=== PATIENT | male | born 1940 | race Caucasian/White ===

== ENCOUNTER 2016-10-07 11:50 | Inpatient (IN) | payer OTHER ==
[~2016-10-07] VITALS: Ht 182.9 cm; Wt 94.5 kg
[2016-10-07] VITALS (10 sets, daily range): BP systolic 104–157; BP diastolic 58–71; PULSE 17–93; RESP 14–19; TEMP 98.2–100.8; O2SAT 95–100
[~2016-10-07 11:50] MED LIST: ASPI81TA82 PO; DIOV160T60 PO; DIOV320T PO; GLUCTAB PO; METO50TA PO; ZOCO10TA PO
[2016-10-07] MEDS ORDERED: ASPI81CH CHEW (12:00)
[2016-10-07] MEDS ORDERED: METO50TA PO (12:00)
[2016-10-07] MEDS ORDERED: METF750T PO (12:00)
[2016-10-07] MEDS ORDERED: ZOCO10TA PO (12:00)
[2016-10-07 12:13] LABS: MEAN CORPUSCULAR HGB CONC 36.4 % (32.0-36.0)
[2016-10-07] MEDS ORDERED: CLINDAMYCIN INJ 600 MG in SODIUM CHLORIDE 0.9% INJ 100 ML IV ONE (12:15)
[2016-10-07 12:30] LABS: AUTOMATED NEUTROPHIL # 1.1 TH/MM3 (1.8-7.7); BASOPHIL % 0.4 % (0.0-2.0); EOSINOPHIL % 0.4 % (0.0-4.0); HEMATOCRIT 25.9 % (39.0-51.0); LYMPH % 18.1 % (9.0-44.0); LYMPHOCYTE # 0.3 TH/MM3 (1.0-4.8); MEAN CELL VOLUME 111.8 FL (80.0-100.0); MEAN CORPUSCULAR HEMOGLOBIN 40.7 PG (27.0-34.0); MONO % 4.4 % (0.0-8.0); NEUT % 76.7 % (16.0-70.0); RED BLOOD COUNT 2.32 MIL/MM3 (4.50-5.90); RED CELL DISTRIBUTION WIDTH 16.2 % (11.6-17.2); WHITE BLOOD COUNT 1.4 TH/MM3 (4.0-11.0)
[2016-10-07 12:45] LABS: HEMO FLAGS AUTO DIFF
[2016-10-07 12:49] LABS: PLATELET COUNT 18 TH/MM3 (150-450)
--- NOTE | 2016-10-07 12:51 | PD ---
HPI Chief Complaint: Skin Problem Time Seen by Provider: 12:02 Travel History International Travel<30 days: No Contact w/Intl Traveler<30days: No Traveled to known affect area: No History of Present Illness HPI This is a 75-year-old male who presents to the emergency department with the red painful area on his left leg which has been persistent and worsening the past week, constant, moderate severity with no associated fevers or chills. His family came into town 2 days ago and noticed his leg and they feel like its worsens just in the past 2 days. He is not taking anything for it. He thinks maybe he sustained an insect bite. He does have a history of diabetes. PFSH Past Medical History High Cholesterol: Yes Diabetes: Yes Patient Takes Glucophage: Yes Diminished Hearing: No Hypertension: Yes Tetanus Vaccination: Unknown Influenza Vaccination: Yes Social History Alcohol Use: Yes (7 GLASSES OF VODKA DAILY X 15 YEARS) Tobacco Use: No Substance Use: No Allergies-Medications (Allergen,Severity, Reaction): Coded Allergies: No Known Allergies (Unverified , 10/07/16) Reported Meds & Prescriptions Reported Meds & Active Scripts Active Reported Zocor (Simvastatin) 10 Mg Tab 10 Mg PO HS Metoprolol Tartrate 50 Mg Tab 50 Mg PO BID Metformin ER (Metformin HCl) 750 Mg Leonila 750 Mg PO BID With evening meal Aspirin 81 Mg Chew 81 Mg CHEW DAILY Review of Systems Except as stated in HPI: all other systems reviewed are Neg Physical Exam Narrative GENERAL:Well appearing, no acute distress SKIN: Large areas of petechiae on the left lower extremity, warm with some swelling. HEAD: Atraumatic. Normocephalic. EYES: Pupils equal and round. No injection or drainage. ENT: Moist mucous membranes NECK: Trachea midline. CARDIOVASCULAR: Regular rate and rhythm. No murmur appreciated. RESPIRATORY: Clear to auscultation. Breath sounds equal bilaterally. GASTROINTESTINAL: Abdomen soft, non-tender, nondistended. MUSCULOSKELETAL: No obvious deformities. NEUROLOGICAL: Awake and alert. No obvious cranial nerve deficits. Moving all extremities. PSYCHIATRIC: Appropriate mood and affect; insight and judgment normal. Data Data Last Documented VS Vital Signs Date Time Temp Pulse Resp B/P Pulse Ox O2 Delivery O2 Flow Rate FiO2 10/07/16 12:55 85 16 144/71 98 Room Air 10/07/16 11:52 98.2 Orders Complete Blood Count With Diff (10/07/16 12:11) Lactic Acid (10/07/16 12:11) Comprehensive Metabolic Panel (10/07/16 12:11) ^ Insert Iv (10/07/16 12:11) Clindamycin Inj (Cleocin Inj) (10/07/16 12:15) Prothrombin Time / Inr (Pt) (10/07/16 12:51) Act Partial Throm Time (Ptt) (10/07/16 12:51) Type And Screen (10/07/16 12:51) Direct Bilirubin (10/07/16 13:10) Direct David (10/07/16 13:10) Pathologist Smear Review (10/07/16 13:10) Us Abdomen Liver (10/07/16 ) Vitamin B12 (10/07/16 13:57) Folate, Serum (10/07/16 13:57) Sodium Chlor 0.9% 1000 Ml Inj (Ns 1000 M (10/07/16 14:00) Sodium Chlor 0.9% 1000 Ml Inj (Ns 1000 M (10/07/16 14:00) Admit Order (Ed Use Only) (10/07/16 14:00) D-Dimer (10/07/16 12:55) Fibrinogen (10/07/16 12:55) Ldh Serum (10/07/16 12:10) Labs Laboratory Tests Test 10/07/16 10/07/16 10/07/16 10/07/16 12:10 12:55 13:10 13:13 White Blood Count 1.4 TH/MM3 Red Blood Count 2.32 MIL/MM3 Hemoglobin 9.4 GM/DL Hematocrit 25.9 % Mean Corpuscular Volume 111.8 FL Mean Corpuscular Hemoglobin 40.7 PG Mean Corpuscular Hemoglobin 36.4 % Concent Red Cell Distribution Width 16.2 % Platelet Count 18 TH/MM3 Mean Platelet Volume 9.3 FL Neutrophils (%) (Auto) 76.7 % Lymphocytes (%) (Auto) 18.1 % Monocytes (%) (Auto) 4.4 % Eosinophils (%) (Auto) 0.4 % Basophils (%) (Auto) 0.4 % Neutrophils # (Auto) 1.1 TH/MM3 Lymphocytes # (Auto) 0.3 TH/MM3 Monocytes # (Auto) 0.1 TH/MM3 Eosinophils # (Auto) 0.0 TH/MM3 Basophils # (Auto) 0.0 TH/MM3 CBC Comment AUTO DIFF Differential Total Cells 100 Counted Neutrophils % (Manual) 36 % Band Neutrophils % 34 % Lymphocytes % 24 % Monocytes % 2 % Basophils % 1 % Neutrophils # (Manual) 1.0 TH/MM3 Metamyelocytes 3 % Differential Comment FINAL DIFF MANUAL Atypical Lymphocytes % Toxic Granulation 2+ Toxic Vacuolation PRESENT Platelet Estimate LOW Platelet Morphology Comment ENLARGED Tear Drop Cells 1+ Ovalocytes 1+ Keratocytes OCC Sodium Level 132 MEQ/L Potassium Level 3.4 MEQ/L Chloride Level 96 MEQ/L Carbon Dioxide Level 22.6 MEQ/L Anion Gap 13 MEQ/L Blood Urea Nitrogen 26 MG/DL Creatinine 1.51 MG/DL Estimat Glomerular Filtration 45 ML/MIN Rate Random Glucose 201 MG/DL Lactic Acid Level 5.1 mmol/L Calcium Level 8.1 MG/DL Total Bilirubin 3.5 MG/DL Direct Bilirubin 1.3 MG/DL Aspartate Amino Transf 30 U/L (AST/SGOT) Alanine Aminotransferase 15 U/L (ALT/SGPT) Alkaline Phosphatase 61 U/L Lactate Dehydrogenase 263 U/L Total Protein 7.3 GM/DL Albumin 2.8 GM/DL Prothrombin Time 13.5 SEC Prothromb Time International 1.2 RATIO Ratio Activated Partial 33.7 SEC Thromboplast Time Fibrinogen 445 mg/dL D-Dimer Quantitative (PE/DVT) 3.52 MG/L FEU Blood Type AB POSITIVE Antibody Screen NEGATIVE Blood Bank Comment Blood Smear Pathologist Review Direct Antiglobulin Test NEGATIVE (David) [facility] Medical Decision Making Medical Screen Exam Complete: Yes Emergency Medical Condition: Yes Interpretation(s) Afebrile, mild tachycardia, normotensive Pancytopenia with a platelet count of 18, MCV is 111 Mild hypokalemia Renal insufficiency Lactic acid is 5.1 Total bilirubin is 3.5 with a direct bilirubin of 1.3 Differential Diagnosis Cellulitis, sepsis, cirrhosis, myelodysplastic syndrome, ITP, TTP Narrative Course This is a 75-year-old male who presents to the emergency department with a rash involving his left lower extremity which is petechial in nature. He was placed on a monitor and an IV was established. He was given a dose of empiric clindamycin and IV hydration for possible cellulitis. Labs were obtained which demonstrate thrombocytopenia as well as pancytopenia and an elevated total bilirubin concerning for possible hemolysis. The patient does have a history of heavy alcohol use of this may be related to underlying cirrhosis. I spoke with Dr. Latham given concern for underlying hematologic abnormality as TTP is certainly on the differential for this patient with thrombocytopenia, renal insufficiency and reported altered mental status from his family. He said he will follow up on the peripheral smear and consult on the patient, and he requested abdominal ultrasound. Patient was admitted to the family medicine residents for further management. Physician Communication Physician Communication Discussed with Dr. Latham and Dr. reese Diagnosis Primary Impression: Thrombocytopenia Admitting Information Admitting Physician Requests: Admit Briseida Tavarez MD Oct 07, 2016 12:50
[2016-10-07 12:58] LABS: ALT (GPT) 15 U/L (12-78); ANION GAP 13 MEQ/L (5-15); AST (GOT) 30 U/L (15-37); BICARBONATE 22.6 MEQ/L (21.0-32.0); BLOOD UREA NITROGEN 26 MG/DL (7-18); CHLORIDE 96 MEQ/L (98-107); GLOMERULAR FILTRATION RATE 45 ML/MIN (>89); POTASSIUM 3.4 MEQ/L (3.5-5.1); SODIUM (NA) 132 MEQ/L (136-145)
[2016-10-07 13:00] LABS: ALKALINE PHOSPHATASE 61 U/L (45-117); TOTAL BILIRUBIN ADULT 3.5 MG/DL (0.2-1.0)
[2016-10-07 13:11] LABS: BANDS 34 % (0-6); BASOPHILS 1 % (0-2); METAMYELOCYTES 3 % (0-1); POLYS (SEG NEUTROPHILS) 36 % (16-70); WBC DIFF SAMPLE 100
[2016-10-07 13:13] LABS: TOXIC GRANULATION 2+ (NORMAL); TOXIC VACUOLATION PRESENT (NONE SEEN)
[2016-10-07 13:19] LABS: PLATELET ESTIMATE SMEAR LOW (NORMAL)
[2016-10-07 13:24] LABS: APTT (PATIENT) 33.7 SEC (24.3-30.1); INTERNATIONAL NORMALIZED RATIO 1.2 RATIO; PROTHROMBIN TIME - PATIENT 13.5 SEC (9.8-11.6)
[2016-10-07 13:37] LABS: PLATELET MORPHOLOGY ENLARGED (NORMAL)
[2016-10-07 13:43] LABS: OVALOCYTES 1+ (NORMAL)
[2016-10-07 13:45] LABS: KERATOCYTES OCC (NORMAL); SCAN/DIFF FINAL DIFF MANUAL; TEARDROP RBCS 1+ (NORMAL)
[2016-10-07] MEDS ORDERED: SODIUM CHLOR 0.9% 1000 ML INJ 1,000 ML IV SCH ×2 (14:00)
--- NOTE | 2016-10-07 14:43 | HHI.HP ---
HPI Service Family Medicine Primary Care Physician No Primary Care Physician Admission Diagnosis thrombocytopenia Diagnoses: International Travel<30 Days: No Contact w/Intl Traveler<30days: No Known Affected Area: No History of Present Illness Patient is a 75-year-old male with a past medical history of diabetes and hypertension that presents to the [facility] with a chief complaint of left leg skin infection, pain and swelling. The patient states that he started feeling fatigued 7 days ago and has not eaten anything except for 3 pieces of meat. He has been feeling very tired and has been sleeping all day and night's. He woke up on Saturday morning with pain in his left ankle that progressively got worse to the point that he was limping. The patient denies fever, chills, chest pain, shortness of breath, and headache. He also denies dysuria but has noted decreased urinary output. He lives alone and cooks for himself but he had friends come over from [place] this week who encouraged him to come into the ED today. 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 His PCP is in [place]. He had his flu shot within the last 6 months but does not remember if he had the pneumonia vaccine. (Elida Mcgee MD R1) Review of Systems Constitutional: COMPLAINS OF: Fatigue, Change in appetite, DENIES: Fever, Chills Eyes: DENIES: Blurred vision, Vision loss Ears, nose, mouth, throat: DENIES: Nasal discharge, Throat pain, Running Nose, Sinus Pain Respiratory: DENIES: Cough, Hemoptysis, Sputum production, Shortness of breath Cardiovascular: DENIES: Chest pain, Palpitations, Syncope Gastrointestinal: COMPLAINS OF: Diarrhea (little bit), DENIES: Abdominal pain , Nausea, Vomiting Genitourinary: DENIES: Dysuria Musculoskeletal: COMPLAINS OF: Joint pain (left ankle), DENIES: Back pain, Neck pain Integumentary: DENIES: Rash Neurologic: DENIES: Headache, Tremor Psychiatric: DENIES: Suicidal Ideation, Homicidal Ideation (Elida Mcgee MD R1 ) Past Family Social History Past Medical History HTN DM - on Metformin HLD Past Surgical History 2009 - Left knee surgery 2010 - knee surgery on Right Reported Medications Reported Meds & Active Scripts Active Reported Zocor (Simvastatin) 10 Mg Tab 10 Mg PO HS Metoprolol Tartrate 50 Mg Tab 50 Mg PO BID Metformin ER (Metformin HCl) 750 Mg Leonila 750 Mg PO BID With evening meal Aspirin 81 Mg Chew 81 Mg CHEW DAILY (Eko,Elida De La Cruz MD R1) Allergies: Coded Allergies: No Known Allergies (Unverified , 10/07/16) Active Ordered Medications Active Medications Acetaminophen (Tylenol) 650 mg Q4H PRN PO; Start 10/07/16 at 15:00 Clindamycin Phosphate 600 mg/ Sodium Chloride 104 ml @ 208 mls/hr ONCE ONCE IV Last administered on 10/07/16t 12:55; Admin Dose 208 MLS/HR; Start 10/07/16 at 12:15; Stop 10/07/16 at 12:44; Status DC Dextrose (D50w (Vial) Inj) 25 ml UNSCH PRN IV PUSH; Start 10/07/16 at 17:45 Flumazenil (Romazicon Inj) 0.2 mg Q1M PRN IV PUSH; Start 10/07/16 at 15:00 Folic Acid (Folate) 1 mg DAILY PO; Start 10/07/16 at 15:30; Stop 10/12/16 at 15: 29 Glucagon (Glucagon Inj) 1 mg UNSCH PRN OTHER; Start 10/07/16 at 17:45 Hydralazine HCl (Apresoline) 10 mg Q6H PRN PO; Start 10/07/16 at 15:30 Metoprolol Tartrate 50 mg 50 mg BID PO; Start 10/08/16 at 09:00 Miscellaneous Information SPECIFIC LAB TO BE DRAWN:VANCOMY... ONCE ONCE XX; Start 10/10/16 at 17:45; Stop 10/10/16 at 17:46 Morphine Sulfate (Morphine Inj) 2 mg Q3HR PRN IV PUSH; Start 10/07/16 at 15:15 Multivitamins/ Minerals Therapeutic 1 tab 1 tab DAILY PO; Start 10/07/16 at 15:30 ; Stop 10/12/16 at 15:29 Naloxone HCl (Narcan Inj) 0.4 mg UNSCH PRN IV; Start 10/07/16 at 15:00 Ondansetron HCl (Zofran Inj) 4 mg Q6H PRN IVP; Start 10/07/16 at 15:00 Oxycodone/ Acetaminophen (Percocet 5-325 Mg) 1 tab Q6H PRN PO; Start 10/07/16 at 15:15 Pharmacy Profile Note 0 ml @ 0 mls/hr UNSCH OTHER; Start 10/07/16 at 15:15 Piperacillin Sod/ Tazobactam Sod (Zosyn 3.375 Gm Premix) 50 ml @ 100 mls/hr Q6H IV; Start 10/07/16 at 21:00 Sodium Chloride 1,000 ml @ 999 mls/hr Q1H1M IV Last administered on 10/07/16 14 :25; Admin Dose 999 MLS/HR; Start 10/07/16 at 14:00; Stop 10/07/16 at 15:00; Status DC Sodium Chloride (NS 1000 ml Inj) 1,000 ml @ 150 mls/hr Q6H40M IV Last administered on 10/07/16 15:54; Admin Dose 150 MLS/HR; Start 10/07/16 at 14:57 Sodium Chloride (NS 1000 ml Inj) 1,000 ml @ 999 mls/hr Q1H1M IV Last administered on 10/07/16 14:25; Admin Dose 999 MLS/HR; Start 10/07/16 at 14:00; Stop 10/07/16 at 15:00; Status DC Thiamine HCl (Vitamin B1) 100 mg DAILY PO; Start 10/07/16 at 15:30 Vancomycin HCl/ Sodium Chloride (Vancomycin Inj/ NS 500 ml Inj) 515 ml @ 250 mls/hr Q24H IV; Start 10/07/16 at 18:00 Family History DM: None Heart disease: None Social History Alcohol - beer, vodka at night - an ounce of a half of vodka tonic Smoking - denies, quit 38 yrs ago - <1ppd x8 years Denies drug use including MJ (Eko,Elida U R1) Physical Exam Vital Signs Vital Signs Date Time Temp Pulse Resp B/P Pulse Ox O2 Delivery O2 Flow Rate FiO2 10/07/16 12:55 85 16 144/71 98 Room Air 10/07/16 12:05 16 10/07/16 12:04 87 19 157/70 98 10/07/16 11:52 98.2 93 17 139/65 97 Physical Exam GENERAL: This is a well-nourished, well-developed patient, in no apparent distress. SKIN: Large erythematous, tender area extending from left ankle to mid calf, second area of erythema with scattered non-blanching petechiae, swollen and tender LLE HEAD: Atraumatic. Normocephalic. No temporal or scalp tenderness. EYES: Pupils equal round and reactive. Extraocular motions intact. No scleral icterus. No injection or drainage. ENT: Nose without bleeding, purulent drainage or septal hematoma. Throat without erythema, tonsillar hypertrophy or exudate. Uvula midline. Airway patent. NECK: Trachea midline. No JVD or lymphadenopathy. Supple, nontender, no meningeal signs. CARDIOVASCULAR: Regular rate and rhythm without murmurs, gallops, or rubs. RESPIRATORY: Clear to auscultation. Breath sounds equal bilaterally. No wheezes , rales, or rhonchi. GASTROINTESTINAL: Abdomen soft, non-tender, nondistended. No hepato-splenomegaly , or palpable masses. No guarding. MUSCULOSKELETAL: Extremities without clubbing, cyanosis, or edema. No joint tenderness, effusion, or edema noted. NEUROLOGICAL: Awake and alert. Cranial nerves II through XII intact. Motor and sensory grossly within normal limits. Five out of 5 muscle strength in all muscle groups. Normal speech. Laboratory Laboratory Tests Test 10/07/16 10/07/16 10/07/16 10/07/16 12:10 12:55 13:10 13:13 White Blood Count 1.4 Red Blood Count 2.32 Hemoglobin 9.4 Hematocrit 25.9 Mean Corpuscular Volume 111.8 Mean Corpuscular Hemoglobin 40.7 Mean Corpuscular Hemoglobin 36.4 Concent Red Cell Distribution Width 16.2 Platelet Count 18 Mean Platelet Volume 9.3 Neutrophils (%) (Auto) 76.7 Lymphocytes (%) (Auto) 18.1 Monocytes (%) (Auto) 4.4 Eosinophils (%) (Auto) 0.4 Basophils (%) (Auto) 0.4 Neutrophils # (Auto) 1.1 Lymphocytes # (Auto) 0.3 Monocytes # (Auto) 0.1 Eosinophils # (Auto) 0.0 Basophils # (Auto) 0.0 CBC Comment AUTO DIFF Differential Total Cells 100 Counted Neutrophils % (Manual) 36 Band Neutrophils % 34 Lymphocytes % 24 Monocytes % 2 Basophils % 1 Neutrophils # (Manual) 1.0 Metamyelocytes 3 Differential Comment FINAL DIFF MANUAL Atypical Lymphocytes Toxic Granulation 2+ Toxic Vacuolation PRESENT Platelet Estimate LOW Platelet Morphology Comment ENLARGED Tear Drop Cells 1+ Ovalocytes 1+ Keratocytes OCC Sodium Level 132 Potassium Level 3.4 Chloride Level 96 Carbon Dioxide Level 22.6 Anion Gap 13 Blood Urea Nitrogen 26 Creatinine 1.51 Estimat Glomerular Filtration 45 Rate Random Glucose 201 Lactic Acid Level 5.1 Calcium Level 8.1 Total Bilirubin 3.5 Direct Bilirubin 1.3 Aspartate Amino Transf 30 (AST/SGOT) Alanine Aminotransferase 15 (ALT/SGPT) Alkaline Phosphatase 61 Lactate Dehydrogenase 263 Total Protein 7.3 Albumin 2.8 Prothrombin Time 13.5 Prothromb Time International 1.2 Ratio Activated Partial 33.7 Thromboplast Time Fibrinogen 445 D-Dimer Quantitative (PE/DVT) 3.52 Blood Type AB POSITIVE Antibody Screen NEGATIVE Blood Bank Comment Blood Smear Pathologist Review Direct Antiglobulin Test NEGATIVE (David) (Elida Mcgee MD R1) Result Diagram: 10/07/16 1210 10/07/16 1210 Course Patient received 2 NS boluses in the ED and Clindamycin 600 mg IV. CBC showed leukopenia of 1.4, platelets 18. lactate elevated at 5.1, LDH, total and direct bilirubin elevated. (Elida Mcgee MD R1) Septic Shock Reassessment Heart: Regular rate and rhythm Lungs: Clear Skin: Warm Capillary Refill: <2 seconds (Elida Mcgee MD R1) Assessment and Plan Assessment and Plan 75 y/o M with a PMH of DM and HTN admitted with severe sepsis from LLE extremity cellulitis. The patient will be admitted for treatment with empiric antibiotics and IV fluids. Code Status Full code Discussed Condition With Seen and examined with Dr. Houser. WDW Dr. Apple (Elida Mcgee MD R1) Attending Attestation The patient has been seen and examined. The chart and all resident notes have been reviewed. I agree that inpatient care is appropriate and that a two midnight stay is expected for the reasons documented in the resident history and physical. I have discussed this with the resident and certify the resident s order for inpatient admission. (Olga Apple MD) Problem List: (1) Severe sepsis Status: Acute Plan: -Patient meets severe sepsis criteria with tachycardia of 93 BPM and WBC of 1.4 with lactic acid of 5.1 -Physical exam consistent with nonpurulent cellulitis as there is no drainage or pus -WBC 1.4, neutrophil percent 76.7. Afebrile on admission, but possible that patient is not able to mount a febrile response due to low white blood cell count -BP WNL on admission -Vancomycin 1.5 g every 24 hours for gram positives and MRSA coverage. Pharmacy to assist with dosing -Zosyn 3.375 g IV every 6 hours for coverage of gram negatives and Pseudomonas -Normal saline at 150 mL/hr -Tylenol 650 mg Q6h PRN pain 1-10 of fever greater than 101F -Zofran 4mg IV Q6h PRN nausea/vomiting -Hydralazine 10mg PO QID prn SBP >= 180, DBP >= 100 -Blood cultures pending - patient already received one dose of clindamycin IV and vancomycin IV -Urinalysis and reflex culture is pending -Lactic acid protocol -Left lower extremity ultrasound within normal limits -Liver ultrasound ordered due to elevated direct and total bilirubin - shows hepatosplenomegaly with cirrhotic appearing liver and ascites, solid-appearing right renal mass with blood flow concerning for renal cell carcinoma Contact precautions Consider ID consult in the near future if pt. does not ct. to improve Elevate left lower extremity Expect cellulitis to worsen in the first 24 hrs after abx due to toxin release and bacterial lysis -Vital signs every 4 hours -OOB ad patricia -Monitor Is & Os (2) Cellulitis of leg without foot, left Status: Acute Plan: -Affected area marked with a pen -See plan above was severe sepsis (3) Pancytopenia Status: Acute Plan: -WBC 1.4, RBC 2.32, platelets 18 -Leukopenia may be due to sepsis -Hematology consulted - appreciate recommendations (4) VANESSA (acute kidney injury) Status: Resolved Plan: -Creatinine 1.51 -Baseline creatinine unknown -Suspect secondary to sepsis -Fluids as above, will monitor -Renal ultrasound ordered due to findings on liver ultrasound (5) Diabetes Status: Chronic Plan: -Holding home metformin -Will check A1c -Sliding scale insulin with Accu-Cheks (6) Hypertension Status: Acute Plan: -Continue home metoprolol 50 mg by mouth twice a day -Hold for blood pressure less than 100/60 (7) Alcohol abuse Status: Acute Plan: -Patient reports chronic history of drinking -CIWA protocol (8) FEN/DVT PPX/GI PPX Status: Acute Plan: Fluids: NS @ 150 mls/hr IV Electrolytes: Will monitor and replace as needed Nutrition: Diabetic diet DVT Prophylaxis: SCD on unaffected extremity, heparin and Lovenox contraindicated due to thrombocytopenia GI Prophylaxis: Protonix 40mg PO daily (Elida Mcgee MD R1) Physician Certification 2 Midnight Certification Type: Admission for Inpatient Services Order for Inpatient Services The services are ordered in accordance with Medicare regulations or non- Medicare payer requirements, as applicable. In the case of services not specified as inpatient-only, they are appropriately provided as inpatient services in accordance with the 2-midnight benchmark. Estimated LOS (days): 3 days is the estimated time the patient will need to remain in the hospital, assuming treatment plan goals are met and no additional complications. Post-Hospital Plan: Home (Elida Mcgee MD R1) Problem Qualifiers (1) Diabetes: Qualified Code: E11.8 - Type 2 diabetes mellitus with complication, unspecified termination clerk insulin use status Elida Mcgee MD R1 Oct 07, 2016 14:43 Olga Apple MD Oct 10, 2016 10:08
[2016-10-07] MEDS ORDERED: FLUMAZENIL 0.5 MG/5 ML VIAL IV PUSH PRN (15:00)
[2016-10-07] MEDS ORDERED: LORazepam 2 MG TAB PO PRN (15:00)
[2016-10-07] MEDS ORDERED: NALOXONE HCL 0.4 MG/ML AMP IV PRN (15:00)
[2016-10-07] MEDS ORDERED: ACETAMINOPHEN 325 MG TAB PO PRN (15:00)
[2016-10-07] MEDS ORDERED: LORazepam 1 MG TAB PO PRN (15:00)
[2016-10-07] MEDS: SODIUM CHLORIDE 0.9% FLUSH 5 ML FLUSH FLUSH SCH ×2 (15:00→20:46)
[2016-10-07] MEDS ORDERED: SODIUM CHLORIDE 0.9% FLUSH 5 ML FLUSH FLUSH PRN (15:00)
[2016-10-07] MEDS ORDERED: ONDANSETRON HCL 4 MG/2 ML VIAL IVP PRN (15:00)
[2016-10-07] MEDS ORDERED: LORazepam 2 MG/ML VIAL IV PUSH PRN ×4 (15:00)
[2016-10-07] MEDS ORDERED: MORPHINE SULFATE 4 MG/ML INJ IV PUSH PRN (15:15)
[2016-10-07] MEDS ORDERED: Vancomycin Consult Pharmacy 1 EA OTHER SCH (15:15)
[2016-10-07] MEDS ORDERED: hydrALAZINE HCL 10 MG TAB PO PRN (15:30)
[2016-10-07] MEDS: SODIUM CHLOR 0.9% 1000 ML INJ 1,000 ML IV SCH ×2 (15:54→19:22)
--- NOTE | 2016-10-07 16:06 | RADRPT ---
EXAM DATE/TIME: 10/07/2016 14:59 [facility] COMPARISON: No previous studies available for comparison. INDICATIONS : Cirrhosis. MEDICAL HISTORY : Hypercholesterolemia. Hypertension. Diabetic. SURGICAL HISTORY : None. ENCOUNTER: Initial ACUITY: 1 day PAIN SCORE: 0/10 LOCATION: Bilateral upper quadrant MEASUREMENTS: LIVER: 16.6 cm length COMMON DUCT: 7 mm RIGHT KIDNEY: 12.8 x 5.5 x 6.5 cm SPLEEN: 16.8 cm length FINDINGS: LIVER: Mildly nodular hepatic contour, course and echotexture, predominantly increased and ascites. Hepatofu gal flow in the main portal vein. COMMON DUCT: No intraluminal mass or stone visualized. GALLBLADDER: Contains no stones, demonstrates no wall thickening or pericholecystic fluid. PANCREAS: The visualized portions are within normal limits. RIGHT KIDNEY: 5.2 x 4.0 x 3.7 cm hypoechoic mass anterior right midpole kidney are suspected. There is blood flow s een on color Doppler imaging. SPLEEN: No focal lesion. CONCLUSION: 1. Hepatosplenomegaly with cirrhotic appearing liver and ascites. 2. Solid-appearing right renal mass suspected with blood flow concerning for renal cell carcinoma unt il proven otherwise. Jaylon Tracey MD on October 07, 2016 at 15:59 Board Certified Radiologist. This report was verified electronically.
--- NOTE | 2016-10-07 16:07 | RADRPT ---
EXAM DATE/TIME: 10/07/2016 14:59 [facility] COMPARISON: No previous studies available for comparison. INDICATIONS : Emboli. MEDICAL HISTORY : Hypercholesterolemia. Hypertension. Diabetic. SURGICAL HISTORY : None. ENCOUNTER: Initial ACUITY: 1 day PAIN SCORE: 0/10 LOCATION: Left leg. TECHNIQUE: Venous ultrasound of the leg was performed from the inguinal ligament to the proximal calf. Real-dilan e, color Doppler and spectral tracing, compression and augmentation techniques were used. FINDINGS: There is normal compressibility of the deep venous system from the inguinal region to the proximal ca lf. No echogenic clot is seen in the lumen of the common femoral, femoral, popliteal, and posterior tibial veins. There is a normal response of the venous system to proximal and distal augmentation an d respiration. CONCLUSION: Normal examination. Jaylon Tracey MD on October 07, 2016 at 16:06 Board Certified Radiologist. This report was verified electronically.
[2016-10-07] MEDS ORDERED: DEXTROSE 50% IN WATER 50 ML VIAL(D50) IV PUSH PRN (17:45)
[2016-10-07] MEDS ORDERED: GLUCAGON 1 MG/ML VIAL OTHER PRN (17:45)
[2016-10-07] MEDS ORDERED: VANCOMYCIN INJ 1,500 MG in SODIUM CHLORID 0.9% 500 ML INJ 500 ML IV SCH (18:00)
[2016-10-07 18:29] LABS: LACTIC ACID GHOST NOT REPORTABLE
[2016-10-07] MEDS: MULTIVITAMINS/MINERALS THERAPEUTIC TAB PO SCH (19:24)
[2016-10-07] MEDS: THIAMINE HCL 100 MG TAB PO SCH (19:24)
[2016-10-07] MEDS: FOLIC ACID 1 MG TAB PO SCH (19:24)
--- NOTE | 2016-10-07 20:00 | MB ---
cc: JOHANNA PAGAN MD DATE OF CONSULTATION: 10/07/2016. REASON FOR CONSULTATION: Pancytopenia in a patient presenting with fever and what appears to be cellulitis of the left lower extremity. REQUESTING PHYSICIAN: Consult requested by the Hospitalist Service. CHIEF COMPLAINT: A five-day history of severe pain and burning of the left ankle and left foot. The patient reports having decreased appetite over the past five days as well. He feels generally weak and fatigued. The patient was brought into the emergency department by his friends who were visiting and found him to look unwell. HISTORY OF PRESENT ILLNESS: Mr. Ortiz is a 75-year-old male. He is originally from [place], but now lives in [place]. He lives in a town called [place] in [place]. He spends his winter months in [place]. He sees a primary care physician in [place] by the name of Dr. Mac. The patient has no primary care physician here. Mr. Ortiz reports being in his usual good state of health up until about seven days ago. Following that, he began to feel weak, tired and woke up one morning with a severe pain of his left leg. He reports the area is very tender to the touch and felt "warm". He also noticed a red bruise/rash on the skin overlying his left distal leg as well as his left ankle. He had been feeling feverish. He lost his appetite and reports his urine had been dark yellow. He denies any overt bleeding; specifically, hematochezia, melena, hemoptysis, or easy bruising over other parts of his body. Earlier today he had friends visiting him, the friends noticed the patient to be in poor shape and they brought him into the emergency department. Upon presentation, the patient was noted to have a temperature of 100.8 degrees Fahrenheit. Blood work revealed pancytopenia with an absolute neutrophil count of 1000, hemoglobin 9.4 grams/dL, macrocytosis, platelet count of 18,000 as well. Laboratory findings revealed deranged metabolic profile with hyponatremia, low potassium, elevated creatinine, elevated lactic acid, elevated bilirubin but normal liver enzymes. His LDH was slightly elevated as well. PAST MEDICAL HISTORY: 1. Diabetes. 2. Hypertension. 3. Obesity. 4. He drinks about a quarter of a bottle of vodka daily. In the past, he drank more and tells me he has been drinking like this for over 45 years. PAST SURGICAL HISTORY: He reports having had partial knee replacement in both knees. He denies other surgical intervention. FAMILY HISTORY: The parents are both , the mother of complications of coronary artery disease, the father of complications of what he reports as anemia. SOCIAL HISTORY: The patient is a . He is originally from [facility]. He has lived in [place] for many years and travels down to the [facility] in the winter months. He has one natural child who lives in [place] with whom the patient has no contact. He reports formerly being a smoker and reports drinking vodka and tonic every day, more than six or seven shots a day. CURRENT INPATIENT MEDICATIONS: 1. Clindamycin 600 milligrams IV x1. 2. Zosyn 3.375 grams IV q. 6. 3. Normal saline 150 cc/hour. 4. Vancomycin 1500 milligrams q. 24. 5. Folic acid 1 milligram daily. 6. Hydralazine 10 milligrams p.o. q. 6 hours as needed for hypertension. 7. Lorazepam 1 milligram p.o. q. 4 hours. 8. Insulin sliding scale per protocol. 9. Metoprolol 50 milligrams p.o. twice a day. 10. Zofran 4 milligrams IV q. 6 hours. 11. Oxycodone 5 / 325 one tablet q. 6 hours as needed for pain. 12. Thiamine 100 milligrams p.o. daily. 13. He is also on a delirium tremens protocol. REVIEW OF SYSTEMS: A thirteen point review of systems was obtained and the following are the pertinent positives and negatives: CONSTITUTIONAL: Fatigue, weakness, decreased appetite, and feverish feeling. HEAD, EYES, EARS, NOSE, THROAT: Denies headaches, blurry vision, difficulty swallowing or soreness in the throat. RESPIRATORY: Denies difficulty breathing, cough, hemoptysis, pleuritic chest pain. CARDIOVASCULAR: Denies angina-like chest pain, paroxysmal nocturnal dyspnea, orthopnea. Reports left leg swelling. GASTROINTESTINAL: Denies abdominal bloating. Reports being jaundiced. Denies hematochezia, melena. UG: Reports his urine has been darker. Denies hematuria. CABLE INSPECTOR: Denies any focal sensory or motor deficits. SKIN: Reports itchiness and yellowness of the skin. PHYSICAL EXAMINATION: VITAL SIGNS: The vital signs reveal a temperature of 100.8 degrees Fahrenheit, heart rate 79 beats per minute, respiratory rate 18, blood pressure of 113/59, 02 saturations are 96% on room air. GENERAL PHYSICAL APPEARANCE: Mr. Ortiz is an elderly male, he is heavyset, he is sitting up in bed and appears to be in no acute distress. HEAD, EYES, EARS, NOSE, THROAT: Head is atraumatic and normocephalic. Conjunctivae are pale. The sclerae are icteric. Extraocular muscles intact. Pupils equal, round and reactive to light and accommodation. ORAL EXAM: The mucous membranes have an icteric tinge. Petechiae noted over the soft palate to the right. NECK EXAM: No palpable cervical or supraclavicular lymphadenopathy. RESPIRATORY EXAM: Good air movement bilaterally. No added breath sounds. CARDIOVASCULAR EXAM: Regular rate and rhythm. S1, S2. No obvious murmurs, rubs or gallops. ABDOMINAL EXAM: Protuberant / obese belly. Soft. Tender to palpation over the left upper quadrant. He has splenomegaly noted with the splenic tip palpable 2 cm below the left costal margin on inspiration. No inguinal lymphadenopathy. LOWER EXTREMITIES: Right lower extremity without any skin changes. Trace pretibial edema on the right side. Left lower extremity grossly abnormal. A bright red erythematic lesion involving the left distal leg circumferentially almost. The redness is exquisitely tender and warm to the touch. No skin breakdown noted. The edges of the redness have been demarcated with a marker. CABLE INSPECTOR: No focal sensory or motor deficits. SKIN: No stigmata of chronic liver failure but he does have an icteric hue. LABORATORY FINDINGS: Blood work dated 10/07/2016: Sodium 132, potassium 3.4, chloride 96, bicarbonate 22.6, BUN 26, creatinine 1.5, eGFR 45, random glucose 200, lactic acid 5.1, total bilirubin 3.5, calcium 8.1, albumin 3.8, AST 30, ALT 15, alkaline phosphatase 61, LDH 263. CBC: White blood cell count 1.4, hemoglobin 9.4 grams/dL, hematocrit 26%, MCV 112, platelet count 118,000, absolute neutrophil count 1.0, metamyelocytes are present, toxic granulation is present, toxic vacuolization is present, teardrop cells are present. Platelets are also enlarged. Coags: PT 13.5, INR 1.2, PTT 33.7. Fibrinogen 445. D dimer 3.52. IMAGING STUDIES: Ultrasound of the liver dated 10/07/2016 reveals mildly nodular hepatic contour, coarse echotexture predominantly increased and ascites noted. The spleen is enlarged at 16.8 cm. Findings consistent with hepatosplenomegaly with cirrhotic-appearing liver and ascites. Solid-appearing right renal mass suspected with blood flow concerning for renal cell carcinoma until proven otherwise. ASSESSMENT: Mr. Ortiz is a 75-year-old male who comes into the hospital with complaints of a five-day history of pain and swelling as well as redness of the left leg and ankle. Additional symptoms include a poor appetite, fatigue and weakness. He also feels febrile. Upon initial evaluation, the patient appeared to have cellulitis of the left lower extremity, this appears to be complicated by sepsis. Additional blood work and imaging studies performed in the hospital indicate: 1. Pancytopenia, imaging studies of the abdomen indicate cirrhosis with hepatosplenomegaly as well as a complicated mass involving the right kidney concerning for a renal cell carcinoma. RECOMMENDATIONS: 1. Pancytopenia: I did review this patient's peripheral smear. I do not find any suspicious findings for a high-grade malignant bone marrow disorder. I do find toxic granulation consistent with sepsis, he does have significant thrombocytopenia as well. 2. I suspect his hematologic findings at this point may be explained by baseline cytopenias due to splenomegaly superimposed with a consumptive coagulopathy with resultant platelet consumption. 3. The patient's elevated PT, PTT and INR indicate a peripheral consumption which in this case may be partially compensated. These findings are consistent with DIC. 4. The likely precipitating event of the current findings is the cellulitis of the left leg. He is appropriately covered with antibiotics. 5. I will, however, obtain a David test to rule out an autoimmune hemolysis. 6. I will also obtain imaging studies of the abdomen to further evaluate the renal mass in question. 8. Continue ongoing care. MD SHARLA Otero/STUART /7:17 PM /7:32 PM [facility]
--- NOTE | 2016-10-07 20:34 | RADRPT ---
EXAM DATE/TIME: 10/07/2016 20:03 [facility] COMPARISON: No previous studies available for comparison. INDICATIONS : Evaluate renal mass. ORAL CONTRAST: No oral contrast ingested. RADIATION DOSE: 12.09 CTDIvol (mGy) MEDICAL HISTORY : Hypertension. Diabetes. SURGICAL HISTORY : None. ENCOUNTER: Initial ACUITY: 1 day PAIN SCALE: 0/10 LOCATION: Bilateral abdomen. TECHNIQUE: Volumetric scanning of the abdomen and pelvis was performed. Using automated exposure control and ad justment of the mA and/or kV according to patient size, radiation dose was kept as low as reasonably achievable to obtain optimal diagnostic quality images. FINDINGS: On an earlier ultrasound of the abdomen-liver performed today, a hypoechoic mass was identified in the right midpole kidney. Unfortunately this examination is suboptimal for characterization of the potential renal mass as intravenous contrast was not administered. A cirrhotic appearing liver with recanalization of the umbilical vein is noted. Small varices in the gastrohepatic ligament identified , splenic varices, splenomegaly noted. The kid adrenal glands, pancreas and stomach are normal in marianne earance. There is some fullness to the right midpole kidney anterolaterally but it is very difficult to define a discrete mass given the lack of contrast. There is no hydronephrosis or nephrolithiasis. Bladder is unremarkable. Prostatic calcifications are seen. There is diverticulosis of the sigmoid an d descending colon. There is no diverticulitis. Aortic and iliac artery calcifications are seen. Dege nerative changes of the spine. Lung bases are clear. CONCLUSION: 1. Cirrhosis and portal hypertension. 2. The suspected right renal mass noted on recent ultrasound is not well evaluated on this study give n the lack of intravenous contrast. Jaylon Tracey MD on October 07, 2016 at 20:29 Board Certified Radiologist. This report was verified electronically.
[2016-10-07] MEDS: PIPERACIL-TAZO 3.375 GM PREMIX 50 ML IV SCH (20:47)
[2016-10-07] MEDS: INSULIN ASPART SUPPLEMENTAL SCALE SQ SCH (20:56)
[2016-10-07] MEDS ORDERED: VANCOMYCIN INJ 1,000 MG in SODIUM CHLOR 0.9% 250 ML INJ 250 ML IV SCH (21:00)
[2016-10-07] MEDS: oxyCODONE/ACETAMINOPHEN 5 MG/325 MG TAB PO PRN (21:49)
[2016-10-08] VITALS (13 sets, daily range): BP systolic 110–152; BP diastolic 56–80; PULSE 78–92; RESP 18–20; TEMP 96.1–99.7; O2SAT 94–97
[2016-10-08] MEDS: PIPERACIL-TAZO 3.375 GM PREMIX 50 ML IV SCH ×4 (03:12→21:20)
[2016-10-08] MEDS: SODIUM CHLOR 0.9% 1000 ML INJ 1,000 ML IV SCH ×4 (04:21→21:42)
[2016-10-08] MEDS: INSULIN ASPART SUPPLEMENTAL SCALE SQ SCH ×4 (05:59→21:40)
--- NOTE | 2016-10-08 07:32 | PD.ONC.PN ---
Subjective Subjective Remarks Patient seen and examined this morning, subjectively he reports feeling about the same as he did yesterday. He continues to have pain and swelling of the left leg. Per the nursing staff he has not urinated since 8 PM last night. Temperature maximum since admission has been 100.8F. There is no overt bleeding at this time. Labs were drawn this morning, they are pending at this time. Objective Data Date Time Temp Pulse Resp B/P Pulse Ox O2 Delivery O2 Flow Rate FiO2 10/08/16 04:00 98.8 89 18 116/60 97 10/07/16 23:50 98.8 89 18 122/58 97 10/07/16 19:07 99.6 10/07/16 16:30 100.8 79 18 113/59 96 10/07/16 16:00 99.9 80 14 104/61 98 Room Air 10/07/16 15:00 84 18 126/61 95 Room Air 10/07/16 14:00 82 16 130/61 95 Room Air 10/07/16 13:00 84 14 140/65 100 Room Air 10/07/16 12:55 85 16 144/71 98 Room Air 10/07/16 12:05 16 10/07/16 12:04 87 19 157/70 98 10/07/16 11:52 98.2 93 17 139/65 97 Result Diagram: 10/07/16 1210 10/07/16 1210 Laboratory Results Laboratory Tests Test 10/07/16 10/07/16 10/07/16 10/07/16 12:10 12:55 13:10 13:13 White Blood Count 1.4 TH/MM3 Red Blood Count 2.32 MIL/MM3 Hemoglobin 9.4 GM/DL Hematocrit 25.9 % Mean Corpuscular Volume 111.8 FL Mean Corpuscular Hemoglobin 40.7 PG Mean Corpuscular Hemoglobin 36.4 % Concent Red Cell Distribution Width 16.2 % Platelet Count 18 TH/MM3 Mean Platelet Volume 9.3 FL Neutrophils (%) (Auto) 76.7 % Lymphocytes (%) (Auto) 18.1 % Monocytes (%) (Auto) 4.4 % Eosinophils (%) (Auto) 0.4 % Basophils (%) (Auto) 0.4 % Neutrophils # (Auto) 1.1 TH/MM3 Lymphocytes # (Auto) 0.3 TH/MM3 Monocytes # (Auto) 0.1 TH/MM3 Eosinophils # (Auto) 0.0 TH/MM3 Basophils # (Auto) 0.0 TH/MM3 CBC Comment AUTO DIFF Differential Total Cells 100 Counted Neutrophils % (Manual) 36 % Band Neutrophils % 34 % Lymphocytes % 24 % Monocytes % 2 % Basophils % 1 % Neutrophils # (Manual) 1.0 TH/MM3 Metamyelocytes 3 % Differential Comment FINAL DIFF MANUAL Atypical Lymphocytes % Toxic Granulation 2+ Toxic Vacuolation PRESENT Platelet Estimate LOW Platelet Morphology Comment ENLARGED Tear Drop Cells 1+ Ovalocytes 1+ Keratocytes OCC Sodium Level 132 MEQ/L Potassium Level 3.4 MEQ/L Chloride Level 96 MEQ/L Carbon Dioxide Level 22.6 MEQ/L Anion Gap 13 MEQ/L Blood Urea Nitrogen 26 MG/DL Creatinine 1.51 MG/DL Estimat Glomerular Filtration 45 ML/MIN Rate Random Glucose 201 MG/DL Lactic Acid Level 5.1 mmol/L Calcium Level 8.1 MG/DL Total Bilirubin 3.5 MG/DL Direct Bilirubin 1.3 MG/DL Aspartate Amino Transf 30 U/L (AST/SGOT) Alanine Aminotransferase 15 U/L (ALT/SGPT) Alkaline Phosphatase 61 U/L Lactate Dehydrogenase 263 U/L Total Creatine Kinase 166 U/L Total Protein 7.3 GM/DL Albumin 2.8 GM/DL Vitamin B12 Level 259 PG/ML Folate 13.5 NG/ML Prothrombin Time 13.5 SEC Prothromb Time International 1.2 RATIO Ratio Activated Partial 33.7 SEC Thromboplast Time Fibrinogen 445 mg/dL D-Dimer Quantitative (PE/DVT) 3.52 MG/L FEU Blood Type AB POSITIVE Antibody Screen NEGATIVE Blood Bank Comment Blood Smear Pathologist Review Direct Antiglobulin Test NEGATIVE (David) Test 10/07/16 10/07/16 10/07/16 16:10 19:49 20:37 Lactic Acid Level 4.0 mmol/L 3.1 mmol/L Fibrinogen 396 mg/dL Blood Type AB POSITIVE Direct Antiglobulin Test NEGATIVE (David) Culture Results Microbiology Date/Time Procedure Status Source Growth 10/07/16 19:45 Aerobic Blood Culture Received Blood Peripheral Pending 10/07/16 19:45 Anaerobic Blood Culture Received Blood Peripheral Pending 10/07/16 19:52 Aerobic Blood Culture Received Blood Peripheral Pending 10/07/16 19:52 Anaerobic Blood Culture Received Blood Peripheral Pending Administered Medications Medications (Trade) Dose Ordered Sig/Emily Route PRN Reason Start Time Stop Time Status Last Admin Dose Admin Sodium Chloride (NS 1000 ml Inj) 1,000 ml @ 150 mls/hr Q6H40M IV 10/07/16 14:57 10/08/16 04:21 IV Flush 2 ml 2 ml BID FLUSH 10/07/16 15:00 10/07/16 20:46 Piperacillin Sod/ Tazobactam Sod (Zosyn 3.375 Gm Premix) 50 ml @ 100 mls/hr Q6H IV 10/07/16 21:00 10/08/16 03:12 Oxycodone/ Acetaminophen (Percocet 5-325 Mg) 1 tab Q6H PRN PO PAIN GREATER THAN 5 10/07/16 15:15 10/07/16 21:49 Folic Acid (Folate) 1 mg DAILY PO 10/07/16 15:30 10/12/16 15:29 10/07/16 19:24 Thiamine HCl (Vitamin B1) 100 mg DAILY PO 10/07/16 15:30 10/07/16 19:24 Multivitamins/ Minerals Therapeutic 1 tab 1 tab DAILY PO 10/07/16 15:30 10/12/16 15:29 10/07/16 19:24 Vancomycin HCl/ Sodium Chloride (Vancomycin Inj/ NS 500 ml Inj) 515 ml @ 250 mls/hr Q24H IV 10/07/16 18:00 10/07/16 19:19 Objective Remarks GENERAL PHYSICAL APPEARANCE: Mr. Ortiz is an elderly male, he is heavyset, he is sitting up in bed and appears to be in no acute distress. HEAD, EYES, EARS, NOSE, THROAT: Head is atraumatic and normocephalic. Conjunctivae are pale. The sclerae are icteric. Extraocular muscles intact. Pupils equal, round and reactive to light and accommodation. ORAL EXAM: The mucous membranes have an icteric tinge. Petechiae noted over the soft palate to the right. NECK EXAM: No palpable cervical or supraclavicular lymphadenopathy. RESPIRATORY EXAM: Good air movement bilaterally. No added breath sounds. CARDIOVASCULAR EXAM: Regular rate and rhythm. S1, S2. No obvious murmurs, rubs or gallops. ABDOMINAL EXAM: Protuberant / obese belly. Soft. Tender to palpation over the left upper quadrant. He has splenomegaly noted with the splenic tip palpable 2 cm below the left costal margin on inspiration. No inguinal lymphadenopathy. LOWER EXTREMITIES: Right lower extremity without any skin changes. Trace pretibial edema on the right side. Left lower extremity grossly abnormal. A bright red erythematic lesion involving the left distal leg circumferentially almost. The redness is exquisitely tender and warm to the touch. No skin breakdown noted. The edges of the redness have been demarcated with a marker. REMELT WORKER: No focal sensory or motor deficits. SKIN: No stigmata of chronic liver failure but he does have an icteric hue. Assessment/Plan Assessment Mr. Ortiz is a 75-year-old male who presented to the hospital with complaints of a five-day history of pain and swelling as well as redness of the left leg and ankle on 10/07/16. Additional symptoms include a poor appetite, fatigue and weakness. He also feels febrile. Upon initial evaluation, the patient appeared to have cellulitis of the left lower extremity, this appears to be complicated by sepsis. He was found to be pancytopenic, has imaging findings consistent with cirrhosis with resultant splenomegaly due to portal hypertension (personal history of heavy alcohol consumption). 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 The patient is neutropenic and thrombocytopenic. Peripheral smear indicates toxic granulation and left shift of the neutrophils, platelets are depleted. I suspect some of the cytopenias are chronic in nature due to the degree of splenomegaly he has (due to splenic sequestration of leukocytes and platelets). He has been initiated on broad-spectrum antibiotics for management of cellulitis. Plan 1. Pancytopenia: Await labs from this morning. I would anticipate some improvement in his platelet counts as the sepsis and resultant consumptive coagulopathy decreases. 2. Right renal mass: Based on ultrasound findings this is consistent with renal cell carcinoma, the lesion was incompletely evaluated on the CT scan performed on 10/07/2016 due to lack of contrast. Because this is a non-acute issue this may be addressed adequately upon his return to [facility]. 3. Cellulitis of the left leg: Continue antibiotics, on clinical exam there appears to be no significant worsening of the redness, there is also no improvement per se. It would be helpful to obtain baseline labs from his primary care physician in [place]. Nam Latham MD Oct 08, 2016 07:32
[2016-10-08 07:52] LABS: HEMATOCRIT 21.1 % (39.0-51.0); MEAN CELL VOLUME 114.5 FL (80.0-100.0); MEAN CORPUSCULAR HEMOGLOBIN 40.6 PG (27.0-34.0); MEAN CORPUSCULAR HGB CONC 35.5 % (32.0-36.0); RED BLOOD COUNT 1.84 MIL/MM3 (4.50-5.90); RED CELL DISTRIBUTION WIDTH 16.7 % (11.6-17.2); WHITE BLOOD COUNT 0.8 TH/MM3 (4.0-11.0)
[2016-10-08 07:54] LABS: HEMO FLAGS AUTO DIFF
[2016-10-08 07:56] LABS: PLATELET COUNT 7 TH/MM3 (150-450)
[2016-10-08 07:59] LABS: INTERNATIONAL NORMALIZED RATIO 1.2 RATIO; PROTHROMBIN TIME - PATIENT 13.4 SEC (9.8-11.6)
[2016-10-08] MEDS: SODIUM CHLORIDE 0.9% FLUSH 5 ML FLUSH FLUSH SCH ×2 (08:04→21:20)
[2016-10-08] MEDS: MULTIVITAMINS/MINERALS THERAPEUTIC TAB PO SCH (08:05)
[2016-10-08] MEDS: FOLIC ACID 1 MG TAB PO SCH (08:05)
[2016-10-08] MEDS: THIAMINE HCL 100 MG TAB PO SCH (08:05)
[2016-10-08] MEDS: METOPROLOL TARTRATE 50 MG TAB PO SCH ×2 (08:08→21:20)
[2016-10-08 08:19] LABS: ANION GAP 14 MEQ/L (5-15); AST (GOT) 27 U/L (15-37); BLOOD UREA NITROGEN 29 MG/DL (7-18); CHLORIDE 103 MEQ/L (98-107); LDH SERUM 230 U/L (87-241); POTASSIUM 3.1 MEQ/L (3.5-5.1); SODIUM (NA) 139 MEQ/L (136-145)
[2016-10-08 08:27] LABS: ALKALINE PHOSPHATASE 51 U/L (45-117); ALT (GPT) 14 U/L (12-78); GLOMERULAR FILTRATION RATE 61 ML/MIN (>89); HDL CHOLESTEROL 20.8 MG/DL (40.0-60.0); TOTAL BILIRUBIN ADULT 2.8 MG/DL (0.2-1.0)
[2016-10-08] MEDS ORDERED: ACETAMINOPHEN 325 MG TAB PO PRN ×3 (08:30→18:00)
[2016-10-08] MEDS ORDERED: diphenhydrAMINE HCL 25 MG CAP PO PRN ×3 (08:30→18:00)
[2016-10-08] MEDS ORDERED: SODIUM CHLOR 0.9% 250 ML INJ 250 ML IV ONE ×2 (08:30)
[2016-10-08 08:35] LABS: LDL CHOLESTEROL 15 MG/DL (0-99)
--- NOTE | 2016-10-08 08:40 | HHI.FPPN ---
Subjective Subjective Patient seen and examined. Case reviewed and discussed with the resident team. Please refer to resident H&P for further details regarding HPI, ROS, PMH, SurgHx , Fh and SocHx In summary, patient is a 75yoM who is from [place] presenting with progressive weakness and LE pain x 1 week. Initial laboratory studies found the patient to be profoundly pancytopenic with platelets at 18. Hematology was consulted and appreciate recommendations. Patient is seen in his hospital bed this morning stating he is feeling slightly improved from the time of admission. [facility] Objective Objective Laboratory Tests - Abnormals Test 10/07/16 10/07/16 10/07/16 10/07/16 12:10 12:55 16:10 19:49 White Blood Count 1.4 TH/MM3 Red Blood Count 2.32 MIL/MM3 Hemoglobin 9.4 GM/DL Hematocrit 25.9 % Mean Corpuscular Volume 111.8 FL Mean Corpuscular Hemoglobin 40.7 PG Mean Corpuscular Hemoglobin 36.4 % Concent Platelet Count 18 TH/MM3 Neutrophils (%) (Auto) 76.7 % Neutrophils # (Auto) 1.1 TH/MM3 Lymphocytes # (Auto) 0.3 TH/MM3 Band Neutrophils % 34 % Neutrophils # (Manual) 1.0 TH/MM3 Metamyelocytes 3 % Toxic Granulation 2+ Toxic Vacuolation PRESENT Platelet Estimate LOW Platelet Morphology Comment ENLARGED Tear Drop Cells 1+ Ovalocytes 1+ Sodium Level 132 MEQ/L Potassium Level 3.4 MEQ/L Chloride Level 96 MEQ/L Blood Urea Nitrogen 26 MG/DL Creatinine 1.51 MG/DL Estimat Glomerular Filtration 45 ML/MIN Rate Random Glucose 201 MG/DL Lactic Acid Level 5.1 mmol/L 4.0 mmol/L 3.1 mmol/L Calcium Level 8.1 MG/DL Total Bilirubin 3.5 MG/DL Direct Bilirubin 1.3 MG/DL Lactate Dehydrogenase 263 U/L Albumin 2.8 GM/DL Prothrombin Time 13.5 SEC Activated Partial 33.7 SEC Thromboplast Time Fibrinogen 445 mg/dL D-Dimer Quantitative (PE/DVT) 3.52 MG/L FEU Test 10/07/16 10/08/16 20:37 06:12 Fibrinogen 396 mg/dL White Blood Count 0.8 TH/MM3 Red Blood Count 1.84 MIL/MM3 Hemoglobin 7.5 GM/DL Hematocrit 21.1 % Mean Corpuscular Volume 114.5 FL Mean Corpuscular Hemoglobin 40.6 PG Platelet Count 7 TH/MM3 Erythrocyte Sedimentation Rate GREATER THAN 140 mm/hr Prothrombin Time 13.4 SEC Potassium Level 3.1 MEQ/L Blood Urea Nitrogen 29 MG/DL Estimat Glomerular Filtration 61 ML/MIN Rate Random Glucose 124 MG/DL Calcium Level 7.6 MG/DL Total Bilirubin 2.8 MG/DL Albumin 2.4 GM/DL Cholesterol Level LESS THAN 50 MG/DL HDL Cholesterol 20.8 MG/DL Vital Signs 10/07/16 10/07/16 10/07/16 10/07/16 11:52 12:04 12:05 12:55 Temp 98.2 Pulse 93 87 85 Resp 16 B/P 139/65 157/70 144/71 Pulse Ox 97 98 98 O2 Delivery Room Air 10/07/16 10/07/16 10/07/16 10/07/16 13:00 14:00 15:00 16:00 Temp 99.9 Pulse 84 82 84 80 Resp 14 B/P 140/65 130/61 126/61 104/61 Pulse Ox 100 95 95 98 O2 Delivery Room Air Room Air Room Air Room Air 10/07/16 10/07/16 10/07/16 10/08/16 16:30 19:07 23:50 04:00 Temp 100.8 99.6 98.8 98.8 Pulse 79 89 89 Resp 18 B/P 113/59 122/58 116/60 Pulse Ox 96 97 97 INTAKE & OUTPUT 10/08/16 07:00 Intake Total 2305 ml Balance 2305 ml Physical exam GENERAL: Well-developed well-nourished male resting in bed comfortably SKIN: Warm and dry. Lower extremity with erythema and petechiae circumferentially near the ankle proximally to the mid calf. HEAD: Normocephalic. Atraumatic EYES: No scleral icterus. No injection or drainage. ENT: OP clear. NECK: Supple, trachea midline. No JVD or lymphadenopathy. CARDIOVASCULAR: Regular rate and rhythm without audible murmurs, gallops, or rubs. RESPIRATORY: Breath sounds diminished at bilateral bases. No accessory muscle use. GASTROINTESTINAL: Abdomen soft, protuberant. Hepatic and splenic edges are palpable below the costal margin 1-2 cm. There is no rebound. No tenderness MUSCULOSKELETAL: No cyanosis there is 1+ edema of the left foot distal to the area of erythema described above BACK: Nontender without obvious deformity. No CVA tenderness. Neuro: Awake and alert. Normal speech. Cranial nerves grossly intact. Assessment Assessment 75-year-old male admitted with: Pancytopenia Severe Sepsis related to cellulitis Lactic acidosis Diabetes Hypertension Hyperlipidemia Renal mass PLAN PLAN Empiric antibiotic therapy Hematology consultation Infectious disease consultation Blood cultures Urine with culture if indicated Monitor CBC Neutropenic and bleeding precautions Resume home meds as appropriate Counseled regarding alcohol cessation CT abdomen/pelvis/chest to further evaluate renal mass Patient seen and examined. Case reviewed and discussed Agree with plan of care as discussed with me and documented in the resident note. Olga Apple MD Oct 08, 2016 08:40
[2016-10-08 08:49] LABS: BANDS 20 % (0-6); NEUTROPHIL # MANUAL DIFF 0.6 TH/MM3 (1.8-7.7); PLATELET ESTIMATE SMEAR RARE (NORMAL); PLATELET MORPHOLOGY NORMAL (NORMAL); POLYS (SEG NEUTROPHILS) 54 % (16-70); SCAN/DIFF FINAL DIFF MANUAL; WBC DIFF SAMPLE 50
[2016-10-08 08:50] LABS: OVALOCYTES 1+ (NORMAL); TEARDROP RBCS 1+ (NORMAL); TOXIC GRANULATION 1+ (NORMAL); TOXIC VACUOLATION PRESENT (NONE SEEN)
[2016-10-08 08:51] LABS: KERATOCYTES OCC (NORMAL)
[2016-10-08 09:06] LABS: HEMOGLOBIN A1a 1.8 %; HEMOGLOBIN A1b 0.7 %; HEMOGLOBIN Ao 82.8 %; HEMOGLOBIN F 2.9 %; HEMOGLOBIN LA1C 1.9 %; HEMOGLOBIN P3 3.5 %
--- NOTE | 2016-10-08 09:55 | RADRPT ---
EXAM DATE/TIME: 10/08/2016 09:02 [facility] COMPARISON: CT ABDOMEN & PELVIS W/O CONTRAST, October 07, 2016, 20:03. INDICATIONS : Short of breath. MEDICAL HISTORY : Hypertension. Diabetes mellitus type II. Cirrhosis SURGICAL HISTORY : None. ENCOUNTER: Initial ACUITY: 1 day PAIN SCORE: 0/10 LOCATION: Bilateral chest FINDINGS: Portable AP view of the chest demonstrates a normal-sized cardiac silhouette with calcification of th e aorta. No effusion, consolidation, or pneumothorax is visualized. Bones and soft tissues demonstrat e no acute finding. CONCLUSION: No acute cardiopulmonary abnormality is identified. Alhaji Shelton MD on October 08, 2016 at 9:51 Board Certified Radiologist. This report was verified electronically.
[2016-10-08] MEDS: predniSONE 20 MG TAB PO SCH (10:17)
[2016-10-08] MEDS: VANCOMYCIN INJ 1,500 MG in SODIUM CHLORID 0.9% 500 ML INJ 500 ML IV SCH (13:29)
[2016-10-08 15:09] LABS: MAGNESIUM 1.8 MG/DL (1.5-2.5)
--- NOTE | 2016-10-08 15:37 | MB ---
cc: ESTRELLA CHILD MD, JENNIFER R. MD DATE OF CONSULTATION: 10/08/[address] Desir REASON FOR CONSULTATION Sepsis in the setting of leukopenia and thrombocytopenia. HISTORY OF PRESENT ILLNESS This is a 73-year-old white male who is visiting the [place] from [place]. The patient developed swelling and pain and redness of his left leg which continued for about a week and he was brought into the hospital for evaluation. Upon evaluation the patient was found to have normal vital signs, however, his white blood cell count was 1.4 and the platelet count was 18. He also was noted to have a very high lactic acid level of 5.1. He was admitted to the hospital and started on IV antibiotics. He continues to have pronounced area of redness on the left tibia and continues to be thrombocytopenic and the white blood cell count is extremely low. Studies were performed including ultrasound of the liver which showed hepatosplenomegaly with cirrhotic-appearing liver and ascites. There was also a solid-appearing right renal mass. The patient denies chills or nausea or vomiting. He states that his appetite was very poor but it is improving. He had a maximum temperature of 100.8 degrees on 10/07/2016. His temperature is now normal. His white count today is 0.8 and the platelet count is 7,000. PAST MEDICAL HISTORY 1. Diabetes mellitus. 2. Hypertension. 3. Hyperlipidemia. 4. Left knee surgery in 2008. 5. Right knee surgery in 2009. ALLERGIES No known drug allergies. MEDICATIONS 1. Vancomycin. 2. Piperacillin/tazobactam. 3. Lopressor. 4. Prednisone. 5. Folic acid. 6. Thiamine. 7. Multiple vitamin. 8. Percocet 5, p.r.n. SOCIAL HISTORY The patient drinks vodka every day. No tobacco use. No illicit drugs. REVIEW OF SYSTEMS CONSTITUTIONAL: Significant for fatigue. HEAD, EYES, EARS, NOSE, AND THROAT: No visual blurring or diplopia. No difficulty swallowing or soreness of the throat. No nose bleeding or nasal discharge. No swelling of the face. RESPIRATORY: No cough or shortness of breath. CARDIOVASCULAR: No palpitations or chest pain. GASTROINTESTINAL: No nausea, vomiting, abdominal pain or diarrhea. GENITOURINARY: No urgency, frequency or dysuria. INTEGUMENTARY: No skin rash or itching. Pain in the left lower extremity. ENDOCRINE: No polyuria or polydipsia. HEMATOPOIETIC: No easy bruising or bleeding. MUSCULOSKELETAL: Pain in the ankles. No back pain. NEUROLOGIC: No difficulty with coordination. PSYCHIATRIC: No problems with abnormal affect. PHYSICAL EXAMINATION GENERAL: This is a well-developed male who is in no acute distress. He is awake and alert and oriented. VITAL SIGNS: Temperature 98.9, BP 124/58, respirations 18, heart rate 80. HEENT: The head is atraumatic. The patient has alopecia and the skin on the vertex of the head has a variegated discoloration. Extraocular movements grossly intact. Pupils reactive to light. No icterus. Oropharynx moist mucosa without thrush. No lesions. NECK: Supple without adenopathy or swelling. HEART: Regular rate and rhythm without murmurs, rubs or gallops. ABDOMEN: Bowel sounds present. Obese, soft, no significant tenderness. Hepatomegaly. RECTAL: Not performed. EXTREMITIES: The right leg has no clubbing, cyanosis or edema. The left leg has a confined area of erythema at the distal tibia, particularly on the posterior aspect with a bright purplish skin discoloration and increased warmth. There is an area where there is normal colored skin tissue and above that there is another patch of erythema below the knee which is outlined by a marker. The area of the erythema is extremely tender on palpation. There are no breaks in the skin. There are also a few tiny circular areas with erythema and also scattered purplish discolored lesions at the left tibia. The left leg has approximately 1-2+ edema. NEUROLOGIC: Nonfocal. SKIN: No diffuse rash. LABORATORY DATA WBC 0.8, platelet count 7000, hemoglobin 7.5, 50% neutrophils, 20% bands, 24% monocytes. Creatinine 1.17, BUN 29, sodium 139, AST 27, ALT 14, alk phos 51. IMPRESSION 1. Cellulitis of the left leg. 2. Pancytopenia, which may be related to sepsis. 3. Cirrhosis of the liver. RECOMMENDATIONS 1. Continue vancomycin 2. Continue piperacillin/tazobactam. 3. Elevate the left leg. 4. Monitor the results of the repeat CT scan which has been ordered. 5. Monitor blood cultures. 6. Monitor clinical response to antibiotic treatment. 7. Further investigation of the pancytopenia is in progress. It is possible also that the left leg skin lesion changes could be related to overall illness of which the pancytopenia may be a component. Thank you for this consultation. The patient's progress will be monitored and further recommendations will be given on follow-up if indicated. Estrella Child MD FD/DEMAR /2:32 PM /3:19 PM [email or web address]
[2016-10-08] MEDS ORDERED: IODIXANOL 320 MG/ML 10 ML VIAL (for Rad CT) IV ONE (16:31)
--- NOTE | 2016-10-08 17:03 | RADRPT ---
EXAM DATE/TIME: 10/08/2016 16:22 [facility] COMPARISON: No previous studies available for comparison. INDICATIONS : Persistent abdominal pain. Evaluate for metastatic disease. IV CONTRAST: 100 cc Visipaque (iodixanol) IV ORAL CONTRAST: No oral contrast ingested. RADIATION DOSE: 18.69 CTDIvol (mGy) ; Combined studies - Thorax/Abdomen/Pelvis MEDICAL HISTORY : Hypertension. Diabetes mellitus type 1. SURGICAL HISTORY : Cholecystectomy. ENCOUNTER: Subsequent ACUITY: 2 days PAIN SCALE: 5/10 LOCATION: Bilateral lower quadrant TECHNIQUE: Volumetric scanning of the abdomen and pelvis was performed. Using automated exposure control and ad justment of the mA and/or kV according to patient size, radiation dose was kept as low as reasonably achievable to obtain optimal diagnostic quality images. FINDINGS: LOWER LUNGS: Please refer to chest CT report for description of the supradiaphragmatic findings. LIVER: The liver demonstrates an abnormal nodular contour diagnostic of cirrhosis. No focal liver lesion is identified. Portal vein demonstrates no abnormality. There is a recannulized paraumbilical vein. Gall bladder is decompressed with likely wall edema. No calcified stones are visualized. SPLEEN: Enlarged measuring 18.3 cm in length. No focal lesion. PANCREAS: Within normal limits. KIDNEYS: Normal in size and shape. There is no mass, stone or hydronephrosis. ADRENAL GLANDS: Within normal limits. VASCULAR: There is no aortic aneurysm. There is severe atherosclerotic disease. Small paraesophageal varices ar e visualized and there is a large splenorenal shunt. BOWEL/MESENTERY: The stomach, small bowel, and colon demonstrate no acute abnormality. There is no free intraperitone al air. There is a small volume of perihepatic free fluid. Sigmoid diverticulosis is present. ABDOMINAL WALL: Within normal limits. RETROPERITONEUM: There is no lymphadenopathy. There is mild presacral edema likely related to portal hypertension. BLADDER: There is a lobulated soft tissue density mass along the right posterior lateral bladder wall near the ureterovesical junction. It measures approximately 1.8 x 0.9 cm. REPRODUCTIVE: Within normal limits. INGUINAL: There is no lymphadenopathy or hernia. MUSCULOSKELETAL: There are degenerative changes of the lumbar spine with partial fusion of the sacroiliac joints. No l ytic or blastic lesion is seen. CONCLUSION: 1. There are no findings to indicate metastatic disease, as questioned. 2. The liver demonstrates features diagnostic of cirrhosis. No focal liver lesion is identified. Ther e are findings indicative of portal hypertension including a small volume of ascites, splenomegaly, a nd collateral vessels. 3. Possible bladder mass along the right posterior lateral bladder wall measuring 18 x 9 mm. It is ne ar the ureterovesical junction but is not obstructing the right ureter. This could represent transiti onal cell carcinoma. 4. Non acute findings include severe atherosclerotic disease and sigmoid diverticulosis. Alhaji Shelton MD on October 08, 2016 at 16:55 Board Certified Radiologist. This report was verified electronically.
--- NOTE | 2016-10-08 17:07 | RADRPT ---
EXAM DATE/TIME: 10/08/2016 16:22 [facility] COMPARISON: CT ABDOMEN & PELVIS W CONTRAST, October 08, 2016, 16:22. INDICATIONS : Eval for mass/metastatic disease. IV CONTRAST: 100 cc Visipaque (iodixanol) IV RADIATION DOSE: 18.69 CTDIvol (mGy) ; Combined studies - Thorax/Abdomen/Pelvis MEDICAL HISTORY : Hypertension. Diabetes mellitus type 2. SURGICAL HISTORY : Cholecystectomy. ENCOUNTER: Subsequent ACUITY: 2 days PAIN SCALE: 5/10 LOCATION: Bilateral lower quadrant TECHNIQUE: Volumetric scanning of the chest was performed. Using automated exposure control and adjustment of t he mA and/or kV according to patient size, radiation dose was kept as low as reasonably achievable to obtain optimal diagnostic quality images. FINDINGS: LUNGS: There is no consolidation or pneumothorax. In the right lower lobe there is a 5 mm noncalcified pulmo nary nodule. PLEURA: No pleural effusion is present. There are small calcified pleural plaques identified bilaterally. MEDIASTINUM: The heart and great vessels demonstrate no acute abnormality. There is severe coronary artery calcif ication and atherosclerotic disease of the aorta There is no mediastinal or hilar lymphadenopathy. AXILLAE: Within normal limits. No lymphadenopathy. SKELETAL: There are degenerative changes throughout the thoracic spine. MISCELLANEOUS: Please refer to abdomen and pelvis CT report for description of the subdiaphragmatic findings. CONCLUSION: 1. No acute finding is identified within the chest. 2. There is a 5 mm noncalcified pulmonary nodule in the right lower lobe. This should be correlated w ith any prior imaging studies. If none are available suggest six-month followup noncontrast chest CT to confirm stability. 3. There are bilateral calcified pleural plaques suggestive of prior asbestos exposure. 4. Severe coronary artery calcification and atherosclerotic disease. Alhaji Shelton MD on October 08, 2016 at 17:02 Board Certified Radiologist. This report was verified electronically.
[2016-10-08] MEDS ORDERED: POTASSIUM CHLORIDE 10 MEQ CONTROLLED RELEASE TAB PO ONE (17:15)
[2016-10-08] MEDS ORDERED: FUROSEMIDE 20 MG/2 ML VIAL IV PUSH ONE (19:15)
[2016-10-08 21:03] LABS: MEAN CORPUSCULAR HGB CONC 36.5 % (32.0-36.0)
[2016-10-09] MEDS ORDERED: ZOLPIDEM TARTRATE 5 MG TAB PO ONE ×3 (00:15→01:10)
[2016-10-09 02:42] LABS: BASOPHIL % 0.5 % (0.0-2.0); EOSINOPHIL % 0.2 % (0.0-4.0); HEMATOCRIT 23.9 % (39.0-51.0); LYMPH % 26.2 % (9.0-44.0); LYMPHOCYTE # 0.2 TH/MM3 (1.0-4.8); MEAN CELL VOLUME 109.1 FL (80.0-100.0); MEAN CORPUSCULAR HEMOGLOBIN 39.8 PG (27.0-34.0); MONO % 4.5 % (0.0-8.0); NEUT % 68.6 % (16.0-70.0); PLATELET COUNT 24 TH/MM3 (150-450); RED BLOOD COUNT 2.19 MIL/MM3 (4.50-5.90); RED CELL DISTRIBUTION WIDTH 17.8 % (11.6-17.2); WHITE BLOOD COUNT 0.7 TH/MM3 (4.0-11.0)
[2016-10-09 02:54] LABS: HEMO FLAGS AUTO DIFF
[2016-10-09 03:00] LABS: AUTOMATED NEUTROPHIL # 0.4 TH/MM3 (1.8-7.7)
[2016-10-09 03:06] LABS: ALT (GPT) 18 U/L (12-78); ANION GAP 10 MEQ/L (5-15); AST (GOT) 39 U/L (15-37); BICARBONATE 23.4 MEQ/L (21.0-32.0); BLOOD UREA NITROGEN 25 MG/DL (7-18); CHLORIDE 107 MEQ/L (98-107); GLOMERULAR FILTRATION RATE 62 ML/MIN (>89); POTASSIUM 3.6 MEQ/L (3.5-5.1); SODIUM (NA) 140 MEQ/L (136-145)
[2016-10-09 03:11] LABS: ALKALINE PHOSPHATASE 60 U/L (45-117); TOTAL BILIRUBIN ADULT 5.3 MG/DL (0.2-1.0)
[2016-10-09] MEDS: PIPERACIL-TAZO 3.375 GM PREMIX 50 ML IV SCH ×2 (03:47→08:53)
[2016-10-09 03:54] LABS: BANDS 13 % (0-6); MYELOCYTES 1 % (0-0); NEUTROPHIL # MANUAL DIFF 0.5 TH/MM3 (1.8-7.7); POLYS (SEG NEUTROPHILS) 59 % (16-70); WBC DIFF SAMPLE 100
[2016-10-09 03:58] LABS: KERATOCYTES 1+ (NORMAL); OVALOCYTES 1+ (NORMAL)
[2016-10-09 03:59] LABS: PLATELET ESTIMATE SMEAR LOW (NORMAL); TOXIC GRANULATION 2+ (NORMAL)
[2016-10-09 04:00] VITALS: BP 142/71; PULSE 78; RESP 17; TEMP 97; O2SAT 94
[2016-10-09 04:00] LABS: PLATELET MORPHOLOGY NORMAL (NORMAL)
[2016-10-09 04:01] LABS: SCAN/DIFF FINAL DIFF MANUAL
[2016-10-09 04:31] LABS: WESTERGREN SEDIMENTATION RATE GREATER THAN 140 mm/hr (0-20)
[2016-10-09] MEDS: VANCOMYCIN INJ 1,500 MG in SODIUM CHLORID 0.9% 500 ML INJ 500 ML IV SCH (05:55)
[2016-10-09] MEDS: INSULIN ASPART SUPPLEMENTAL SCALE SQ SCH ×4 (06:03→22:57)
[2016-10-09] MEDS: SODIUM CHLOR 0.9% 1000 ML INJ 1,000 ML IV SCH ×3 (06:05→23:00)
[2016-10-09 08:00] VITALS: BP 142/81; PULSE 76; RESP 20; TEMP 96.6; O2SAT 98
--- NOTE | 2016-10-09 08:11 | PD.ONC.PN ---
Subjective Subjective Remarks Chief complaint: "I feel confused, where am I?" Patient denies acute complaints when asked, he reports his left leg hurts. But on that he is without acute complaints. Over the course of the past 24 hours we were able to obtain previous medical records and previous lab work from his primary care physician's office in [facility]. Copies of the blood work have been placed in the patient's chart. It appears based on blood work dated June 20, 2016, at the patient's cytopenias have been chronic. On that day the patient's absolute neutrophil counts were 0.3, platelet counts are 26,000 and hemoglobin and hematocrit were also low with a hemoglobin of 10 g/dL. Objective Data Date Time Temp Pulse Resp B/P Pulse Ox O2 Delivery O2 Flow Rate FiO2 10/09/16 04:00 97.0 78 17 142/71 94 10/08/16 23:00 96.7 78 20 152/80 97 10/08/16 20:00 96.1 91 18 129/60 97 10/08/16 19:12 96.8 91 18 139/67 95 10/08/16 18:56 96.4 83 18 138/65 97 10/08/16 18:33 96.4 81 18 147/68 96 10/08/16 18:24 96.3 79 18 147/71 95 10/08/16 15:30 97.1 80 20 128/65 96 10/08/16 12:15 98.9 10/08/16 11:50 98.9 80 20 124/58 96 10/08/16 11:21 98.8 79 18 110/56 95 10/08/16 11:03 99.7 79 18 112/56 95 Result Diagram: 10/09/1622010/09/16220 Laboratory Results Laboratory Tests Test 10/08/16 10/09/16 08:34 02:21 Blood Type AB POSITIVE Crossmatch Leukocyte-Reduced Red Blood Cells Blood Bank Comment White Blood Count 0.7 TH/MM3 Red Blood Count 2.19 MIL/MM3 Hemoglobin 8.7 GM/DL Hematocrit 23.9 % Mean Corpuscular Volume 109.1 FL Mean Corpuscular Hemoglobin 39.8 PG Mean Corpuscular Hemoglobin 36.5 % Concent Red Cell Distribution Width 17.8 % Platelet Count 24 TH/MM3 Mean Platelet Volume 9.7 FL Neutrophils (%) (Auto) 68.6 % Lymphocytes (%) (Auto) 26.2 % Monocytes (%) (Auto) 4.5 % Eosinophils (%) (Auto) 0.2 % Basophils (%) (Auto) 0.5 % Neutrophils # (Auto) 0.4 TH/MM3 Lymphocytes # (Auto) 0.2 TH/MM3 Monocytes # (Auto) 0.0 TH/MM3 Eosinophils # (Auto) 0.0 TH/MM3 Basophils # (Auto) 0.0 TH/MM3 CBC Comment AUTO DIFF Differential Total Cells 100 Counted Neutrophils % (Manual) 59 % Band Neutrophils % 13 % Lymphocytes % 22 % Monocytes % 5 % Neutrophils # (Manual) 0.5 TH/MM3 Myelocytes 1 % Differential Comment FINAL DIFF MANUAL Toxic Granulation 2+ Platelet Estimate LOW Platelet Morphology Comment NORMAL Ovalocytes 1+ Keratocytes 1+ Erythrocyte Sedimentation Rate GREATER THAN 140 mm/hr Sodium Level 140 MEQ/L Potassium Level 3.6 MEQ/L Chloride Level 107 MEQ/L Carbon Dioxide Level 23.4 MEQ/L Anion Gap 10 MEQ/L Blood Urea Nitrogen 25 MG/DL Creatinine 1.15 MG/DL Estimat Glomerular Filtration 62 ML/MIN Rate Random Glucose 223 MG/DL Calcium Level 7.8 MG/DL Total Bilirubin 5.3 MG/DL Aspartate Amino Transf 39 U/L (AST/SGOT) Alanine Aminotransferase 18 U/L (ALT/SGPT) Alkaline Phosphatase 60 U/L Total Protein 6.5 GM/DL Albumin 2.3 GM/DL Culture Results Microbiology Date/Time Procedure Status Source Growth 10/07/16 19:45 Aerobic Blood Culture - Preliminary Resulted Blood Peripheral NO GROWTH IN 1 DAY 10/07/16 19:45 Anaerobic Blood Culture - Preliminary Resulted Blood Peripheral NO GROWTH IN 1 DAY 10/07/16 19:52 Aerobic Blood Culture - Preliminary Resulted Blood Peripheral NO GROWTH IN 1 DAY 10/07/16 19:52 Anaerobic Blood Culture - Preliminary Resulted Blood Peripheral NO GROWTH IN 1 DAY Administered Medications Medications (Trade) Dose Ordered Sig/Emily Route PRN Reason Start Time Stop Time Status Last Admin Dose Admin Metoprolol Tartrate 50 mg 50 mg BID PO 10/08/16 09:00 10/08/16 21:20 Sodium Chloride (NS 1000 ml Inj) 1,000 ml @ 150 mls/hr Q6H40M IV 10/07/16 14:57 10/09/16 06:05 IV Flush 2 ml 2 ml BID FLUSH 10/07/16 15:00 10/08/16 21:20 Piperacillin Sod/ Tazobactam Sod (Zosyn 3.375 Gm Premix) 50 ml @ 100 mls/hr Q6H IV 10/07/16 21:00 10/09/16 03:47 Oxycodone/ Acetaminophen (Percocet 5-325 Mg) 1 tab Q6H PRN PO PAIN GREATER THAN 5 10/07/16 15:15 10/07/16 21:49 Folic Acid (Folate) 1 mg DAILY PO 10/07/16 15:30 10/12/16 15:29 10/08/16 08:05 Thiamine HCl (Vitamin B1) 100 mg DAILY PO 10/07/16 15:30 10/08/16 08:05 Multivitamins/ Minerals Therapeutic (Theragran M Tab) 1 tab DAILY PO 10/07/16 15:30 10/12/16 15:29 10/08/16 08:05 Prednisone 80 mg 80 mg DAILY PO 10/08/16 09:00 10/08/16 10:17 Vancomycin HCl/ Sodium Chloride (Vancomycin Inj/ NS 500 ml Inj) 515 ml @ 250 mls/hr Q18H IV 10/08/16 12:00 10/09/16 05:55 Objective Remarks GENERAL PHYSICAL APPEARANCE: Mr. Ortiz is an elderly male, he is heavyset, he is sitting up in bed and appears to be in no acute distress. HEAD, EYES, EARS, NOSE, THROAT: Head is atraumatic and normocephalic. Conjunctivae are pale. The sclerae are icteric. Extraocular muscles intact. Pupils equal, round and reactive to light and accommodation. ORAL EXAM: The mucous membranes have an icteric tinge. Petechiae noted over the soft palate to the right. NECK EXAM: No palpable cervical or supraclavicular lymphadenopathy. RESPIRATORY EXAM: Good air movement bilaterally. No added breath sounds. CARDIOVASCULAR EXAM: Regular rate and rhythm. S1, S2. No obvious murmurs, rubs or gallops. ABDOMINAL EXAM: Protuberant / obese belly. Soft. Tender to palpation over the left upper quadrant. He has splenomegaly noted with the splenic tip palpable 2 cm below the left costal margin on inspiration. No inguinal lymphadenopathy. LOWER EXTREMITIES: Left leg, erythematous decreased, less warmth to the touch. Less tenderness. [employer]: No focal sensory or motor deficits. SKIN: No stigmata of chronic liver failure but he does have an icteric hue. Psychiatric: Appears to be confused, he was easily reoriented however. Assessment/Plan Assessment Mr. Ortiz is a 75-year-old male who presented to the hospital with complaints of a five-day history of pain and swelling as well as redness of the left leg and ankle on 10/07/16. Additional symptoms include a poor appetite, fatigue and weakness. He also feels febrile. Upon initial evaluation, the patient appeared to have cellulitis of the left lower extremity, this appears to be complicated by sepsis. He was found to be pancytopenic, has imaging findings consistent with cirrhosis with resultant splenomegaly due to portal hypertension (personal history of heavy alcohol consumption). 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 The patient is neutropenic and thrombocytopenic. Peripheral smear indicates toxic granulation and left shift of the neutrophils, platelets are depleted. I suspect some of the cytopenias are chronic in nature due to the degree of splenomegaly he has (due to splenic sequestration of leukocytes and platelets). He has been initiated on broad-spectrum antibiotics for management of cellulitis. Plan 1. Pancytopenia: His cytopenias are chronic as evidenced by the blood work forwarded to us from his PCPs office in [place]. I suspect the likely cause of his pancytopenia is myelosuppression secondary to alcoholism as well as splenomegaly with resultant splenic sequestration. Acutely his sepsis has worsened the cytopenias beyond baseline. I do not think it is necessary to embark on a workup for primary bone marrow disorder with a bone marrow biopsy at at this point. I will however convey the need for the patient to be evaluated more thoroughly when he returns to [place] through the healthcare system in [place]. 2. Right renal mass: CT abdomen and pelvis was repeated with IV contrast. No renal mass was identified but this time there reporting possible filling defect in the bladder. At this point I would not add to this patient's workup by having this evaluated worked up. He is a visitor will be care for only a few months and will then return to [place]. This can be worked up electively in the outpatient setting and preferably when he returns home. 3. Cellulitis of the left leg: This is the acute issue which has provoked the hospitalization, this is being appropriately managed. Clinically there appears to be some improvement with the current antibiotics. 4. Thrombocytopenia: Platelet counts improved this morning, repeat CBC in the morning of 10/22/16. No need for platelet transfusions today, continue prednisone. Nam Latham MD Oct 09, 2016 08:10
[2016-10-09] MEDS: METOPROLOL TARTRATE 50 MG TAB PO SCH ×2 (08:53→22:45)
[2016-10-09] MEDS: predniSONE 20 MG TAB PO SCH (08:53)
[2016-10-09] MEDS: SODIUM CHLORIDE 0.9% FLUSH 5 ML FLUSH FLUSH SCH ×2 (08:53→22:59)
[2016-10-09] MEDS: FOLIC ACID 1 MG TAB PO SCH (08:53)
[2016-10-09] MEDS: MULTIVITAMINS/MINERALS THERAPEUTIC TAB PO SCH (08:53)
[2016-10-09] MEDS: THIAMINE HCL 100 MG TAB PO SCH (08:53)
[2016-10-09 12:00] VITALS: BP 149/83; PULSE 88; RESP 20; TEMP 96.8; O2SAT 97
--- NOTE | 2016-10-09 12:39 | HHI.FPPN ---
Subjective Remarks Nursing reports some confusion which occurred after patient was given a sleeping pill, zolpidem last night. At the time of evaluation at 11 AM, he is awake alert and oriented 3. He continues to have leg pain 7 out of 10. He is able to bear some weight on it with help. However, walking is very difficult. He had a bowel movement this morning. No bloody or black stools. No vomiting. No abdominal pain. No trouble urinating. No hematuria. No chest pain, shortness of breath. (Misha Houser MD R2) Objective Vitals Vital Signs Date Time Temp Pulse Resp B/P Pulse Ox O2 Delivery O2 Flow Rate FiO2 10/09/16 08:00 96.6 76 20 142/81 98 10/09/16 04:00 97.0 78 17 142/71 94 10/08/16 23:00 96.7 78 20 152/80 97 10/08/16 20:00 96.1 91 18 129/60 97 10/08/16 19:12 96.8 91 18 139/67 95 10/08/16 18:56 96.4 83 18 138/65 97 10/08/16 18:33 96.4 81 18 147/68 96 10/08/16 18:24 96.3 79 18 147/71 95 10/08/16 15:30 97.1 80 20 128/65 96 10/08/16 12:15 98.9 I/O 10/08/16 10/08/16 10/08/16 10/09/16 10/09/16 10/09/16 07:00 15:00 23:00 07:00 15:00 23:00 Intake Total 1705 ml 433 ml 2540 ml 700 ml 300 ml Output Total 450 ml 1650 ml Balance 1705 ml -17 ml 890 ml 700 ml 300 ml Intake Oral 60 ml 120 ml 300 ml IV Total 1645 ml 2100 ml 700 ml Packed Cells 250 ml Platelets 313 ml 190 ml Output Urine Total 450 ml 1650 ml # Voids 0 0 2 2 2 # Bowel Movements 0 1 (Misha Houser MD R2) Result Diagram: 10/09/1622010/09/16 022 Imaging Last Impressions Chest X-Ray 10/08/16 0000 Signed Impressions: Service Date/Time: Saturday, October 08, 2016 09:02 - CONCLUSION: No acute cardiopulmonary abnormality is identified. Alhaji Shelton MD Chest CT 10/08/16 0000 Signed Impressions: Service Date/Time: Saturday, October 08, 2016 16:22 - CONCLUSION: 1. No acute finding is identified within the chest. 2. There is a 5 mm noncalcified pulmonary nodule in the right lower lobe. This should be correlated with any prior imaging studies. If none are available suggest six-month followup noncontrast chest CT to confirm stability. 3. There are bilateral calcified pleural plaques suggestive of prior asbestos exposure. 4. Severe coronary artery calcification and atherosclerotic disease. Alhaji Shelton MD Abdomen/Pelvis CT 10/08/16 0000 Signed Impressions: Service Date/Time: Saturday, October 08, 2016 16:22 - CONCLUSION: 1. There are no findings to indicate metastatic disease, as questioned. 2. The liver demonstrates features diagnostic of cirrhosis. No focal liver lesion is identified. There are findings indicative of portal hypertension including a small volume of ascites, splenomegaly, and collateral vessels. 3. Possible bladder mass along the right posterior lateral bladder wall measuring 18 x 9 mm. It is near the ureterovesical junction but is not obstructing the right ureter. This could represent transitional cell carcinoma. 4. Non acute findings include severe atherosclerotic disease and sigmoid diverticulosis. Alhaji Shelton MD Lower Extremity Ultrasound 10/07/16 0000 Signed Impressions: Service Date/Time: Friday, October 07, 2016 14:59 - CONCLUSION: Normal examination. Jaylon Tracey MD Liver Ultrasound 10/07/16 0000 Signed Impressions: Service Date/Time: Friday, October 07, 2016 14:59 - CONCLUSION: 1. Hepatosplenomegaly with cirrhotic appearing liver and ascites. 2. Solid-appearing right renal mass suspected with blood flow concerning for renal cell carcinoma until proven otherwise. Jaylon Tracey MD Objective Remarks GENERAL: Well-developed well-nourished male resting in bed comfortably SKIN: Warm and dry. Lower extremity with erythema and petechiae circumferentially near the ankle proximally to the mid calf. HEAD: Normocephalic. Atraumatic EYES: No scleral icterus. No injection or drainage. ENT: OP clear. NECK: Supple, trachea midline. No JVD or lymphadenopathy. CARDIOVASCULAR: Regular rate and rhythm without audible murmurs, gallops, or rubs. RESPIRATORY: Breath sounds diminished at bilateral bases. No accessory muscle use. GASTROINTESTINAL: Abdomen soft, protuberant. Hepatic and splenic edges are palpable below the costal margin 1-2 cm. There is no rebound. No tenderness MUSCULOSKELETAL: No cyanosis there is 1+ edema of the left foot distal to the area of erythema described above. Left lower leg tender to palpation BACK: Nontender without obvious deformity. No CVA tenderness. Neuro: Awake and alert. Normal speech. Cranial nerves grossly intact. (Misha Houser MD R2) A/P Assessment and Plan 75 y/o M with a PMH of DM and HTN admitted with severe sepsis from LLE extremity cellulitis. He was found to have a renal mass and he is pancytopenic. Hematology has been consulted. Discharge Planning Pending clinical improvement. CT chest shows a 5 mm lung nodule which should be followed up in [address] scan if there are no prior images to suggest stable lesion. Patient was made aware of all imaging findings discussed below. He is aware he needs to follow-up closely with his physicians in [place] as that is where he is going back to later this month. (Misha Houser MD R2) Attending Attestation Patient seen and examined. Case reviewed and discussed Agree with plan of care as discussed with me and documented in the resident note. (Olga Apple MD) Problem List: (1) Severe sepsis Status: Acute Plan: Currently his vitals are stable. Infectious disease consult at Patient's source is cellulitis Continue empiric antibiotics vancomycin and Zosyn (started 3/) Blood cultures: No growth 2 days Normal saline 150 ML's per hour Continue to trend CBC (2) Cellulitis of leg without foot, left Status: Acute Plan: -Affected area marked with a pen -Slightly improved -Percocet when necessary pain greater than 5 -See plan severe sepsis (3) Pancytopenia Status: Acute Plan: -Hematology consulted - appreciate recommendations Previous records from his primary care physician's office in [place] are in the patient's chart. Blood work dated June 20, 2016, show the patient's cytopenias have been chronic. On that day the patient's absolute neutrophil counts were 0.3, platelet counts are 26,000 and hemoglobin and hematocrit were also low with a hemoglobin of 10 g/dL. Patient's pancytopenia is likely myelosuppression secondary to alcoholism as well as splenomegaly with resultant splenic sequestration. The sepsis has worsened cytopenias beyond baseline. Hematology does not think it is necessary to do a workup for primary bone marrow disorder or biopsy. It was recommended that the patient be evaluated more thoroughly when he returns to [place]. Continue prednisone (4) VANESSA (acute kidney injury) Status: Resolved Plan: Resolved (5) Diabetes Status: Chronic Plan: -Holding home metformin -Sliding scale insulin with Accu-Cheks (6) Bladder mass Status: Acute Plan: CT abdomen shows no findings to indicate metastatic disease. Possible bladder mass along the right posterior lateral bladder wall measuring 189 mm; it is near the ureterovesicular junction but it is not obstructing the right ureter. This could represent transitional cell carcinoma. Hematology/oncology consulted. Recommended against having this evaluated as the patient is only here for a few months and will return to [place]. This can be electively worked up as an outpatient when he returns home. Patient was made aware of this finding. He understands he needs to follow-up with his primary care physicians in [place] as he is going back to [place] later this month. (7) Cirrhosis Status: Chronic Plan: Patient likely has chronic cirrhosis from continued alcohol Patient already has a wood barker who follows him for this issue. Counseled alcohol cessation (8) Hypertension Status: Acute Plan: -Continue home metoprolol 50 mg by mouth twice a day -Hold for blood pressure less than 100/60 (9) Alcohol abuse Status: Acute Plan: -Patient reports chronic history of drinking -CIWA protocol (10) Lung nodule Status: Acute Plan: CT chest shows a 5 mm pulmonary nodule in the right lower lobe. Attempting to get records from primary care physician. If there are no available records, suggest six-month follow-up noncontrast chest CT to confirm stability Patient was made aware of this finding. He understands he needs a repeat CT scan of his chest to assess for stability of this nodule. (11) FEN/DVT PPX/GI PPX Status: Acute Plan: Fluids: NS @ 150 mls/hr IV Electrolytes: Will monitor and replace as needed Nutrition: Diabetic diet DVT Prophylaxis: SCD on unaffected extremity, heparin and Lovenox contraindicated due to thrombocytopenia GI Prophylaxis: Protonix 40mg PO daily (Misha Houser MD R2) Problem Qualifiers (1) Diabetes: Qualified Code: E11.8 - Type 2 diabetes mellitus with complication, unspecified terminal operator insulin use status Misha Houser MD R2 Oct 09, 2016 12:39 Olga Apple MD Oct 10, 2016 10:08
--- NOTE | 2016-10-09 12:54 | RADRPT ---
EXAM DATE/TIME: 10/09/2016 12:23 [facility] COMPARISON: No previous studies available for comparison. INDICATIONS : Left lower leg pain. MEDICAL HISTORY : Hypercholesterolemia. Hypertension. Diabetic. SURGICAL HISTORY : None. ENCOUNTER: Subsequent ACUITY: 3 days PAIN SCORE: 4/10 LOCATION: Left Tib fib. FINDINGS: Two view examination of the left tibia demonstrates no evidence of fracture or dislocation. Medial co mpartment knee replacement. Soft tissue swelling. CONCLUSION: 1. Soft tissue swelling without fracture. Fantasma Albarran MD on October 09, 2016 at 12:51 Board Certified Radiologist. This report was verified electronically.
--- NOTE | 2016-10-09 13:07 | HHI.IDPN ---
Note Infectious Disease Note Patient notes pain in the left foot. No chills. No fever. Reports hallucination last night. Thinks it was due to sleeping pill. Ct of abdomen report noted. PAST MEDICAL HISTORY 1. Diabetes mellitus. 2. Hypertension. 3. Hyperlipidemia. 4. Left knee surgery in 2008. 5. Right knee surgery in 2009. ALLERGIES No known drug allergies. ANTIBIOTICS: 1. Vancomycin. 2. Piperacillin/tazobactam. SOCIAL HISTORY The patient drinks vodka every day. No tobacco use. No illicit drugs. OBJECTIVE: Vital Signs Date Time Temp Pulse Resp B/P Pulse Ox O2 Delivery O2 Flow Rate FiO2 10/09/16 12:00 96.8 88 20 149/83 97 10/09/16 08:00 96.6 76 20 142/81 98 10/09/16 04:00 97.0 78 17 142/71 94 10/08/16 23:00 96.7 78 20 152/80 97 10/08/16 20:00 96.1 91 18 129/60 97 10/08/16 19:12 96.8 91 18 139/67 95 10/08/16 18:56 96.4 83 18 138/65 97 10/08/16 18:33 96.4 81 18 147/68 96 10/08/16 18:24 96.3 79 18 147/71 95 10/08/16 15:30 97.1 80 20 128/65 96 Laboratory Tests Test 10/07/16 10/08/16 10/09/16 13:10 06:12 02:21 Blood Smear Pathologist Review White Blood Count 0.8 TH/MM3 0.7 TH/MM3 Red Blood Count 1.84 MIL/MM3 2.19 MIL/MM3 Hemoglobin 7.5 GM/DL 8.7 GM/DL Hematocrit 21.1 % 23.9 % Mean Corpuscular Volume 114.5 FL 109.1 FL Mean Corpuscular Hemoglobin 40.6 PG 39.8 PG Mean Corpuscular Hemoglobin 35.5 % 36.5 % Concent Red Cell Distribution Width 16.7 % 17.8 % Platelet Count 7 TH/MM3 24 TH/MM3 Mean Platelet Volume 9.5 FL 9.7 FL Neutrophils (%) (Auto) % 68.6 % Lymphocytes (%) (Auto) % 26.2 % Monocytes (%) (Auto) % 4.5 % Eosinophils (%) (Auto) % 0.2 % Basophils (%) (Auto) % 0.5 % Neutrophils # (Auto) TH/MM3 0.4 TH/MM3 Lymphocytes # (Auto) TH/MM3 0.2 TH/MM3 Monocytes # (Auto) TH/MM3 0.0 TH/MM3 Eosinophils # (Auto) TH/MM3 0.0 TH/MM3 Basophils # (Auto) TH/MM3 0.0 TH/MM3 CBC Comment AUTO DIFF AUTO DIFF Differential Total Cells 50 100 Counted Neutrophils % (Manual) 54 % 59 % Band Neutrophils % 20 % 13 % Lymphocytes % 24 % 22 % Monocytes % 2 % 5 % Neutrophils # (Manual) 0.6 TH/MM3 0.5 TH/MM3 Differential Comment FINAL DIFF FINAL DIFF MANUAL MANUAL Toxic Granulation 1+ 2+ Toxic Vacuolation PRESENT Platelet Estimate RARE LOW Platelet Morphology Comment NORMAL NORMAL Tear Drop Cells 1+ Ovalocytes 1+ 1+ Keratocytes OCC 1+ Erythrocyte Sedimentation Rate GREATER THAN GREATER THAN 140 mm/hr 140 mm/hr Myelocytes 1 % Laboratory Tests Test 10/07/16 10/07/16 10/08/16 10/09/16 16:10 19:49 06:12 02:21 Lactic Acid Level 4.0 mmol/L 3.1 mmol/L Sodium Level 139 MEQ/L 140 MEQ/L Potassium Level 3.1 MEQ/L 3.6 MEQ/L Chloride Level 103 MEQ/L 107 MEQ/L Carbon Dioxide Level 22.0 MEQ/L 23.4 MEQ/L Anion Gap 14 MEQ/L 10 MEQ/L Blood Urea Nitrogen 29 MG/DL 25 MG/DL Creatinine 1.17 MG/DL 1.15 MG/DL Estimat Glomerular Filtration 61 ML/MIN 62 ML/MIN Rate Random Glucose 124 MG/DL 223 MG/DL Calcium Level 7.6 MG/DL 7.8 MG/DL Phosphorus Level 2.9 MG/DL Magnesium Level 1.8 MG/DL Total Bilirubin 2.8 MG/DL 5.3 MG/DL Aspartate Amino Transf 27 U/L 39 U/L (AST/SGOT) Alanine Aminotransferase 14 U/L 18 U/L (ALT/SGPT) Alkaline Phosphatase 51 U/L 60 U/L Lactate Dehydrogenase 230 U/L Total Protein 6.6 GM/DL 6.5 GM/DL Albumin 2.4 GM/DL 2.3 GM/DL Triglycerides Level 70 MG/DL Cholesterol Level LESS THAN 50 MG/DL LDL Cholesterol 15 MG/DL HDL Cholesterol 20.8 MG/DL Cholesterol/HDL Ratio 2.40 RATIO Microbiology Date/Time Procedure Status Source Growth 10/07/16 19:45 Aerobic Blood Culture - Preliminary Resulted Blood Peripheral NO GROWTH IN 2 DAYS 10/07/16 19:45 Anaerobic Blood Culture - Preliminary Resulted Blood Peripheral NO GROWTH IN 2 DAYS 10/07/16 19:52 Aerobic Blood Culture - Preliminary Resulted Blood Peripheral NO GROWTH IN 2 DAYS 10/07/16 19:52 Anaerobic Blood Culture - Preliminary Resulted Blood Peripheral NO GROWTH IN 2 DAYS IMAGING: Chest X-Ray 10/08/16 0000 Signed Impressions: Service Date/Time: Saturday, October 08, 2016 09:02 - CONCLUSION: No acute cardiopulmonary abnormality is identified. Alhaji Shelton MD Chest CT 10/08/16 0000 Signed Impressions: Service Date/Time: Saturday, October 08, 2016 16:22 - CONCLUSION: 1. No acute finding is identified within the chest. 2. There is a 5 mm noncalcified pulmonary nodule in the right lower lobe. This should be correlated with any prior imaging studies. If none are available suggest six-month followup noncontrast chest CT to confirm stability. 3. There are bilateral calcified pleural plaques suggestive of prior asbestos exposure. 4. Severe coronary artery calcification and atherosclerotic disease. Alhaji Shelton MD Abdomen/Pelvis CT 10/08/16 Signed Impressions: Service Date/Time: Saturday, October 08, 2016 16:22 - CONCLUSION: 1. There are no findings to indicate metastatic disease, as questioned. 2. The liver demonstrates features diagnostic of cirrhosis. No focal liver lesion is identified. There are findings indicative of portal hypertension including a small volume of ascites, splenomegaly, and collateral vessels. 3. Possible bladder mass along the right posterior lateral bladder wall measuring 18 x 9 mm. It is near the ureterovesical junction but is not obstructing the right ureter. This could represent transitional cell carcinoma. 4. Non acute findings include severe atherosclerotic disease and sigmoid diverticulosis. Alhaji Shelton MD Lower Extremity Ultrasound 10/07/16 0000 Signed Impressions: Service Date/Time: Friday, October 07, 2016 14:59 - CONCLUSION: Normal examination. Jaylon Tracey MD Liver Ultrasound 10/07/16 0000 Signed Impressions: Service Date/Time: Friday, October 07, 2016 14:59 - CONCLUSION: 1. Hepatosplenomegaly with cirrhotic appearing liver and ascites. 2. Solid-appearing right renal mass suspected with blood flow concerning for renal cell carcinoma until proven otherwise. Jaylon Tracey MD PHYSICAL EXAMINATION GENERAL: No acute distress. He is awake and alert and oriented. HEENT: Extraocular movements grossly intact. No icterus. Oropharynx moist mucosa. no thrush. No lesions. NECK: Supple without adenopathy or swelling. HEART: Regular rate and rhythm. ABDOMEN: Bowel sounds present. Soft. Hepatomegaly. EXTREMITIES: The left leg has a confined area of erythema at the distal tibia, particularly on the posterior aspect with a bright purplish skin discoloration and increased warmth. There is an area where there is normal colored skin tissue and above that there is another patch of erythema below the knee which is outlined by a marker. There is severe tenderness on palpation. There are no breaks in the skin. There are also a few tiny circular areas with erythema and also scattered purplish discolored lesions at the left tibia. 2+ edema at the ankle. 1+ edema at the left knee. NEUROLOGIC: Nonfocal. SKIN: No diffuse rash. IMPRESSION 1. Cellulitis of the left leg - severe. 2. Pancytopenia, chronic and worsened by sepsis. 3. Cirrhosis of the liver. RECOMMENDATIONS 1. Stop vancomycin 2. Stop piperacillin/tazobactam. 3. Begin Ancef IV 4. Elevate the left leg. 5. Monitor clinical response to antibiotic treatment. Jb Brunner MD Oct 09, 2016 13:07
[2016-10-09 16:00] VITALS: BP 155/82; PULSE 72; RESP 16; TEMP 96.2; O2SAT 98
[2016-10-09 20:00] VITALS: BP 140/61; PULSE 79; RESP 18; TEMP 96.4; O2SAT 97
[2016-10-10] VITALS (8 sets, daily range): BP systolic 102–156; BP diastolic 63–77; PULSE 69–98; RESP 16–18; TEMP 96.8–97.9; O2SAT 95–97
[2016-10-10] MEDS: SODIUM CHLOR 0.9% 1000 ML INJ 1,000 ML IV SCH ×2 (06:04→09:11)
[2016-10-10] MEDS: INSULIN ASPART SUPPLEMENTAL SCALE SQ SCH ×4 (06:09→21:00)
[2016-10-10 07:14] LABS: AUTOMATED NEUTROPHIL # 0.3 TH/MM3 (1.8-7.7); BASOPHIL % 1.3 % (0.0-2.0); EOSINOPHIL % 0.6 % (0.0-4.0); HEMATOCRIT 23.2 % (39.0-51.0); LYMPH % 47.4 % (9.0-44.0); LYMPHOCYTE # 0.3 TH/MM3 (1.0-4.8); MEAN CORPUSCULAR HEMOGLOBIN 39.3 PG (27.0-34.0); MEAN CORPUSCULAR HGB CONC 35.4 % (32.0-36.0); MONO % 6.1 % (0.0-8.0); NEUT % 44.6 % (16.0-70.0); PLATELET COUNT 29 TH/MM3 (150-450); RED BLOOD COUNT 2.09 MIL/MM3 (4.50-5.90); WHITE BLOOD COUNT 0.7 TH/MM3 (4.0-11.0)
[2016-10-10 07:30] LABS: HEMO FLAGS AUTO DIFF
--- NOTE | 2016-10-10 07:35 | PD.ONC.PN ---
Subjective Subjective Remarks Patient denies acute complaints, he tells me he had difficulty sleeping last night. Overall he feels his left leg is less sore and less swollen. He was able to ambulate short distances with less pain. He remains afebrile. No evidence of overt bleeding. Patient plans to travel back to [place] at the end of October. Objective Data Date Time Temp Pulse Resp B/P Pulse Ox O2 Delivery O2 Flow Rate FiO2 10/10/16 04:00 96.8 72 18 156/74 97 10/10/16 00:00 97.1 71 18 148/75 97 10/09/16 20:00 96.4 79 18 140/61 97 10/09/16 16:00 96.2 72 16 155/82 98 10/09/16 12:00 96.8 88 20 149/83 97 10/09/16 08:00 96.6 76 20 142/81 98 Result Diagram: 10/09/1622010/09/16220 Laboratory Results Laboratory Tests Test 10/09/16 11:40 HIV (1&2) Antibody NEGATIVE Culture Results Microbiology Date/Time Procedure Status Source Growth 10/07/16 19:45 Aerobic Blood Culture - Preliminary Resulted Blood Peripheral NO GROWTH IN 2 DAYS 10/07/16 19:45 Anaerobic Blood Culture - Preliminary Resulted Blood Peripheral NO GROWTH IN 2 DAYS 10/07/16 19:52 Aerobic Blood Culture - Preliminary Resulted Blood Peripheral NO GROWTH IN 2 DAYS 10/07/16 19:52 Anaerobic Blood Culture - Preliminary Resulted Blood Peripheral NO GROWTH IN 2 DAYS Imaging Studies Last 24 hours Impressions Tibia/Fibula X-Ray 10/09/16 1135 Signed Impressions: Service Date/Time: Sunday, October 09, 2016 12:23 - CONCLUSION: 1. Soft tissue swelling without fracture. Fantasma Albarran MD Administered Medications Medications (Trade) Dose Ordered Sig/Emily Route PRN Reason Start Time Stop Time Status Last Admin Dose Admin Metoprolol Tartrate 50 mg 50 mg BID PO 10/08/16 09:00 10/09/16 22:45 Sodium Chloride (NS 1000 ml Inj) 1,000 ml @ 150 mls/hr Q6H40M IV 10/07/16 14:57 10/10/16 06:04 IV Flush (NS Flush) 2 ml BID FLUSH 10/07/16 15:00 10/09/16 08:53 Oxycodone/ Acetaminophen (Percocet 5-325 Mg) 1 tab Q6H PRN PO PAIN GREATER THAN 5 10/07/16 15:15 10/07/16 21:49 Folic Acid (Folate) 1 mg DAILY PO 10/07/16 15:30 10/12/16 15:29 10/09/16 08:53 Thiamine HCl (Vitamin B1) 100 mg DAILY PO 10/07/16 15:30 10/09/16 08:53 Multivitamins/ Minerals Therapeutic (Theragran M Tab) 1 tab DAILY PO 10/07/16 15:30 10/12/16 15:29 10/09/16 08:53 Prednisone 80 mg 80 mg DAILY PO 10/08/16 09:00 10/09/16 08:53 Cefazolin Sodium/ Sodium Chloride (Ancef Inj/NS Inj) 100 ml @ 200 mls/hr Q8HR IV 10/09/16 14:00 10/10/16 06:02 Objective Remarks GENERAL PHYSICAL APPEARANCE: Mr. Ortiz is an elderly male, he is heavyset, he is sitting up in bed and appears to be in no acute distress. Alert and oriented 3 this morning. HEAD, EYES, EARS, NOSE, THROAT: Head is atraumatic and normocephalic. Conjunctivae are pale. The sclerae are icteric. Extraocular muscles intact. Pupils equal, round and reactive to light and accommodation. ORAL EXAM: The mucous membranes have an icteric tinge. Petechiae noted over the soft palate to the right. NECK EXAM: No palpable cervical or supraclavicular lymphadenopathy. RESPIRATORY EXAM: Good air movement bilaterally. No added breath sounds. CARDIOVASCULAR EXAM: Regular rate and rhythm. S1, S2. No obvious murmurs, rubs or gallops. ABDOMINAL EXAM: Protuberant / obese belly. Soft. Tender to palpation over the left upper quadrant. He has splenomegaly noted with the splenic tip palpable 2 cm below the left costal margin on inspiration. No inguinal lymphadenopathy. LOWER EXTREMITIES: Left leg, erythema decreased, less warmth to the touch. Less tenderness. PHARMACY LABORATORY TECHNICIAN: No focal sensory or motor deficits. SKIN: No stigmata of chronic liver failure but he does have an icteric hue. Psychiatric: Appears to be confused, he was easily reoriented however. Assessment/Plan Assessment Mr. Ortiz is a 75-year-old male who presented to the hospital with complaints of a five-day history of pain and swelling as well as redness of the left leg and ankle on 10/07/16. Additional symptoms include a poor appetite, fatigue and weakness. He also feels febrile. Upon initial evaluation, the patient appeared to have cellulitis of the left lower extremity, this appears to be complicated by sepsis. He was found to be pancytopenic, has imaging findings consistent with cirrhosis with resultant splenomegaly due to portal hypertension (personal history of heavy alcohol consumption). 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 The patient is neutropenic and thrombocytopenic. Peripheral smear indicates toxic granulation and left shift of the neutrophils, platelets are depleted. I suspect some of the cytopenias are chronic in nature due to the degree of splenomegaly he has (due to splenic sequestration of leukocytes and platelets). He has been initiated on broad-spectrum antibiotics for management of cellulitis. Plan 1. Pancytopenia: His cytopenias are chronic as evidenced by the blood work forwarded to us from his PCP's office in [place]. I suspect the likely cause of his pancytopenia is myelosuppression secondary to alcoholism as well as splenomegaly with resultant splenic sequestration. Acutely, his sepsis has worsened the cytopenias beyond baseline. I do not think it is necessary to embark on a workup for primary bone marrow disorder with a bone marrow biopsy at this point. I will however convey the need for the patient to be evaluated more thoroughly when he returns to [place]. 2. Right renal mass: CT abdomen and pelvis was repeated with IV contrast. No renal mass was identified but this time there reporting possible filling defect in the bladder. At this point I would not add to this patient's workup by having this evaluated worked up. He is a visitor will be care for only a few months and will then return to [place]. This can be worked up electively in the outpatient setting and preferably when he returns home. 3. Cellulitis of the left leg: This is the acute issue which has provoked the hospitalization, this is being appropriately managed. Clinically there appears to be some improvement with the current antibiotics. 4. Thrombocytopenia: Platelet counts remain stable, he was started on prednisone earlier this week. I'm tapering the prednisone dose and have decreased the dose from 80 to 40 mg today. I would suggest decreasing him by 10 mg every other day and completely tapering him off within the next 1 week. He no longer requires prednisone as the thrombocytopenia is very unlikely to be immune mediated. Disposition: He may be discharged when his cellulitis has resolved. I have emphasized the importance of him following up closely with his medical providers in [place] upon his return. I have emphasized the importance of him completely abstaining from alcohol consumption. Continue folic acid and thiamine at discharge. As far as the bladder mass is concerned, defer management to his primary providers in [place]. Nam Latham MD Oct 10, 2016 07:35
[2016-10-10 07:46] LABS: ALT (GPT) 21 U/L (12-78); ANION GAP 10 MEQ/L (5-15); AST (GOT) 35 U/L (15-37); BICARBONATE 25.1 MEQ/L (21.0-32.0); BLOOD UREA NITROGEN 20 MG/DL (7-18); CHLORIDE 108 MEQ/L (98-107); GLOMERULAR FILTRATION RATE 77 ML/MIN (>89); POTASSIUM 3.5 MEQ/L (3.5-5.1); SODIUM (NA) 143 MEQ/L (136-145)
[2016-10-10 07:48] LABS: ALKALINE PHOSPHATASE 61 U/L (45-117); TOTAL BILIRUBIN ADULT 1.8 MG/DL (0.2-1.0)
[2016-10-10 08:27] LABS: BANDS 6 % (0-6); NEUTROPHIL # MANUAL DIFF 0.3 TH/MM3 (1.8-7.7); POLYS (SEG NEUTROPHILS) 42 % (16-70); TOXIC GRANULATION 1+ (NORMAL); WBC DIFF SAMPLE 50
[2016-10-10 08:28] LABS: OVALOCYTES 1+ (NORMAL); PLATELET ESTIMATE SMEAR LOW (NORMAL); PLATELET MORPHOLOGY ENLARGED (NORMAL); SCAN/DIFF FINAL DIFF MANUAL
[2016-10-10] MEDS ORDERED: predniSONE 20 MG TAB PO SCH (09:00)
[2016-10-10] MEDS: THIAMINE HCL 100 MG TAB PO SCH (09:09)
[2016-10-10] MEDS: METOPROLOL TARTRATE 50 MG TAB PO SCH ×2 (09:09→17:47)
[2016-10-10] MEDS: FOLIC ACID 1 MG TAB PO SCH (09:09)
[2016-10-10] MEDS: MULTIVITAMINS/MINERALS THERAPEUTIC TAB PO SCH (09:09)
[2016-10-10] MEDS: SODIUM CHLORIDE 0.9% FLUSH 5 ML FLUSH FLUSH SCH ×2 (09:10→21:23)
--- NOTE | 2016-10-10 09:39 | HHI.FPPN ---
Subjective Remarks Mr. Ortiz is doing well this morning. He has no complaints and denies pain in his left leg, which he says has improved a lot. He had a bowel movement and denies abdominal pain. He is well aware of the need to quit drinking. (Elida Mcgee MD R1) Objective Vitals Vital Signs Date Time Temp Pulse Resp B/P Pulse Ox O2 Delivery O2 Flow Rate FiO2 10/10/16 08:00 97.9 72 16 142/70 96 10/10/16 04:00 96.8 72 18 156/74 97 10/10/16 00:00 97.1 71 18 148/75 97 10/09/16 20:00 96.4 79 18 140/61 97 10/09/16 16:00 96.2 72 16 155/82 98 10/09/16 12:00 96.8 88 20 149/83 97 I/O 10/09/16 10/09/16 10/09/16 10/10/16 10/10/16 10/10/16 07:00 15:00 23:00 07:00 15:00 23:00 Intake Total 700 ml 300 ml 480 ml 630 ml Output Total 300 ml Balance 700 ml 300 ml 480 ml 630 ml -300 ml Intake Oral 300 ml 480 ml 480 ml IV Total 700 ml 150 ml Output Urine Total 300 ml # Voids 2 3 1 1 # Bowel Movements 2 (Elida Mcgee MD R1) Result Diagram: 10/10/16 0656 10/10/16 0656 Objective Remarks GENERAL: Well-developed well-nourished male resting in bed comfortably SKIN: Warm and dry. Lower extremity with erythema and petechiae circumferentially near the ankle proximally to the mid calf HEAD: Normocephalic. Atraumatic EYES: No scleral icterus. No injection or drainage. ENT: OP clear. NECK: Supple, trachea midline. No JVD or lymphadenopathy. CARDIOVASCULAR: Regular rate and rhythm without audible murmurs, gallops, or rubs. RESPIRATORY: Breath sounds diminished at bilateral bases, otherwise CTAB. No accessory muscle use. GASTROINTESTINAL: Abdomen soft, protuberant. Hepatic and splenic edges are palpable below the costal margin 1-2 cm. There is no rebound. No tenderness MUSCULOSKELETAL: No cyanosis of LLE. 1+ edema of the left foot distal to the area of erythema described above. Left lower leg tender to palpation BACK: Nontender without obvious deformity. No CVA tenderness. Neuro: Awake and alert. Normal speech. Cranial nerves grossly intact. (Elida Mcgee MD R1) A/P Assessment and Plan 75 y/o M with a PMH of DM and HTN admitted with severe sepsis from LLE extremity cellulitis. He was found to have a renal mass and he is pancytopenic. Hematology has been consulted. Infectious disease on board. Discharge Planning Pending clinical improvement. CT chest shows a 5 mm lung nodule which should be followed up in [address] scan if there are no prior images to suggest stable lesion. Patient was made aware of all imaging findings discussed below. He is aware he needs to follow-up closely with his physicians in [place] as that is where he is going back to later this month. (Elida Mcgee MD R1) Attending Attestation Patient seen and examined. Case reviewed and discussed Agree with plan of care as discussed with me and documented in the resident note. (Olga Apple MD) Problem List: (1) Severe sepsis Status: Acute Plan: Patient's source is cellulitis Currently his vitals are stable Infectious disease consulted Stop empiric antibiotics vancomycin and Zosyn (started 10/07) Start Ancef 1 g every 8 hours IV Blood cultures: No growth 2 days Normal saline 150 ML's per hour Continue to trend CBC (2) Cellulitis of leg without foot, left Status: Acute Plan: -Affected area marked with a pen -Good improvement compared to admission -Percocet when necessary pain greater than 5 -See plan severe sepsis (3) Pancytopenia Status: Acute Plan: -Hematology consulted - appreciate recommendations Previous records from his primary care physician's office in [place] are in the patient's chart. Blood work dated June 20, 2016, show the patient's cytopenias have been chronic. On that day the patient's absolute neutrophil counts were 0.3, platelet counts are 26,000 and hemoglobin and hematocrit were also low with a hemoglobin of 10 g/dL. Patient's pancytopenia is likely myelosuppression secondary to alcoholism as well as splenomegaly with resultant splenic sequestration. The sepsis has worsened cytopenias beyond baseline. Hematology does not think it is necessary to do a workup for primary bone marrow disorder or biopsy. It was recommended that the patient be evaluated more thoroughly when he returns to [place]. Continue prednisone (4) VANESSA (acute kidney injury) Status: Resolved Plan: Resolved (5) Diabetes Status: Chronic Plan: -Holding home metformin -Sliding scale insulin with Accu-Cheks (6) Bladder mass Status: Acute Plan: CT abdomen shows no findings to indicate metastatic disease. Possible bladder mass along the right posterior lateral bladder wall measuring 189 mm; it is near the ureterovesicular junction but it is not obstructing the right ureter. This could represent transitional cell carcinoma. Hematology/oncology consulted. Recommended against having this evaluated as the patient is only here for a few months and will return to [place]. This can be electively worked up as an outpatient when he returns home. Patient was made aware of this finding. He understands he needs to follow-up with his primary care physicians in [place] as he is going back to [place] later this month. 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 Counseled alcohol cessation (8) Hypertension Status: Acute Plan: -Continue home metoprolol 50 mg by mouth twice a day -Hold for blood pressure less than 100/60 (9) Alcohol abuse Status: Acute Plan: -Patient reports chronic history of drinking -Consult on need to stop drinking alcohol -CIWA protocol (10) Lung nodule Status: Acute Plan: CT chest shows a 5 mm pulmonary nodule in the right lower lobe. Attempting to get records from primary care physician. If there are no available records, suggest six-month follow-up noncontrast chest CT to confirm stability Patient was made aware of this finding. He understands he needs a repeat CT scan of his chest to assess for stability of this nodule. (11) FEN/DVT PPX/GI PPX Status: Acute Plan: Fluids: NS @ 150 mls/hr IV Electrolytes: Will monitor and replace as needed Nutrition: Diabetic diet DVT Prophylaxis: SCD on unaffected extremity, heparin and Lovenox contraindicated due to thrombocytopenia GI Prophylaxis: Protonix 40mg PO daily (Elida Mcgee MD R1) Problem Qualifiers (1) Diabetes: Qualified Code: E11.8 - Type 2 diabetes mellitus with complication, unspecified longterm insulin use status Elida Mcgee MD R1 Oct 10, 2016 09:39 Olga Apple MD Oct 10, 2016 16:32
--- NOTE | 2016-10-10 11:39 | HHI.IDPN ---
Note Infectious Disease Note Patient notes pain in the left foot is better.. No chills. Afebrile. PAST MEDICAL HISTORY 1. Diabetes mellitus. 2. Hypertension. 3. Hyperlipidemia. 4. Left knee surgery in 2008. 5. Right knee surgery in 2009. ALLERGIES No known drug allergies. ANTIBIOTICS: Ancef. SOCIAL HISTORY The patient drinks vodka every day. No tobacco use. No illicit drugs. OBJECTIVE: Vital Signs Date Time Temp Pulse Resp B/P Pulse Ox O2 Delivery O2 Flow Rate FiO2 10/10/16 08:00 97.9 72 16 142/70 96 10/10/16 04:00 96.8 72 18 156/74 97 10/10/16 00:00 97.1 71 18 148/75 97 10/09/16 20:00 96.4 79 18 140/61 97 10/09/16 16:00 96.2 72 16 155/82 98 10/09/16 12:00 96.8 88 20 149/83 97 10/09/16 10/09/16 10/10/16 14:59 22:59 06:59 Intake Total 300 ml 480 ml 630 ml Balance 300 ml 480 ml 630 ml Intake Oral 300 ml 480 ml 480 ml IV Total 150 ml # Voids 3 1 1 # Bowel Movements 2 Laboratory Tests Test 10/09/16 10/10/16 02:21 06:56 White Blood Count 0.7 TH/MM3 0.7 TH/MM3 Red Blood Count 2.19 MIL/MM3 2.09 MIL/MM3 Hemoglobin 8.7 GM/DL 8.2 GM/DL Hematocrit 23.9 % 23.2 % Mean Corpuscular Volume 109.1 FL 111.0 FL Mean Corpuscular Hemoglobin 39.8 PG 39.3 PG Mean Corpuscular Hemoglobin 36.5 % 35.4 % Concent Red Cell Distribution Width 17.8 % 18.0 % Platelet Count 24 TH/MM3 29 TH/MM3 Mean Platelet Volume 9.7 FL 10.7 FL Neutrophils (%) (Auto) 68.6 % 44.6 % Lymphocytes (%) (Auto) 26.2 % 47.4 % Monocytes (%) (Auto) 4.5 % 6.1 % Eosinophils (%) (Auto) 0.2 % 0.6 % Basophils (%) (Auto) 0.5 % 1.3 % Neutrophils # (Auto) 0.4 TH/MM3 0.3 TH/MM3 Lymphocytes # (Auto) 0.2 TH/MM3 0.3 TH/MM3 Monocytes # (Auto) 0.0 TH/MM3 0.0 TH/MM3 Eosinophils # (Auto) 0.0 TH/MM3 0.0 TH/MM3 Basophils # (Auto) 0.0 TH/MM3 0.0 TH/MM3 CBC Comment AUTO DIFF AUTO DIFF Differential Total Cells 100 50 Counted Neutrophils % (Manual) 59 % 42 % Band Neutrophils % 13 % 6 % Lymphocytes % 22 % 46 % Monocytes % 5 % 6 % Neutrophils # (Manual) 0.5 TH/MM3 0.3 TH/MM3 Myelocytes 1 % Differential Comment FINAL DIFF FINAL DIFF MANUAL MANUAL Toxic Granulation 2+ 1+ Platelet Estimate LOW LOW Platelet Morphology Comment NORMAL ENLARGED Ovalocytes 1+ 1+ Keratocytes 1+ Erythrocyte Sedimentation Rate GREATER THAN 140 mm/hr Laboratory Tests Test 10/09/16 10/10/16 02:21 06:56 Sodium Level 140 MEQ/L 143 MEQ/L Potassium Level 3.6 MEQ/L 3.5 MEQ/L Chloride Level 107 MEQ/L 108 MEQ/L Carbon Dioxide Level 23.4 MEQ/L 25.1 MEQ/L Anion Gap 10 MEQ/L 10 MEQ/L Blood Urea Nitrogen 25 MG/DL 20 MG/DL Creatinine 1.15 MG/DL 0.96 MG/DL Estimat Glomerular Filtration 62 ML/MIN 77 ML/MIN Rate Random Glucose 223 MG/DL 176 MG/DL Calcium Level 7.8 MG/DL 8.2 MG/DL Total Bilirubin 5.3 MG/DL 1.8 MG/DL Aspartate Amino Transf 39 U/L 35 U/L (AST/SGOT) Alanine Aminotransferase 18 U/L 21 U/L (ALT/SGPT) Alkaline Phosphatase 60 U/L 61 U/L Total Protein 6.5 GM/DL 6.5 GM/DL Albumin 2.3 GM/DL 2.1 GM/DL IMAGING: Tibia/Fibula X-Ray 10/09/16 1135 Signed Impressions: Service Date/Time: Sunday, October 09, 2016 12:23 - CONCLUSION: 1. Soft tissue swelling without fracture. Fantasma Albarran MD Chest X-Ray 10/08/16 0000 Signed Impressions: Service Date/Time: Saturday, October 08, 2016 09:02 - CONCLUSION: No acute cardiopulmonary abnormality is identified. Alhaji Shelton MD Chest CT 3/6/17 0000 Signed Impressions: Service Date/Time: Saturday, October 08, 2016 16:22 - CONCLUSION: 1. No acute finding is identified within the chest. 2. There is a 5 mm noncalcified pulmonary nodule in the right lower lobe. This should be correlated with any prior imaging studies. If none are available suggest six-month followup noncontrast chest CT to confirm stability. 3. There are bilateral calcified pleural plaques suggestive of prior asbestos exposure. 4. Severe coronary artery calcification and atherosclerotic disease. Alhaji Shelton MD Abdomen/Pelvis CT 10/08/16 0000 Signed Impressions: Service Date/Time: Saturday, October 08, 2016 16:22 - CONCLUSION: 1. There are no findings to indicate metastatic disease, as questioned. 2. The liver demonstrates features diagnostic of cirrhosis. No focal liver lesion is identified. There are findings indicative of portal hypertension including a small volume of ascites, splenomegaly, and collateral vessels. 3. Possible bladder mass along the right posterior lateral bladder wall measuring 18 x 9 mm. It is near the ureterovesical junction but is not obstructing the right ureter. This could represent transitional cell carcinoma. 4. Non acute findings include severe atherosclerotic disease and sigmoid diverticulosis. Alhaji Shelton MD Chest X-Ray 10/08/16 0000 Signed Impressions: Service Date/Time: Saturday, October 08, 2016 09:02 - CONCLUSION: No acute cardiopulmonary abnormality is identified. Alhaji Shelton MD Chest CT 10/08/16 0000 Signed Impressions: Service Date/Time: Saturday, October 08, 2016 16:22 - CONCLUSION: 1. No acute finding is identified within the chest. 2. There is a 5 mm noncalcified pulmonary nodule in the right lower lobe. This should be correlated with any prior imaging studies. If none are available suggest six-month followup noncontrast chest CT to confirm stability. 3. There are bilateral calcified pleural plaques suggestive of prior asbestos exposure. 4. Severe coronary artery calcification and atherosclerotic disease. Alhaji Shelton MD Abdomen/Pelvis CT 10/08/16 0000 Signed Impressions: Service Date/Time: Saturday, October 08, 2016 16:22 - CONCLUSION: 1. There are no findings to indicate metastatic disease, as questioned. 2. The liver demonstrates features diagnostic of cirrhosis. No focal liver lesion is identified. There are findings indicative of portal hypertension including a small volume of ascites, splenomegaly, and collateral vessels. 3. Possible bladder mass along the right posterior lateral bladder wall measuring 18 x 9 mm. It is near the ureterovesical junction but is not obstructing the right ureter. This could represent transitional cell carcinoma. 4. Non acute findings include severe atherosclerotic disease and sigmoid diverticulosis. Alhaji Shelton MD Lower Extremity Ultrasound 10/07/16 0000 Signed Impressions: Service Date/Time: Friday, October 07, 2016 14:59 - CONCLUSION: Normal examination. Jaylon Tracey MD Liver Ultrasound 10/07/16 0000 Signed Impressions: Service Date/Time: Friday, October 07, 2016 14:59 - CONCLUSION: 1. Hepatosplenomegaly with cirrhotic appearing liver and ascites. 2. Solid-appearing right renal mass suspected with blood flow concerning for renal cell carcinoma until proven otherwise. Jaylon Tracey MD PHYSICAL EXAMINATION GENERAL: No acute distress. He is awake and alert and oriented. HEENT: No icterus. Oropharynx moist mucosa. no thrush. No lesions. NECK: Supple without adenopathy or swelling. HEART: Regular rate and rhythm. ABDOMEN: Bowel sounds present. Soft. Hepatomegaly. EXTREMITIES: The left leg has a confined area of erythema at the distal tibia, Still has marked erythema purplish discoloration at the particularly on the posterior aspect. Less severe tenderness on palpation. There are no breaks in the skin. There are also a few tiny circular areas with erythema and also scattered purplish discolored lesions at the left tibia which is the same. 2+ edema at the left ankle. 1+ edema at the left tibia. NEUROLOGIC: Nonfocal. SKIN: No diffuse rash. IMPRESSION 1. Cellulitis of the left leg - severe. slowly improving. 2. Pancytopenia, chronic and worsened by sepsis. 3. Cirrhosis of the liver. RECOMMENDATIONS Stop Ancef. Start Daptomycin and arrange for PIC line and outpatient IV Daptomycin x 8 more days. Continue to Elevate the left leg. Case management made aware of plan for outpatient IV antibiotic. Antibiotic infusion orders filled out. Follow up with ID outpatient in 1 week. Jb Brunner MD Oct 10, 2016 11:38
--- NOTE | 2016-10-10 11:44 | HHI.FF ---
Infusion Therapy Location of Infusion Therapy: Home [facility] IV Infusion Order Patient Information Patient Weight 96.1 kg Diagnosis: Coded Allergies: No Known Allergies (Unverified , 10/07/16) Administer Medication Daptomycin 600 mg IV q 24 hours Stop Treatment: Oct 18, 2016 Additional Information Venous access: PICC Line Additional Instructions [x] Peripheral flush and dressing changes per protocol [x] Implanted port and central waistline joiner lockstitch: * Implanted port: 10 ml Normal Saline followed by 5 ml Heparin 100 units/ml Heparin flush after each use and monthly to maintain. [] May leave port accessed during therapy. [] May leave peripheral site accessed for duration of therapy. [x] If patient has SOB or respiratory distress, check oxygen saturation. If less than 90% or clinical signs of respiratory distress, administer oxygen at 2 L/min. via nasal cannula and notify physician. [x] Anaphylaxis/Reaction orders: * Stop infusion. * Keep IV line open with saline flush. * Notify physician. * Monitor vital signs every 15 minutes until symptoms resolve. * Check Oxygen saturation; Oxygen at 2 L/min. via nasal cannula if less than 90% or clinical signs of respiratory distress. * Administer diphenhydramine (Benadryl) 25 mg IV STAT, (unless patient has received as pre-med). May repeat once, if necessary. * Solu-Cortef 250 mg IVP over 30-60 seconds, use 100 mg vials for each dissolution. * Epinephrine (1mg/1 ml) 0.3 mg subcutaneously or IVP now with any signs of respiratory distress. * Check with physician for new additional pre-med orders if patient is re- challenged or re-treated. [x] May remove PICC line when treatment complete, after confirming with Physician. [x] If the patient is admitted to the hospital, the ED, or transferred via [facility] , complete transfer form including medication reconciliation order sheet. Laboratory Tests Weekly Labs: BMP, CBC w/diff, Serum CK Levels Additional Information Follow up with Infectious Disease physician in 1 week. Jb Brunner MD Oct 10, 2016 11:44
[2016-10-10] MEDS: DAPTOmycin INJ 600 MG in SODIUM CHLORIDE 0.9% INJ 100 ML IV SCH (13:35)
[2016-10-10] MEDS ORDERED: diphenhydrAMINE HCL 25 MG CAP PO SCH (13:45)
[2016-10-10] MEDS ORDERED: ACETAMINOPHEN 325 MG TAB PO SCH (13:45)
[2016-10-10] MEDS ORDERED: PHARMACY ORDERED LAB XX ONE (17:45)
--- NOTE | 2016-10-10 20:13 | RADRPT ---
EXAM DATE/TIME: 10/10/2016 20:02 [facility] COMPARISON: CHEST SINGLE AP, October 08, 2016, 9:02. INDICATIONS : Evaluate for right sided picc line placement. MEDICAL HISTORY : None. SURGICAL HISTORY : None. ENCOUNTER: Initial ACUITY: 1 day PAIN SCORE: 0/10 LOCATION: chest FINDINGS: A single view of the chest demonstrates the lungs to be symmetrically aerated without evidence of mas s, infiltrate or effusion. The cardiomediastinal contours are unremarkable. Osseous structures are intact. CONCLUSION: No acute disease. Right-sided PICC line with tip in the SVC. Fantasma Albarran MD on October 10, 2016 at 20:11 Board Certified Radiologist. This report was verified electronically.
[2016-10-11] VITALS: BP 153/68; PULSE 78; RESP 17; TEMP 97.7; O2SAT 96
[2016-10-11 05:56] LABS: AUTOMATED NEUTROPHIL # 0.4 TH/MM3 (1.8-7.7); EOSINOPHIL % 1.3 % (0.0-4.0); HEMATOCRIT 23.4 % (39.0-51.0); LYMPH % 54.3 % (9.0-44.0); LYMPHOCYTE # 0.5 TH/MM3 (1.0-4.8); MEAN CELL VOLUME 110.9 FL (80.0-100.0); MEAN CORPUSCULAR HEMOGLOBIN 39.7 PG (27.0-34.0); MEAN CORPUSCULAR HGB CONC 35.8 % (32.0-36.0); MONO % 4.1 % (0.0-8.0); NEUT % 40.3 % (16.0-70.0); PLATELET COUNT 35 TH/MM3 (150-450); RED BLOOD COUNT 2.11 MIL/MM3 (4.50-5.90); RED CELL DISTRIBUTION WIDTH 17.4 % (11.6-17.2); WHITE BLOOD COUNT 0.9 TH/MM3 (4.0-11.0)
[2016-10-11 05:58] LABS: HEMO FLAGS AUTO DIFF
[2016-10-11 06:15] LABS: ANION GAP 10 MEQ/L (5-15); AST (GOT) 69 U/L (15-37); BICARBONATE 26.1 MEQ/L (21.0-32.0); BLOOD UREA NITROGEN 20 MG/DL (7-18); CHLORIDE 106 MEQ/L (98-107); GLOMERULAR FILTRATION RATE 81 ML/MIN (>89); POTASSIUM 3.5 MEQ/L (3.5-5.1); SODIUM (NA) 142 MEQ/L (136-145)
[2016-10-11 06:22] LABS: ALKALINE PHOSPHATASE 79 U/L (45-117); ALT (GPT) 41 U/L (12-78); TOTAL BILIRUBIN ADULT 1.5 MG/DL (0.2-1.0)
[2016-10-11] MEDS ORDERED: WHEEMIS3 (06:55)
[2016-10-11] MEDS ORDERED: WALKER WHEELS/F1 MIS (06:55)
[2016-10-11] MEDS: INSULIN ASPART SUPPLEMENTAL SCALE SQ SCH ×4 (07:00→22:10)
[2016-10-11 07:33] LABS: BANDS 8 % (0-6); EOSINOPHILS 2 % (0-4); NEUTROPHIL # MANUAL DIFF 0.4 TH/MM3 (1.8-7.7); POLYS (SEG NEUTROPHILS) 34 % (16-70); WBC DIFF SAMPLE 50
[2016-10-11 07:34] LABS: TOXIC GRANULATION 2+ (NORMAL)
[2016-10-11 07:35] LABS: OVALOCYTES 1+ (NORMAL); PLATELET ESTIMATE SMEAR LOW (NORMAL); PLATELET MORPHOLOGY ENLARGED (NORMAL)
[2016-10-11 07:37] LABS: SCAN/DIFF FINAL DIFF MANUAL
[2016-10-11 08:00] VITALS: BP 142/71; PULSE 72; RESP 18; TEMP 97.8; O2SAT 97
--- NOTE | 2016-10-11 08:37 | HHI.FPPN ---
Subjective Remarks Patient states he is doing well today. He would like to go home today. He is ambulating better. He continues to have left leg pain but it is improving. He has had normal bowel movements and denies abdominal pain. No fever, chills, shortness of breath. (Misha Houser MD R2) Objective Vitals Vital Signs Date Time Temp Pulse Resp B/P Pulse Ox O2 Delivery O2 Flow Rate FiO2 10/11/16 00:00 97.7 78 17 153/68 96 10/10/16 20:00 97.0 98 18 152/77 95 10/10/16 15:44 97.2 69 16 142/73 97 10/10/16 15:41 97.2 77 16 130/63 97 10/10/16 15:19 97.2 77 16 130/63 97 10/10/16 11:50 97.2 75 16 135/72 97 I/O 10/10/16 10/10/16 10/10/16 10/11/16 10/11/16 10/11/16 07:00 15:00 23:00 07:00 15:00 23:00 Intake Total 630 ml 240 ml 480 ml Output Total 300 ml Balance 630 ml -60 ml 480 ml Intake Oral 480 ml 240 ml 480 ml IV Total 150 ml Output Urine Total 300 ml # Voids 1 2 2 # Bowel Movements 1 (Misha Houser MD R2) Result Diagram: 10/11/16 0440 10/11/16 0440 Imaging Last Impressions Chest X-Ray 10/10/16 0000 Signed Impressions: Service Date/Time: Monday, October 10, 2016 20:02 - CONCLUSION: No acute disease. Right-sided PICC line with tip in the SVC. Fantasma Albarran MD Tibia/Fibula X-Ray 10/09/16 1135 Signed Impressions: Service Date/Time: Sunday, October 09, 2016 12:23 - CONCLUSION: 1. Soft tissue swelling without fracture. Fantasma Albarran MD Chest CT 10/08/16 0000 Signed Impressions: Service Date/Time: Saturday, October 08, 2016 16:22 - CONCLUSION: 1. No acute finding is identified within the chest. 2. There is a 5 mm noncalcified pulmonary nodule in the right lower lobe. This should be correlated with any prior imaging studies. If none are available suggest six-month followup noncontrast chest CT to confirm stability. 3. There are bilateral calcified pleural plaques suggestive of prior asbestos exposure. 4. Severe coronary artery calcification and atherosclerotic disease. Alhaji Shelton MD Abdomen/Pelvis CT 10/08/16 0000 Signed Impressions: Service Date/Time: Saturday, October 08, 2016 16:22 - CONCLUSION: 1. There are no findings to indicate metastatic disease, as questioned. 2. The liver demonstrates features diagnostic of cirrhosis. No focal liver lesion is identified. There are findings indicative of portal hypertension including a small volume of ascites, splenomegaly, and collateral vessels. 3. Possible bladder mass along the right posterior lateral bladder wall measuring 18 x 9 mm. It is near the ureterovesical junction but is not obstructing the right ureter. This could represent transitional cell carcinoma. 4. Non acute findings include severe atherosclerotic disease and sigmoid diverticulosis. Alhaji Shelton MD Lower Extremity Ultrasound 10/07/16 0000 Signed Impressions: Service Date/Time: Friday, October 07, 2016 14:59 - CONCLUSION: Normal examination. Jaylon Tracey MD Liver Ultrasound 10/07/16 0000 Signed Impressions: Service Date/Time: Friday, October 07, 2016 14:59 - CONCLUSION: 1. Hepatosplenomegaly with cirrhotic appearing liver and ascites. 2. Solid-appearing right renal mass suspected with blood flow concerning for renal cell carcinoma until proven otherwise. Jaylon Tracey MD Objective Remarks GENERAL: Well-developed well-nourished male resting in bed comfortably SKIN: Warm and dry. Slightly improved Lower extremity with erythema and petechiae circumferentially near the ankle proximally to the mid calf. Right- sided PICC line without surrounding erythema. HEAD: Normocephalic. Atraumatic EYES: No scleral icterus. No injection or drainage. ENT: OP clear. NECK: Supple, trachea midline. No JVD or lymphadenopathy. CARDIOVASCULAR: Regular rate and rhythm without audible murmurs, gallops, or rubs. RESPIRATORY: Breath sounds diminished at bilateral bases, otherwise CTAB. No accessory muscle use. GASTROINTESTINAL: Abdomen soft, protuberant. Hepatic and splenic edges are palpable below the costal margin 1-2 cm. There is no rebound. No tenderness MUSCULOSKELETAL: No cyanosis of LLE. 1+ edema of the left foot distal to the area of erythema described above. Left lower leg tender to palpation BACK: Nontender without obvious deformity. No CVA tenderness. Neuro: Awake and alert. Normal speech. Cranial nerves grossly intact. (Misha Houser MD R2) A/P Assessment and Plan 75 y/o M with a PMH of DM and HTN admitted with severe sepsis from LLE extremity cellulitis. He was found to have a renal mass and he is pancytopenic. Hematology has been consulted. Infectious disease on board. Discharge Planning Pending clinical improvement. CT chest shows a 5 mm lung nodule which should be followed up in [address] scan if there are no prior images to suggest stable lesion. Patient was made aware of all imaging findings discussed below. He is aware he needs to follow-up closely with his physicians in [place] as that is where he is going back to later this month. PT recommends home health PT; patient requires wheeled walker and wheelchair. ( Misha Houser MD R2) Attending Attestation Patient seen and examined Case reviewed and discussed Agree with plan of care as discussed with me and documented in the resident note. (Olga Apple MD) Problem List: (1) Cellulitis of leg without foot, left Status: Acute Plan: Patient presented septic. Currently vitals are stable. He is chronically pancytopenic. Infectious disease consulted PICC line in place. Daptomycin 600 mg every 24 hours IV. Case management consulted for Outpatient IV Daptomycin x 8 more days Blood cultures: No growth to date Continue to trend CBC while inpatient -Percocet when necessary pain greater than 5 Antibiotic history: Stop empiric antibiotics vancomycin and Zosyn (started 10/07) Ancef 1 g every 8 hours IV (2) Pancytopenia Status: Acute Plan: -Hematology consulted - appreciate recommendations Previous records from his primary care physician's office in [place] are in the patient's chart. Blood work dated June 20, 2016, show the patient's cytopenias have been chronic. On that day the patient's absolute neutrophil counts were 0.3, platelet counts are 26,000 and hemoglobin and hematocrit were also low with a hemoglobin of 10 g/dL. Patient's pancytopenia is likely myelosuppression secondary to alcoholism as well as splenomegaly with resultant splenic sequestration. The sepsis has worsened cytopenias beyond baseline. Hematology does not think it is necessary to do a workup for primary bone marrow disorder or biopsy. It was recommended that the patient be evaluated more thoroughly when he returns to [place]. Continue prednisone (3) VANESSA (acute kidney injury) Status: Resolved Plan: Resolved (4) Diabetes Status: Chronic Plan: -Holding home metformin -Sliding scale insulin with Accu-Cheks (5) Bladder mass Status: Acute Plan: CT abdomen shows no findings to indicate metastatic disease. Possible bladder mass along the right posterior lateral bladder wall measuring 189 mm; it is near the ureterovesicular junction but it is not obstructing the right ureter. This could represent transitional cell carcinoma. Hematology/oncology consulted. Recommended against having this evaluated as the patient is only here for a few months and will return to [place]. This can be electively worked up as an outpatient when he returns home. Patient was made aware of this finding. He understands he needs to follow-up with his primary care physicians in [place] as he is going back to [place] later this month. 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 Counseled alcohol cessation (7) Hypertension Status: Acute Plan: -Continue home metoprolol 50 mg by mouth twice a day -Hold for blood pressure less than 100/60 (8) Alcohol abuse Status: Acute Plan: -Patient reports chronic history of drinking -Consult on need to stop drinking alcohol -CIWA protocol (9) Lung nodule Status: Acute Plan: CT chest shows a 5 mm pulmonary nodule in the right lower lobe. Attempting to get records from primary care physician. If there are no available records, suggest six-month follow-up noncontrast chest CT to confirm stability Patient was made aware of this finding. He understands he needs a repeat CT scan of his chest to assess for stability of this nodule. (10) Thrombocytopenia Status: Acute Plan: Chronic in nature. Hematology consult Currently given 40 mg prednisone on 10/10 Per hematology, taper prednisone by 10 mg every other day; to complete prednisone within 1 week. (11) FEN/DVT PPX/GI PPX Status: Acute Plan: Fluids: Tolerating by mouth Electrolytes: Will monitor and replace as needed Nutrition: Diabetic diet DVT Prophylaxis: SCD on unaffected extremity, heparin and Lovenox contraindicated due to thrombocytopenia GI Prophylaxis: Protonix 40mg PO daily (12) Severe sepsis Status: Resolved Plan: Resolved (Misha Houser MD R2) Problem Qualifiers (1) Diabetes: Qualified Code: E11.8 - Type 2 diabetes mellitus with complication, unspecified fdc insulin use status Misha Houser MD R2 Oct 11, 2016 08:37 Olga Apple MD Oct 12, 2016 13:44
--- NOTE | 2016-10-11 08:39 | HHI.FF ---
Face to Face Verification Diagnosis: (1) Cellulitis of leg, left (2) Pancytopenia (3) Bladder mass (4) Cirrhosis (5) Alcohol abuse Physical Therapy Order: Evaluate and Treat, Improve ambulation, Strength and gait training Home Health Nursing Order: Medical education Signs/symptoms of disease process Medication education-adverse effect Wound care and dressing changes Nursing assessment with vital signs I have seen patient Dylan Ortiz on 10/11/16. My clinical findings support the need for the requested home health care services because: Ltd mobility - disease progression Deconditioned w/ increased weakness Med compliance is questionable Limited ability to care for self High risk of falls I certify that my clinical findings support that this patient is homebound because: Unsteady gait/balance Unsafe to leave home unassisted [id number] bed/chair (poor ambulation) Misha Houser MD R2 Oct 11, 2016 08:39
[2016-10-11] MEDS: FOLIC ACID 1 MG TAB PO SCH (10:44)
[2016-10-11] MEDS: THIAMINE HCL 100 MG TAB PO SCH (10:44)
[2016-10-11] MEDS: SODIUM CHLORIDE 0.9% FLUSH 5 ML FLUSH FLUSH SCH ×2 (10:45→22:05)
[2016-10-11] MEDS: METOPROLOL TARTRATE 50 MG TAB PO SCH ×3 (10:45→17:45)
[2016-10-11] MEDS: MULTIVITAMINS/MINERALS THERAPEUTIC TAB PO SCH (10:45)
[2016-10-11] MEDS: oxyCODONE/ACETAMINOPHEN 5 MG/325 MG TAB PO PRN (10:53)
[2016-10-11 12:00] VITALS: BP 135/76; PULSE 68; RESP 20; TEMP 97.9; O2SAT 99
[2016-10-11] MEDS: DAPTOmycin INJ 600 MG in SODIUM CHLORIDE 0.9% INJ 100 ML IV SCH (13:36)
[2016-10-11 16:00] VITALS: BP 147/79; PULSE 70; RESP 20; TEMP 97; O2SAT 95
[2016-10-11 20:00] VITALS: BP 120/68; PULSE 64; RESP 15; TEMP 95.9; O2SAT 99
[2016-10-12] VITALS: BP 138/73; PULSE 70; RESP 16; TEMP 96.2; O2SAT 96
[2016-10-12 03:20] VITALS: BP 136/70; PULSE 72; RESP 17; TEMP 96.6; O2SAT 97
[2016-10-12] MEDS: INSULIN ASPART SUPPLEMENTAL SCALE SQ SCH ×4 (05:25→20:09)
[2016-10-12 05:45] LABS: AUTOMATED NEUTROPHIL # 0.7 TH/MM3 (1.8-7.7); BASOPHIL % 0.3 % (0.0-2.0); EOSINOPHIL % 2.7 % (0.0-4.0); HEMATOCRIT 23.9 % (39.0-51.0); LYMPH % 39.8 % (9.0-44.0); LYMPHOCYTE # 0.5 TH/MM3 (1.0-4.8); MEAN CELL VOLUME 111.4 FL (80.0-100.0); MEAN CORPUSCULAR HEMOGLOBIN 39.7 PG (27.0-34.0); MEAN CORPUSCULAR HGB CONC 35.6 % (32.0-36.0); MONO % 3.2 % (0.0-8.0); PLATELET COUNT 36 TH/MM3 (150-450); RED BLOOD COUNT 2.15 MIL/MM3 (4.50-5.90); RED CELL DISTRIBUTION WIDTH 17.5 % (11.6-17.2); WHITE BLOOD COUNT 1.2 TH/MM3 (4.0-11.0)
[2016-10-12 05:56] LABS: HEMO FLAGS AUTO DIFF
[2016-10-12 06:07] LABS: ALT (GPT) 50 U/L (12-78); ANION GAP 9 MEQ/L (5-15); AST (GOT) 71 U/L (15-37); BICARBONATE 27.5 MEQ/L (21.0-32.0); BLOOD UREA NITROGEN 14 MG/DL (7-18); CHLORIDE 105 MEQ/L (98-107); GLOMERULAR FILTRATION RATE 93 ML/MIN (>89); POTASSIUM 3.6 MEQ/L (3.5-5.1); SODIUM (NA) 141 MEQ/L (136-145)
[2016-10-12 06:09] LABS: ALKALINE PHOSPHATASE 64 U/L (45-117); TOTAL BILIRUBIN ADULT 1.6 MG/DL (0.2-1.0)
[2016-10-12 06:53] LABS: BANDS 8 % (0-6); EOSINOPHILS 3 % (0-4); NEUTROPHIL # MANUAL DIFF 0.7 TH/MM3 (1.8-7.7); POLYS (SEG NEUTROPHILS) 49 % (16-70); WBC DIFF SAMPLE 100
[2016-10-12 06:54] LABS: PLATELET ESTIMATE SMEAR LOW (NORMAL); PLATELET MORPHOLOGY ENLARGED (NORMAL); TOXIC GRANULATION 2+ (NORMAL)
[2016-10-12 06:55] LABS: OVALOCYTES 1+ (NORMAL); SCAN/DIFF FINAL DIFF MANUAL; TEARDROP RBCS 1+ (NORMAL)
[2016-10-12 08:00] VITALS: BP 146/78; PULSE 70; RESP 18; TEMP 98.7; O2SAT 94
[2016-10-12] MEDS: SODIUM CHLORIDE 0.9% FLUSH 5 ML FLUSH FLUSH SCH ×2 (09:00→20:31)
[2016-10-12] MEDS: predniSONE 10 MG TAB PO SCH (09:00)
[2016-10-12] MEDS: METOPROLOL TARTRATE 50 MG TAB PO SCH ×3 (09:00→18:21)
[2016-10-12] MEDS: FOLIC ACID 1 MG TAB PO SCH (09:00)
[2016-10-12] MEDS: THIAMINE HCL 100 MG TAB PO SCH (09:00)
[2016-10-12] MEDS: MULTIVITAMINS/MINERALS THERAPEUTIC TAB PO SCH (10:51)
[2016-10-12] MEDS: oxyCODONE/ACETAMINOPHEN 5 MG/325 MG TAB PO PRN (10:54)
[2016-10-12] MEDS ORDERED: FUROSEMIDE 40 MG TAB PO ONE (11:00)
[2016-10-12 12:00] VITALS: BP 128/63; PULSE 68; RESP 18; TEMP 97.6; O2SAT 97
--- NOTE | 2016-10-12 12:34 | HHI.FPPN ---
Subjective Remarks No acute events overnight. Afebrile, vital signs stable. Patient states that his left ankle continues to hurt however it is relieved with pain medication. He is able to stand and ambulate on his left leg. He has no other complaints at this time. (Peyton Desir MD R3) Objective Vitals Vital Signs Date Time Temp Pulse Resp B/P Pulse Ox O2 Delivery O2 Flow Rate FiO2 10/12/16 08:00 98.7 70 18 146/78 94 10/12/16 03:20 96.6 72 17 136/70 97 10/12/16 00:00 96.2 70 16 138/73 96 10/11/16 20:00 95.9 64 15 120/68 99 10/11/16 16:00 97.0 70 20 147/79 95 I/O 10/11/16 10/11/16 10/11/16 10/12/16 10/12/16 10/12/16 07:00 15:00 23:00 07:00 15:00 23:00 Intake Total 965 ml 360 ml 960 ml Output Total 300 ml Balance 665 ml 360 ml 960 ml Intake Oral 840 ml 360 ml 960 ml IV Total 125 ml Output Urine Total 300 ml # Voids 2 2 1 (Peyton Desir MD R3) Result Diagram: 10/12/1651410/12/16514 Objective Remarks GENERAL: Well-developed well-nourished male resting in bed comfortably SKIN: Warm and dry. Slightly improved Lower extremity with erythema and petechiae circumferentially near the ankle proximally to the mid calf. Right- sided PICC line without surrounding erythema. HEAD: Normocephalic. Atraumatic EYES: No scleral icterus. No injection or drainage. ENT: OP clear. NECK: Supple, trachea midline. No JVD or lymphadenopathy. CARDIOVASCULAR: Regular rate and rhythm without audible murmurs, gallops, or rubs. RESPIRATORY: Breath sounds diminished at bilateral bases, otherwise CTAB. No accessory muscle use. GASTROINTESTINAL: Abdomen soft, protuberant. Hepatic and splenic edges are palpable below the costal margin 1-2 cm. There is no rebound. No tenderness MUSCULOSKELETAL: No cyanosis of LLE. 1+ edema of the left foot distal to the area of erythema described above. Left lower leg tender to palpation BACK: Nontender without obvious deformity. No CVA tenderness. Neuro: Awake and alert. Normal speech. Cranial nerves grossly intact. (Peyton Desir MD R3) A/P Assessment and Plan 75 y/o M with a PMH of DM and HTN admitted with severe sepsis from LLE extremity cellulitis. He was found to have a renal mass and he is pancytopenic. Hematology has been consulted. Infectious disease consulted. Discharge Planning Patient will need to return to [place] to complete his course of IV antibiotics. Discharge pending arrangement. (Peyton Desir MD R3) Attending Attestation Patient seen and examined with the resident team. Case reviewed and discussed Agree with plan of care as discussed with me and documented in the resident note. (Olga Apple MD) Problem List: (1) Cellulitis of leg without foot, left Status: Acute Plan: Patient presented septic. Currently vitals are stable. He is chronically pancytopenic. Infectious disease consulted PICC line in place. Daptomycin 600 mg every 24 hours IV. Case management consulted for Outpatient IV Daptomycin x 7 more days Blood cultures: No growth to date Continue to trend CBC while inpatient -Percocet when necessary pain greater than 5 Antibiotic history: Stop empiric antibiotics vancomycin and Zosyn (started 10/07) Ancef 1 g every 8 hours IV (2) Pancytopenia Status: Acute Plan: -Hematology consulted - appreciate recommendations Previous records from his primary care physician's office in [place] are in the patient's chart. Blood work dated June 20, 2016, show the patient's cytopenias have been chronic. On that day the patient's absolute neutrophil counts were 0.3, platelet counts are 26,000 and hemoglobin and hematocrit were also low with a hemoglobin of 10 g/dL. Patient's pancytopenia is likely myelosuppression secondary to alcoholism as well as splenomegaly with resultant splenic sequestration. The sepsis has worsened cytopenias beyond baseline. Hematology does not think it is necessary to do a workup for primary bone marrow disorder or biopsy. It was recommended that the patient be evaluated more thoroughly when he returns to [place]. Continue prednisone (3) VANESSA (acute kidney injury) Status: Resolved Plan: Resolved (4) Diabetes Status: Chronic Plan: -Holding home metformin -Sliding scale insulin with Accu-Cheks (5) Bladder mass Status: Acute Plan: CT abdomen shows no findings to indicate metastatic disease. Possible bladder mass along the right posterior lateral bladder wall measuring 189 mm; it is near the ureterovesicular junction but it is not obstructing the right ureter. This could represent transitional cell carcinoma. Hematology/oncology consulted. Recommended against having this evaluated as the patient is only here for a few months and will return to [place]. This can be electively worked up as an outpatient when he returns home. Patient was made aware of this finding. He understands he needs to follow-up with his primary care physicians in [place]. 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 Counseled alcohol cessation (7) Hypertension Status: Acute Plan: -Continue home metoprolol 50 mg by mouth twice a day -Hold for blood pressure less than 100/60 (8) Alcohol abuse Status: Acute Plan: -Patient reports chronic history of drinking -Consult on need to stop drinking alcohol -WA protocol (9) Lung nodule Status: Acute Plan: CT chest shows a 5 mm pulmonary nodule in the right lower lobe. Suggest six-month follow-up noncontrast chest CT to confirm stability Patient was made aware of this finding. He understands he needs a repeat CT scan of his chest to assess for stability of this nodule. (10) Thrombocytopenia Status: Acute Plan: Chronic in nature. Hematology consult Currently given 30 mg prednisone on 10/12 Per hematology, taper prednisone by 10 mg every other day; to complete prednisone within 1 week. (11) FEN/DVT PPX/GI PPX Status: Acute Plan: Fluids: Tolerating by mouth Electrolytes: Will monitor and replace as needed Nutrition: Diabetic diet DVT Prophylaxis: SCD on unaffected extremity, heparin and Lovenox contraindicated due to thrombocytopenia GI Prophylaxis: Protonix 40mg PO daily (12) Severe sepsis Status: Resolved Plan: Resolved (Peyton Desir MD R3) Problem Qualifiers (1) Diabetes: Qualified Code: E11.8 - Type 2 diabetes mellitus with complication, unspecified snf insulin use status Peyton Desir MD R3 Oct 12, 2016 12:34 Olga Apple MD Oct 12, 2016 13:27
[2016-10-12] MEDS: DAPTOmycin INJ 600 MG in SODIUM CHLORIDE 0.9% INJ 100 ML IV SCH (14:03)
[2016-10-12 16:00] VITALS: BP 124/69; PULSE 58; RESP 20; TEMP 97.7; O2SAT 97
[2016-10-12 20:00] VITALS: BP 155/73; PULSE 61; RESP 18; TEMP 97.9; O2SAT 98
[2016-10-13] VITALS: BP 150/70; PULSE 70; RESP 19; TEMP 96.9; O2SAT 99
[2016-10-13 04:00] VITALS: BP 174/83; PULSE 71; RESP 19; TEMP 97.1; O2SAT 99
[2016-10-13] MEDS: INSULIN ASPART SUPPLEMENTAL SCALE SQ SCH ×4 (05:02→21:59)
[2016-10-13 06:07] LABS: AUTOMATED NEUTROPHIL # 0.9 TH/MM3 (1.8-7.7); BASOPHIL % 0.1 % (0.0-2.0); EOSINOPHIL % 1.6 % (0.0-4.0); HEMATOCRIT 24.9 % (39.0-51.0); LYMPH % 36.8 % (9.0-44.0); LYMPHOCYTE # 0.6 TH/MM3 (1.0-4.8); MEAN CELL VOLUME 110.1 FL (80.0-100.0); MEAN CORPUSCULAR HEMOGLOBIN 39.6 PG (27.0-34.0); MONO % 3.6 % (0.0-8.0); NEUT % 57.9 % (16.0-70.0); PLATELET COUNT 41 TH/MM3 (150-450); RED BLOOD COUNT 2.26 MIL/MM3 (4.50-5.90); RED CELL DISTRIBUTION WIDTH 17.1 % (11.6-17.2); WHITE BLOOD COUNT 1.5 TH/MM3 (4.0-11.0)
[2016-10-13 06:10] LABS: HEMO FLAGS AUTO DIFF
[2016-10-13 06:31] LABS: ALT (GPT) 42 U/L (12-78); ANION GAP 9 MEQ/L (5-15); AST (GOT) 40 U/L (15-37); BLOOD UREA NITROGEN 14 MG/DL (7-18); CHLORIDE 103 MEQ/L (98-107); GLOMERULAR FILTRATION RATE 105 ML/MIN (>89); POTASSIUM 3.4 MEQ/L (3.5-5.1); SODIUM (NA) 139 MEQ/L (136-145)
[2016-10-13 06:34] LABS: ALKALINE PHOSPHATASE 69 U/L (45-117); TOTAL BILIRUBIN ADULT 1.9 MG/DL (0.2-1.0)
[2016-10-13 07:50] VITALS: BP 162/81; PULSE 63; RESP 20; TEMP 96.2; O2SAT 98
[2016-10-13 07:50] LABS: BANDS 6 % (0-6); EOSINOPHILS 4 % (0-4); POLYS (SEG NEUTROPHILS) 60 % (16-70); TOXIC GRANULATION 1+ (NORMAL); WBC DIFF SAMPLE 100
[2016-10-13 07:51] LABS: KERATOCYTES OCC (NORMAL); OVALOCYTES 1+ (NORMAL); PLATELET ESTIMATE SMEAR LOW (NORMAL); PLATELET MORPHOLOGY NORMAL (NORMAL); SCAN/DIFF FINAL DIFF MANUAL
[2016-10-13] MEDS ORDERED: POTASSIUM CHLORIDE 25 MEQ EFFERVESCENT TAB PO ONE (08:00)
--- NOTE | 2016-10-13 08:34 | HHI.FPPN ---
Subjective Remarks Mr. Ortiz is doing well this morning. He has no complaints. His leg is doing much better and is able to ambulate without a walker. He would like to take a shower and shave today. (Elida Mcgee MD R1) Objective Vitals Vital Signs Date Time Temp Pulse Resp B/P Pulse Ox O2 Delivery O2 Flow Rate FiO2 10/13/16 04:00 97.1 71 19 174/83 99 10/13/16 00:00 96.9 70 19 150/70 99 10/12/16 20:00 97.9 61 18 155/73 98 10/12/16 16:00 97.7 58 20 124/69 97 10/12/16 12:00 97.6 68 18 128/63 97 I/O 10/12/16 10/12/16 10/12/16 10/13/16 10/13/16 10/13/16 07:00 15:00 23:00 07:00 15:00 23:00 Intake Total 1800 ml 480 ml 240 ml Balance 1800 ml 480 ml 240 ml Intake Oral 1800 ml 480 ml 240 ml # Voids 2 3 2 # Bowel Movements 1 (Elida Mcgee MD R1) Result Diagram: 10/13/16 0501 10/13/16 0501 Imaging Last Impressions Chest X-Ray 10/10/16 0000 Signed Impressions: Service Date/Time: Monday, October 10, 2016 20:02 - CONCLUSION: No acute disease. Right-sided PICC line with tip in the SVC. Fantasma Albarran MD Tibia/Fibula X-Ray 10/09/16 1135 Signed Impressions: Service Date/Time: Sunday, October 09, 2016 12:23 - CONCLUSION: 1. Soft tissue swelling without fracture. Fantasma Albarran MD Chest CT 10/08/16 0000 Signed Impressions: Service Date/Time: Saturday, October 08, 2016 16:22 - CONCLUSION: 1. No acute finding is identified within the chest. 2. There is a 5 mm noncalcified pulmonary nodule in the right lower lobe. This should be correlated with any prior imaging studies. If none are available suggest six-month followup noncontrast chest CT to confirm stability. 3. There are bilateral calcified pleural plaques suggestive of prior asbestos exposure. 4. Severe coronary artery calcification and atherosclerotic disease. Alhaji Shelton MD Abdomen/Pelvis CT 10/08/16 0000 Signed Impressions: Service Date/Time: Saturday, October 08, 2016 16:22 - CONCLUSION: 1. There are no findings to indicate metastatic disease, as questioned. 2. The liver demonstrates features diagnostic of cirrhosis. No focal liver lesion is identified. There are findings indicative of portal hypertension including a small volume of ascites, splenomegaly, and collateral vessels. 3. Possible bladder mass along the right posterior lateral bladder wall measuring 18 x 9 mm. It is near the ureterovesical junction but is not obstructing the right ureter. This could represent transitional cell carcinoma. 4. Non acute findings include severe atherosclerotic disease and sigmoid diverticulosis. Alhaji Shelton MD Lower Extremity Ultrasound 10/07/16 0000 Signed Impressions: Service Date/Time: Friday, October 07, 2016 14:59 - CONCLUSION: Normal examination. Jaylon Tracey MD Liver Ultrasound 10/07/16 0000 Signed Impressions: Service Date/Time: Friday, October 07, 2016 14:59 - CONCLUSION: 1. Hepatosplenomegaly with cirrhotic appearing liver and ascites. 2. Solid-appearing right renal mass suspected with blood flow concerning for renal cell carcinoma until proven otherwise. Jaylon Tracey MD Objective Remarks GENERAL: Well-developed well-nourished male resting in bed comfortably SKIN: Warm and dry. Improved lower extremity with erythema and petechiae circumferentially near the ankle proximally to the mid calf. Right-sided PICC line without surrounding erythema. HEAD: Normocephalic. Atraumatic EYES: No scleral icterus. No injection or drainage. ENT: OP clear. NECK: Supple, trachea midline. No JVD or lymphadenopathy. CARDIOVASCULAR: Regular rate and rhythm without audible murmurs, gallops, or rubs. RESPIRATORY: Breath sounds diminished at bilateral bases, otherwise CTAB. No accessory muscle use. GASTROINTESTINAL: Abdomen soft, protuberant. No tenderness MUSCULOSKELETAL: No cyanosis of LLE. 1+ edema of the left foot distal to the area of erythema described above. Left lower leg tender to palpation BACK: Nontender without obvious deformity. No CVA tenderness. Neuro: Awake and alert. Normal speech. Cranial nerves grossly intact. (Eko, Elida De La Cruz MD R1) A/P Assessment and Plan 75 y/o M with a PMH of DM and HTN admitted with severe sepsis from LLE extremity cellulitis. He was found to have a renal mass and he is pancytopenic. Hematology consulted. Infectious disease on board. Discharge Planning Patient will need to return to [place] to complete his course of IV antibiotics. Discharge pending arrangement. (Elida Mcgee MD R1) Attending Attestation Patient seen and examined. Case reviewed and discussed. Agree with plan of care as discussed with me and documented in the resident note. (Olga Apple MD) Problem List: (1) Cellulitis of leg without foot, left Status: Acute Plan: Patient presented septic. Currently vitals are stable. He is chronically pancytopenic. Infectious disease consulted PICC line in place. Daptomycin 600 mg every 24 hours IV Arrangements have been made for outpatient IV Daptomycin x 7 more days, however planning is in process to transfer patient to [place] for further management per request from his [employer] insurance company Blood cultures: No growth to date Continue to trend CBC while inpatient -Percocet when necessary pain greater than 5 Antibiotic history: Stop empiric antibiotics vancomycin and Zosyn (started 10/07) Ancef 1 g every 8 hours IV (2) Pancytopenia Status: Chronic Plan: -Hematology consulted - appreciate recommendations Previous records from his primary care physician's office in [place] are in the patient's chart. Blood work dated June 20, 2016, show the patient's cytopenias have been chronic. On that day the patient's absolute neutrophil counts were 0.3, platelet counts are 26,000 and hemoglobin and hematocrit were also low with a hemoglobin of 10 g/dL. Patient's pancytopenia is likely myelosuppression secondary to alcoholism as well as splenomegaly with resultant splenic sequestration. The sepsis has worsened cytopenias beyond baseline. Hematology does not think it is necessary to do a workup for primary bone marrow disorder or biopsy. It was recommended that the patient be evaluated more thoroughly when he returns to [place]. Continue prednisone (3) VANESSA (acute kidney injury) Status: Resolved Plan: Resolved (4) Diabetes Status: Chronic Plan: -Holding home metformin -Sliding scale insulin with Accu-Cheks -He required 19 units SSI in the last 24 hours (5) Bladder mass Status: Acute Plan: CT abdomen shows no findings to indicate metastatic disease. Possible bladder mass along the right posterior lateral bladder wall measuring 189 mm; it is near the ureterovesicular junction but it is not obstructing the right ureter. This could represent transitional cell carcinoma. Hematology/oncology consulted. Recommended against having this evaluated as the patient is only here for a few months and will return to [place]. This can be electively worked up as an outpatient when he returns home. Patient was made aware of this finding. He understands he needs to follow-up with his primary care physicians in [place]. 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 Counseled alcohol cessation (7) Hypertension Status: Acute Plan: -Continue home metoprolol 50 mg by mouth twice a day -Hold for blood pressure less than 100/60 (8) Alcohol abuse Status: Acute Plan: -Patient reports chronic history of drinking -Consult on need to stop drinking alcohol -Discontinued [facility] protocol (9) Lung nodule Status: Acute Plan: CT chest shows a 5 mm pulmonary nodule in the right lower lobe. Suggest six-month follow-up noncontrast chest CT to confirm stability Patient was made aware of this finding. He understands he needs a repeat CT scan of his chest to assess for stability of this nodule. (10) Thrombocytopenia Status: Acute Plan: Chronic in nature. Hematology consult Currently given 30 mg prednisone on 10/12 Per hematology, taper prednisone by 10 mg every other day; to complete prednisone within 1 week. (11) FEN/DVT PPX/GI PPX Status: Acute Plan: Fluids: Tolerating by mouth Electrolytes: Will monitor and replace as needed Nutrition: Diabetic diet DVT Prophylaxis: SCD on unaffected extremity, heparin and Lovenox contraindicated due to thrombocytopenia GI Prophylaxis: Protonix 40mg PO daily (12) Severe sepsis Status: Resolved Plan: Resolved (Elida Mcgee MD R1) Problem Qualifiers (1) Diabetes: Qualified Code: E11.8 - Type 2 diabetes mellitus with complication, unspecified halfway insulin use status Elida Mcgee MD R1 Oct 13, 2016 08:34 Olga Apple MD Oct 18, 2016 17:31
[2016-10-13] MEDS: METOPROLOL TARTRATE 50 MG TAB PO SCH ×3 (09:20→21:58)
[2016-10-13] MEDS: predniSONE 10 MG TAB PO SCH (09:20)
[2016-10-13] MEDS: oxyCODONE/ACETAMINOPHEN 5 MG/325 MG TAB PO PRN (09:20)
[2016-10-13] MEDS: THIAMINE HCL 100 MG TAB PO SCH (09:20)
[2016-10-13] MEDS: SODIUM CHLORIDE 0.9% FLUSH 5 ML FLUSH FLUSH SCH ×2 (09:21→21:58)
--- NOTE | 2016-10-13 09:33 | PD.ONC.PN ---
Subjective Subjective Remarks Afebrile overnight. Patient states he is having some pain in his left leg, because he did not yet get his pain medication this AM. No other complaints. Objective Data Date Time Temp Pulse Resp B/P Pulse Ox O2 Delivery O2 Flow Rate FiO2 10/13/16 04:00 97.1 71 19 174/83 99 10/13/16 00:00 96.9 70 19 150/70 99 10/12/16 20:00 97.9 61 18 155/73 98 10/12/16 16:00 97.7 58 20 124/69 97 10/12/16 12:00 97.6 68 18 128/63 97 Result Diagram: 10/13/16 0501 10/13/16 0501 Laboratory Results Laboratory Tests Test 10/13/16 05:01 White Blood Count 1.5 TH/MM3 Red Blood Count 2.26 MIL/MM3 Hemoglobin 9.0 GM/DL Hematocrit 24.9 % Mean Corpuscular Volume 110.1 FL Mean Corpuscular Hemoglobin 39.6 PG Mean Corpuscular Hemoglobin 36.0 % Concent Red Cell Distribution Width 17.1 % Platelet Count 41 TH/MM3 Mean Platelet Volume 10.3 FL Neutrophils (%) (Auto) 57.9 % Lymphocytes (%) (Auto) 36.8 % Monocytes (%) (Auto) 3.6 % Eosinophils (%) (Auto) 1.6 % Basophils (%) (Auto) 0.1 % Neutrophils # (Auto) 0.9 TH/MM3 Lymphocytes # (Auto) 0.6 TH/MM3 Monocytes # (Auto) 0.1 TH/MM3 Eosinophils # (Auto) 0.0 TH/MM3 Basophils # (Auto) 0.0 TH/MM3 CBC Comment AUTO DIFF Differential Total Cells 100 Counted Neutrophils % (Manual) 60 % Band Neutrophils % 6 % Lymphocytes % 27 % Monocytes % 3 % Eosinophils % 4 % Neutrophils # (Manual) 1.0 TH/MM3 Differential Comment FINAL DIFF MANUAL Toxic Granulation 1+ Platelet Estimate LOW Platelet Morphology Comment NORMAL Ovalocytes 1+ Keratocytes OCC Sodium Level 139 MEQ/L Potassium Level 3.4 MEQ/L Chloride Level 103 MEQ/L Carbon Dioxide Level 27.0 MEQ/L Anion Gap 9 MEQ/L Blood Urea Nitrogen 14 MG/DL Creatinine 0.73 MG/DL Estimat Glomerular Filtration 105 ML/MIN Rate Random Glucose 156 MG/DL Calcium Level 8.6 MG/DL Total Bilirubin 1.9 MG/DL Aspartate Amino Transf 40 U/L (AST/SGOT) Alanine Aminotransferase 42 U/L (ALT/SGPT) Alkaline Phosphatase 69 U/L Total Protein 6.6 GM/DL Albumin 2.4 GM/DL Administered Medications Medications (Trade) Dose Ordered Sig/Emily Route PRN Reason Start Time Stop Time Status Last Admin Dose Admin IV Flush (NS Flush) 2 ml BID FLUSH 10/07/16 15:00 10/12/16 20:31 Oxycodone/ Acetaminophen (Percocet 5-325 Mg) 1 tab Q6H PRN PO PAIN GREATER THAN 5 10/07/16 15:15 10/12/16 10:54 Thiamine HCl 100 mg 100 mg DAILY PO 10/07/16 15:30 10/12/16 09:00 Daptomycin/Sodium Chloride (Cubicin Inj/NS Inj) 100 ml @ 200 mls/hr Q24H IV 10/10/16 13:00 10/12/16 14:03 Metoprolol Tartrate (Lopressor) 50 mg TID PO 10/10/16 18:00 10/12/16 18:21 IV Flush (NS Flush) See Protocol DAILY IVF 10/11/16 09:00 10/12/16 09:00 Heparin Sodium (Porcine) (Heparin Central Flush) See Protocol DAILY IVF 10/11/16 09:00 10/12/16 10:51 Prednisone (Deltasone) 30 mg DAILY PO 10/12/16 09:00 10/12/16 09:00 Objective Remarks GENERAL: Elderly male, sitting up in chair next to bed, eating breakfast. SKIN: Warm and dry. fading erythema on left leg, inside of multiple pen markings. HEAD: Normocephalic. EYES: No injection or drainage. NECK: Supple, trachea midline. CARDIOVASCULAR: +S1/S2 RESPIRATORY: Breath sounds equal bilaterally. No accessory muscle use. GASTROINTESTINAL: Abdomen soft, non-tender, nondistended. EXTREMITIES: No cyanosis NEUROLOGICAL: No obvious focal deficit. Awake, alert, and oriented x3. Assessment/Plan Assessment 75y/o male admitted with cellulitis to [facility]. Hematology consulted for pancytopenia. h/o cirrhosis + splenomegaly + portal hypertension Plan 1. Pancytopenia: counts improved today, overall stable. --myelosuppression secondary to alcoholism + splenomegaly + sepsis --plan is for follow up with his doctors upon return to [place]. 2. right renal mass: plan for workup upon return to [place] 3. cellulitis: abx per primary team Attending Statement The exam, history, and the medical decision-making described in the above note were completed with the assistance of the mid-level provider. I reviewed and agree with the findings presented. I attest that I had a [id number] encounter with the patient on the same day, and personally performed and documented my assessment and findings in the medical record. Yumiko Bellamy Oct 13, 2016 09:33 Gabriel Darden MD Oct 13, 2016 13:10
[2016-10-13 11:50] VITALS: BP 160/84; PULSE 66; RESP 20; TEMP 96.7; O2SAT 96
[2016-10-13] MEDS: DAPTOmycin INJ 600 MG in SODIUM CHLORIDE 0.9% INJ 100 ML IV SCH (13:38)
--- NOTE | 2016-10-13 15:04 | HHI.FPPN ---
Addendum to progress note ADDENDUM Reason for addendum: Additonal documentation Additional information OFF SERVICE NOTE History of Present Illness "Patient is a 75-year-old male with a past medical history of diabetes and hypertension that presents to the [place] ED with a chief complaint of left leg skin infection, pain and swelling. The patient states that he started feeling fatigued 7 days ago and has not eaten anything except for 3 pieces of meat. He has been feeling very tired and has been sleeping all day and night's. He woke up on Saturday morning with pain in his left ankle that progressively got worse to the point that he was limping. The patient denies fever, chills, chest pain, shortness of breath, and headache. He also denies dysuria but has noted decreased urinary output. He lives alone and cooks for himself but he had friends come over from [place] this week who encouraged him to come into the ED today. 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 His PCP is in [place]. He had his flu shot within the last 6 months but does not remember if he had the pneumonia vaccine." Hospital Course Mr. Ortiz was admitted with a diagnosis of severe sepsis from LLE extremity cellulitis for treatment with fluids and IV vancomycin and Zosyn, which was later changed to Unasyn and then to daptomycin IV by infectious disease. Arrangements were made for him to continue daptomycin infusions as an outpatient and a PICC line was placed. However, planning is now in process to fly him to [place] for further management per request from his [employer] insurance company. He was found to be severely pancytopenic, which we learned is a chronic problem most likely due to his alcohol abuse. Hematology was consulted for the pancytopenia and they started him on a prednisone taper. Presently the patient is doing well and slowly recovering, as he waits to be transferred to [place]. (Elida Mcgee MD R1) Elida Mcgee MD R1 Oct 13, 2016 15:04 Olga Apple MD Oct 18, 2016 17:31
[2016-10-13 15:50] VITALS: BP 157/81; PULSE 60; RESP 20; TEMP 96.9; O2SAT 97
[2016-10-13 20:00] VITALS: BP 161/83; PULSE 69; RESP 21; TEMP 97.4; O2SAT 98
[2016-10-13] MEDS: INSULIN DETEMIR 100 UNITS/ML VIAL SQ SCH (21:58)
[2016-10-14] VITALS: BP 158/77; PULSE 63; RESP 20; TEMP 97; O2SAT 97
[2016-10-14 04:00] VITALS: BP 163/80; PULSE 67; RESP 21; TEMP 98; O2SAT 97
[2016-10-14 06:22] LABS: BASOPHIL % 0.3 % (0.0-2.0); EOSINOPHIL % 1.2 % (0.0-4.0); HEMATOCRIT 24.8 % (39.0-51.0); LYMPH % 40.1 % (9.0-44.0); LYMPHOCYTE # 0.7 TH/MM3 (1.0-4.8); MEAN CORPUSCULAR HEMOGLOBIN 39.2 PG (27.0-34.0); MONO % 3.6 % (0.0-8.0); NEUT % 54.8 % (16.0-70.0); PLATELET COUNT 40 TH/MM3 (150-450); RED BLOOD COUNT 2.21 MIL/MM3 (4.50-5.90); RED CELL DISTRIBUTION WIDTH 17.6 % (11.6-17.2); WHITE BLOOD COUNT 1.9 TH/MM3 (4.0-11.0)
[2016-10-14 06:27] LABS: HEMO FLAGS AUTO DIFF
[2016-10-14] MEDS: METOPROLOL TARTRATE 50 MG TAB PO SCH ×3 (06:36→21:28)
[2016-10-14] MEDS: INSULIN ASPART SUPPLEMENTAL SCALE SQ SCH ×4 (06:38→21:28)
[2016-10-14 06:47] LABS: ALKALINE PHOSPHATASE 73 U/L (45-117); ALT (GPT) 41 U/L (12-78); ANION GAP 9 MEQ/L (5-15); AST (GOT) 40 U/L (15-37); BICARBONATE 29.6 MEQ/L (21.0-32.0); BLOOD UREA NITROGEN 15 MG/DL (7-18); CHLORIDE 102 MEQ/L (98-107); GLOMERULAR FILTRATION RATE 100 ML/MIN (>89); POTASSIUM 3.3 MEQ/L (3.5-5.1); SODIUM (NA) 141 MEQ/L (136-145); TOTAL BILIRUBIN ADULT 1.8 MG/DL (0.2-1.0)
[2016-10-14] MEDS: THIAMINE HCL 100 MG TAB PO SCH (07:48)
[2016-10-14] MEDS: predniSONE 10 MG TAB PO SCH (07:49)
[2016-10-14 07:50] VITALS: BP 165/81; PULSE 58; RESP 20; TEMP 97.3; O2SAT 95
[2016-10-14] MEDS: oxyCODONE/ACETAMINOPHEN 5 MG/325 MG TAB PO PRN (07:50)
[2016-10-14] MEDS: INSULIN DETEMIR 100 UNITS/ML VIAL SQ SCH ×2 (07:56→21:28)
[2016-10-14] MEDS ORDERED: POTASSIUM CHLORIDE 25 MEQ EFFERVESCENT TAB PO ONE (08:00)
[2016-10-14] MEDS: SODIUM CHLORIDE 0.9% FLUSH 5 ML FLUSH FLUSH SCH ×2 (09:00→21:29)
[2016-10-14 09:43] LABS: BANDS 5 % (0-6); EOSINOPHILS 1 % (0-4); NEUTROPHIL # MANUAL DIFF 1.3 TH/MM3 (1.8-7.7); POLYS (SEG NEUTROPHILS) 64 % (16-70); WBC DIFF SAMPLE 100
[2016-10-14 09:44] LABS: OVALOCYTES 1+ (NORMAL); PLATELET ESTIMATE SMEAR LOW (NORMAL); PLATELET MORPHOLOGY NORMAL (NORMAL); SCAN/DIFF FINAL DIFF MANUAL
--- NOTE | 2016-10-14 10:48 | HHI.FPPN ---
Subjective Remarks Patient is doing well this morning. No fever, chills, chest pain, shortness of breath. He is walking greater distances with physical therapy. His appetite is good. Normal bowel movements. (Misha Houser MD R2) Objective Vitals Vital Signs Date Time Temp Pulse Resp B/P Pulse Ox O2 Delivery O2 Flow Rate FiO2 10/14/16 07:50 97.3 58 20 165/81 95 10/14/16 04:00 98.0 67 21 163/80 97 10/14/16 00:00 97.0 63 20 158/77 97 10/13/16 20:00 97.4 69 21 161/83 98 10/13/16 15:50 96.9 60 20 157/81 97 10/13/16 11:50 96.7 66 20 160/84 96 I/O 10/13/16 10/13/16 10/13/16 10/14/16 10/14/16 10/14/16 07:00 15:00 23:00 07:00 15:00 23:00 Intake Total 240 ml 440 ml 970 ml 240 ml Output Total 300 ml Balance 240 ml 140 ml 970 ml 240 ml Intake Oral 240 ml 440 ml 720 ml 240 ml IV Total 250 ml Output Urine Total 300 ml # Voids 2 2 5 3 # Bowel Movements 1 2 (Misha Houser MD R2) Result Diagram: 10/14/1641910/14/16419 Objective Remarks GENERAL: Well-developed well-nourished male resting in bed comfortably SKIN: Warm and dry. Improved lower extremity with erythema and petechiae circumferentially near the ankle proximally to the mid calf. Right-sided PICC line without surrounding erythema. HEAD: Normocephalic. Atraumatic EYES: No scleral icterus. No injection or drainage. ENT: OP clear. NECK: Supple, trachea midline. No JVD or lymphadenopathy. CARDIOVASCULAR: Regular rate and rhythm without audible murmurs, gallops, or rubs. RESPIRATORY: Breath sounds diminished at bilateral bases, otherwise CTAB. No accessory muscle use. GASTROINTESTINAL: Abdomen soft, protuberant. No tenderness MUSCULOSKELETAL: No cyanosis of LLE. 1+ edema of the left foot distal to the area of erythema described above. Left lower leg tender to palpation BACK: Nontender without obvious deformity. No CVA tenderness. Neuro: Awake and alert. Normal speech. Cranial nerves grossly intact. (Misha Houser MD R2) A/P Assessment and Plan 75 y/o M with a PMH of DM and HTN admitted with severe sepsis from LLE extremity cellulitis. He was found to have a renal mass and he is pancytopenic. Hematology consulted. Infectious disease on board. Discharge Planning Patient will need to return to [place] to complete his course of IV antibiotics. Discharge pending arrangement. (Misha Houser MD R2) Attending Attestation Patient seen and examined. Case reviewed and discussed. Agree with plan of care as discussed with me and documented in the resident note. (Olga Apple MD) Problem List: (1) Cellulitis of leg without foot, left Status: Acute Plan: Patient presented septic. Currently vitals are stable. He is chronically pancytopenic. Infectious disease consulted PICC line in place. Daptomycin 600 mg every 24 hours IV (started 10/10); he needs 4 more days of daptomycin. Arrangements have been made for outpatient IV Daptomycin, however planning is in process to transfer patient to [place] for further management per request from his [employer] insurance company Blood cultures: No growth to date Continue to trend CBC while inpatient -Percocet when necessary pain greater than 5 Antibiotic history: Stop empiric antibiotics vancomycin and Zosyn (started 10/07) Ancef 1 g every 8 hours IV (2) Pancytopenia Status: Chronic Plan: -Hematology consulted - appreciate recommendations Previous records from his primary care physician's office in [place] are in the patient's chart. Blood work dated June 20, 2016, show the patient's cytopenias have been chronic. On that day the patient's absolute neutrophil counts were 0.3, platelet counts are 26,000 and hemoglobin and hematocrit were also low with a hemoglobin of 10 g/dL. Patient's pancytopenia is likely myelosuppression secondary to alcoholism as well as splenomegaly with resultant splenic sequestration. The sepsis has worsened cytopenias beyond baseline. Hematology does not think it is necessary to do a workup for primary bone marrow disorder or biopsy. It was recommended that the patient be evaluated more thoroughly when he returns to [place]. Continue prednisone (3) VANESSA (acute kidney injury) Status: Resolved Plan: Resolved (4) Diabetes Status: Chronic Plan: -Holding home metformin -Sliding scale insulin with Accu-Cheks -He required 19 units SSI in the last 24 hours (5) Bladder mass Status: Acute Plan: CT abdomen shows no findings to indicate metastatic disease. Possible bladder mass along the right posterior lateral bladder wall measuring 189 mm; it is near the ureterovesicular junction but it is not obstructing the right ureter. This could represent transitional cell carcinoma. Hematology/oncology consulted. Recommended against having this evaluated as the patient is only here for a few months and will return to [place]. This can be electively worked up as an outpatient when he returns home. Patient was made aware of this finding. He understands he needs to follow-up with his primary care physicians in [place]. 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 Counseled alcohol cessation (7) Hypertension Status: Acute Plan: -Continue home metoprolol 50 mg by mouth twice a day -Hold for blood pressure less than 100/60 (8) Alcohol abuse Status: Acute Plan: -Patient reports chronic history of drinking -Consult on need to stop drinking alcohol -Discontinued [facility] protocol (9) Lung nodule Status: Acute Plan: CT chest shows a 5 mm pulmonary nodule in the right lower lobe. Suggest six-month follow-up noncontrast chest CT to confirm stability Patient was made aware of this finding. He understands he needs a repeat CT scan of his chest to assess for stability of this nodule. (10) Thrombocytopenia Status: Acute Plan: Chronic in nature. Hematology consult Currently given 30 mg prednisone on 10/12 Per hematology, taper prednisone by 10 mg every other day; to complete prednisone within 1 week. (11) FEN/DVT PPX/GI PPX Status: Acute Plan: Fluids: Tolerating by mouth Electrolytes: Will monitor and replace as needed Nutrition: Diabetic diet DVT Prophylaxis: SCD on unaffected extremity, heparin and Lovenox contraindicated due to thrombocytopenia GI Prophylaxis: Protonix 40mg PO daily (12) Severe sepsis Status: Resolved Plan: Resolved (Misha Houser MD R2) Problem Qualifiers (1) Diabetes: Qualified Code: E11.8 - Type 2 diabetes mellitus with complication, unspecified alf insulin use status Misha Houser MD R2 Oct 14, 2016 10:48 Olga Apple MD Oct 18, 2016 17:31
[2016-10-14 11:30] VITALS: BP 158/83; PULSE 61; RESP 20; TEMP 96.8; O2SAT 97
[2016-10-14] MEDS: DAPTOmycin INJ 600 MG in SODIUM CHLORIDE 0.9% INJ 100 ML IV SCH (13:03)
[2016-10-14 15:50] VITALS: BP 152/77; PULSE 65; RESP 20; TEMP 99.1; O2SAT 98
[2016-10-14 20:00] VITALS: BP 166/77; PULSE 65; RESP 18; TEMP 97.7; O2SAT 98
[2016-10-15] VITALS: BP 165/77; PULSE 63; RESP 19; TEMP 96.2; O2SAT 98
[2016-10-15 04:00] VITALS: BP 171/82; PULSE 60; RESP 18; TEMP 96.4; O2SAT 97
[2016-10-15] MEDS: METOPROLOL TARTRATE 50 MG TAB PO SCH ×3 (05:24→21:13)
[2016-10-15] MEDS: INSULIN ASPART SUPPLEMENTAL SCALE SQ SCH ×4 (05:25→20:13)
[2016-10-15 06:03] LABS: AUTOMATED NEUTROPHIL # 1.1 TH/MM3 (1.8-7.7); BASOPHIL % 0.4 % (0.0-2.0); EOSINOPHIL % 1.3 % (0.0-4.0); HEMATOCRIT 25.5 % (39.0-51.0); LYMPH % 42.4 % (9.0-44.0); LYMPHOCYTE # 0.9 TH/MM3 (1.0-4.8); MEAN CELL VOLUME 111.6 FL (80.0-100.0); MEAN CORPUSCULAR HEMOGLOBIN 39.1 PG (27.0-34.0); MONO % 4.2 % (0.0-8.0); NEUT % 51.7 % (16.0-70.0); PLATELET COUNT 39 TH/MM3 (150-450); RED BLOOD COUNT 2.28 MIL/MM3 (4.50-5.90); RED CELL DISTRIBUTION WIDTH 17.9 % (11.6-17.2); WHITE BLOOD COUNT 2.2 TH/MM3 (4.0-11.0)
[2016-10-15 06:11] LABS: HEMO FLAGS AUTO DIFF
[2016-10-15 06:20] LABS: ALT (GPT) 37 U/L (12-78); ANION GAP 9 MEQ/L (5-15); AST (GOT) 36 U/L (15-37); BICARBONATE 29.2 MEQ/L (21.0-32.0); BLOOD UREA NITROGEN 14 MG/DL (7-18); CHLORIDE 103 MEQ/L (98-107); GLOMERULAR FILTRATION RATE 94 ML/MIN (>89); POTASSIUM 3.5 MEQ/L (3.5-5.1); SODIUM (NA) 141 MEQ/L (136-145)
[2016-10-15 06:22] LABS: ALKALINE PHOSPHATASE 72 U/L (45-117); TOTAL BILIRUBIN ADULT 1.6 MG/DL (0.2-1.0)
[2016-10-15 06:59] LABS: SCAN/DIFF AUTO DIFF CONFIRMED
[2016-10-15 07:00] LABS: OVALOCYTES 1+ (NORMAL)
[2016-10-15] MEDS ORDERED: hydrALAZINE HCL 10 MG TAB PO PRN (07:15)
[2016-10-15 08:00] VITALS: BP 158/69; PULSE 56; RESP 20; TEMP 96.2; O2SAT 96
--- NOTE | 2016-10-15 09:59 | HHI.FPPN ---
Subjective Remarks Patient has no complaints today. He states his left leg feels much better and that he is able to walk around with limited pain. No problems with bowel or bladder. He denies chest pain, shortness of breath, nausea, vomiting, fevers, chills. Eating well. (Love Gomez MD R1) Objective Vitals Vital Signs Date Time Temp Pulse Resp B/P Pulse Ox O2 Delivery O2 Flow Rate FiO2 10/15/16 08:00 96.2 56 20 158/69 96 10/15/16 04:00 96.4 60 18 171/82 97 10/15/16 00:00 96.2 63 19 165/77 98 10/14/16 20:00 97.7 65 18 166/77 98 10/14/16 15:50 99.1 65 20 152/77 98 10/14/16 11:30 96.8 61 20 158/83 97 I/O 10/14/16 10/14/16 10/14/16 10/15/16 10/15/16 10/15/16 07:00 15:00 23:00 07:00 15:00 23:00 Intake Total 240 ml 665 ml 580 ml 240 ml Balance 240 ml 665 ml 580 ml 240 ml Intake Oral 240 ml 665 ml 480 ml 240 ml IV Total 100 ml # Voids 3 3 6 4 # Bowel Movements 1 2 (Love Gomez MD R1) Result Diagram: 10/15/16 0415 10/15/16 0415 Imaging Last Impressions Chest X-Ray 10/10/16 0000 Signed Impressions: Service Date/Time: Monday, October 10, 2016 20:02 - CONCLUSION: No acute disease. Right-sided PICC line with tip in the SVC. Fantasma Albarran MD Tibia/Fibula X-Ray 10/09/16 1135 Signed Impressions: Service Date/Time: Sunday, October 09, 2016 12:23 - CONCLUSION: 1. Soft tissue swelling without fracture. Fantasma Albarran MD Chest CT 10/08/16 0000 Signed Impressions: Service Date/Time: Saturday, October 08, 2016 16:22 - CONCLUSION: 1. No acute finding is identified within the chest. 2. There is a 5 mm noncalcified pulmonary nodule in the right lower lobe. This should be correlated with any prior imaging studies. If none are available suggest six-month followup noncontrast chest CT to confirm stability. 3. There are bilateral calcified pleural plaques suggestive of prior asbestos exposure. 4. Severe coronary artery calcification and atherosclerotic disease. Alhaji Shelton MD Abdomen/Pelvis CT 10/08/16 0000 Signed Impressions: Service Date/Time: Saturday, October 08, 2016 16:22 - CONCLUSION: 1. There are no findings to indicate metastatic disease, as questioned. 2. The liver demonstrates features diagnostic of cirrhosis. No focal liver lesion is identified. There are findings indicative of portal hypertension including a small volume of ascites, splenomegaly, and collateral vessels. 3. Possible bladder mass along the right posterior lateral bladder wall measuring 18 x 9 mm. It is near the ureterovesical junction but is not obstructing the right ureter. This could represent transitional cell carcinoma. 4. Non acute findings include severe atherosclerotic disease and sigmoid diverticulosis. Alhaji Shelton MD Lower Extremity Ultrasound 10/07/16 0000 Signed Impressions: Service Date/Time: Friday, October 07, 2016 14:59 - CONCLUSION: Normal examination. Jaylon Tracey MD Liver Ultrasound 10/07/16 0000 Signed Impressions: Service Date/Time: Friday, October 07, 2016 14:59 - CONCLUSION: 1. Hepatosplenomegaly with cirrhotic appearing liver and ascites. 2. Solid-appearing right renal mass suspected with blood flow concerning for renal cell carcinoma until proven otherwise. Jaylon Tracey MD Objective Remarks GENERAL: Well-appearing male resting in bed comfortably SKIN: Warm and dry. Improved lower extremity with erythema and petechiae circumferentially near the ankle proximally to the mid calf. No evidence of fluctuance. The skin is hardened and hyperpigmented in some areas. Scattered healing papules proximal to area of cellulitis. Right-sided PICC line without surrounding erythema. HEAD: Normocephalic. Atraumatic EYES: No scleral icterus. No injection or drainage. ENT: OP clear. Uvula midline. NECK: Supple, trachea midline. No JVD or lymphadenopathy. CARDIOVASCULAR: Regular rate and rhythm without audible murmurs, gallops, or rubs. RESPIRATORY: Breath sounds diminished at bilateral bases, otherwise CTAB. No accessory muscle use. GASTROINTESTINAL: Abdomen soft, normal bowel sounds. No tenderness. Hepatic and splenic margins not palpable. MUSCULOSKELETAL: No cyanosis of LLE. 1+ edema of the left foot distal to the area of erythema described above. Left lower leg not significantly tender to palpation BACK: Nontender without obvious deformity. No CVA tenderness. Neuro: Awake and alert. Normal speech. Cranial nerves grossly intact. Medications and IVs Inpatient Medications Acetaminophen (Tylenol) 650 mg UNSCH X1 PO Last administered on 10/10/16 14:38 ; Start 10/10/16 at 13:45; Stop 10/10/16 at 23:00; Status DC Cefazolin Sodium/ Sodium Chloride (Ancef Inj/NS Inj) 100 ml @ 200 mls/hr Q8HR IV Last administered on 10/11/16 07:38; Start 10/09/16 at 14:00; Stop 10/11/16 at 08:35; Status DC Clindamycin Phosphate/Sodium Chloride (Cleocin Inj/NS Inj) 104 ml @ 208 mls/hr ONCE ONCE IV Last administered on 10/07/16 12:55; Start 10/07/16 at 12:15; Stop 10/07/16 at 12:44; Status DC Daptomycin/Sodium Chloride (Cubicin Inj/NS Inj) 100 ml @ 200 mls/hr Q24H IV Last administered on 10/14/16 13:03; Start 10/10/16 at 13:00 Dextrose (D50w (Vial) Inj) 25 ml UNSCH PRN IV PUSH HYPOGLYCEMIA-SEE COMMENTS; Start 10/07/16 at 17:45 Diphenhydramine HCl (Benadryl) 25 mg UNSCH X1 PO Last administered on 14:38; Start 10/10/16 at 13:45; Stop 10/10/16 at 23:00; Status DC Flumazenil (Romazicon Inj) 0.2 mg Q1M PRN IV PUSH SEE LABEL COMMENTS; Start 10/07/16 at 15:00; Stop 10/13/16 at 10:34; Status DC Folic Acid (Folate) 1 mg DAILY PO Last administered on 10/12/16 09:00; Start 10/07/16 at 15:30; Stop 10/12/16 at 15:29; Status DC Furosemide (Lasix Inj) 20 mg ONCE ONCE IV PUSH Last administered on 10/08/16 21:19; Start 10/08/16 at 19:15; Stop 10/08/16 at 19:16; Status DC Glucagon (Glucagon Inj) 1 mg UNSCH PRN OTHER HYPOGLYCEMIA-SEE COMMENTS; Start 10/07/16 at 17:45 Heparin Sodium (Porcine) (Heparin Central Flush) See Protocol UNSCH PRN IVF SEE PROTOCOL TABLE; Start 10/10/16 at 19:15 Hydralazine HCl (Apresoline) 10 mg Q4HR PRN PO SBP>160, DBP>90; Start 10/15/16 at 07:15 Insulin Aspart 1 1 ACHS SLIDING SCALE SQ Last administered on 10/14/16 21:28 ; Start 10/07/16 at 21:00 Insulin Detemir (Levemir Inj) 5 units Q12HR SQ Last administered on 10/14/16 21:28; Start 10/13/16 at 21:00 IV Flush (NS Flush) See Protocol UNSCH PRN IVF SEE PROTOCOL TABLE; Start at 19:15 Lorazepam (Ativan Inj) 2 mg Q1H PRN IV PUSH CIWA 15-20; Start 10/07/16 at 15:00 ; Stop 10/13/16 at 10:34; Status DC Lorazepam (Ativan) 2 mg Q2H PRN PO CIWA 11-14; Start 10/07/16 at 15:00; Stop 06/21 at 10:34; Status DC Lorazepam 2 mg 2 mg Q15M PRN IV PUSH CIWA > 20; Start 10/07/16 at 15:00; Stop at 10:34; Status DC Metoprolol Tartrate (Lopressor) 50 mg Q8HR PO Last administered on 10/15/16 05 :24; Start 10/13/16 at 14:00 Metoprolol Tartrate 50 mg 50 mg BID PO Last administered on 10/10/16 09:09; Start 10/08/16 at 09:00; Stop 10/10/16 at 14:28; Status DC Morphine Sulfate (Morphine Inj) 2 mg Q3HR PRN IV PUSH PAIN SCALE 5 TO 10; Start 10/07/16 at 15:15; Stop 10/10/16 at 14:28; Status DC Multivitamins/ Minerals Therapeutic (Theragran M Tab) 1 tab DAILY PO Last administered on 10/12/16 10:51; Start 10/07/16 at 15:30; Stop 10/12/16 at 15:29 ; Status DC Naloxone HCl (Narcan Inj) 0.4 mg UNSCH PRN IV SEE LABEL COMMENTS; Start at 15:00 Ondansetron HCl (Zofran Inj) 4 mg Q6H PRN IVP NAUSEA OR VOMITING; Start at 15:00 Oxycodone/ Acetaminophen (Percocet 5-325 Mg) 1 tab Q6H PRN PO PAIN GREATER THAN 5 Last administered on 10/14/16 07:50; Start 10/07/16 at 15:15 Pharmacy Profile Note 0 ml @ 0 mls/hr UNSCH OTHER ; Start 10/07/16 at 15:15; Stop 10/09/16 at 12:57; Status DC Piperacillin Sod/ Tazobactam Sod (Zosyn 3.375 Gm Premix) 50 ml @ 100 mls/hr Q6H IV Last administered on 10/09/16 08:53; Start 10/07/16 at 21:00; Stop at 12:57; Status DC Potassium Bicarb/ Potassium Chloride (K-Lyte Cl Eff) 50 meq ONCE ONCE PO Last administered on 10/14/16 07:48; Start 10/14/16 at 08:00; Stop 10/14/16 at 08:01; Status DC Potassium Chloride (KCl) 40 meq ONCE ONCE PO Last administered on 10/08/16 17: 26; Start 10/08/16 at 17:15; Stop 10/08/16 at 17:16; Status DC Prednisone (Deltasone) 20 mg DAILY PO ; Start 10/15/16 at 09:00 Prednisone 40 mg 40 mg DAILY PO Last administered on 10/10/16 09:09; Start 10/10 at 09:00; Stop 10/11/16 at 08:43; Status DC Prednisone 80 mg 80 mg DAILY PO Last administered on 10/09/16 08:53; Start 10/08 at 09:00; Stop 10/10/16 at 07:33; Status DC Sodium Chloride (NS 1000 ml Inj) 1,000 ml @ 150 mls/hr Q6H40M IV Last administered on 10/10/16 09:11; Start 10/07/16 at 14:57; Stop 10/10/16 at 14:28; Status DC Sodium Chloride (NS 250 ml Inj) 250 ml @ 15 mls/hr ONCE ONCE IV Last administered on 10/08/16 11:13; Start 10/08/16 at 08:30; Stop 10/09/16 at 01:09; Status DC Thiamine HCl (Vitamin B1) 100 mg DAILY PO Last administered on 10/14/16 07:48 ; Start 10/07/16 at 15:30 Vancomycin HCl/ Sodium Chloride (Vancomycin Inj/ NS 500 ml Inj) 515 ml @ 250 mls/hr Q18H IV Last administered on 10/09/16 05:55; Start 10/08/16 at 12:00; Stop 10/09/16 at 12:58; Status DC Zolpidem Tartrate (Ambien) 2.5 mg ONCE ONCE PO ; Start 10/09/16 at 00:15; Stop 10/09/16 at 00:15; Status DC Zolpidem Tartrate 5 mg 5 mg ONCE ONCE PO Last administered on 10/09/16 01:17; Start 10/09/16 at 01:10; Stop 10/09/16 at 01:15; Status DC (Love Gomez MD R1) Urinary Catheter: No (Love Gomez MD R1) A/P Assessment and Plan 75 y/o M with a PMH of DM and HTN admitted with severe sepsis from LLE extremity cellulitis. He was found to have a renal mass and he is pancytopenic. Hematology consulted. Infectious disease on board. He was started on daptomycin IV 600 mg once daily line on 10/10/16, end date 10/18/16. Discharge Planning Patient will need to return to [place] to complete his course of IV antibiotics. Discharge pending arrangement. (Love Gomez MD R1) Attending Attestation Patient seen and examined. Case reviewed and discussed. Agree with plan of care as discussed with me and documented in the resident note. (Olga Apple MD) Problem List: (1) Cellulitis of leg without foot, left Status: Acute Plan: Patient presented meeting sepsis criteria. Currently vitals are stable. He is chronically pancytopenic. Infectious disease consulted PICC line in place. Daptomycin 600 mg every 24 hours IV (started 10/10); stop date is 10/18/16 Arrangements have been made for outpatient IV Daptomycin, however planning is in process to transfer patient to [place] for further management per request from his [employer] insurance company Blood cultures 10/07/16: Final = no growth Continue to trend CBC while inpatient -Percocet when necessary pain greater than 5 Antibiotic history: Stop empiric antibiotics vancomycin and Zosyn (started 10/07) Ancef 1 g every 8 hours IV (2) Pancytopenia Status: Chronic Plan: -Hematology consulted - appreciate recommendations Previous records from his primary care physician's office in [place] are in the patient's chart. Blood work dated June 20, 2016, show the patient's cytopenias have been chronic. On that day the patient's absolute neutrophil counts were 0.3, platelet counts are 26,000 and hemoglobin and hematocrit were also low with a hemoglobin of 10 g/dL. Patient's pancytopenia is likely myelosuppression secondary to alcoholism as well as splenomegaly with resultant splenic sequestration. The sepsis has worsened cytopenias beyond baseline. Hematology does not think it is necessary to do a workup for primary bone marrow disorder or biopsy. It was recommended that the patient be evaluated more thoroughly when he returns to [place]. Continue prednisone Neutropenic precautions (3) VANESSA (acute kidney injury) Status: Resolved Plan: Resolved (4) Diabetes Status: Chronic Plan: -Holding home metformin -Sliding scale insulin with Accu-Cheks -He required 17 units SSI in the last 24 hours -Increase Levemir AM dose from 5 to 10 units -Continue Levemir 5U before dinner (5) Bladder mass Status: Acute Plan: CT abdomen shows no findings to indicate metastatic disease. Possible bladder mass along the right posterior lateral bladder wall measuring 189 mm; it is near the ureterovesicular junction but it is not obstructing the right ureter. This could represent transitional cell carcinoma. Hematology/oncology consulted. Recommended against having this evaluated as the patient is only here for a few months and will return to [place]. This can be electively worked up as an outpatient when he returns home. Patient was made aware of this finding. He understands he needs to follow-up with his primary care physicians in [place]. (6) Cirrhosis Status: Chronic Plan: Patient likely has chronic cirrhosis from continued alcohol Patient already has a plan coordinator who follows him for this issue. Counseled alcohol cessation (7) Hypertension Status: Acute Plan: -Continue home metoprolol 50 mg by mouth twice a day -Hold for blood pressure less than 100/60 -Add lisinopril 10mg PO daily -Hydralazine 10 mg by mouth when necessary SBP greater than 160, DBP greater than 90 (8) Alcohol abuse Status: Acute Plan: -Patient reports chronic history of drinking -Consult on need to stop drinking alcohol -Discontinued CIOH protocol (9) Lung nodule Status: Acute Plan: CT chest shows a 5 mm pulmonary nodule in the right lower lobe. Suggest six-month follow-up noncontrast chest CT to confirm stability Patient was made aware of this finding. He understands he needs a repeat CT scan of his chest to assess for stability of this nodule. (10) Thrombocytopenia Status: Acute Plan: Chronic in nature. Hematology consult Initiated prednisone taper on 10/12/16 at 30 mg daily. Now on 20 mg daily started 10/15/16 Per hematology, taper prednisone by 10 mg every other day; goal is to complete prednisone within 1 week. (11) FEN/DVT PPX/GI PPX Status: Acute Plan: Fluids: Tolerating by mouth Electrolytes: Will monitor and replace as needed Nutrition: Diabetic diet DVT Prophylaxis: SCD on unaffected extremity, heparin and Lovenox contraindicated due to thrombocytopenia GI Prophylaxis: Protonix 40mg PO daily (12) Severe sepsis Status: Resolved Plan: Resolved (Love Gomez MD R1) Problem Qualifiers (1) Diabetes: Qualified Code: E11.8 - Type 2 diabetes mellitus with complication, unspecified terminal superintendent insulin use status Love Gomez MD R1 Oct 15, 2016 09:59 Olga Apple MD Oct 18, 2016 17:31
[2016-10-15] MEDS: THIAMINE HCL 100 MG TAB PO SCH (10:00)
[2016-10-15] MEDS: predniSONE 20 MG TAB PO SCH (10:01)
[2016-10-15] MEDS: oxyCODONE/ACETAMINOPHEN 5 MG/325 MG TAB PO PRN (10:02)
[2016-10-15] MEDS: SODIUM CHLORIDE 0.9% FLUSH 5 ML FLUSH FLUSH SCH ×2 (10:03→20:14)
[2016-10-15] MEDS: INSULIN DETEMIR 100 UNITS/ML VIAL SQ SCH ×2 (10:04→20:13)
[2016-10-15] MEDS: LISINOPRIL 10 MG TAB PO SCH (11:32)
[2016-10-15 12:00] VITALS: BP 153/73; PULSE 59; RESP 20; TEMP 96.9; O2SAT 96
[2016-10-15] MEDS: DAPTOmycin INJ 600 MG in SODIUM CHLORIDE 0.9% INJ 100 ML IV SCH (14:34)
[2016-10-15 15:49] VITALS: BP 147/79; PULSE 62; RESP 20; TEMP 96.9; O2SAT 96
[2016-10-15 20:00] VITALS: BP 175/78; PULSE 63; RESP 18; TEMP 96.1; O2SAT 99
[2016-10-15] MEDS ORDERED: amLODIPine BESYLATE 5 MG TAB PO ONE (22:00)
[2016-10-16] VITALS: BP 176/77; PULSE 64; RESP 19; TEMP 97; O2SAT 97
[2016-10-16 04:30] VITALS: BP 153/75; PULSE 60; RESP 16; TEMP 97; O2SAT 94
[2016-10-16] MEDS: INSULIN ASPART SUPPLEMENTAL SCALE SQ SCH ×4 (05:12→20:27)
[2016-10-16] MEDS: METOPROLOL TARTRATE 50 MG TAB PO SCH ×3 (05:14→20:29)
[2016-10-16 05:15] LABS: AUTOMATED NEUTROPHIL # 1.1 TH/MM3 (1.8-7.7); BASOPHIL % 0.2 % (0.0-2.0); EOSINOPHIL % 0.9 % (0.0-4.0); HEMATOCRIT 26.5 % (39.0-51.0); LYMPH % 43.6 % (9.0-44.0); LYMPHOCYTE # 0.9 TH/MM3 (1.0-4.8); MEAN CELL VOLUME 109.8 FL (80.0-100.0); MEAN CORPUSCULAR HEMOGLOBIN 39.4 PG (27.0-34.0); MEAN CORPUSCULAR HGB CONC 35.9 % (32.0-36.0); NEUT % 51.3 % (16.0-70.0); PLATELET COUNT 44 TH/MM3 (150-450); RED BLOOD COUNT 2.41 MIL/MM3 (4.50-5.90); RED CELL DISTRIBUTION WIDTH 17.3 % (11.6-17.2); WHITE BLOOD COUNT 2.1 TH/MM3 (4.0-11.0)
[2016-10-16 05:20] LABS: ALT (GPT) 43 U/L (12-78); ANION GAP 9 MEQ/L (5-15); AST (GOT) 38 U/L (15-37); BICARBONATE 30.1 MEQ/L (21.0-32.0); BLOOD UREA NITROGEN 12 MG/DL (7-18); CHLORIDE 102 MEQ/L (98-107); GLOMERULAR FILTRATION RATE 97 ML/MIN (>89); POTASSIUM 3.5 MEQ/L (3.5-5.1); SODIUM (NA) 141 MEQ/L (136-145)
[2016-10-16 05:22] LABS: ALKALINE PHOSPHATASE 70 U/L (45-117); TOTAL BILIRUBIN ADULT 1.7 MG/DL (0.2-1.0)
[2016-10-16 05:31] LABS: HEMO FLAGS AUTO DIFF
[2016-10-16 07:07] LABS: OVALOCYTES 2+ (NORMAL); PLATELET ESTIMATE SMEAR LOW (NORMAL); PLATELET MORPHOLOGY ENLARGED (NORMAL); SCAN/DIFF AUTO DIFF CONFIRMED; TEARDROP RBCS 1+ (NORMAL)
[2016-10-16 08:00] VITALS: BP 142/77; PULSE 54; RESP 16; TEMP 95.2; O2SAT 95
[2016-10-16] MEDS: LISINOPRIL 10 MG TAB PO SCH (08:31)
[2016-10-16] MEDS: predniSONE 20 MG TAB PO SCH (08:32)
[2016-10-16] MEDS: SODIUM CHLORIDE 0.9% FLUSH 5 ML FLUSH FLUSH SCH ×2 (08:32→20:27)
[2016-10-16] MEDS: INSULIN DETEMIR 100 UNITS/ML VIAL SQ SCH ×2 (08:32→20:27)
[2016-10-16] MEDS: THIAMINE HCL 100 MG TAB PO SCH (08:46)
[2016-10-16] MEDS: oxyCODONE/ACETAMINOPHEN 5 MG/325 MG TAB PO PRN (08:47)
[2016-10-16 12:00] VITALS: BP 155/75; PULSE 62; RESP 16; TEMP 96.5; O2SAT 96
[2016-10-16] MEDS: DAPTOmycin INJ 600 MG in SODIUM CHLORIDE 0.9% INJ 100 ML IV SCH (13:36)
--- NOTE | 2016-10-16 13:43 | HHI.FPPN ---
Subjective Remarks The patient has no complaints this morning. He states that his leg feels great. He has been walking around eating and drinking without any issues. He notes that he thinks that the counter caser has secured his transfer back to [place]. ( Love Gomez MD R1) Objective Vitals Vital Signs Date Time Temp Pulse Resp B/P Pulse Ox O2 Delivery O2 Flow Rate FiO2 10/16/16 12:00 96.5 62 16 155/75 96 10/16/16 08:00 95.2 54 16 142/77 95 10/16/16 04:30 97.0 60 16 153/75 94 10/16/16 00:00 97.0 64 19 176/77 97 10/15/16 20:00 96.1 63 18 175/78 99 10/15/16 15:49 96.9 62 20 147/79 96 I/O 10/15/16 10/15/16 10/15/16 10/16/16 10/16/16 10/16/16 07:00 15:00 23:00 07:00 15:00 23:00 Intake Total 240 ml 480 ml Balance 240 ml 480 ml Intake Oral 240 ml 480 ml # Voids 4 9 # Bowel Movements 1 (Love Gmoez MD R1) Result Diagram: 10/16/16 0430 10/16/16 0430 Objective Remarks GENERAL: Well-appearing male in bed in [facility]. SKIN: Warm and dry. Lower extremity continues to improve in regard to erythema. No notable petechiae surrounding lower extremity cellulitis on the distal lateral portion of the leg. There is now on open wound within the area of cellulitis on the lower lateral left extremity which does not seem to be actively draining and is nontender. No evidence of fluctuance. The skin is hardened and hyperpigmented in some areas. Scattered healing papules proximal to area of cellulitis. Right-sided PICC line without surrounding erythema. HEAD: Normocephalic. Atraumatic EYES: No scleral icterus. No injection or drainage. ENT: OP clear. Uvula midline. NECK: Supple, trachea midline. No JVD or lymphadenopathy. CARDIOVASCULAR: Regular rate and rhythm without audible murmurs, gallops, or rubs. RESPIRATORY: Breath sounds diminished at bilateral bases, otherwise CTAB. No accessory muscle use. GASTROINTESTINAL: Abdomen soft, normal bowel sounds. No tenderness. Hepatic and splenic margins not palpable. MUSCULOSKELETAL: No cyanosis or edema of the lower extremities. No tenderness to palpation. Motor and strength grossly normal. BACK: Nontender without obvious deformity. No CVA tenderness. Neuro: Awake and alert. Normal speech. Cranial nerves grossly intact. ( Love Gomez MD R1) Vascular Central Line Catheter: Yes Assessment to: Continue Line: PICC Side: Right (Love Gomez MD R1) A/P Assessment and Plan 75 y/o M with a PMH of DM and HTN admitted with severe sepsis from LLE extremity cellulitis. He was found to have a renal mass and he is pancytopenic. Hematology consulted. Infectious disease on board. He was started on daptomycin IV 600 mg once daily line on 10/10/16, end date 10/18/16. Discharge Planning Patient will need to return to [place] to complete his inpatient therapy, possibly workup for lung and bladder nodules/mass. Discharge pending arrangement. Case management working with receiving institution, waiting for bed at this time (Love Gomez MD R1) Attending Attestation Patient seen and examined. Case reviewed and discussed. Agree with plan of care as discussed with me and documented in the resident note. (Olga Apple MD) Problem List: (1) Cellulitis of leg without foot, left Status: Acute Plan: Patient presented meeting sepsis criteria. Currently vitals are stable. He is chronically pancytopenic. Infectious disease consulted PICC line in place. Daptomycin 600 mg every 24 hours IV (started 10/10); stop date is 10/18/16 Arrangements have been made for outpatient IV Daptomycin, however planning is in process to transfer patient to [place] for further management per request from his [employer] insurance company Blood cultures 10/07/16: Final = no growth Continue to trend CBC while inpatient Percocet when necessary pain greater than 5 Antibiotic history: Stop empiric antibiotics vancomycin and Zosyn (started 10/07) Ancef 1 g every 8 hours IV (2) Pancytopenia Status: Chronic Plan: Hematology consulted - appreciate recommendations Previous records from his primary care physician's office in [place] are in the patient's chart. Blood work dated June 20, 2016, show the patient's cytopenias have been chronic. On that day the patient's absolute neutrophil counts were 0.3, platelet counts are 26,000 and hemoglobin and hematocrit were also low with a hemoglobin of 10 g/dL. Patient's pancytopenia is likely myelosuppression secondary to alcoholism as well as splenomegaly with resultant splenic sequestration. The sepsis has worsened cytopenias beyond baseline. Hematology does not think it is necessary to do a workup for primary bone marrow disorder or biopsy. It was recommended that the patient be evaluated more thoroughly when he returns to [place]. Continue prednisone with taper documented below Neutropenic precautions (3) VANESSA (acute kidney injury) Status: Resolved Plan: Resolved. (4) Diabetes Status: Chronic Plan: -Holding home metformin -Sliding scale insulin with Accu-Cheks -He required 17 units SSI in the last 24 hours -Increase Levemir AM dose from 5 to 10 units -Continue Levemir 5U before dinner (5) Bladder mass Status: Acute Plan: CT abdomen shows no findings to indicate metastatic disease. Possible bladder mass along the right posterior lateral bladder wall measuring 189 mm; it is near the ureterovesicular junction but it is not obstructing the right ureter. This could represent transitional cell carcinoma. Hematology/oncology consulted. Recommended against having this evaluated as the patient is only here for a few months and will return to [place]. This can be electively worked up as an outpatient when he returns home. Patient was made aware of this finding. He understands he needs to follow-up with his primary care physicians in [place]. 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 Counseled alcohol cessation (7) Hypertension Status: Acute Plan: -Continue home metoprolol 50 mg by mouth twice a day -Hold for blood pressure less than 100/60 -Add lisinopril 10mg PO daily -Hydralazine 10 mg by mouth when necessary SBP greater than 160, DBP greater than 90 (8) Alcohol abuse Status: Acute Plan: -Patient reports chronic history of drinking -Consult on need to stop drinking alcohol -Discontinued CIWA protocol (9) Lung nodule Status: Acute Plan: CT chest shows a 5 mm pulmonary nodule in the right lower lobe. Suggest six-month follow-up noncontrast chest CT to confirm stability Patient was made aware of this finding. He understands he needs a repeat CT scan of his chest to assess for stability of this nodule. (10) Thrombocytopenia Status: Acute Plan: Chronic in nature. Hematology consult Initiated prednisone taper on 10/12/16 at 30 mg daily. Now on 20 mg daily started 10/15/16 Per hematology, taper prednisone by 10 mg every other day; goal is to complete prednisone within 1 week. (11) FEN/DVT PPX/GI PPX Status: Acute Plan: Fluids: Tolerating by mouth Electrolytes: Will monitor and replace as needed Nutrition: Diabetic diet DVT Prophylaxis: SCD on unaffected extremity, heparin and Lovenox contraindicated due to thrombocytopenia GI Prophylaxis: Protonix 40mg PO daily (12) Severe sepsis Status: Resolved Plan: Resolved (Love Gomez MD R1) Problem Qualifiers (1) Diabetes: Qualified Code: E11.8 - Type 2 diabetes mellitus with complication, unspecified snf insulin use status Love Gomez MD R1 Oct 16, 2016 13:43 Olga Apple MD Oct 18, 2016 17:31
[2016-10-16 16:00] VITALS: BP 161/90; PULSE 56; RESP 16; TEMP 97.1; O2SAT 97
[2016-10-16 20:00] VITALS: BP 141/72; PULSE 60; RESP 18; TEMP 97; O2SAT 96
[2016-10-17] VITALS: BP 163/77; PULSE 63; RESP 18; TEMP 97.2; O2SAT 95
[2016-10-17 04:00] VITALS: BP 163/66; PULSE 61; RESP 18; TEMP 96.8; O2SAT 97
[2016-10-17] MEDS: METOPROLOL TARTRATE 50 MG TAB PO SCH ×2 (05:14→16:37)
[2016-10-17] MEDS: INSULIN ASPART SUPPLEMENTAL SCALE SQ SCH ×4 (05:18→20:22)
[2016-10-17 06:12] LABS: AUTOMATED NEUTROPHIL # 1.2 TH/MM3 (1.8-7.7); BASOPHIL % 0.2 % (0.0-2.0); EOSINOPHIL % 0.8 % (0.0-4.0); HEMATOCRIT 27.9 % (39.0-51.0); LYMPH % 48.3 % (9.0-44.0); LYMPHOCYTE # 1.2 TH/MM3 (1.0-4.8); MEAN CELL VOLUME 110.9 FL (80.0-100.0); MEAN CORPUSCULAR HEMOGLOBIN 39.2 PG (27.0-34.0); MEAN CORPUSCULAR HGB CONC 35.3 % (32.0-36.0); MONO % 4.2 % (0.0-8.0); NEUT % 46.5 % (16.0-70.0); PLATELET COUNT 42 TH/MM3 (150-450); RED BLOOD COUNT 2.52 MIL/MM3 (4.50-5.90); RED CELL DISTRIBUTION WIDTH 17.8 % (11.6-17.2); WHITE BLOOD COUNT 2.5 TH/MM3 (4.0-11.0)
[2016-10-17 06:18] LABS: HEMO FLAGS AUTO DIFF
--- NOTE | 2016-10-17 07:21 | HHI.FPPN ---
Subjective Remarks Patient feeling "great". Leg is much better. No pain. Able to ambulate without difficulty. Eating whole meals. Requesting to take a shower. No CP SOB or N/V/ D. Also denies fevers or chills. He was concerned with lung and kidney nodules on CT. He tells me he wants to stop his EtOH use. (Toney Ace MD R2) Objective Vitals Vital Signs Date Time Temp Pulse Resp B/P Pulse Ox O2 Delivery O2 Flow Rate FiO2 10/17/16 04:00 96.8 61 18 163/66 97 10/17/16 00:00 97.2 63 18 163/77 95 10/16/16 20:00 97.0 60 18 141/72 96 10/16/16 16:00 97.1 56 16 161/90 97 10/16/16 12:00 96.5 62 16 155/75 96 10/16/16 08:00 95.2 54 16 142/77 95 I/O 10/16/16 10/16/16 10/16/16 10/17/16 10/17/16 10/17/16 07:00 15:00 23:00 07:00 15:00 23:00 Intake Total 110 ml 1580 ml Balance 110 ml 1580 ml Intake Oral 1580 ml IV Total 110 ml # Voids 8 # Bowel Movements 1 (Toney Ace MD R2) Result Diagram: 10/17/16 0515 10/16/16 0430 Objective Remarks GENERAL: Well-appearing male in bed in [facility]. SKIN: Warm and dry. Lower extremity continues to improve in regard to erythema. No notable petechiae surrounding lower extremity cellulitis on the distal lateral portion of the leg. There is now on open wound within the area of cellulitis on the lower lateral left extremity which does not seem to be actively draining and is nontender. No evidence of fluctuance. The skin is hardened and hyperpigmented in some areas. Scattered healing papules proximal to area of cellulitis. Right-sided PICC line without surrounding erythema. HEAD: Normocephalic. Atraumatic EYES: No scleral icterus. No injection or drainage. ENT: OP clear. Uvula midline. NECK: Supple, trachea midline. No JVD or lymphadenopathy. CARDIOVASCULAR: Regular rate and rhythm without audible murmurs, gallops, or rubs. RESPIRATORY: Breath sounds diminished at bilateral bases, otherwise CTAB. No accessory muscle use. GASTROINTESTINAL: Abdomen soft, normal bowel sounds. No tenderness. Hepatic and splenic margins not palpable. MUSCULOSKELETAL: No cyanosis or edema of the lower extremities. No tenderness to palpation. Motor and strength grossly normal. BACK: Nontender without obvious deformity. No CVA tenderness. Neuro: Awake and alert. Normal speech. Cranial nerves grossly intact. (Toney Ace MD R2) Line: PICC Side: Right (Toney Ace MD R2) A/P Assessment and Plan 75 y/o M with a PMH of DM and HTN admitted with severe sepsis from LLE extremity cellulitis. He was found to have a renal mass and he is pancytopenic. Hematology consulted. Infectious disease on board. He was started on daptomycin IV 600 mg once daily line on 10/10/16, end date 10/18/16. Discharge Planning Patient will need to return to [place] to complete his inpatient therapy, possibly workup for lung and bladder nodules/mass. Discharge pending arrangement. Case management working with receiving institution, waiting for bed at this time (Toney Ace MD R2) Attending Attestation Patient seen and examined. Case reviewed and discussed. Agree with plan of care as discussed with me and documented in the resident note. (Olga Apple MD) Problem List: (1) Cellulitis of leg without foot, left Status: Acute Plan: Patient presented meeting sepsis criteria. Currently vitals are stable. He is chronically pancytopenic. Infectious disease consulted PICC line in place. Daptomycin 600 mg every 24 hours IV (started 10/10); stop date is 10/18/16 Arrangements have been made for outpatient IV Daptomycin, however planning is in process to transfer patient to [place] for further management per request from his [employer] insurance company Blood cultures 10/07/16: Final = no growth Continue to trend CBC while inpatient Percocet when necessary pain greater than 5 Antibiotic history: Stop empiric antibiotics vancomycin and Zosyn (started 10/07) Ancef 1 g every 8 hours IV (2) Pancytopenia Status: Chronic Plan: Hematology consulted - appreciate recommendations Previous records from his primary care physician's office in [place] are in the patient's chart. Blood work dated June 20, 2016, show the patient's cytopenias have been chronic. On that day the patient's absolute neutrophil counts were 0.3, platelet counts are 26,000 and hemoglobin and hematocrit were also low with a hemoglobin of 10 g/dL. Patient's pancytopenia is likely myelosuppression secondary to alcoholism as well as splenomegaly with resultant splenic sequestration. The sepsis has worsened cytopenias beyond baseline. Hematology does not think it is necessary to do a workup for primary bone marrow disorder or biopsy. It was recommended that the patient be evaluated more thoroughly when he returns to [place]. Continue prednisone with taper documented below Neutropenic precautions (3) VANESSA (acute kidney injury) Status: Resolved Plan: Resolved. (4) Diabetes Status: Chronic Plan: -Holding home metformin -Sliding scale insulin with Accu-Cheks -He required 17 units SSI in the last 24 hours -Increase Levemir AM dose from 5 to 10 units -Continue Levemir 5U before dinner (5) Bladder mass Status: Acute Plan: CT abdomen shows no findings to indicate metastatic disease. Possible bladder mass along the right posterior lateral bladder wall measuring 189 mm; it is near the ureterovesicular junction but it is not obstructing the right ureter. This could represent transitional cell carcinoma. Hematology/oncology consulted. Recommended against having this evaluated as the patient is only here for a few months and will return to [place]. This can be electively worked up as an outpatient when he returns home. Patient was made aware of this finding. He understands he needs to follow-up with his primary care physicians in [place]. 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 Counseled alcohol cessation (7) Hypertension Status: Acute Plan: -Continue home metoprolol 50 mg by mouth q 8 hrs. -Hold for blood pressure less than 100/60 -Add lisinopril 10mg PO daily, Add amlodipine 5 mg BID. -Hydralazine 10 mg by mouth when necessary SBP greater than 160, DBP greater than 90 (8) Alcohol abuse Status: Acute Plan: -Patient reports chronic history of drinking -Consult on need to stop drinking alcohol -Discontinued [facility] protocol (9) Lung nodule Status: Acute Plan: CT chest shows a 5 mm pulmonary nodule in the right lower lobe. Suggest six-month follow-up noncontrast chest CT to confirm stability Patient was made aware of this finding. He understands he needs a repeat CT scan of his chest to assess for stability of this nodule. (10) Thrombocytopenia Status: Acute Plan: Chronic in nature. Hematology consult Initiated prednisone taper on 10/12/16 at 30 mg daily. Now on 20 mg daily started 10/15/16 Per hematology, taper prednisone by 10 mg every other day; goal is to complete prednisone within 1 week. (11) FEN/DVT PPX/GI PPX Status: Acute Plan: Fluids: Tolerating by mouth Electrolytes: Will monitor and replace as needed Nutrition: Diabetic diet DVT Prophylaxis: SCD on unaffected extremity, heparin and Lovenox contraindicated due to thrombocytopenia GI Prophylaxis: Protonix 40mg PO daily (12) Severe sepsis Status: Resolved Plan: Resolved wdw Dr. Apple. Anticipate d/c tomorrow 10/18. 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
[2016-10-17 07:37] LABS: BANDS 9 % (0-6); EOSINOPHILS 1 % (0-4); NEUTROPHIL # MANUAL DIFF 1.6 TH/MM3 (1.8-7.7); POLYS (SEG NEUTROPHILS) 56 % (16-70); WBC DIFF SAMPLE 100
[2016-10-17 07:38] LABS: OVALOCYTES 1+ (NORMAL); PLATELET ESTIMATE SMEAR LOW (NORMAL); PLATELET MORPHOLOGY NORMAL (NORMAL); SCAN/DIFF FINAL DIFF MANUAL; TOXIC GRANULATION 1+ (NORMAL)
[2016-10-17 08:00] VITALS: BP 181/86; PULSE 55; RESP 20; TEMP 98.2; O2SAT 98
[2016-10-17] MEDS: SODIUM CHLORIDE 0.9% FLUSH 5 ML FLUSH FLUSH SCH ×2 (09:00→20:23)
[2016-10-17] MEDS: amLODIPine BESYLATE 5 MG TAB PO SCH ×2 (09:10→20:23)
[2016-10-17] MEDS: INSULIN ASPART 1,000 UNITS/10 ML VIAL SQ SCH ×3 (09:10→17:01)
[2016-10-17] MEDS: INSULIN DETEMIR 100 UNITS/ML VIAL SQ SCH ×2 (09:10→20:23)
[2016-10-17] MEDS: predniSONE 20 MG TAB PO SCH (09:10)
[2016-10-17] MEDS: THIAMINE HCL 100 MG TAB PO SCH (09:10)
[2016-10-17] MEDS: LISINOPRIL 10 MG TAB PO SCH (09:14)
[2016-10-17] MEDS: oxyCODONE/ACETAMINOPHEN 5 MG/325 MG TAB PO PRN (09:14)
[2016-10-17] MEDS: DAPTOmycin INJ 600 MG in SODIUM CHLORIDE 0.9% INJ 100 ML IV SCH (11:48)
[2016-10-17 12:00] VITALS: BP 122/65; PULSE 58; RESP 16; TEMP 97.7; O2SAT 95
[2016-10-17] MEDS ORDERED: LEVEMIR SQ (14:49)
[2016-10-17] MEDS ORDERED: AMLO5 PO (14:49)
[2016-10-17] MEDS ORDERED: LISI10TA3 PO (14:49)
[2016-10-17 16:00] VITALS: BP 134/69; PULSE 62; RESP 16; TEMP 97.5; O2SAT 93
[2016-10-17 20:00] VITALS: BP 152/67; PULSE 59; RESP 18; TEMP 97.2; O2SAT 97
[2016-10-17] MEDS ORDERED: PRED10 PO (23:01)
[2016-10-18] VITALS (7 sets, daily range): BP systolic 133–165; BP diastolic 59–78; PULSE 56–68; RESP 16–18; TEMP 96–97.3; O2SAT 94–97
[2016-10-18] MEDS: METOPROLOL TARTRATE 50 MG TAB PO SCH ×4 (00:21→22:09)
[2016-10-18] MEDS: INSULIN ASPART SUPPLEMENTAL SCALE SQ SCH ×4 (06:22→22:16)
[2016-10-18] MEDS: SODIUM CHLORIDE 0.9% FLUSH 5 ML FLUSH FLUSH SCH ×2 (09:00→20:22)
[2016-10-18] MEDS: THIAMINE HCL 100 MG TAB PO SCH (09:23)
[2016-10-18] MEDS: INSULIN ASPART 1,000 UNITS/10 ML VIAL SQ SCH ×3 (09:23→18:08)
[2016-10-18] MEDS: LISINOPRIL 10 MG TAB PO SCH (09:23)
[2016-10-18] MEDS: predniSONE 10 MG TAB PO SCH (09:23)
[2016-10-18] MEDS: INSULIN DETEMIR 100 UNITS/ML VIAL SQ SCH ×2 (09:23→20:22)
[2016-10-18] MEDS: amLODIPine BESYLATE 5 MG TAB PO SCH ×2 (09:23→20:22)
[2016-10-18] MEDS: oxyCODONE/ACETAMINOPHEN 5 MG/325 MG TAB PO PRN (09:26)
--- NOTE | 2016-10-18 11:09 | HHI.FPPN ---
Subjective Remarks No complaints today, patient ready to go home. He denies fever, chills, nausea, vomiting, shortness of breath, chest pain. Even drink without difficulty. He continues to walk around without difficulty. He says his leg is now giving him "no trouble." He does note that his friends have already left the state and are on the way to [place] with his car. Per case management, discharge is pending being done with antibiotics today and securing transportation by way of of his [place] [facility] case manager(s) and the back [facility] is precluding this. ( Love Gomez MD R1) Objective Vitals Vital Signs Date Time Temp Pulse Resp B/P Pulse Ox O2 Delivery O2 Flow Rate FiO2 10/18/16 08:19 96.2 56 16 158/71 96 10/18/16 04:00 97.0 67 18 162/78 95 10/18/16 00:00 96.6 68 18 165/74 96 10/17/16 20:00 97.2 59 18 152/67 97 10/17/16 16:00 97.5 62 16 134/69 93 10/17/16 12:00 97.7 58 16 122/65 95 I/O 10/17/16 10/17/16 10/17/16 10/18/16 10/18/16 10/18/16 07:00 15:00 23:00 07:00 15:00 23:00 Intake Total 1080 ml 600 ml 480 ml Balance 1080 ml 600 ml 480 ml Intake Oral 1080 ml 600 ml 480 ml # Voids 5 2 # Bowel Movements 1 (Love Gomez MD R1) Result Diagram: 10/17/16 0515 10/18/16 0655 Imaging Last Impressions Chest X-Ray 10/10/16 0000 Signed Impressions: Service Date/Time: Monday, October 10, 2016 20:02 - CONCLUSION: No acute disease. Right-sided PICC line with tip in the SVC. Fantasma Albarran MD Tibia/Fibula X-Ray 10/09/16 1135 Signed Impressions: Service Date/Time: Sunday, October 09, 2016 12:23 - CONCLUSION: 1. Soft tissue swelling without fracture. Fantasma Albarran MD Chest CT 10/08/16 0000 Signed Impressions: Service Date/Time: Saturday, October 08, 2016 16:22 - CONCLUSION: 1. No acute finding is identified within the chest. 2. There is a 5 mm noncalcified pulmonary nodule in the right lower lobe. This should be correlated with any prior imaging studies. If none are available suggest six-month followup noncontrast chest CT to confirm stability. 3. There are bilateral calcified pleural plaques suggestive of prior asbestos exposure. 4. Severe coronary artery calcification and atherosclerotic disease. Alhaji Shelton MD Abdomen/Pelvis CT 10/08/16 Signed Impressions: Service Date/Time: Saturday, October 08, 2016 16:22 - CONCLUSION: 1. There are no findings to indicate metastatic disease, as questioned. 2. The liver demonstrates features diagnostic of cirrhosis. No focal liver lesion is identified. There are findings indicative of portal hypertension including a small volume of ascites, splenomegaly, and collateral vessels. 3. Possible bladder mass along the right posterior lateral bladder wall measuring 18 x 9 mm. It is near the ureterovesical junction but is not obstructing the right ureter. This could represent transitional cell carcinoma. 4. Non acute findings include severe atherosclerotic disease and sigmoid diverticulosis. Alhaji Shelton MD Lower Extremity Ultrasound 10/07/16 0000 Signed Impressions: Service Date/Time: Friday, October 07, 2016 14:59 - CONCLUSION: Normal examination. Jaylon Tracey MD Liver Ultrasound 10/07/16 0000 Signed Impressions: Service Date/Time: Friday, October 07, 2016 14:59 - CONCLUSION: 1. Hepatosplenomegaly with cirrhotic appearing liver and ascites. 2. Solid-appearing right renal mass suspected with blood flow concerning for renal cell carcinoma until proven otherwise. Jaylon Tracey MD Objective Remarks GENERAL: Well-appearing male in bed in no apparent distress SKIN: Warm and dry. Lower extremity continues to improve in regard to erythema. No notable petechiae surrounding lower extremity cellulitis on the distal lateral portion of the leg. There is now on open wound within the area of cellulitis on the lower lateral left extremity which does not seem to be actively draining and is nontender. No evidence of fluctuance. The skin is hardened and hyperpigmented in some areas but significantly improved overall. Scattered healing papules proximal to area of cellulitis. Right-sided PICC line without surrounding erythema. HEAD: Normocephalic. Atraumatic EYES: No scleral icterus. No injection or drainage. ENT: OP clear. Uvula midline. NECK: Supple, trachea midline. No JVD or lymphadenopathy. CARDIOVASCULAR: Regular rate and rhythm without audible murmurs, gallops, or rubs. RESPIRATORY: Lungs are clear to auscultation bilaterally. No accessory muscle use. GASTROINTESTINAL: Abdomen soft, normal bowel sounds. No tenderness. Hepatic and splenic margins not palpable. MUSCULOSKELETAL: No cyanosis or edema of the lower extremities. No tenderness to palpation. Motor and strength grossly normal. BACK: Nontender without obvious deformity. No CVA tenderness. Neuro: Awake and alert. Normal speech. Cranial nerves grossly intact. Medications and IVs Inpatient Medications Acetaminophen (Tylenol) 650 mg UNSCH X1 PO Last administered on 10/10/16 14:38 ; Start 10/10/16 at 13:45; Stop 10/10/16 at 23:00; Status DC Amlodipine Besylate (Norvasc) 5 mg BID PO Last administered on 10/18/16 09:23 ; Start 10/17/16 at 09:00 Cefazolin Sodium/ Sodium Chloride (Ancef Inj/NS Inj) 100 ml @ 200 mls/hr Q8HR IV Last administered on 10/11/16 07:38; Start 10/09/16 at 14:00; Stop 10/11/16 at 08:35; Status DC Clindamycin Phosphate/Sodium Chloride (Cleocin Inj/NS Inj) 104 ml @ 208 mls/hr ONCE ONCE IV Last administered on 10/07/16 12:55; Start 10/07/16 at 12:15; Stop 10/07/16 at 12:44; Status DC Daptomycin/Sodium Chloride (Cubicin Inj/NS Inj) 100 ml @ 200 mls/hr Q24H IV Last administered on 10/18/16 12:27; Start 10/10/16 at 13:00 Dextrose (D50w (Vial) Inj) 25 ml UNSCH PRN IV PUSH HYPOGLYCEMIA-SEE COMMENTS; Start 10/07/16 at 17:45 Diphenhydramine HCl (Benadryl) 25 mg UNSCH X1 PO Last administered on 14:38; Start 10/10/16 at 13:45; Stop 10/10/16 at 23:00; Status DC Flumazenil (Romazicon Inj) 0.2 mg Q1M PRN IV PUSH SEE LABEL COMMENTS; Start 10/07/16 at 15:00; Stop 10/13/16 at 10:34; Status DC Folic Acid (Folate) 1 mg DAILY PO Last administered on 10/12/16 09:00; Start 10/07/16 at 15:30; Stop 10/12/16 at 15:29; Status DC Furosemide (Lasix Inj) 20 mg ONCE ONCE IV PUSH Last administered on 10/08/16 21:19; Start 10/08/16 at 19:15; Stop 10/08/16 at 19:16; Status DC Glucagon (Glucagon Inj) 1 mg UNSCH PRN OTHER HYPOGLYCEMIA-SEE COMMENTS; Start 10/07/16 at 17:45 Heparin Sodium (Porcine) (Heparin Central Flush) See Protocol UNSCH PRN IVF SEE PROTOCOL TABLE; Start 10/10/16 at 19:15 Hydralazine HCl (Apresoline) 10 mg Q4HR PRN PO SBP>160, DBP>90; Start 10/15/16 at 07:15 Insulin Aspart (NovoLOG INJ) 5 units TIDAC SQ Last administered on 10/18/16 12 :27; Start 10/17/16 at 08:00 Insulin Aspart 1 1 ACHS SLIDING SCALE SQ Last administered on 10/18/16 12:27 ; Start 10/07/16 at 21:00 Insulin Detemir (Levemir Inj) 10 units DAILYAC SQ Last administered on 09:23; Start 10/16/16 at 08:00 IV Flush (NS Flush) See Protocol UNSCH PRN IVF SEE PROTOCOL TABLE; Start at 19:15 Lisinopril (Prinivil) 10 mg DAILY PO Last administered on 10/18/16 09:23; Start 10/15/16 at 10:30 Lorazepam (Ativan Inj) 2 mg Q1H PRN IV PUSH CIWA 15-20; Start 10/07/16 at 15:00 ; Stop 10/13/16 at 10:34; Status DC Lorazepam (Ativan) 2 mg Q2H PRN PO CIWA 11-14; Start 10/07/16 at 15:00; Stop 06/21 at 10:34; Status DC Lorazepam 2 mg 2 mg Q15M PRN IV PUSH CIWA > 20; Start 10/07/16 at 15:00; Stop at 10:34; Status DC Metoprolol Tartrate (Lopressor) 50 mg Q8HR PO Last administered on 10/18/16 12 :27; Start 10/13/16 at 14:00 Metoprolol Tartrate 50 mg 50 mg BID PO Last administered on 10/10/16 09:09; Start 10/08/16 at 09:00; Stop 10/10/16 at 14:28; Status DC Morphine Sulfate (Morphine Inj) 2 mg Q3HR PRN IV PUSH PAIN SCALE 5 TO 10; Start 10/07/16 at 15:15; Stop 10/10/16 at 14:28; Status DC Multivitamins/ Minerals Therapeutic (Theragran M Tab) 1 tab DAILY PO Last administered on 10/12/16 10:51; Start 10/07/16 at 15:30; Stop 10/12/16 at 15:29 ; Status DC Naloxone HCl (Narcan Inj) 0.4 mg UNSCH PRN IV SEE LABEL COMMENTS; Start at 15:00 Ondansetron HCl (Zofran Inj) 4 mg Q6H PRN IVP NAUSEA OR VOMITING; Start at 15:00 Oxycodone/ Acetaminophen (Percocet 5-325 Mg) 1 tab Q6H PRN PO PAIN GREATER THAN 5 Last administered on 10/18/16 09:26; Start 10/07/16 at 15:15 Pharmacy Profile Note 0 ml @ 0 mls/hr UNSCH OTHER ; Start 10/07/16 at 15:15; Stop 10/09/16 at 12:57; Status DC Piperacillin Sod/ Tazobactam Sod (Zosyn 3.375 Gm Premix) 50 ml @ 100 mls/hr Q6H IV Last administered on 10/09/16 08:53; Start 10/07/16 at 21:00; Stop at 12:57; Status DC Potassium Bicarb/ Potassium Chloride (K-Lyte Cl Eff) 50 meq ONCE ONCE PO Last administered on 10/14/16 07:48; Start 10/14/16 at 08:00; Stop 10/14/16 at 08:01; Status DC Potassium Chloride (KCl) 40 meq ONCE ONCE PO Last administered on 10/08/16 17: 26; Start 10/08/16 at 17:15; Stop 10/08/16 at 17:16; Status DC Prednisone (Deltasone) 10 mg DAILY PO Last administered on 10/18/16 09:23; Start 10/18/16 at 09:00 Prednisone 40 mg 40 mg DAILY PO Last administered on 10/10/16 09:09; Start 10/10 at 09:00; Stop 10/11/16 at 08:43; Status DC Prednisone 80 mg 80 mg DAILY PO Last administered on 10/09/16 08:53; Start 10/08 at 09:00; Stop 10/10/16 at 07:33; Status DC Sodium Chloride (NS 1000 ml Inj) 1,000 ml @ 150 mls/hr Q6H40M IV Last administered on 10/10/16 09:11; Start 10/07/16 at 14:57; Stop 10/10/16 at 14:28; Status DC Sodium Chloride (NS 250 ml Inj) 250 ml @ 15 mls/hr ONCE ONCE IV Last administered on 10/08/16 11:13; Start 10/08/16 at 08:30; Stop 10/09/16 at 01:09; Status DC Thiamine HCl (Vitamin B1) 100 mg DAILY PO Last administered on 10/18/16 09:23 ; Start 10/07/16 at 15:30 Vancomycin HCl/ Sodium Chloride (Vancomycin Inj/ NS 500 ml Inj) 515 ml @ 250 mls/hr Q18H IV Last administered on 10/09/16 05:55; Start 10/08/16 at 12:00; Stop 10/09/16 at 12:58; Status DC Zolpidem Tartrate (Ambien) 2.5 mg ONCE ONCE PO ; Start 10/09/16 at 00:15; Stop 10/09/16 at 00:15; Status DC Zolpidem Tartrate 5 mg 5 mg ONCE ONCE PO Last administered on 10/09/16 01:17; Start 10/09/16 at 01:10; Stop 10/09/16 at 01:15; Status DC (Love Gomez MD R1) Urinary Catheter: No (Love Gomez MD R1) Vascular Central Line Catheter: Yes Assessment to: Remove Date of Removal: Oct 18, 2016 Line: PICC Side: Right (Love Gomez MD R1) A/P Assessment and Plan 75 y/o M with a PMH of DM and HTN admitted with severe sepsis from LLE extremity cellulitis. He was found to have a renal mass and he is pancytopenic. Hematology consulted. Infectious disease on board. He was started on daptomycin IV 600 mg once daily line on 10/10/16, end date 10/18/16. Discharge Planning Patient will need to return to [place], and requires workup for lung and bladder nodules/mass. He has now completed his daptomycin IV antibiotic course (600 mg IV daily ). Discharge pending arrangement. Case management working with receiving institution, waiting for securing transportation by plane (Love Gomez MD R1) Attending Attestation Patient seen and examined. Case reviewed and discussed. Agree with plan of care as discussed with me and documented in the resident note. Patient will need assistance with obtaining home medications prior to discharge. Appreciate CM recs. (Olga Apple MD) Problem List: (1) Cellulitis of leg without foot, left Status: Acute Plan: Patient presented meeting sepsis criteria. Currently vitals are stable. He is chronically pancytopenic. Infectious disease consulted PICC line DC'd today after last dose of daptomycin Daptomycin 600 mg every 24 hours IV (started 10/10); stop date 10/18/16 Blood cultures 10/07/16: Final = no growth Continue to trend CBC during treatment Percocet when necessary pain greater than 5 Antibiotic history: Empiric vancomycin 1.5g IV every 24hr and Zosyn 3.375g IV every 6hr (10/07/16-) Ancef 1 g every 8 hours IV () Daptomycin 600 mg every 24 hours IV (10/10/16-10/18/16) (2) Pancytopenia Status: Chronic Plan: Hematology consulted - appreciate recommendations Previous records from his primary care physician's office in [place] are in the patient's chart. Blood work dated June 20, 2016, show the patient's cytopenias have been chronic. On that day the patient's absolute neutrophil counts were 0.3, platelet counts are 26,000 and hemoglobin and hematocrit were also low with a hemoglobin of 10 g/dL. Patient's pancytopenia is likely myelosuppression secondary to alcoholism as well as splenomegaly with resultant splenic sequestration. The sepsis has worsened cytopenias beyond baseline. Hematology does not think it is necessary to do a workup for primary bone marrow disorder or biopsy. It was recommended that the patient be evaluated more thoroughly when he returns to [place]. Continue prednisone with taper documented below Neutropenic precautions (3) VANESSA (acute kidney injury) Status: Resolved Plan: Resolved. (4) Diabetes Status: Chronic Plan: -Holding home metformin -Sliding scale insulin with Accu-Cheks -He required 17 units SSI in the last 24 hours -Increase Levemir AM dose from 5 to 10 units -Continue Levemir 5U before dinner -May restart home metformin if indicated (5) Bladder mass Status: Acute Plan: CT abdomen shows no findings to indicate metastatic disease. Possible bladder mass along the right posterior lateral bladder wall measuring 189 mm; it is near the ureterovesicular junction but it is not obstructing the right ureter. This could represent transitional cell carcinoma. Hematology/oncology consulted. Recommended against having this evaluated as the patient is only here for a few months and will return to [place]. This can be electively worked up as an outpatient when he returns home. Patient was made aware of this finding. He understands he needs to follow-up with his primary care physicians in [place]. 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 Counseled alcohol cessation (7) Hypertension Status: Acute Plan: -Continue home metoprolol 50 mg by mouth q 8 hrs. -Hold for blood pressure less than 100/60 -Add lisinopril 10mg PO daily, Add amlodipine 5 mg BID. -Hydralazine 10 mg by mouth when necessary SBP greater than 160, DBP greater than 90 (8) Alcohol abuse Status: Acute Plan: -Patient reports chronic history of drinking -Consult on need to stop drinking alcohol -Discontinued CIVT protocol (9) Lung nodule Status: Acute Plan: CT chest shows a 5 mm pulmonary nodule in the right lower lobe. Suggest six-month follow-up noncontrast chest CT to confirm stability Patient was made aware of this finding. He understands he needs a repeat CT scan of his chest to assess for stability of this nodule. (10) Thrombocytopenia Status: Acute Plan: Chronic in nature. Hematology consult Initiated prednisone taper on 10/12/16 at 30 mg daily. Now on 20 mg daily started 10/15/16 Per hematology, taper prednisone by 10 mg every other day; goal is to complete prednisone within 1 week. (11) FEN/DVT PPX/GI PPX Status: Acute Plan: Fluids: Tolerating by mouth Electrolytes: Will monitor and replace as needed Nutrition: Diabetic diet DVT Prophylaxis: SCD on unaffected extremity, heparin and Lovenox contraindicated due to thrombocytopenia GI Prophylaxis: Protonix 40mg PO daily (12) Severe sepsis Status: Resolved Plan: Resolved wdw Dr. Apple. 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
[2016-10-18] MEDS: DAPTOmycin INJ 600 MG in SODIUM CHLORIDE 0.9% INJ 100 ML IV SCH (12:27)
[2016-10-18] MEDS ORDERED: OXYC1TAB63 PO (14:48)
[2016-10-19 05:30] VITALS: PULSE 62
[2016-10-19] MEDS: METOPROLOL TARTRATE 50 MG TAB PO SCH (05:30)
[2016-10-19] MEDS: INSULIN ASPART SUPPLEMENTAL SCALE SQ SCH (05:31)
[2016-10-19] MEDS: oxyCODONE/ACETAMINOPHEN 5 MG/325 MG TAB PO PRN (05:33)
[2016-10-19] MEDS: predniSONE 10 MG TAB PO SCH (05:33)
[2016-10-19] MEDS: THIAMINE HCL 100 MG TAB PO SCH (05:34)
[2016-10-19] MEDS: LISINOPRIL 10 MG TAB PO SCH (05:34)
[2016-10-19] MEDS: INSULIN DETEMIR 100 UNITS/ML VIAL SQ SCH (05:39)
[2016-10-19] MEDS: amLODIPine BESYLATE 5 MG TAB PO SCH (05:40)
--- NOTE | 2016-10-23 10:38 | HHI.DS ---
Discharge Summary Admission Date Oct 07, 2016 at 14:01 Discharge Date: Oct 19, 2016 Admitting Diagnosis thrombocytopenia (1) Cellulitis of leg without foot, left Diagnosis: Principal Plan: Patient presented meeting sepsis criteria. Currently vitals are stable. He is chronically pancytopenic. Infectious disease consulted PICC line DC'd today after last dose of daptomycin Daptomycin 600 mg every 24 hours IV (started 10/10); stop date 10/18/16 Blood cultures 10/07/16: Final = no growth Continue to trend CBC during treatment Percocet when necessary pain greater than 5 Antibiotic history: Empiric vancomycin 1.5g IV every 24hr and Zosyn 3.375g IV every 6hr (10/07/16-) Ancef 1 g every 8 hours IV () Daptomycin 600 mg every 24 hours IV (10/10/16-10/18/16) (2) Pancytopenia Diagnosis: Principal Plan: Hematology consulted - appreciate recommendations Previous records from his primary care physician's office in [place] are in the patient's chart. Blood work dated June 20, 2016, show the patient's cytopenias have been chronic. On that day the patient's absolute neutrophil counts were 0.3, platelet counts are 26,000 and hemoglobin and hematocrit were also low with a hemoglobin of 10 g/dL. Patient's pancytopenia is likely myelosuppression secondary to alcoholism as well as splenomegaly with resultant splenic sequestration. The sepsis has worsened cytopenias beyond baseline. Hematology does not think it is necessary to do a workup for primary bone marrow disorder or biopsy. It was recommended that the patient be evaluated more thoroughly when he returns to [place]. Continue prednisone with taper documented below Neutropenic precautions (3) VANESSA (acute kidney injury) Diagnosis: Secondary Plan: Resolved. (4) Diabetes Diagnosis: Secondary Plan: -Holding home metformin -Sliding scale insulin with Accu-Cheks -He required 17 units SSI in the last 24 hours -Increase Levemir AM dose from 5 to 10 units -Continue Levemir 5U before dinner -May restart home metformin if indicated (5) Bladder mass Diagnosis: Secondary Plan: CT abdomen shows no findings to indicate metastatic disease. Possible bladder mass along the right posterior lateral bladder wall measuring 189 mm; it is near the ureterovesicular junction but it is not obstructing the right ureter. This could represent transitional cell carcinoma. Hematology/oncology consulted. Recommended against having this evaluated as the patient is only here for a few months and will return to [place]. This can be electively worked up as an outpatient when he returns home. Patient was made aware of this finding. He understands he needs to follow-up with his primary care physicians in [place]. (6) Cirrhosis Diagnosis: Secondary Plan: Patient likely has chronic cirrhosis from continued alcohol Patient already has a pourer off who follows him for this issue. Counseled alcohol cessation (7) Hypertension Diagnosis: Secondary Plan: -Continue home metoprolol 50 mg by mouth q 8 hrs. -Hold for blood pressure less than 100/60 -Add lisinopril 10mg PO daily, Add amlodipine 5 mg BID. -Hydralazine 10 mg by mouth when necessary SBP greater than 160, DBP greater than 90 (8) Alcohol abuse Diagnosis: Secondary Plan: -Patient reports chronic history of drinking -Consult on need to stop drinking alcohol -Discontinued [facility] protocol (9) Lung nodule Diagnosis: Secondary Plan: CT chest shows a 5 mm pulmonary nodule in the right lower lobe. Suggest six-month follow-up noncontrast chest CT to confirm stability Patient was made aware of this finding. He understands he needs a repeat CT scan of his chest to assess for stability of this nodule. (10) Thrombocytopenia Diagnosis: Secondary Plan: Chronic in nature. Hematology consult Initiated prednisone taper on 10/12/16 at 30 mg daily. Now on 20 mg daily started 10/15/16 Per hematology, taper prednisone by 10 mg every other day; goal is to complete prednisone within 1 week. (11) Severe sepsis Diagnosis: Secondary Plan: Resolved Consultants Hematology, Infectious Disease Brief History Patient is a 75-year-old male with a past medical history of diabetes and hypertension that presents to the [facility] ED with a chief complaint of left leg skin infection, pain and swelling. The patient states that he started feeling fatigued 7 days ago and has not eaten anything except for 3 pieces of meat. He has been feeling very tired and has been sleeping all day and night's. He woke up on Saturday morning with pain in his left ankle that progressively got worse to the point that he was limping. The patient denies fever, chills, chest pain, shortness of breath, and headache. He also denies dysuria but has noted decreased urinary output. He lives alone and cooks for himself but he had friends come over from [place] this week who encouraged him to come into the ED today. 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 His PCP is in [place]. He had his flu shot within the last 6 months but does not remember if he had the pneumonia vaccine. Imaging Last Impressions Chest X-Ray 10/10/16 0000 Signed Impressions: Service Date/Time: Monday, October 10, 2016 20:02 - CONCLUSION: No acute disease. Right-sided PICC line with tip in the SVC. Fantasma Albarran MD Tibia/Fibula X-Ray 10/09/16 1135 Signed Impressions: Service Date/Time: Sunday, October 09, 2016 12:23 - CONCLUSION: 1. Soft tissue swelling without fracture. Fantasma Albarran MD Chest CT 10/08/16 0000 Signed Impressions: Service Date/Time: Saturday, October 08, 2016 16:22 - CONCLUSION: 1. No acute finding is identified within the chest. 2. There is a 5 mm noncalcified pulmonary nodule in the right lower lobe. This should be correlated with any prior imaging studies. If none are available suggest six-month followup noncontrast chest CT to confirm stability. 3. There are bilateral calcified pleural plaques suggestive of prior asbestos exposure. 4. Severe coronary artery calcification and atherosclerotic disease. Alhaji Shelton MD Abdomen/Pelvis CT 10/08/16 0000 Signed Impressions: Service Date/Time: Saturday, October 08, 2016 16:22 - CONCLUSION: 1. There are no findings to indicate metastatic disease, as questioned. 2. The liver demonstrates features diagnostic of cirrhosis. No focal liver lesion is identified. There are findings indicative of portal hypertension including a small volume of ascites, splenomegaly, and collateral vessels. 3. Possible bladder mass along the right posterior lateral bladder wall measuring 18 x 9 mm. It is near the ureterovesical junction but is not obstructing the right ureter. This could represent transitional cell carcinoma. 4. Non acute findings include severe atherosclerotic disease and sigmoid diverticulosis. Alhaji Shelton MD Lower Extremity Ultrasound 10/07/16 0000 Signed Impressions: Service Date/Time: Friday, October 07, 2016 14:59 - CONCLUSION: Normal examination. Jaylon Tracey MD Liver Ultrasound 10/07/16 0000 Signed Impressions: Service Date/Time: Friday, October 07, 2016 14:59 - CONCLUSION: 1. Hepatosplenomegaly with cirrhotic appearing liver and ascites. 2. Solid-appearing right renal mass suspected with blood flow concerning for renal cell carcinoma until proven otherwise. Jaylon Tracey MD PE at Discharge GENERAL: Well-appearing male in bed in no apparent distress SKIN: Warm and dry. Lower extremity continues to improve in regard to erythema. No notable petechiae surrounding lower extremity cellulitis on the distal lateral portion of the leg. There is now on open wound within the area of cellulitis on the lower lateral left extremity which does not seem to be actively draining and is nontender. No evidence of fluctuance. The skin is hardened and hyperpigmented in some areas but significantly improved overall. Scattered healing papules proximal to area of cellulitis. Right-sided PICC line without surrounding erythema. HEAD: Normocephalic. Atraumatic EYES: No scleral icterus. No injection or drainage. ENT: OP clear. Uvula midline. NECK: Supple, trachea midline. No JVD or lymphadenopathy. CARDIOVASCULAR: Regular rate and rhythm without audible murmurs, gallops, or rubs. RESPIRATORY: Lungs are clear to auscultation bilaterally. No accessory muscle use. GASTROINTESTINAL: Abdomen soft, normal bowel sounds. No tenderness. Hepatic and splenic margins not palpable. MUSCULOSKELETAL: No cyanosis or edema of the lower extremities. No tenderness to palpation. Motor and strength grossly normal. BACK: Nontender without obvious deformity. No CVA tenderness. Neuro: Awake and alert. Normal speech. Cranial nerves grossly intact. Hospital Course Mr. Ortiz was admitted on 10/07/2016 with a diagnosis of severe sepsis from LLE extremity cellulitis. He received IVF and was started on IV vancomycin and Zosyn. Infectious Disease was consulted; antibiotic regimen was changed to Unasyn and then to Daptomycin IV. Arrangements were made for him to continue daptomycin infusions as an outpatient and a PICC line was placed. However, planning began for him to be transferred by plane to [place] for further management per request from his [employer] insurance company. He was noted to be severely pancytopenic, which on review of records was found to be chronic in nature, likely secondary to alcohol abuse. Hematology was consulted for the pancytopenia and they started him on a prednisone taper as pancytopenia likely not immume-mediated. Prednisone was tapered off from 80mg over one week's time (80mg--> 40mg --> 20mg --> 10mg every other day). Last day of prednisone 10/19/16. Final day of antibiotics was 10/18. Antibiotic course (IV daptomycin) was completed as inpatient on that day. The patient was doing well on day of discharge and slowly recovering, as he waits to be transferred to [place]. He was discharged on 10/18 medically and transport was arranged on 10/19. Pt Condition on Discharge: Stable Discharge Disposition: Discharge Home Discharge Instructions DIET: Follow Instructions for: Diabetic Diet Activities you can perform: Regular-No Restrictions Follow up Referrals: Infectious Disease - 1 Week with Jazmin Keller New Medications: Walker with Front Wheels (Walker with Front Wheels) 1 Mis Mis 1 EA .ROUTE DIRECTED #1 Ref 0 EA Wheelchair (Wheelchair) 1 Mis Mis 1 EA .ROUTE DIRECTED #1 Ref 0 EA Amlodipine (Norvasc) 5 Mg Tab 5 MG PO BID #60 Ref 0 TAB Insulin Detemir Inj (Levemir Inj) 1,000 unit/ 10 ML Vial 15 UNITS SQ DAILYAC #2 Ref 2 VIAL Lisinopril (Lisinopril) 10 Mg Tab 10 MG PO DAILY #30 Ref 0 TAB Oxycodone-Acetaminophen (Oxycodone-Acetaminophen) 5-325 mg Tab 1 TAB PO Q6H PRN PAIN GREATER THAN 5 #30 TAB Prednisone (Prednisone) 10 Mg Tab 10 MG PO DAILY #2 TAB Continued Medications: Metformin ER (Metformin ER) 750 Mg Leonila 750 MG PO BID With evening meal Blood Sugar Management Ref 0 TAB Simvastatin (Zocor) 10 Mg Tab 10 MG PO HS Cholesterol Management Ref 0 TAB Discontinued Medications: Aspirin (Aspirin) 81 Mg Chew 81 MG CHEW DAILY Ref 0 TAB Metoprolol Tartrate (Metoprolol Tartrate) 50 Mg Tab 50 MG PO BID #60 Ref 0 TAB Love Gomez MD R1 Oct 23, 2016 10:38
== END 2016-10-19 06:15 | disposition home or self-care (01) | DRG 871 ==
LOC: NEPA 11:50 → NEDA 14:01 → HOCA 16:22 → HOCB 18:37 → HOCA 18:39
PROVIDERS: ADMIT Family Medicine; ATTEND Family Medicine
PROC: 30233R1 Transfusion of Nonautologous Platelets into Peripheral Vein, Percutaneous Approach (ICD-10-PCS; principal; 2016-10-08)
PROC: 30233N1 Transfusion of Nonautologous Red Blood Cells into Peripheral Vein, Percutaneous Approach (ICD-10-PCS; 2016-10-08)
PROC: 02HV33Z Insertion of Infusion Device into Superior Vena Cava, Percutaneous Approach (ICD-10-PCS; 2016-10-10)
DX: A41.9 Sepsis, unspecified organism (principal); D65 Disseminated intravascular coagulation [defibrination syndrome]; N17.9 Acute kidney failure, unspecified; E87.2 Acidosis; D61.818 Other pancytopenia; K76.6 Portal hypertension; E87.1 Hypo-osmolality and hyponatremia; K70.31 Alcoholic cirrhosis of liver with ascites; L03.116 Cellulitis of left lower limb; R16.2 Hepatomegaly with splenomegaly, not elsewhere classified; R65.20 Severe sepsis without septic shock; I10 Essential (primary) hypertension; E78.5 Hyperlipidemia, unspecified; Z87.891 Personal history of nicotine dependence; E66.9 Obesity, unspecified; N28.89 Other specified disorders of kidney and ureter; R91.1 Solitary pulmonary nodule; N32.9 Bladder disorder, unspecified; E11.9 Type 2 diabetes mellitus without complications; F10.20 Alcohol dependence, uncomplicated; Z68.28 Body mass index [BMI] 28.0-28.9, adult; Z79.84 Long term (current) use of oral hypoglycemic drugs; Z96.653 Presence of artificial knee joint, bilateral
CPT/HCPCS: 36430; 36569; 71010; 71260; 73590; 74176; 74177; 76705; 76937; 80053; 80061; 80074; 82248; 82550; 82565; 82607; 82746; 82948; 83036; 83605; 83615; 83735; 84100; 85007; 85025; 85027; 85060; 85379; 85384; 85610; 85652; 85730; 86703; 86850; 86880; 86900; 86901; 86920; 87040; 93971; 96365; J0690; J0878; J1642; J1815; J1940; J2543; J3370; J7030; J7040; J7050; J7512; P9016; P9035; Q9967

== ENCOUNTER 2017-09-03 08:30 | Inpatient (IN) | payer OTHER ==
[~2017-09-03] VITALS: Ht 167.6 cm; Wt 80.5 kg
[2017-09-03] VITALS (16 sets, daily range): BP systolic 133–164; BP diastolic 64–85; PULSE 90–111; RESP 18–22; TEMP 97.7–98.4; O2SAT 95–100
[~2017-09-03 08:30] MED LIST changes: +AMLO5 PO; -ASPI81TA82 PO; -DIOV160T60 PO; -DIOV320T PO; -GLUCTAB PO; +LEVEMIR SQ; +LISI10TA3 PO; +METF750T PO; -METO50TA PO; +OXYC1TAB63 PO; +PRED10 PO; +WALKER WHEELS/F1 MIS; +WHEEMIS3
[2017-09-03] MEDS ORDERED: SODIUM CHLORIDE 0.9% FLUSH 10 ML FLUSH IVF PRN (09:15)
--- NOTE | 2017-09-03 09:41 | RADRPT ---
EXAM DATE/TIME: 09/03/2017 09:20 [facility] COMPARISON: CHEST SINGLE AP, October 10, 2016, 20:02. INDICATIONS : Short of breath. MEDICAL HISTORY : Hypertension. Diabetes mellitus type II. SURGICAL HISTORY : None. ENCOUNTER: Initial ACUITY: 2 weeks PAIN SCORE: 0/10 LOCATION: Bilateral chest FINDINGS: The patient has developed a right basilar opacity representing probably in part effusion in part pare nchymal consolidation. There is left ventricular cardiomegaly. Vascularity appears normal there CONCLUSION: Development of right basilar opacity in part representing effusion and possible underlying parenchyma l consolidation. Left ventricular cardiomegaly is appreciated Fabricio Cason MD on September 03, 2017 at 9:36 Board Certified Radiologist. This report was verified electronically.
[2017-09-03] MEDS ORDERED: FUROSEMIDE 40 MG/4 ML VIAL IV PUSH ONE (09:45)
[2017-09-03 09:48] LABS: INTERNATIONAL NORMALIZED RATIO 1.3 RATIO; PROTHROMBIN TIME - PATIENT 13.3 SEC (9.8-11.6)
[2017-09-03 09:55] LABS: ALBUMIN 3.6 GM/DL (3.4-5.0); ALT (GPT) 10 U/L (12-78); AST (GOT) 15 U/L (15-37); BICARBONATE 21.4 MEQ/L (21.0-32.0); CALCIUM 9.1 MG/DL (8.5-10.1); CHLORIDE 107 MEQ/L (98-107); DIRECT BILIRUBIN ADULT 0.5 MG/DL (0.0-0.2); GLOMERULAR FILTRATION RATE 49 ML/MIN (>89); GLUCOSE,RANDOM 129 MG/DL (74-106); SODIUM (NA) 138 MEQ/L (136-145)
[2017-09-03 09:58] LABS: ALKALINE PHOSPHATASE 79 U/L (45-117); BLOOD UREA NITROGEN 19 MG/DL (7-18); INDIRECT BILIRUBIN 2.4 MG/DL (0.0-0.8); TOTAL BILIRUBIN ADULT 2.9 MG/DL (0.2-1.0); TOTAL PROTEIN 7.8 GM/DL (6.4-8.2); TROPONIN I LESS THAN 0.02 NG/ML (0.02-0.05)
[2017-09-03 10:02] LABS: MEAN CELL VOLUME 116.6 FL (80.0-100.0); MEAN CORPUSCULAR HEMOGLOBIN 40.6 PG (27.0-34.0); MEAN CORPUSCULAR HGB CONC 34.8 % (32.0-36.0); MEAN PLATELET VOLUME 8.9 FL (7.0-11.0); RED CELL DISTRIBUTION WIDTH 19.3 % (11.6-17.2); WHITE BLOOD COUNT 0.5 TH/MM3 (4.0-11.0)
[2017-09-03 10:08] LABS: HEMATOCRIT 17.5 % (39.0-51.0); HEMOGLOBIN 6.1 GM/DL (13.0-17.0); PLATELET COUNT 17 TH/MM3 (150-450)
[2017-09-03 10:43] LABS: BASOPHILS 1 % (0-2); MONOCYTES 4 % (0-8); POLYS (SEG NEUTROPHILS) 37 % (16-70)
[2017-09-03 10:44] LABS: NEUTROPHIL # MANUAL DIFF 0.2 TH/MM3 (1.8-7.7)
[2017-09-03 10:45] LABS: OVALOCYTES 2+ (NORMAL); TEARDROP RBCS 1+ (NORMAL)
[2017-09-03] MEDS ORDERED: VANCOMYCIN INJ 1,000 MG in SODIUM CHLOR 0.9% 250 ML INJ 250 ML IV ONE (10:45)
[2017-09-03] MEDS ORDERED: cefTRIAXone INJ 1,000 MG in SODIUM CHLORIDE 0.9% INJ 100 ML IV ONE (10:45)
[2017-09-03] MEDS ORDERED: CEFEPIME INJ 2,000 MG in SODIUM CHLORIDE 0.9% INJ 100 ML IV ONE (10:45)
[2017-09-03] MEDS ORDERED: SODIUM CHLOR 0.9% 250 ML INJ 250 ML IV ONE (10:45)
[2017-09-03] MEDS ORDERED: AZITHROMYCIN INJ 500 MG in SODIUM CHLOR 0.9% 250 ML INJ 250 ML IV ONE (10:45)
[2017-09-03 10:47] LABS: BLASTS 1 % (0-0); LYMPHOCYTES 55 % (9-44)
--- NOTE | 2017-09-03 11:10 | PD ---
HPI Chief Complaint: Respiratory Symptoms Time Seen by Provider: 09:00 Travel History International Travel<30 days: No Contact w/Intl Traveler<30days: No Traveled to known affect area: No History of Present Illness HPI Patient is a 76-year-old male who comes in complaining of shortness of breath. He says the shortness of breath started 2 weeks ago. He says he was hoping it would go away on its own, but it has not, so he came in. He denies any chest pain. He has noticed increased swelling of his legs. He denies fever or chills. He says that moving around makes his shortness of breath worse. 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 He says he injects himself once a week for this. He has not noticed any bleeding. He denies any headache or dizziness. PFSH Past Medical History Cardiovascular Problems: Yes High Cholesterol: Yes Cirrhosis: Yes Diabetes: Yes Patient Takes Glucophage: Yes Diminished Hearing: No Hypertension: Yes Musculoskeletal: Yes (bilat knee replacement) Respiratory: Yes Social History Alcohol Use: Yes (7 GLASSES OF VODKA DAILY X 15 YEARS, quit 10 months) Tobacco Use: No Substance Use: No Allergies-Medications (Allergen,Severity, Reaction): Coded Allergies: No Known Allergies (Unverified , 10/07/16) Reported Meds & Prescriptions Reported Meds & Active Scripts Active Norvasc (Amlodipine Besylate) 5 Mg Tab 5 Mg PO BID Walker with Front Wheels (Device) 1 Mis Mis 1 Ea .ROUTE DIRECTED Wheelchair (Device) 1 Mis Mis 1 Ea .ROUTE DIRECTED Reported Zocor (Simvastatin) 10 Mg Tab 10 Mg PO HS Metformin ER (Metformin HCl) 750 Mg Leonila 750 Mg PO BID With evening meal Review of Systems Except as stated in HPI: all other systems reviewed are Neg General / Constitutional: No: Fever, Chills HENT: No: Headaches, Lightheadedness Cardiovascular: No: Chest Pain or Discomfort Respiratory: Positive: Cough, Shortness of Breath Gastrointestinal: No: Nausea, Vomiting Musculoskeletal: Positive: Edema Skin: No Rash, No Itching, No Change in Pigmentation Neurologic: No: Weakness, Dizziness Physical Exam Narrative GENERAL: Awake and alert, in no acute distress. SKIN: Focused skin assessment warm/dry. HEAD: Atraumatic. Normocephalic. EYES: Pupils equal and round. No scleral icterus. No injection or drainage. ENT: Mucous membranes pink and moist. NECK: Trachea midline. No JVD. CARDIOVASCULAR: Regular rate and rhythm. No murmur appreciated. RESPIRATORY: No accessory muscle use. Decreased breath sounds on the right lung base. Breath sounds equal bilaterally. GASTROINTESTINAL: Abdomen soft, non-tender, nondistended. MUSCULOSKELETAL: No obvious deformities. No clubbing. No cyanosis. No edema. NEUROLOGICAL: Awake and alert. No obvious cranial nerve deficits. Motor grossly within normal limits. Normal speech. PSYCHIATRIC: Appropriate mood and affect; insight and judgment normal. Data Data Last Documented VS Vital Signs Date Time Temp Pulse Resp B/P (MAP) Pulse Ox O2 Delivery O2 Flow Rate FiO2 09/03/17 11:26 100 18 158/82 (107) 98 Nasal Cannula 2.00 09/03/17 08:32 97.9 Orders Orders Complete Blood Count With Diff (09/03/17 09:06) Basic Metabolic Panel (Bmp) (09/03/17 09:06) B-Type Natriuretic Peptide (09/03/17 09:06) Act Partial Throm Time (Ptt) (09/03/17 09:06) Prothrombin Time / Inr (Pt) (09/03/17 09:06) Troponin I (09/03/17 09:06) Iv Access Insert/Monitor (09/03/17 09:06) Ecg Monitoring (09/03/17 09:06) Oximetry (09/03/17 09:06) Oxygen Administration (09/03/17 09:06) Chest, Single Ap (09/03/17 09:06) Sodium Chloride 0.9% Flush (Ns Flush) (09/03/17 09:15) Hepatic Functional Panel (09/03/17 09:06) Furosemide Inj (Lasix Inj) (09/03/17 09:45) Electrocardiogram (09/03/17 ) Type And Screen (09/03/17 10:40) Red Blood Cells (Rbc) (09/03/17 10:40) Blood Product Administration (09/03/17 10:40) Sodium Chlor 0.9% 250 Ml Inj (Ns 250 Ml (09/03/17 10:45) Ceftriaxone Inj (Rocephin Inj) (09/03/17 10:45) Azithromycin Inj (Zithromax Inj) (09/03/17 10:45) Cefepime Inj (Maxipime Inj) (09/03/17 10:45) Vancomycin Inj (Vancomycin Inj) (09/03/17 10:45) Admit Order (Ed Use Only) (09/03/17 ) Labs Laboratory Tests Test 09/03/17 09:10 09/03/17 09:50 Prothrombin Time 13.3 SEC Prothromb Time International Ratio 1.3 RATIO Activated Partial Thromboplast Time 25.2 SEC Blood Urea Nitrogen 19 MG/DL Creatinine 1.40 MG/DL Random Glucose 129 MG/DL Total Protein 7.8 GM/DL Albumin 3.6 GM/DL Calcium Level 9.1 MG/DL Alkaline Phosphatase 79 U/L Aspartate Amino Transf (AST/SGOT) 15 U/L Alanine Aminotransferase (ALT/SGPT) 10 U/L Total Bilirubin 2.9 MG/DL Direct Bilirubin 0.5 MG/DL Sodium Level 138 MEQ/L Potassium Level 4.1 MEQ/L Chloride Level 107 MEQ/L Carbon Dioxide Level 21.4 MEQ/L Anion Gap 10 MEQ/L Estimat Glomerular Filtration Rate 49 ML/MIN Indirect Bilirubin 2.4 MG/DL Troponin I LESS THAN 0.02 NG/ML B-Type Natriuretic Peptide 1262 PG/ML White Blood Count 0.5 TH/MM3 Red Blood Count 1.50 MIL/MM3 Hemoglobin 6.1 GM/DL Hematocrit 17.5 % Mean Corpuscular Volume 116.6 FL Mean Corpuscular Hemoglobin 40.6 PG Mean Corpuscular Hemoglobin Concent 34.8 % Red Cell Distribution Width 19.3 % Platelet Count 17 TH/MM3 Mean Platelet Volume 8.9 FL CBC Comment AUTO DIFF Differential Total Cells Counted 75 Neutrophils % (Manual) 37 % Lymphocytes % 55 % Monocytes % 4 % Eosinophils % 1 % Basophils % 1 % Neutrophils # (Manual) 0.2 TH/MM3 Differential Comment FINAL DIFF MANUAL Blastocytes 1 % Platelet Estimate RARE Platelet Morphology Comment ENLARGED Tear Drop Cells 1+ Ovalocytes 2+ MDM Medical Decision Making Medical Screen Exam Complete: Yes Emergency Medical Condition: Yes Medical Record Reviewed: Yes Interpretation(s) ECG shows sinus tachycardia at 105, no ST elevation or depression. Differential Diagnosis pneumonia vs anemia vs ACS vs anasarca Narrative Course Patient is a 76 year old male who comes in complaining of SOB. Exam shows decreased breath sounds on the right and lower extremity edema. IV established , labs sent. Labs show pancytopenia. Patient is neutropenic. Placed on neutropenia precautions. Given antibiotics. XR shows right sided pleural effusion, possible consolidation. Last 24 hours Impressions Chest X-Ray 09/03/17 0906 Signed Impressions: Service Date/Time: Sunday, September 03, 2017 09:20 - CONCLUSION: Development of right basilar opacity in part representing effusion and possible underlying parenchymal consolidation. Left ventricular cardiomegaly is appreciated Fabricio Cason MD Given a dose of lasix. 2 units PRBCs ordered. Patient will be admitted for further management. Diagnosis Primary Impression: Pancytopenia Additional Impression: Pleural effusion Admitting Information Admitting Physician Requests: Admit Arlette Bautista MD Sep 03, 2017 11:10
[2017-09-03] MEDS ORDERED: ONDANSETRON HCL 4 MG/2 ML VIAL IVP PRN (11:45)
[2017-09-03] MEDS ORDERED: MAGNESIUM HYDROXIDE SUSP 30 ML CUP PO PRN (11:45)
[2017-09-03] MEDS ORDERED: DEXTROSE 50% IN WATER 50 ML VIAL(D50) IV PUSH PRN (11:45)
[2017-09-03] MEDS ORDERED: ACETAMINOPHEN 325 MG TAB PO PRN (11:45)
[2017-09-03] MEDS ORDERED: SODIUM CHLORIDE 0.9% FLUSH 10 ML FLUSH IV FLUSH PRN (11:45)
[2017-09-03] MEDS ORDERED: NALOXONE HCL 0.4 MG/ML AMP IV PUSH PRN (11:45)
[2017-09-03] MEDS ORDERED: BISACODYL 10 MG SUPP RECTAL PRN (11:45)
[2017-09-03] MEDS ORDERED: SENNOSIDES 8.6 MG TAB PO PRN (11:45)
[2017-09-03] MEDS ORDERED: LACTULOSE SYRUP 20 GM/30 ML CUP PO PRN (11:45)
[2017-09-03] MEDS ORDERED: GLUCAGON 1 MG/ML VIAL OTHER PRN (11:45)
[2017-09-03] MEDS: INSULIN ASPART SUPPLEMENTAL SCALE SQ SCH ×3 (12:00→21:20)
--- NOTE | 2017-09-03 14:19 | HHI.HP ---
[facility] No Primary Care Physician Admission Diagnosis Pleural effusion, neutropenia, pneumonia Diagnoses: Chief Complaint: Shortness of breath Travel History International Travel<30 Days: No Contact w/Intl Traveler <30 Da: No Traveled to Known Affected Are: No History of Present Illness 76-year-old male with a medical history significant for diabetes, alcoholic liver cirrhosis, pancytopenia, bladder tumor resection presented to the hospital with complaint of shortness of breath that has been ongoing for the past 2 weeks. Patient reports his symptoms has been persisting which prompted the emergency room visit. He also reports increasing bilateral lower extremity swelling. He reports worsening shortness of breath with minimal activity. He denies any chest pressure or pain. He reports a history of a "mild heart attack " over 40 years ago. He has been on a baby aspirin. He denies any history of heart failure. Workup in the emergency room revealed severe anemia with a hemoglobin of 6.1. He is also neutropenic and his platelets only 17. The patient reports a chronic history of pancytopenia. He reports he has been taking Neupogen weekly to help with his blood counts. He reports about 3 weeks ago, he had some episodes of dark stool but that resolved on its own. He states they made some changes in his medications in [place] and he hasn't had any further issues with melena. He is unable to tell me which medications were changed. Review of Systems Constitutional: COMPLAINS OF: Fatigue, DENIES: Fever, Chills Respiratory: COMPLAINS OF: Shortness of breath, DENIES: Cough, Wheezing, Hemoptysis, Sputum production Cardiovascular: COMPLAINS OF: Dyspnea on Exertion, Lower Extremity Edema, DENIES: Chest pain, Syncope Gastrointestinal: DENIES: Abdominal pain, Nausea, Vomiting Musculoskeletal: DENIES: Joint pain Except as stated in HPI: all other systems reviewed are Neg Past Family Social History Past Medical History Hypertension Type 2 diabetes Hyperlipidemia CAD Chronic pancytopenia alcoholic liver cirrhosis Past Surgical History Left knee surgery Right knee surgery bladder tumor resection Reported Medications Reported Meds & Active Scripts Active Norvasc (Amlodipine Besylate) 5 Mg Tab 5 Mg PO BID [place] with Front Wheels (Device) 1 Mis Mis 1 Ea .ROUTE DIRECTED Wheelchair (Device) 1 Mis Mis 1 Ea .ROUTE DIRECTED Reported Zocor (Simvastatin) 10 Mg Tab 10 Mg PO HS Metformin ER (Metformin HCl) 750 Mg Leonila 750 Mg PO BID With evening meal Allergies: Coded Allergies: No Known Allergies (Unverified , 10/07/16) Family History Discussed and found to be noncontributory. Social History Patient previously smoked a pack per day for 8 years but he quit about 40 years ago History of daily alcohol use but quit about 10 months ago. Currently only drinks socially, rarely. Patient normally lives in [place]. He comes to this area every year for the winter. Physical Exam Vital Signs Vital Signs Date Time Temp Pulse Resp B/P (MAP) Pulse Ox O2 Delivery O2 Flow Rate FiO2 09/03/17 13:40 97.7 107 18 164/78 96 09/03/17 13:03 97.7 100 18 133/64 100 09/03/17 12:32 99 18 158/82 (107) 100 Nasal Cannula 2.00 09/03/17 11:26 100 18 158/82 (107) 98 Nasal Cannula 2.00 09/03/17 09:08 18 96 Nasal Cannula 2.00 09/03/17 09:08 96 Nasal Cannula 2.00 09/03/17 09:00 106 18 96 Nasal Cannula 2.00 09/03/17 08:59 105 18 160/85 (110) 96 Nasal Cannula 2.00 09/03/17 08:32 97.9 111 19 157/74 (101) 95 Physical Exam GENERAL: This is a well-nourished, well-developed patient, in no apparent distress. SKIN: No rashes, ecchymoses or lesions. Cool and dry. HEAD: Atraumatic. Normocephalic. No temporal or scalp tenderness. EYES: Pupils equal round and reactive. Extraocular motions intact. No scleral icterus. No injection or drainage. ENT: Nose without drainage. Throat without erythema, tonsillar hypertrophy or exudate. Uvula midline. Airway patent. NECK: Trachea midline. No JVD or lymphadenopathy. Supple, nontender, no meningeal signs. CARDIOVASCULAR: Regular rate and rhythm without murmurs, gallops, or rubs. RESPIRATORY: Diminished breath sounds at the right base and midlung field. No wheezing or rhonchi. The rest of the lung rossi are grossly clear. GASTROINTESTINAL: Abdomen soft, non-tender, nondistended. No hepato-splenomegaly , or palpable masses. No guarding. MUSCULOSKELETAL: Extremities without clubbing, cyanosis, or edema. No joint tenderness, effusion, or edema noted. No calf tenderness. Negative Homans sign bilaterally. NEUROLOGICAL: Awake and alert. Cranial nerves II through XII intact. Motor and sensory grossly within normal limits. Five out of 5 muscle strength in all muscle groups. Normal speech. Laboratory Laboratory Tests Test 09/03/17 09:10 09/03/17 09:50 Prothrombin Time 13.3 Prothromb Time International Ratio 1.3 Activated Partial Thromboplast Time 25.2 Blood Urea Nitrogen 19 Creatinine 1.40 Random Glucose 129 Total Protein 7.8 Albumin 3.6 Calcium Level 9.1 Alkaline Phosphatase 79 Aspartate Amino Transf (AST/SGOT) 15 Alanine Aminotransferase (ALT/SGPT) 10 Total Bilirubin 2.9 Direct Bilirubin 0.5 Sodium Level 138 Potassium Level 4.1 Chloride Level 107 Carbon Dioxide Level 21.4 Anion Gap 10 Estimat Glomerular Filtration Rate 49 Indirect Bilirubin 2.4 Troponin I LESS THAN 0.02 B-Type Natriuretic Peptide 1262 White Blood Count 0.5 Red Blood Count 1.50 Hemoglobin 6.1 Hematocrit 17.5 Mean Corpuscular Volume 116.6 Mean Corpuscular Hemoglobin 40.6 Mean Corpuscular Hemoglobin Concent 34.8 Red Cell Distribution Width 19.3 Platelet Count 17 Mean Platelet Volume 8.9 CBC Comment AUTO DIFF Differential Total Cells Counted 75 Neutrophils % (Manual) 37 Lymphocytes % 55 Monocytes % 4 Eosinophils % 1 Basophils % 1 Neutrophils # (Manual) 0.2 Differential Comment FINAL DIFF MANUAL Blastocytes 1 Platelet Estimate RARE Platelet Morphology Comment ENLARGED Tear Drop Cells 1+ Ovalocytes 2+ Result Diagram: 09/03/17 0950 09/03/17909 Imaging Last Impressions Chest X-Ray 09/03/17905 Signed Impressions: Service Date/Time: Sunday, September 03, 2017 09:20 - CONCLUSION: Development of right basilar opacity in part representing effusion and possible underlying parenchymal consolidation. Left ventricular cardiomegaly is appreciated MD Romeo Cormier VTE Risk Assessment Caprini VTE Risk Assessment: Mod/High Risk (score >= 2) VTE Pharm Contraindication: Thrombocytopenia(<50) Caprini Risk Assessment Model Point Value = 1 Point Value = 2 Point Value = 3 Point Value = 5 Age 41-60 Minor surgery BMI > 25 kg/m2 Swollen legs Varicose veins or History of unexplained or recurrent spontaneous Oral contraceptives or hormone replacement Sepsis (< 1 month) Serious lung disease, including pneumonia (< 1 month) Abnormal pulmonary function Acute myocardial infarction Congestive heart failure (< 1 month) History of inflammatory bowel disease Medical patient at bed rest Age 61-74 Arthroscopic surgery Major open surgery (> 45 min) Laparoscopic surgery (> 45 min) Malignancy Confined to bed (> 72 hours) Immobilizing plaster cast Central venous access Age >= 75 History of VTE Family history of VTE Factor V Leiden Prothrombin [id number] Lupus anticoagulant Anticardiolipin antibodies Elevated serum homocysteine Heparin-induced thrombocytopenia Other congenital or acquired thrombophilia Stroke (< 1 month) Elective arthroplasty Hip, pelvis, or leg fracture Acute spinal cord injury (< 1 month) Prophylaxis Regimen Total Risk Factor Score Risk Level Prophylaxis Regimen 0-1 Low Early ambulation 2 Moderate Order ONE of the following: *Sequential Compression Device (SCD) *Heparin 5000 units SQ BID 3-4 Higher Order ONE of the following medications: *Heparin 5000 units SQ TID *Enoxaparin/Lovenox 40 mg SQ daily (WT < 150 kg, CrCl > 30 mL/min) *Enoxaparin/Lovenox 30 mg SQ daily (WT < 150 kg, CrCl > 10-29 mL/min) *Enoxaparin/Lovenox 30 mg SQ BID (WT < 150 kg, CrCl > 30 mL/min) AND/OR *Sequential Compression Device (SCD) 5 or more Highest Order ONE of the following medications: *Heparin 5000 units SQ TID (Preferred with Epidurals) *Enoxaparin/Lovenox 40 mg SQ daily (WT < 150 kg, CrCl > 30 mL/min) *Enoxaparin/Lovenox 30 mg SQ daily (WT < 150 kg, CrCl > 10-29 mL/min) *Enoxaparin/Lovenox 30 mg SQ BID (WT < 150 kg, CrCl > 30 mL/min) AND *Sequential Compression Device (SCD) Assessment and Plan Problem List: (1) Respiratory failure ICD Code: J96.90 - Respiratory failure, unspecified, unspecified whether with hypoxia or hypercapnia (2) Pancytopenia ICD Code: D61.818 - Other pancytopenia Status: Chronic (3) Pleural effusion ICD Code: J90 - Pleural effusion, not elsewhere classified Status: Acute (4) Thrombocytopenia ICD Code: D69.6 - Thrombocytopenia, unspecified Status: Acute (5) Hypertension ICD Code: I10 - Essential (primary) hypertension Status: Acute (6) Acute CHF (congestive heart failure) ICD Code: I50.9 - Heart failure, unspecified (7) Symptomatic anemia ICD Code: D64.9 - Anemia, unspecified Assessment and Plan 76-year-old male admitted with acute respiratory failure secondary to CHF, pleural effusion, and symptomatic anemia. Respiratory failure secondary to Acute CHF/pleural effusion/possible pneumonia: Chest x-ray personally reviewed which showed right pleural effusion, underlying consolidation is also a possibility. Left ventricular hypertrophy noted. - Continue Lasix 40 mg IV twice a day - Obtain 2-D echocardiogram - Continue empiric antibiotics with Rocephin and azithromycin. Reassess tomorrow and consider holding off antibiotics based on his response Acute CHF: Unknown type. No history of CHF. Increasing bilateral lower extremity edema and right pleural effusion. BNP on admission 1200. EKG shows some inferior wall ischemia but it is unclear if this is new. He did report a history of previous NE. Currently not expressing any chest pain. Cardiac enzymes negative. - IV Lasix as above. 2-D echocardiogram ordered. - Continue to monitor on telemetry. - Strict I/O - Plan to resume valsartan tomorrow. Symptomatic anemia/pancytopenia: - Patient reports he has been taking Neupogen weekly under the guidance of his doctors in [place]. Not sure of his diagnosis. - Consult hematology for assistance - Blood transfusion ordered. Currently getting 2 units. - Continue to monitor CBC - Obtain Hemoccult stool. Consider GI consult. Patient reports last panendoscopy was about 8 months ago but he could not tell me the results. Acute kidney injury: - Likely secondary to anemia and heart failure as above. - Treat anemia and heart failure. - Follow-up BMP in a.m. GI prophylaxis: Stool softener PRN constipation. DVT PPx: Pharmacologic contraindication due to thrombocytopenia. Discussed Condition With Dr. Bautista Physician Certification 2 Midnight Certification Type: Admission for Inpatient Services Order for Inpatient Services The services are ordered in accordance with Medicare regulations or non- Medicare payer requirements, as applicable. In the case of services not specified as inpatient-only, they are appropriately provided as inpatient services in accordance with the 2-midnight benchmark. Estimated LOS (days): 3 days is the estimated time the patient will need to remain in the hospital, assuming treatment plan goals are met and no additional complications. Post-Hospital Plan: Home Gerry Nash MD Sep 03, 2017 14:19
[2017-09-03 16:01] LABS: BILIRUBIN, URINE NEG (NEG); BLOOD, URINE NEG (NEG); GLUCOSE,URINE NEG (NEG); KETONE, URINE NEG (NEG); NITRITE,URINE NEG (NEG); URINE COLOR LIGHT-YELLOW (YELLW/STRAW); URINE LEUKOCYTE ESTERASE NEG (NEG)
[2017-09-03] MEDS: FUROSEMIDE 40 MG/4 ML VIAL IV PUSH SCH (17:21)
[2017-09-03] MEDS: SODIUM CHLORIDE 0.9% FLUSH 10 ML FLUSH IV FLUSH SCH (21:02)
[2017-09-03] MEDS: CARVEDILOL 3.125 MG TAB PO SCH (21:02)
[2017-09-03] MEDS: amLODIPine BESYLATE 5 MG TAB PO SCH (21:03)
[2017-09-03] MEDS: PRAVASTATIN SOD 20 MG TAB PO SCH (21:03)
[2017-09-04] VITALS (26 sets, daily range): BP systolic 118–158; BP diastolic 66–79; PULSE 80–94; RESP 15–20; TEMP 97.7–98.4; O2SAT 94–97
--- NOTE | 2017-09-04 00:19 | EKG ---
Date Performed: 09/03/2017 Time Performed: 08:58:02 PTAGE: 76 years EKG: SINUS TACHYCARDIA INFERIOR MYOCARDIAL INFARCTION ABNORMAL ECG NO PREVIOUS TRACING DOCTOR: Tamir Garcia Interpretating Date/Time 09/04/2017 00:18:42
[2017-09-04] MEDS: CEFEPIME INJ 1,000 MG in SODIUM CHLORIDE 0.9% INJ 100 ML IV SCH ×3 (00:38→23:45)
--- NOTE | 2017-09-04 06:56 | MB ---
cc: MARKSJIMY DATE OF CONSULTATION 09/03/2017 DATE OF 1940 REASON FOR CONSULTATION Patient with a history of anemia who presents to the emergency department with progressive dyspnea. HISTORY OF PRESENT ILLNESS This is a 76-year-old male who has a past medical history of anemia and possibly underlying MDS, history of hypertension, diabetes, hyperlipidemia, coronary artery disease and liver disease who presented to the emergency department with worsening dyspnea and lower extremity edema. He recently came to [place] from [place]. He tells me that he follows with a hide inspector and sorter as well as the urologist in [place]. He has a history of a bladder tumor and had a TURBT. He regularly follows with a hide inspector and sorter and had been receiving Epogen injections. He tells me that in the past he has had a bone marrow biopsy, however he is unaware of the results. He tells me that he has never been neutropenic or thrombocytopenic. He states that he was quite anemic and has been receiving Epogen injections. He has not had any fevers or chills. No night sweats. He denies any nosebleeds or gum bleeds, no petechiae, or bruising. No bright red blood per rectum or melena. He states that he is here in [place] by himself. He also lives by himself in [place], however his son and [id number] live about an hour away from his home and occasionally check up on him. He has a past history of tobacco abuse, but he quit more than 40 years ago. He states that used to drink alcohol on a daily basis, but quit drinking approximately 10 months ago. His permanent residence is in [place], but he visits [place] during the winter months. REVIEW OF SYSTEMS A comprehensive review of systems was completed which is negative except as described in the HPI. PAST MEDICAL HISTORY 1. History of anemia. 2. Hypertension 3. Type 2 diabetes 4. Hyperlipidemia 5. Coronary artery disease 6. Liver disease 7. Alcoholism PAST SURGICAL HISTORY 1. Left knee surgery 2. Right knee surgery 3. Bladder tumor resection MEDICATIONS 1. Norvasc 5 mg p.o. b.i.d. 2. Zocor 10 mg p.o. q.h.s. 3. Metformin 750 mg p.o. b.i.d. ALLERGIES He does not have any known drug allergies. FAMILY HISTORY Family history was reviewed and is noncontributory to this visit. SOCIAL HISTORY As discussed above. PHYSICAL EXAMINATION VITAL SIGNS: Blood pressure is 145/76, pulse in the 90s, temperature is 20, O2 sats are 94% on room air. GENERAL: This is an elderly male who appears frail in no apparent distress. HEENT: Pupils are equal, round, reactive to light. EOMI. No thrush. No lesions. NECK: Supple. No JVD, no bruits. No lymphadenopathy. CHEST: Chest is clear to auscultation bilaterally. CARDIAC: S1-S2. He is tachycardiac in the 90s. ABDOMEN: Soft, nontender, nondistended. Bowel sounds are present. EXTREMITIES: Bilateral lower extremity edema. LABORATORY DATA WBC 0.5, hemoglobin is 6.1, MCV is 116, platelet count is 17. Serum chemistries, sodium 138, potassium 4.1, chloride 107, CO2 21.4, BUN is 19, creatinine is 1.4, GFR is 49, calcium is 9.1, total bilirubin is 2.9, direct bilirubin is 0.5, indirect bilirubin is 2.4, AST is 15, ALT is 10, alk phos is 79. Troponins are 0.02, BNP is 1262, total protein is 7.8, albumin is 3.6. ALLERGIES NO KNOWN DRUG ALLERGIES. ASSESSMENT/PLAN This is a 76-year-old male who has a history of anemia, hypertension, hyperlipidemia, diabetes, history of liver disease and history of bladder tumor status post resection who presents to the emergency department with progressive dyspnea. 1. Severe acute anemia with hemoglobin 6.1. His MCV is elevated to 116.6. He was transfused two units of packed red blood cells. He has significant macrocytosis that could be secondary to underlying MDS. However, we need to rule out other causes of anemia such as hemolysis, underlying nutritional deficiencies such as B12, folate and iron deficiency. We will check a hepatitis panel. We will obtain hemolysis labs as stated above. He has received Epogen injections in the past. I will hold off on Epogen injections at this time. 2. Severe neutropenia with ANC of only 200. Place the patient on neutropenic precautions. According to the patient, this is something new. He has had never had severe neutropenia. We need to obtain a bone marrow biopsy. We will ask IR to assist with this. We will obtain cytogenetics, FISH studies and flow cytometry. Once the bone marrow biopsy is completed, I will start him on Neupogen injections. We will have a very low threshold to start IV antibiotic. If he does spine a fever, I would recommend starting him on IV cefepime. 3. Thrombocytopenia with a platelet count of 17,000, again the differential includes underlying MDS, ischemia lymphoma. Further workup as stated above. We will need to transfuse him one unit of platelets if his platelet count drop below 10,000 or if he becomes symptomatic with bleeding. Thank you for allowing me to participate in the care of this patient. I will continue to follow this patient along. MD RUTH Ag/FEDERICO /11:40 PM /6:39 AM
[2017-09-04] MEDS: INSULIN ASPART SUPPLEMENTAL SCALE SQ SCH ×4 (08:00→20:35)
--- NOTE | 2017-09-04 08:06 | HHI.PR ---
Subjective Remarks In bed appears sleepy. Says he feel tired and with some sob. Says sob improved some since yesterday. No cough. No fever or chills. Denies chest pain . No lightheadedness. No palpitations. LE edema improved. Objective Vitals Vital Signs Date Time Temp Pulse Resp B/P (MAP) Pulse Ox O2 Delivery O2 Flow Rate FiO2 09/04/17 05:37 98.3 94 15 158/79 (105) 96 09/04/17 03:00 90 09/04/17 02:00 94 09/04/17 01:00 90 09/04/17 00:01 86 09/03/17 23:38 98.4 90 18 152/73 (99) 95 09/03/17 21:54 99 20 145/76 (99) 94 09/03/17 19:08 98 21 09/03/17 19:08 108 22 149/75 (99) 98 Room Air 09/03/17 18:22 102 18 156/76 (102) 97 Room Air 09/03/17 17:22 98.0 102 18 138/82 97 09/03/17 17:22 100 18 138/72 (94) 98 Nasal Cannula 2.00 09/03/17 15:36 97.9 98 18 147/74 96 09/03/17 15:08 98.0 98 18 152/74 97 09/03/17 15:07 98.0 99 18 152/74 99 09/03/17 14:55 100 18 159/77 (104) 99 Nasal Cannula 2.00 09/03/17 13:40 97.7 107 18 164/78 96 09/03/17 13:03 97.7 100 18 133/64 100 09/03/17 12:32 99 18 158/82 (107) 100 Nasal Cannula 2.00 09/03/17 11:26 100 18 158/82 (107) 98 Nasal Cannula 2.00 09/03/17 09:08 18 96 Nasal Cannula 2.00 09/03/17 09:08 96 Nasal Cannula 2.00 09/03/17 09:00 106 18 96 Nasal Cannula 2.00 09/03/17 08:59 105 18 160/85 (110) 96 Nasal Cannula 2.00 09/03/17 08:32 97.9 111 19 157/74 (101) 95 I/O 09/03/17 09/03/17 09/03/17 09/04/17 09/04/17 09/04/17 07:00 15:00 23:00 07:00 15:00 23:00 Intake Total 1650 ml Output Total 2275 ml 500 ml Balance -625 ml -500 ml Intake IV Total 850 ml Packed Cells 800 ml Output Urine Total 2275 ml 500 ml # Voids 2 Result Diagram: 09/03/17 0950 09/03/17 0910 Imaging Last Impressions Chest X-Ray 09/03/17 0906 Signed Impressions: Service Date/Time: Sunday, September 03, 2017 09:20 - CONCLUSION: Development of right basilar opacity in part representing effusion and possible underlying parenchymal consolidation. Left ventricular cardiomegaly is appreciated Fabricio Cason MD Objective Remarks GENERAL: This is a well-nourished, well-developed patient, in no apparent distress. SKIN: No rashes, ecchymoses or lesions. Cool and dry. HEAD: Atraumatic. Normocephalic. No temporal or scalp tenderness. EYES: Pupils equal round and reactive. Extraocular motions intact. No scleral icterus. No injection or drainage. ENT: Nose without drainage. Throat without erythema, tonsillar hypertrophy or exudate. Uvula midline. Airway patent. NECK: Trachea midline. No JVD or lymphadenopathy. Supple, nontender, no meningeal signs. CARDIOVASCULAR: Regular rate and rhythm without murmurs, gallops, or rubs. RESPIRATORY: Diminished breath sounds at the right base and midlung field. No wheezing or rhonchi. The rest of the lung rossi are grossly clear. GASTROINTESTINAL: Abdomen soft, non-tender, nondistended. No hepato-splenomegaly , or palpable masses. No guarding. MUSCULOSKELETAL: Extremities without clubbing, cyanosis, or edema. No joint tenderness, effusion, or edema noted. No calf tenderness. Negative Homans sign bilaterally. NEUROLOGICAL: Awake and alert. Cranial nerves II through XII intact. Motor and sensory grossly within normal limits. Five out of 5 muscle strength in all muscle groups. Normal speech. A/P Problem List: (1) Respiratory failure ICD Code: J96.90 - Respiratory failure, unspecified, unspecified whether with hypoxia or hypercapnia (2) Pancytopenia ICD Code: D61.818 - Other pancytopenia Status: Chronic (3) Pleural effusion ICD Code: J90 - Pleural effusion, not elsewhere classified Status: Acute (4) Thrombocytopenia ICD Code: D69.6 - Thrombocytopenia, unspecified Status: Acute (5) Hypertension ICD Code: I10 - Essential (primary) hypertension Status: Acute (6) Acute CHF (congestive heart failure) ICD Code: I50.9 - Heart failure, unspecified (7) Symptomatic anemia ICD Code: D64.9 - Anemia, unspecified Assessment and Plan 76-year-old male admitted with acute respiratory failure secondary to CHF, pleural effusion, and symptomatic anemia. Respiratory failure secondary to Acute CHF/pleural effusion/possible pneumonia: Chest x-ray personally reviewed which showed right pleural effusion, underlying consolidation is also a possibility. Left ventricular hypertrophy noted. - Continue Lasix 40 mg IV twice a day - 2-D echocardiogram - Continue empiric antibiotics with Rocephin and azithromycin. Reassess tomorrow and consider holding off antibiotics based on his response Acute CHF: Unknown type. No history of CHF. Increasing bilateral lower extremity edema and right pleural effusion. BNP on admission 1200. EKG shows some inferior wall ischemia but it is unclear if this is new. He did report a history of previous ME. Currently not expressing any chest pain. Cardiac enzymes negative. - IV Lasix as above. 2-D echocardiogram pending - Continue to monitor on telemetry. - Strict I/O - Resume valsartan. Symptomatic anemia/pancytopenia: - Patient reports he has been taking Neupogen weekly under the guidance of his doctors in [place]. Not sure of his diagnosis. - Consult hematology for assistance. Planned for FISH and flow cytometry, IR consulted for BMBX. Will start Neupogen after BMBX - Blood transfusion s/p 2 units pRBCs. - Continue to monitor CBC - Obtain Hemoccult stool. Consider GI consult. Per patient last panendoscopy was about 8 months ago, doesn't know the results. Acute kidney injury: - Likely secondary to anemia and heart failure as above. - Treat anemia and heart failure. - Follow-up BMP in a.m. GI prophylaxis: Stool softener PRN constipation. DVT PPx: Pharmacologic contraindication due to thrombocytopenia/anemia Discussed Condition With patient, nurse, Dr Darden oncology Carola Ponce MD Sep 04, 2017 08:06
[2017-09-04] MEDS: amLODIPine BESYLATE 5 MG TAB PO SCH ×2 (08:09→20:36)
[2017-09-04] MEDS: CARVEDILOL 3.125 MG TAB PO SCH ×2 (08:09→20:36)
[2017-09-04] MEDS: AZITHROMYCIN 250 MG TAB PO SCH (08:10)
[2017-09-04] MEDS: SODIUM CHLORIDE 0.9% FLUSH 10 ML FLUSH IV FLUSH SCH ×2 (08:11→20:36)
[2017-09-04] MEDS: FUROSEMIDE 40 MG/4 ML VIAL IV PUSH SCH ×2 (08:11→18:28)
[2017-09-04 12:03] LABS: AUTOMATED NEUTROPHIL # 0.2 TH/MM3 (1.8-7.7); BASOPHIL % 1.5 % (0.0-2.0); EOSINOPHIL % 5.6 % (0.0-4.0); HEMATOCRIT 24.5 % (39.0-51.0); HEMOGLOBIN 8.7 GM/DL (13.0-17.0); LYMPH % 56.5 % (9.0-44.0); LYMPHOCYTE # 0.3 TH/MM3 (1.0-4.8); MEAN CELL VOLUME 107.8 FL (80.0-100.0); MEAN CORPUSCULAR HEMOGLOBIN 38.1 PG (27.0-34.0); MEAN CORPUSCULAR HGB CONC 35.3 % (32.0-36.0); MEAN PLATELET VOLUME 9.4 FL (7.0-11.0); MONO % 8.4 % (0.0-8.0); RED BLOOD COUNT 2.28 MIL/MM3 (4.50-5.90); RED CELL DISTRIBUTION WIDTH 23.5 % (11.6-17.2); WHITE BLOOD COUNT 0.6 TH/MM3 (4.0-11.0)
[2017-09-04 12:12] LABS: RETIC # 53.8 MIL/L (20.0-150.0); RETIC % 2.3 % (0.4-3.0)
[2017-09-04 12:15] LABS: ALBUMIN 3.2 GM/DL (3.4-5.0); AST (GOT) 20 U/L (15-37); BICARBONATE 28.8 MEQ/L (21.0-32.0); BLOOD UREA NITROGEN 19 MG/DL (7-18); CALCIUM 8.5 MG/DL (8.5-10.1); CHLORIDE 104 MEQ/L (98-107); CREATININE 1.41 MG/DL (0.60-1.30); GLOMERULAR FILTRATION RATE 49 ML/MIN (>89); GLUCOSE,RANDOM 113 MG/DL (74-106); SODIUM (NA) 139 MEQ/L (136-145)
[2017-09-04 12:16] LABS: ALT (GPT) 9 U/L (12-78); PLATELET COUNT 13 TH/MM3 (150-450)
[2017-09-04 12:42] LABS: ALKALINE PHOSPHATASE 74 U/L (45-117); TOTAL BILIRUBIN ADULT 4.1 MG/DL (0.2-1.0); TOTAL PROTEIN 7.1 GM/DL (6.4-8.2)
[2017-09-04 13:12] LABS: BANDS 1 % (0-6); BASOPHILS 1 % (0-2); CORRECTED NUCLEATED RBC 1 /100 WBC (0-0); LYMPHOCYTES 57 % (9-44); MONOCYTES 5 % (0-8); NEUTROPHIL # MANUAL DIFF 0.2 TH/MM3 (1.8-7.7); NUCLEATED RED BLOOD CELL 1 (0-0); POLYS (SEG NEUTROPHILS) 33 % (16-70)
[2017-09-04 13:14] LABS: ACANTHOCYTES OCC (NORMAL); OVALOCYTES 1+ (NORMAL)
[2017-09-04 13:16] LABS: TEARDROP RBCS 1+ (NORMAL)
[2017-09-04 13:37] LABS: HEPATITIS B CORE AB IGM NEGATIVE (NEGATIVE); HEPATITIS B SURFACE ANTIGEN NEGATIVE (NEGATIVE); HEPATITIS C AB IgG NEGATIVE (NEGATIVE)
[2017-09-04] MEDS ORDERED: LIDOCAINE HCL 1% 20 ML VIAL ONE (14:09)
[2017-09-04] MEDS ORDERED: MIDAZOLAM HCL 2 MG/2 ML VIAL ONE (14:52)
[2017-09-04] MEDS ORDERED: fentaNYL CITRATE 250 MCG/5 ML AMP ONE (14:52)
--- NOTE | 2017-09-04 15:21 | PD.RAD ---
Post CT Procedure Prog Note Pre Procedure Diagnosis: (1) Pancytopenia (2) Thrombocytopenia Post Procedure Diagnosis: (1) Pancytopenia (2) Thrombocytopenia Procedure Date: Sep 04, 2017 Supervising Radiologist: Fantasma Albarran Proceduralist/Assist: chencho unger Estimated blood loss: 10cc Anesthesia: Conscious Sedation Plan of Activity Patient to Unit: ROPU Patient Condition: Good See PACS Report for procedural detail/treatment Fantasma Albarran MD Sep 04, 2017 15:21
--- NOTE | 2017-09-04 16:25 | RADRPT ---
EXAM DATE/TIME: 09/04/2017 14:56 [place] COMPARISON: No previous studies available for comparison. INDICATIONS : Pancytopenia. SEDATION TIME: 30 minutes BIOPSY SITE: Right Iliac MEDICATION(S): 1.) 2 mg midazolam (Versed) IV 2.) 200 mcg fentanyl (Sublimaze) IV DEVICE(S): 1.) 12 gauge Bone biopsy needle MEDICAL HISTORY : Cardiovascular disease. Cirrhosis. Hypertension. Diabetes. SURGICAL HISTORY : None. ENCOUNTER: Initial ACUITY: 1 day PAIN SCORE: 0/10 LOCATION: Right pelvis A total of one core specimen(s) were obtained and sent to the laboratory for pathologic evaluation. PROCEDURE: 1. CT guided pelvic biopsy. Prior to the procedure informed consent was obtained. Any appropriate prior imaging studies were rev iewed. Using automated exposure control and adjustment of the mA and/or kV according to patient size , radiation dose was kept as low as reasonably achievable to obtain optimal diagnostic quality images . DICOM format image data is available electronically for review and comparison. The site was prepped in a sterile fashion. Full sterile technique was used, including cap, mask, david rile gloves and gown and a large sterile sheet. Hand hygiene and 2% chlorhexidine and/or betadine/al cohol prep was utilized per protocol for cutaneous antisepsis. The skin and subcutaneous tissues wer e infiltrated with local anesthetic solution. With CT guidance the previously identified target was localized. Biopsy was performed using the presc ribed needle as above. Following biopsy marrow aspiration was performed with repeat puncture. Adequa te hemostasis was obtained with compression at the puncture site. Follow-up CT scan reveals no hemorrhage. Conscious sedation was performed with the prescribed dosages and duration as above in the presence of an independent trained radiology nurse to assist in the monitoring of the patient. EKG and oximetry remained stable throughout the procedure. The patient tolerated the procedure well and there were no complications. The patient was sent to Radiology Outpatient Unit in stable condition. CONCLUSION: 1. Uncomplicated CT guided bone marrow aspirate. 2. Uncomplicated CT guided bone marrow biopsy. Fantasma Albarran MD on September 04, 2017 at 16:22 Board Certified Radiologist. This report was verified electronically.
[2017-09-04] MEDS: PRAVASTATIN SOD 20 MG TAB PO SCH (20:36)
--- NOTE | 2017-09-04 23:25 | PD.ONC.PN ---
Subjective Subjective Remarks had bone marrow biopsy today exhausted says he had a good meal no fevers no bleeding Objective Data Date Time Temp Pulse Resp B/P (MAP) Pulse Ox O2 Delivery O2 Flow Rate FiO2 09/04/17 20:50 95 21 09/04/17 20:26 97.7 89 16 118/66 (83) 95 09/04/17 17:28 98.2 87 20 129/71 (90) 94 09/04/17 16:50 84 18 131/73 (92) 95 09/04/17 16:20 84 18 127/68 (87) 95 09/04/17 15:50 84 20 123/71 (88) 94 09/04/17 15:35 97.7 89 20 129/69 (89) 94 09/04/17 14:13 97 09/04/17 12:00 89 09/04/17 11:33 98.1 91 16 127/75 (92) 97 09/04/17 10:57 85 09/04/17 08:06 98.4 92 20 137/79 (98) 97 09/04/17 08:00 93 09/04/17 06:00 90 09/04/17 05:37 98.3 94 15 158/79 (105) 96 09/04/17 05:00 90 09/04/17 04:05 90 09/04/17 03:00 90 09/04/17 02:00 94 09/04/17 01:00 90 09/04/17 00:01 86 09/03/17 23:38 98.4 90 18 152/73 (99) 95 Result Diagram: 09/04/17 1112 09/04/17 1112 Laboratory Results Laboratory Tests Test 09/04/17 11:12 09/04/17 15:02 White Blood Count 0.6 TH/MM3 Red Blood Count 2.28 MIL/MM3 Hemoglobin 8.7 GM/DL Hematocrit 24.5 % Mean Corpuscular Volume 107.8 FL Mean Corpuscular Hemoglobin 38.1 PG Mean Corpuscular Hemoglobin Concent 35.3 % Red Cell Distribution Width 23.5 % Platelet Count 13 TH/MM3 Mean Platelet Volume 9.4 FL Neutrophils (%) (Auto) 28.0 % Lymphocytes (%) (Auto) 56.5 % Monocytes (%) (Auto) 8.4 % Eosinophils (%) (Auto) 5.6 % Basophils (%) (Auto) 1.5 % Neutrophils # (Auto) 0.2 TH/MM3 Lymphocytes # (Auto) 0.3 TH/MM3 Monocytes # (Auto) 0.0 TH/MM3 Eosinophils # (Auto) 0.0 TH/MM3 Basophils # (Auto) 0.0 TH/MM3 CBC Comment AUTO DIFF Differential Total Cells Counted 75 Neutrophils % (Manual) 33 % Band Neutrophils % 1 % Lymphocytes % 57 % Monocytes % 5 % Eosinophils % 1 % Basophils % 1 % Neutrophils # (Manual) 0.2 TH/MM3 Nucleated Red Blood Cells 1 /100 WBC Differential Comment FINAL DIFF MANUAL Platelet Estimate RARE Platelet Morphology Comment NORMAL Tear Drop Cells 1+ Ovalocytes 1+ Acanthocytes OCC Blood Smear Pathologist Review Reticulocyte Count 2.3 % Absolute Reticulocyte Count 53.8 MIL/L Blood Urea Nitrogen 19 MG/DL Creatinine 1.41 MG/DL Random Glucose 113 MG/DL Total Protein 7.1 GM/DL Albumin 3.2 GM/DL Calcium Level 8.5 MG/DL Alkaline Phosphatase 74 U/L Aspartate Amino Transf (AST/SGOT) 20 U/L Alanine Aminotransferase (ALT/SGPT) 9 U/L Lactate Dehydrogenase 236 U/L Total Bilirubin 4.1 MG/DL Sodium Level 139 MEQ/L Potassium Level 3.5 MEQ/L Chloride Level 104 MEQ/L Carbon Dioxide Level 28.8 MEQ/L Anion Gap 6 MEQ/L Estimat Glomerular Filtration Rate 49 ML/MIN Vitamin B12 Level 240 PG/ML Hepatitis B Surface Antigen NEGATIVE Hepatitis B Core IgM Antibody NEGATIVE Hepatitis C Antibody NEGATIVE HIV (1&2) Antibody NEGATIVE Administered Medications Medications (Trade) Dose Ordered Sig/Emily Route PRN Reason Start Time Stop Time Status Last Admin Dose Admin Sodium Chloride (NS Flush) 2 ml UNSCH PRN IV FLUSH FLUSH AFTER USING IV ACCESS 09/03/17 11:45 09/04/17 18:29 Sodium Chloride (NS Flush) 2 ml BID IV FLUSH 09/03/17 21:00 09/04/17 20:36 Cefepime HCl 1000 mg/Sodium Chloride 100 ml @ 200 mls/hr Q12H IV 09/03/17 23:00 09/04/17 11:46 Azithromycin (Zithromax) 500 mg DAILY PO 09/04/17 09:00 09/04/17 08:10 Amlodipine Besylate (Norvasc) 5 mg BID PO 09/03/17 21:00 09/04/17 20:36 Pravastatin Sodium (Pravachol) 20 mg HS PO 09/03/17 21:00 09/04/17 20:36 Insulin Aspart (NovoLOG SUPPLEMENTAL SCALE) 1 ACHS SLIDING SCALE SQ 09/03/17 12:00 09/04/17 20:35 Furosemide (Lasix Inj) 40 mg BID@09,18 IV PUSH 09/03/17 18:00 09/04/17 18:28 Carvedilol (Coreg) 3.125 mg Q12HR PO 09/03/17 21:00 09/04/17 20:36 Objective Remarks GENERAL: nad--elderly male SKIN: Warm and dry. LYMPHATIC: No adenopathy. CARDIOVASCULAR: Regular rate and rhythm without murmurs. RESPIRATORY: Breath sounds equal bilaterally. No accessory muscle use. GASTROINTESTINAL: Abdomen soft, non-tender, nondistended. EXTREMITIES: No cyanosis, or edema. Assessment/Plan Problem List: (1) Neutropenia ICD Codes: D70.9 - Neutropenia, unspecified (2) Bladder mass ICD Codes: N32.89 - Other specified disorders of bladder Status: Acute (3) Pancytopenia ICD Codes: D61.818 - Other pancytopenia Status: Chronic (4) Thrombocytopenia ICD Codes: D69.6 - Thrombocytopenia, unspecified Status: Acute (5) Symptomatic anemia ICD Codes: D64.9 - Anemia, unspecified Assessment 76-year-old male who has a history of anemia, hypertension, hyperlipidemia, diabetes, history of liver disease and history of bladder tumor status post resection who presents to the emergency department with progressive dyspnea. 1. Severe acute anemia with hemoglobin Hb up to 8.7. Hepatitis panel is negative. Hemolysis labs pending start epogen tomorrow 2. Severe neutropenia with ANC <500. Place the patient on neutropenic precautions. start Neupogen injections. very low threshold to start IV antibiotic. If he does spike a fever, I would recommend starting him on IV cefepime. - BM bx pending 3. Thrombocytopenia differential includes underlying MDS, Leukemia and lymphoma. Further workup as stated above. We will need to transfuse him one unit of platelets if his platelet count drop below 10,000 or if he becomes symptomatic with bleeding. supportive care Once ANC > 500, can be discharged home with outpatient f/u Gabriel Darden MD Sep 04, 2017 23:25
[2017-09-05] VITALS (21 sets, daily range): BP systolic 109–132; BP diastolic 58–66; PULSE 70–98; RESP 15–16; TEMP 98–98.6; O2SAT 92–96
[2017-09-05] MEDS: FILGRASTIM INJ 480 MCG in DEXTROSE 5% IN WATER INJ 50 ML IV SCH ×4 (00:17→15:43)
[2017-09-05 04:40] LABS: BICARBONATE 27.6 MEQ/L (21.0-32.0); CALCIUM 8.3 MG/DL (8.5-10.1); CREATININE 1.5 MG/DL (0.60-1.30); MAGNESIUM 1.5 MG/DL (1.5-2.5)
[2017-09-05 05:37] LABS: HEMATOCRIT 23.4 % (39.0-51.0); HEMOGLOBIN 8.3 GM/DL (13.0-17.0); MEAN CELL VOLUME 104.8 FL (80.0-100.0); MEAN CORPUSCULAR HEMOGLOBIN 37.3 PG (27.0-34.0); MEAN CORPUSCULAR HGB CONC 35.6 % (32.0-36.0); MEAN PLATELET VOLUME 9.3 FL (7.0-11.0); RED BLOOD COUNT 2.23 MIL/MM3 (4.50-5.90); RED CELL DISTRIBUTION WIDTH 22.7 % (11.6-17.2); WHITE BLOOD COUNT 0.9 TH/MM3 (4.0-11.0)
[2017-09-05 05:46] LABS: PLATELET COUNT 14 TH/MM3 (150-450)
[2017-09-05] MEDS: INSULIN ASPART SUPPLEMENTAL SCALE SQ SCH ×4 (08:00→20:51)
[2017-09-05] MEDS: CARVEDILOL 3.125 MG TAB PO SCH ×2 (08:25→20:09)
[2017-09-05] MEDS: AZITHROMYCIN 250 MG TAB PO SCH (08:25)
[2017-09-05] MEDS: amLODIPine BESYLATE 5 MG TAB PO SCH (08:25)
[2017-09-05 08:30] LABS: BANDS 3 % (0-6); BLASTS 1 % (0-0); LYMPHOCYTES 67 % (9-44); MONOCYTES 5 % (0-8); POLYS (SEG NEUTROPHILS) 24 % (16-70)
[2017-09-05 08:31] LABS: NEUTROPHIL # MANUAL DIFF 0.2 TH/MM3 (1.8-7.7); OVALOCYTES 1+ (NORMAL); TEARDROP RBCS 1+ (NORMAL)
--- NOTE | 2017-09-05 11:14 | ECHRPT ---
Indication: HEART FAILURE CONCLUSIONS Mild to Moderately dilated left ventricle. Wall thickness is normal. The left ventricular systolic function is severely reduced with an estimated ejection fraction in th e range of 30-35%. Inferior hypokinesisMitral annular calcification is present. Mild thickening of the mitral valve leaflets. Mild mitral valve regurgitation. Aortic valve sclerosis is present. Trace aortic valve regurgitation. There is trace to mild tricuspid valve regurgitation. The estimated pulmonary arterial pressure is 62 mmHg. The pulmonary valve is not well visualized. BP: 164 / 78 HR: 107 Rhythm: MEASUREMENTS (Male / Female) Normal Values Technical Quality:Good 2D ECHO LV Diastolic Diameter PLAX 5.7 cm 4.2 - 5.9 / 3.9 - 5.3 cm LV Systolic Diameter PLAX 5.1 cm IVS Diastolic Thickness 1.0 cm 0.6 - 1.0 / 0.6 - 0.9 cm LVPW Diastolic Thickness 0.6 cm 0.6 - 1.0 / 0.6 - 0.9 cm LV Relative Wall Thickness 0.3 RV Internal Dim ED PLAX 2.5 cm LA Systolic Diameter LX 4.8 cm 3.0 - 4.0 / 2.7 - 3.8 cm M-MODE Aortic Root Diameter MM 3.6 cm AV Cusp Separation MM 1.9 cm DOPPLER MV Peak Velocity 153.0 cm/s MV Peak Gradient 9.4 mmHg MV Mean Velocity 98.8 cm/s MV Mean Gradient 5.0 mmHg MR Peak Velocity 459.0 cm/s MR Peak Gradient 84.3 mmHg Mitral E Point Velocity 135.0 cm/s Mitral A Point Velocity 119.0 cm/s Mitral E to A Ratio 1.1 LV E' Lateral Velocity 9.8 cm/s Mitral E to LV E' Lateral Ratio 13.8 TR Peak Velocity 377.0 cm/s TR Peak Gradient 56.9 mmHg FINDINGS LEFT VENTRICLE Mild to Moderately dilated left ventricle. Wall thickness is normal. The left ventricular systolic function is severely reduced with an estimated ejection fraction in th e range of 30-35%. Inferior hypokinesis RIGHT VENTRICLE Normal right ventricular size and systolic function. LEFT ATRIUM The left atrial size is normal. RIGHT ATRIUM The right atrial size is normal. ATRIAL SEPTUM Normal atrial septal thickness without atrial level shunting by limited color doppler interrogation. AORTA The aortic root and proximal ascending aorta are normal in size on limited imaging. MITRAL VALVE Mitral annular calcification is present. Mild thickening of the mitral valve leaflets. Mild mitral valve regurgitation. AORTIC VALVE Aortic valve sclerosis is present. Trace aortic valve regurgitation. TRICUSPID VALVE There is trace to mild tricuspid valve regurgitation. The estimated pulmonary arterial pressure is 62 mmHg. PULMONARY VALVE The pulmonary valve is not well visualized. VESSELS The inferior vena cava is normal in size. PERICARDIUM No pericardial effusion. Ervin Ray MD, FACC (Electronically Signed) Final Date:05 September 2017 11:13
[2017-09-05] MEDS: SODIUM CHLORIDE 0.9% FLUSH 10 ML FLUSH IV FLUSH SCH ×2 (11:33→20:10)
[2017-09-05] MEDS: CEFEPIME INJ 1,000 MG in SODIUM CHLORIDE 0.9% INJ 100 ML IV SCH (11:33)
[2017-09-05] MEDS: FUROSEMIDE 40 MG/4 ML VIAL IV PUSH SCH ×2 (11:33→18:10)
--- NOTE | 2017-09-05 12:58 | PD.ONC.PN ---
Objective Data Date Time Temp Pulse Resp B/P (MAP) Pulse Ox O2 Delivery O2 Flow Rate FiO2 09/05/17 11:42 98.6 74 16 120/66 (84) 96 09/05/17 09:55 21 09/05/17 08:00 Room Air 09/05/17 08:00 98.0 70 16 109/58 (75) 95 09/05/17 03:40 98.1 86 15 110/60 (77) 96 09/05/17 02:00 80 09/05/17 01:00 78 09/05/17 00:00 84 09/04/17 23:38 Nasal Cannula 2.00 09/04/17 23:38 98.4 84 15 141/67 (91) 95 09/04/17 23:00 80 09/04/17 22:00 82 09/04/17 21:00 84 09/04/17 20:50 95 21 09/04/17 20:26 97.7 89 16 118/66 (83) 95 09/04/17 20:01 87 09/04/17 17:28 98.2 87 20 129/71 (90) 94 09/04/17 16:50 84 18 131/73 (92) 95 09/04/17 16:20 84 18 127/68 (87) 95 09/04/17 15:50 84 20 123/71 (88) 94 09/04/17 15:35 97.7 89 20 129/69 (89) 94 09/04/17 14:13 97 09/05/17 09/05/17 09/05/17 07:00 15:00 23:00 Output Total 450 ml Balance -450 ml Result Diagram: 09/05/17 0335 09/05/17 0335 Laboratory Results Laboratory Tests Test 09/04/17 15:02 09/05/17 03:35 White Blood Count 0.9 TH/MM3 Red Blood Count 2.23 MIL/MM3 Hemoglobin 8.3 GM/DL Hematocrit 23.4 % Mean Corpuscular Volume 104.8 FL Mean Corpuscular Hemoglobin 37.3 PG Mean Corpuscular Hemoglobin Concent 35.6 % Red Cell Distribution Width 22.7 % Platelet Count 14 TH/MM3 Mean Platelet Volume 9.3 FL CBC Comment AUTO DIFF Differential Total Cells Counted 100 Neutrophils % (Manual) 24 % Band Neutrophils % 3 % Lymphocytes % 67 % Monocytes % 5 % Neutrophils # (Manual) 0.2 TH/MM3 Differential Comment FINAL DIFF MANUAL Blastocytes 1 % Platelet Estimate LOW Platelet Morphology Comment NORMAL Tear Drop Cells 1+ Ovalocytes 1+ Haptoglobin LESS THAN 10 MG/DL Hematology Comments Blood Urea Nitrogen 21 MG/DL Creatinine 1.50 MG/DL Random Glucose 91 MG/DL Calcium Level 8.3 MG/DL Magnesium Level 1.5 MG/DL Sodium Level 139 MEQ/L Potassium Level 3.2 MEQ/L Chloride Level 103 MEQ/L Carbon Dioxide Level 27.6 MEQ/L Anion Gap 8 MEQ/L Estimat Glomerular Filtration Rate 46 ML/MIN Administered Medications Medications (Trade) Dose Ordered Sig/Emily Route PRN Reason Start Time Stop Time Status Last Admin Dose Admin Sodium Chloride (NS Flush) 2 ml UNSCH PRN IV FLUSH FLUSH AFTER USING IV ACCESS 09/03/17 11:45 09/04/17 18:29 Sodium Chloride (NS Flush) 2 ml BID IV FLUSH 09/03/17 21:00 09/05/17 11:33 Cefepime HCl 1000 mg/Sodium Chloride 100 ml @ 200 mls/hr Q12H IV 09/03/17 23:00 09/05/17 11:33 Azithromycin (Zithromax) 500 mg DAILY PO 09/04/17 09:00 09/05/17 08:25 Amlodipine Besylate (Norvasc) 5 mg BID PO 09/03/17 21:00 09/05/17 08:25 Pravastatin Sodium (Pravachol) 20 mg HS PO 09/03/17 21:00 09/04/17 20:36 Insulin Aspart (NovoLOG SUPPLEMENTAL SCALE) 1 ACHS SLIDING SCALE SQ 09/03/17 12:00 09/04/17 20:35 Furosemide (Lasix Inj) 40 mg BID@09,18 IV PUSH 09/03/17 18:00 09/05/17 11:33 Carvedilol (Coreg) 3.125 mg Q12HR PO 09/03/17 21:00 09/05/17 08:25 Filgrastim 480 mcg/Dextrose 51.6 ml @ 100 mls/hr DAILY@14 IV 09/04/17 23:30 09/05/17 00:17 Objective Remarks GENERAL: Well-nourished, well-developed patient. SKIN: Warm and dry. HEAD: Normocephalic. EYES: No scleral icterus. No injection or drainage. NECK: Supple, trachea midline. No JVD or lymphadenopathy. LYMPHATIC: No adenopathy. CARDIOVASCULAR: Regular rate and rhythm without murmurs. RESPIRATORY: Breath sounds equal bilaterally. No accessory muscle use. GASTROINTESTINAL: Abdomen soft, non-tender, nondistended. EXTREMITIES: No cyanosis, or edema. MUSCULOSKELETAL: Adequate muscle tone. NEUROLOGICAL: No obvious focal deficit. Awake, alert, and oriented x3. PSYCHIATRIC: Appropriate mood and affect; insight and judgment normal. Assessment/Plan Problem List: (1) Neutropenia ICD Codes: D70.9 - Neutropenia, unspecified (2) Bladder mass ICD Codes: N32.89 - Other specified disorders of bladder Status: Acute (3) Pancytopenia ICD Codes: D61.818 - Other pancytopenia Status: Chronic (4) Thrombocytopenia ICD Codes: D69.6 - Thrombocytopenia, unspecified Status: Acute (5) Symptomatic anemia ICD Codes: D64.9 - Anemia, unspecified Assessment 76-year-old male who has a history of anemia, hypertension, hyperlipidemia, diabetes, history of liver disease and history of bladder tumor status post resection who presents to the emergency department with progressive dyspnea. 1. Severe acute anemia with hemoglobin Hb up to 8.7. Hepatitis panel is negative. Hemolysis labs pending start epogen tomorrow 2. Severe neutropenia with ANC <500. Place the patient on neutropenic precautions. start Neupogen injections. very low threshold to start IV antibiotic. If he does spike a fever, I would recommend starting him on IV cefepime. - BM bx pending 3. Thrombocytopenia differential includes underlying MDS, Leukemia and lymphoma. Further workup as stated above. We will need to transfuse him one unit of platelets if his platelet count drop below 10,000 or if he becomes symptomatic with bleeding. supportive care Once ANC > 500, can be discharged home with outpatient f/u Gabriel Darden MD Sep 05, 2017 12:58
--- NOTE | 2017-09-05 14:04 | HHI.PR ---
Subjective Remarks She is in the chair, says he feels less short of breath today, lower extremity edema improved. No fever or chills no nausea or vomiting no diarrhea or constipation. He is not coughing. Objective Vitals Vital Signs Date Time Temp Pulse Resp B/P (MAP) Pulse Ox O2 Delivery O2 Flow Rate FiO2 09/05/17 11:42 98.6 74 16 120/66 (84) 96 09/05/17 09:55 21 09/05/17 08:00 Room Air 09/05/17 08:00 98.0 70 16 109/58 (75) 95 09/05/17 03:40 98.1 86 15 110/60 (77) 96 09/05/17 02:00 80 09/05/17 01:00 78 09/05/17 00:00 84 09/04/17 23:38 Nasal Cannula 2.00 09/04/17 23:38 98.4 84 15 141/67 (91) 95 09/04/17 23:00 80 09/04/17 22:00 82 09/04/17 21:00 84 09/04/17 20:50 95 21 09/04/17 20:26 97.7 89 16 118/66 (83) 95 09/04/17 20:01 87 09/04/17 17:28 98.2 87 20 129/71 (90) 94 09/04/17 16:50 84 18 131/73 (92) 95 09/04/17 16:20 84 18 127/68 (87) 95 09/04/17 15:50 84 20 123/71 (88) 94 09/04/17 15:35 97.7 89 20 129/69 (89) 94 09/04/17 14:13 97 I/O 09/04/17 09/04/17 09/04/17 09/05/17 09/05/17 09/05/17 07:00 15:00 23:00 07:00 15:00 23:00 Intake Total 100 ml 360 ml Output Total 500 ml 300 ml 1350 ml 450 ml Balance -500 ml -200 ml -990 ml -450 ml Intake Oral 360 ml IV Total 100 ml Output Urine Total 500 ml 300 ml 1350 ml 450 ml # Voids 1 Result Diagram: 09/05/17 0335 09/05/17 0335 Imaging Last Impressions Chest X-Ray 09/03/17 0906 Signed Impressions: Service Date/Time: Sunday, September 03, 2017 09:20 - CONCLUSION: Development of right basilar opacity in part representing effusion and possible underlying parenchymal consolidation. Left ventricular cardiomegaly is appreciated Fabricio Cason MD Bone Biopsy CT 09/03/17 0000 Signed Impressions: Service Date/Time: Monday, September 04, 2017 14:56 - CONCLUSION: 1. Uncomplicated CT guided bone marrow aspirate. 2. Uncomplicated CT guided bone marrow biopsy. Fantasma Albarran MD Objective Remarks GENERAL: This is a well-nourished, well-developed patient, in no apparent distress. CARDIOVASCULAR: Regular rate and rhythm without murmurs, gallops, or rubs. RESPIRATORY: Diminished breath sounds at the right base and midlung field. No wheezing or rhonchi. The rest of the lung rossi are grossly clear. GASTROINTESTINAL: Abdomen soft, non-tender, nondistended. No hepato-splenomegaly , or palpable masses. No guarding. MUSCULOSKELETAL: Extremities without clubbing, cyanosis. LE edema improved. No joint tenderness, effusion, or edema noted. No calf tenderness. Negative Homans sign bilaterally. NEUROLOGICAL: Awake and alert. Cranial nerves II through XII intact. Motor and sensory grossly within normal limits. Five out of 5 muscle strength in all muscle groups. Normal speech. Procedures IR consulted s/p BMBX 09/04/17 A/P Problem List: (1) Respiratory failure ICD Code: J96.90 - Respiratory failure, unspecified, unspecified whether with hypoxia or hypercapnia (2) Pancytopenia ICD Code: D61.818 - Other pancytopenia Status: Chronic (3) Pleural effusion ICD Code: J90 - Pleural effusion, not elsewhere classified Status: Acute (4) Thrombocytopenia ICD Code: D69.6 - Thrombocytopenia, unspecified Status: Acute (5) Hypertension ICD Code: I10 - Essential (primary) hypertension Status: Acute (6) Acute CHF (congestive heart failure) ICD Code: I50.9 - Heart failure, unspecified (7) Symptomatic anemia ICD Code: D64.9 - Anemia, unspecified Assessment and Plan 76-year-old male admitted with acute respiratory failure secondary to CHF, pleural effusion, and symptomatic anemia. Respiratory failure secondary to Acute CHF/pleural effusion/possible pneumonia: Chest x-ray personally reviewed which showed right pleural effusion, underlying consolidation is also a possibility. Left ventricular hypertrophy noted. - Continue Lasix 40 mg IV twice a day - 2-D echocardiogram reviewed patient with congestive heart failure with ejection fraction 30% - Continue empiric antibiotics with Rocephin and azithromycin. Consider holding off antibiotics based on his response Acute CHF: Unknown type. No history of CHF. Increasing bilateral lower extremity edema and right pleural effusion. BNP on admission 1200. EKG shows some inferior wall ischemia but it is unclear if this is new. He did report a history of previous OH. Currently not expressing any chest pain. Cardiac enzymes negative. - IV Lasix as above. 2-D echocardiogram 30% - Continue to monitor on telemetry. - Strict I/O - Resume valsartan. - DC amlodipine. Add coreg and lisinopril - Consult cardiology Symptomatic anemia/pancytopenia: - Patient reports he has been taking Neupogen weekly under the guidance of his doctors in [place]. Not sure of his diagnosis. - Consult hematology for assistance. Planned for FISH and flow cytometry, IR consulted s/p BMBX 09/04/17. Start Neupogen 09/05/17 - Blood transfusion s/p 2 units pRBCs. - Continue to monitor CBC - Obtain Hemoccult stool. Consider GI consult. Per patient last panendoscopy was about 8 months ago, doesn't know the results. Acute kidney injury: - Likely secondary to anemia and heart failure as above. - Treat anemia and heart failure. - Follow-up BMP in a.m. GI prophylaxis: Stool softener PRN constipation. DVT PPx: Pharmacologic contraindication due to thrombocytopenia/anemia Discussed Condition With patient, nurse, Dr Darden oncology Carola Ponce MD Sep 05, 2017 14:04
[2017-09-05] MEDS ORDERED: PILL SPLITTER OTHER PRN (14:30)
--- NOTE | 2017-09-05 15:41 | PD.CONS ---
HPI Consult Requested By Primary Care Physician No Primary Care Physician History of Present Illness 76-year-old male with a medical history significant for diabetes, alcoholic liver cirrhosis, pancytopenia, bladder tumor resection who presented with complaints of shortness of breath and dyspnea on exertion for the past 2 weeks. He first noticed breathing problems 2 weeks ago that have progressively worsened since then, and he was unable to even walk around his house without being extremely dyspneic so he came to the hospital. He has chronic left lower extremity swelling, felt like that was worse as well. He was found to be severely pancytopenic. He has received diuretics and transfusion now reports shortness of breath and lower extremity swelling has significantly improved. He denies any chest pain. He denies any chest pain or palpitations. He states that in the he had some left arm pain and told he might have had a mild heart attack, no cardiac interventions have ever been done and he has never had any recurrence of the pain, followed with a cartographic technician in [place]. He had an echocardiogram done which showed EF 30-35 % and he has been placed on carvedilol and lisinopril. He had a 7 beat run of NSVT overnight. Review of Systems Negative except as stated in history of present illness Past Family Social History Allergies: Coded Allergies: No Known Allergies (Unverified , 10/07/16) Past Medical History Hypertension Type 2 diabetes Hyperlipidemia CAD Chronic pancytopenia alcoholic liver cirrhosis Past Surgical History Left knee surgery Right knee surgery bladder tumor resection Reported Medications Reported Meds & Active Scripts Active Norvasc (Amlodipine Besylate) 5 Mg Tab 5 Mg PO BID Walker with Front Wheels (Device) 1 Mis Mis 1 Ea .ROUTE DIRECTED Wheelchair (Device) 1 Mis Mis 1 Ea .ROUTE DIRECTED Reported Zocor (Simvastatin) 10 Mg Tab 10 Mg PO HS Metformin ER (Metformin HCl) 750 Mg Leonila 750 Mg PO BID With evening meal Active Ordered Medications Current Medications Medications (Trade) Dose Ordered Sig/Emily Route Start Time Stop Time Status Last Admin (NS Flush) 2 ml UNSCH PRN IV FLUSH 09/03/17 11:45 09/04/17 18:29 (NS Flush) 2 ml BID IV FLUSH 09/03/17 21:00 09/05/17 11:33 (Tylenol) 650 mg Q4H PRN PO 09/03/17 11:45 (Zofran Inj) 4 mg Q6H PRN IVP 09/03/17 11:45 (Narcan Inj) 0.4 mg UNSCH PRN IV PUSH 09/03/17 11:45 (Milk Of Magnesia Liq) 30 ml Q12H PRN PO 09/03/17 11:45 (Senokot) 17.2 mg Q12H PRN PO 09/03/17 11:45 (Dulcolax Supp) 10 mg DAILY PRN RECTAL 09/03/17 11:45 (Lactulose Liq) 30 ml DAILY PRN PO 09/03/17 11:45 Cefepime HCl 1000 mg/Sodium Chloride 100 ml @ 200 mls/hr Q12H IV 09/03/17 23:00 09/05/17 11:33 (Zithromax) 500 mg DAILY PO 09/04/17 09:00 09/05/17 08:25 (Pravachol) 20 mg HS PO 09/03/17 21:00 09/04/17 20:36 (D50w (Vial) Inj) 50 ml UNSCH PRN IV PUSH 09/03/17 11:45 (Glucagon Inj) 1 mg UNSCH PRN OTHER 09/03/17 11:45 (NovoLOG SUPPLEMENTAL SCALE) 1 ACHS SLIDING SCALE SQ 09/03/17 12:00 09/05/17 12:00 (Lasix Inj) 40 mg BID@09,18 IV PUSH 09/03/17 18:00 09/05/17 11:33 (Coreg) 3.125 mg Q12HR PO 09/03/17 21:00 09/05/17 08:25 Filgrastim 480 mcg/Dextrose 51.6 ml @ 100 mls/hr DAILY@14 IV 09/04/17 23:30 09/05/17 00:17 (Prinivil) 2.5 mg DAILY PO 09/06/17 09:00 (Pill Splitter) 1 ea UNSCH PRN OTHER 09/05/17 14:30 Family History Noncontributory Social History Patient previously smoked a pack per day for 8 years but he quit about 40 years ago History of daily alcohol use but quit about 10 months ago. Currently only drinks socially, rarely. Patient normally lives in [place]. He comes to this area every year for the winter. Physical Exam Vital Signs Vital Signs Date Time Temp Pulse Resp B/P (MAP) Pulse Ox O2 Delivery O2 Flow Rate FiO2 09/05/17 11:42 98.6 74 16 120/66 (84) 96 09/05/17 09:55 21 09/05/17 08:00 Room Air 09/05/17 08:00 98.0 70 16 109/58 (75) 95 09/05/17 03:40 98.1 86 15 110/60 (77) 96 09/05/17 02:00 80 09/05/17 01:00 78 09/05/17 00:00 84 09/04/17 23:38 Nasal Cannula 2.00 09/04/17 23:38 98.4 84 15 141/67 (91) 95 09/04/17 23:00 80 09/04/17 22:00 82 09/04/17 21:00 84 09/04/17 20:50 95 21 09/04/17 20:26 97.7 89 16 118/66 (83) 95 09/04/17 20:01 87 09/04/17 17:28 98.2 87 20 129/71 (90) 94 09/04/17 16:50 84 18 131/73 (92) 95 09/04/17 16:20 84 18 127/68 (87) 95 09/04/17 15:50 84 20 123/71 (88) 94 09/04/17 15:35 97.7 89 20 129/69 (89) 94 Physical Exam GENERAL: Well-developed well-nourished. In no acute distress. Jaundiced. NECK: No carotid bruits. No JVD. CARDIOVASCULAR: Regular rate and rhythm. No murmur appreciated. RESPIRATORY: No accessory muscle use. Clear to auscultation. Breath sounds equal bilaterally. MUSCULOSKELETAL: No clubbing or cyanosis. Lymphedema left lower extremity. NEUROLOGICAL: Awake and alert. Normal speech. Laboratory Laboratory Tests Test 09/05/17 03:33 09/05/17 03:35 White Blood Count 0.9 Red Blood Count 2.23 Hemoglobin 8.3 Hematocrit 23.4 Mean Corpuscular Volume 104.8 Mean Corpuscular Hemoglobin 37.3 Mean Corpuscular Hemoglobin Concent 35.6 Red Cell Distribution Width 22.7 Platelet Count 14 Mean Platelet Volume 9.3 CBC Comment AUTO DIFF Differential Total Cells Counted 100 Neutrophils % (Manual) 24 Band Neutrophils % 3 Lymphocytes % 67 Monocytes % 5 Neutrophils # (Manual) 0.2 Differential Comment FINAL DIFF MANUAL Blastocytes 1 Platelet Estimate LOW Platelet Morphology Comment NORMAL Tear Drop Cells 1+ Ovalocytes 1+ Haptoglobin LESS THAN 10 Hematology Comments Blood Urea Nitrogen 21 Creatinine 1.50 Random Glucose 91 Calcium Level 8.3 Magnesium Level 1.5 Sodium Level 139 Potassium Level 3.2 Chloride Level 103 Carbon Dioxide Level 27.6 Anion Gap 8 Estimat Glomerular Filtration Rate 46 Result Diagram: 09/05/17 0335 09/05/17 0335 Imaging Last Impressions Chest X-Ray 09/03/17 0906 Signed Impressions: Service Date/Time: Sunday, September 03, 2017 09:20 - CONCLUSION: Development of right basilar opacity in part representing effusion and possible underlying parenchymal consolidation. Left ventricular cardiomegaly is appreciated Fabricio Cason MD Bone Biopsy CT 09/03/17 0000 Signed Impressions: Service Date/Time: Monday, September 04, 2017 14:56 - CONCLUSION: 1. Uncomplicated CT guided bone marrow aspirate. 2. Uncomplicated CT guided bone marrow biopsy. Fantasma Albarran MD Assessment and Plan Assessment and Plan 76-year-old male with a medical history significant for diabetes, alcoholic liver cirrhosis, pancytopenia, bladder tumor resection who presented with complaints of shortness of breath and dyspnea on exertion for the past 2 weeks. He first noticed breathing problems 2 weeks ago that have progressively worsened since then, and he was unable to even walk around his house without being extremely dyspneic so he came to the hospital. He has chronic left lower extremity swelling, felt like that was worse as well. He was found to be severely pancytopenic. He has received diuretics and transfusion now reports shortness of breath and lower extremity swelling has significantly improved. He denies any chest pain. He denies any chest pain or palpitations. He had an echocardiogram done which showed EF 30-35 % and he has been placed on carvedilol and lisinopril. He had a 7 beat run of NSVT overnight. New-onset systolic CHF: Symptomatically improved after diuresis and transfusion. Cardiomyopathy: EF 30-35%. Poor interventional candidate with pancytopenia as below, recommend conservative treatment with medical management at this time. Started on carvedilol and lisinopril. NSVT: 7 beat run. Asymptomatic. Started on beta guillermina. Monitor. Pancytopenia: Hematology following and workup in progress. Kwame Calderón Sep 05, 2017 15:41
[2017-09-05 17:31] LABS: HEMOGLOBIN A1C 4.9 % (4.3-6.0)
--- NOTE | 2017-09-05 19:45 | RADRPT ---
EXAM DATE/TIME: 09/05/2017 19:12 [facility] COMPARISON: No previous studies available for comparison. INDICATIONS : Bilateral leg swelling. MEDICAL HISTORY : Hypercholesterolemia. Hypertension. Diabetic. SURGICAL HISTORY : None. ENCOUNTER: Subsequent ACUITY: 2 weeks PAIN SCORE: 2/10 LOCATION: Bilateral legs. TECHNIQUE: Venous ultrasound of the left and right leg was performed from the inguinal ligament to the proximal calf. Real-time, color Doppler and spectral tracing, compression and augmentation techniques were us ed. FINDINGS: RIGHT LEG: There is normal compressibility of the deep venous system from the inguinal region to the proximal ca lf. No echogenic clot is seen in the lumen of the common femoral, femoral, popliteal, and posterior tibial veins. There is a normal response of the venous system to proximal and distal augmentation an d respiration. LEFT LEG: There is normal compressibility of the deep venous system from the inguinal region to the proximal ca lf. No echogenic clot is seen in the lumen of the common femoral, femoral, popliteal, and posterior tibial veins. There is a normal response of the venous system to proximal and distal augmentation an d respiration. CONCLUSION: No evidence of deep venous thrombosis within the lower extremities. Bill Lima MD on September 05, 2017 at 19:42 Board Certified Radiologist. This report was verified electronically.
[2017-09-05] MEDS: PRAVASTATIN SOD 20 MG TAB PO SCH (20:10)
[2017-09-05] MEDS ORDERED: METOPROLOL TARTRATE 25 MG TAB PO SCH (21:00)
--- NOTE | 2017-09-05 21:25 | PD.ONC.PN ---
Subjective Subjective Remarks sitting up in chair no fevers no bleeding no cough/no dyspnea Objective Data Date Time Temp Pulse Resp B/P (MAP) Pulse Ox O2 Delivery O2 Flow Rate FiO2 09/05/17 20:07 98.4 94 16 115/64 (81) 92 09/05/17 18:29 88 09/05/17 17:00 86 09/05/17 16:00 98.4 80 16 132/60 (84) 96 09/05/17 16:00 82 09/05/17 15:00 90 09/05/17 14:00 82 09/05/17 13:00 80 09/05/17 12:00 80 09/05/17 11:42 98.6 74 16 120/66 (84) 96 09/05/17 11:00 94 09/05/17 10:00 86 09/05/17 09:55 21 09/05/17 09:00 98 09/05/17 08:00 Room Air 09/05/17 08:00 98.0 70 16 109/58 (75) 95 09/05/17 08:00 86 09/05/17 03:40 98.1 86 15 110/60 (77) 96 09/05/17 02:00 80 09/05/17 01:00 78 09/05/17 00:00 84 09/04/17 23:38 Nasal Cannula 2.00 09/04/17 23:38 98.4 84 15 141/67 (91) 95 09/04/17 23:00 80 09/04/17 22:00 82 09/05/17 09/05/17 09/05/17 07:00 15:00 23:00 Intake Total 100 ml 1010 ml Output Total 450 ml 1100 ml Balance -450 ml 100 ml -90 ml Result Diagram: 09/05/17 0335 09/05/17 0335 Laboratory Results Laboratory Tests Test 09/05/17 03:33 09/05/17 03:35 Hemoglobin A1c 4.9 % White Blood Count 0.9 TH/MM3 Red Blood Count 2.23 MIL/MM3 Hemoglobin 8.3 GM/DL Hematocrit 23.4 % Mean Corpuscular Volume 104.8 FL Mean Corpuscular Hemoglobin 37.3 PG Mean Corpuscular Hemoglobin Concent 35.6 % Red Cell Distribution Width 22.7 % Platelet Count 14 TH/MM3 Mean Platelet Volume 9.3 FL CBC Comment AUTO DIFF Differential Total Cells Counted 100 Neutrophils % (Manual) 24 % Band Neutrophils % 3 % Lymphocytes % 67 % Monocytes % 5 % Neutrophils # (Manual) 0.2 TH/MM3 Differential Comment FINAL DIFF MANUAL Blastocytes 1 % Platelet Estimate LOW Platelet Morphology Comment NORMAL Tear Drop Cells 1+ Ovalocytes 1+ Haptoglobin LESS THAN 10 MG/DL Hematology Comments Blood Urea Nitrogen 21 MG/DL Creatinine 1.50 MG/DL Random Glucose 91 MG/DL Calcium Level 8.3 MG/DL Magnesium Level 1.5 MG/DL Sodium Level 139 MEQ/L Potassium Level 3.2 MEQ/L Chloride Level 103 MEQ/L Carbon Dioxide Level 27.6 MEQ/L Anion Gap 8 MEQ/L Estimat Glomerular Filtration Rate 46 ML/MIN Imaging Studies Last 24 hours Impressions Lower Extremity Ultrasound 09/05/17 0000 Signed Impressions: Service Date/Time: September 19:12 - CONCLUSION: No evidence of deep venous thrombosis within the lower extremities. Bill Lima MD Administered Medications Medications (Trade) Dose Ordered Sig/Emily Route PRN Reason Start Time Stop Time Status Last Admin Dose Admin Sodium Chloride (NS Flush) 2 ml UNSCH PRN IV FLUSH FLUSH AFTER USING IV ACCESS 09/03/17 11:45 09/04/17 18:29 Sodium Chloride (NS Flush) 2 ml BID IV FLUSH 09/03/17 21:00 09/05/17 20:10 Cefepime HCl 1000 mg/Sodium Chloride 100 ml @ 200 mls/hr Q12H IV 09/03/17 23:00 09/05/17 11:33 Azithromycin (Zithromax) 500 mg DAILY PO 09/04/17 09:00 09/05/17 08:25 Pravastatin Sodium (Pravachol) 20 mg HS PO 09/03/17 21:00 09/05/17 20:10 Insulin Aspart (NovoLOG SUPPLEMENTAL SCALE) 1 ACHS SLIDING SCALE SQ 09/03/17 12:00 09/05/17 20:51 Furosemide (Lasix Inj) 40 mg BID@09,18 IV PUSH 09/03/17 18:00 09/05/17 18:10 Carvedilol (Coreg) 3.125 mg Q12HR PO 09/03/17 21:00 09/05/17 20:09 Filgrastim 480 mcg/Dextrose 51.6 ml @ 100 mls/hr DAILY@14 IV 09/04/17 23:30 09/05/17 15:43 Objective Remarks GENERAL: nad. SKIN: Warm and dry. NECK: Supple, trachea midline. No JVD or lymphadenopathy. LYMPHATIC: No adenopathy. CARDIOVASCULAR: Regular rate and rhythm without murmurs. RESPIRATORY: Breath sounds equal bilaterally. No accessory muscle use. GASTROINTESTINAL: Abdomen soft, non-tender, nondistended. EXTREMITIES: No cyanosis, or edema. Assessment/Plan Problem List: (1) Neutropenia ICD Codes: D70.9 - Neutropenia, unspecified (2) Bladder mass ICD Codes: N32.89 - Other specified disorders of bladder Status: Acute (3) Pancytopenia ICD Codes: D61.818 - Other pancytopenia Status: Chronic (4) Thrombocytopenia ICD Codes: D69.6 - Thrombocytopenia, unspecified Status: Acute (5) Symptomatic anemia ICD Codes: D64.9 - Anemia, unspecified Assessment 76-year-old male who has a history of anemia, hypertension, hyperlipidemia, diabetes, history of liver disease and history of bladder tumor status post resection who presents to the emergency department with progressive dyspnea. 1. Severe acute anemia with hemoglobin Hb up to 8.7. Hepatitis panel is negative. obtain stool heme-occult 2. Severe neutropenia with ANC <500. Place the patient on neutropenic precautions. start Neupogen injections. very low threshold to start IV antibiotic. If he does spike a fever, I would recommend starting him on IV cefepime. - BM bx results pending 3. Thrombocytopenia differential includes underlying MDS, Leukemia and lymphoma. Further workup as stated above. We will need to transfuse him one unit of platelets if his platelet count drop below 10,000 or if he becomes symptomatic with bleeding. 4. ? Liver disease causing the Haptoglobin to be low. bilirunon elevated - check abdominal U/S supportive care Once ANC > 500, can be discharged home with outpatient f/u Gabriel Darden MD Sep 05, 2017 21:25
[2017-09-06] VITALS (27 sets, daily range): BP systolic 102–114; BP diastolic 52–71; PULSE 78–96; RESP 16–18; TEMP 97.9–98.9; O2SAT 90–98
[2017-09-06 06:53] LABS: MEAN PLATELET VOLUME 9.3 FL (7.0-11.0); RED BLOOD COUNT 1.98 MIL/MM3 (4.50-5.90); RED CELL DISTRIBUTION WIDTH 22.6 % (11.6-17.2); WHITE BLOOD COUNT 1.1 TH/MM3 (4.0-11.0)
[2017-09-06 07:01] LABS: MEAN CORPUSCULAR HGB CONC 36.2 % (32.0-36.0)
[2017-09-06 07:04] LABS: HEMATOCRIT 20.8 % (39.0-51.0); HEMOGLOBIN 7.5 GM/DL (13.0-17.0)
[2017-09-06 07:05] LABS: PLATELET COUNT 10 TH/MM3 (150-450)
[2017-09-06 07:18] LABS: BICARBONATE 27.5 MEQ/L (21.0-32.0); CALCIUM 8.1 MG/DL (8.5-10.1); CREATININE 1.76 MG/DL (0.60-1.30)
[2017-09-06] MEDS: INSULIN ASPART SUPPLEMENTAL SCALE SQ SCH ×4 (08:00→21:00)
[2017-09-06 08:14] LABS: BANDS 14 % (0-6); BASOPHILS 2 % (0-2); LYMPHOCYTES 49 % (9-44); MONOCYTES 6 % (0-8); NEUTROPHIL # MANUAL DIFF 0.4 TH/MM3 (1.8-7.7); POLYS (SEG NEUTROPHILS) 26 % (16-70)
[2017-09-06 08:15] LABS: OVALOCYTES 1+ (NORMAL)
--- NOTE | 2017-09-06 08:41 | PD.ONC.PN ---
Subjective Subjective Remarks sitting up in chair says he is fine no fevers/no bleeding no dyspnea denies any pain Objective Data Date Time Temp Pulse Resp B/P (MAP) Pulse Ox O2 Delivery O2 Flow Rate FiO2 09/06/17 05:00 86 09/06/17 04:07 98.6 90 16 113/71 (85) 97 09/06/17 04:02 84 09/06/17 03:00 86 09/06/17 02:00 88 09/06/17 01:00 90 09/06/17 00:09 98.0 90 16 111/58 (75) 90 09/06/17 00:06 90 09/05/17 23:00 90 09/05/17 22:00 84 09/05/17 21:00 98 09/05/17 20:30 Room Air 2.00 92 09/05/17 20:07 98.4 94 16 115/64 (81) 92 09/05/17 20:06 96 09/05/17 18:29 88 09/05/17 17:00 86 09/05/17 16:00 98.4 80 16 132/60 (84) 96 09/05/17 16:00 82 09/05/17 15:00 90 09/05/17 14:00 82 09/05/17 13:00 80 09/05/17 12:00 80 09/05/17 11:42 98.6 74 16 120/66 (84) 96 09/05/17 11:00 94 09/05/17 10:00 86 09/05/17 09:55 21 09/05/17 09:00 98 Result Diagram: 09/06/17 0558 09/06/17 0558 Laboratory Results Laboratory Tests Test 09/06/17 05:58 White Blood Count 1.1 TH/MM3 Red Blood Count 1.98 MIL/MM3 Hemoglobin 7.5 GM/DL Hematocrit 20.8 % Mean Corpuscular Volume 105.0 FL Mean Corpuscular Hemoglobin 38.0 PG Mean Corpuscular Hemoglobin Concent 36.2 % Red Cell Distribution Width 22.6 % Platelet Count 10 TH/MM3 Mean Platelet Volume 9.3 FL CBC Comment AUTO DIFF Differential Total Cells Counted 65 Neutrophils % (Manual) 26 % Band Neutrophils % 14 % Lymphocytes % 49 % Monocytes % 6 % Eosinophils % 3 % Basophils % 2 % Neutrophils # (Manual) 0.4 TH/MM3 Differential Comment FINAL DIFF MANUAL Platelet Estimate RARE Platelet Morphology Comment NORMAL Ovalocytes 1+ Blood Urea Nitrogen 26 MG/DL Creatinine 1.76 MG/DL Random Glucose 107 MG/DL Calcium Level 8.1 MG/DL Sodium Level 140 MEQ/L Potassium Level 3.3 MEQ/L Chloride Level 103 MEQ/L Carbon Dioxide Level 27.5 MEQ/L Anion Gap 10 MEQ/L Estimat Glomerular Filtration Rate 38 ML/MIN Culture Results Microbiology Date/Time Source Procedure Growth Status 09/06/17 06:00 Stool Stool Stool Occult Blood (BETTINA) Pending Received Administered Medications Medications (Trade) Dose Ordered Sig/Emily Route PRN Reason Start Time Stop Time Status Last Admin Dose Admin Sodium Chloride (NS Flush) 2 ml UNSCH PRN IV FLUSH FLUSH AFTER USING IV ACCESS 09/03/17 11:45 09/04/17 18:29 Sodium Chloride (NS Flush) 2 ml BID IV FLUSH 09/03/17 21:00 09/05/17 20:10 Magnesium Hydroxide (Milk Of Mochi Mediamaikol Liq) 30 ml Q12H PRN PO Mild constipation 09/03/17 11:45 09/05/17 21:24 Cefepime HCl 1000 mg/Sodium Chloride 100 ml @ 200 mls/hr Q12H IV 09/03/17 23:00 09/06/17 00:00 Azithromycin (Zithromax) 500 mg DAILY PO 09/04/17 09:00 09/05/17 08:25 Pravastatin Sodium (Pravachol) 20 mg HS PO 09/03/17 21:00 09/05/17 20:10 Insulin Aspart (NovoLOG SUPPLEMENTAL SCALE) 1 ACHS SLIDING SCALE SQ 09/03/17 12:00 09/05/17 20:51 Furosemide (Lasix Inj) 40 mg BID@,18 IV PUSH 09/03/17 18:00 09/05/17 18:10 Carvedilol (Coreg) 3.125 mg Q12HR PO 09/03/17 21:00 09/05/17 20:09 Filgrastim 480 mcg/Dextrose 51.6 ml @ 100 mls/hr DAILY@14 IV 09/04/17 23:30 09/05/17 15:43 Objective Remarks GENERAL: nad SKIN: Warm and dry. LYMPHATIC: No adenopathy. CARDIOVASCULAR: Regular rate and rhythm without murmurs. RESPIRATORY: Breath sounds equal bilaterally. No accessory muscle use. GASTROINTESTINAL: Abdomen soft, non-tender, nondistended. EXTREMITIES: No cyanosis, or edema. Assessment/Plan Problem List: (1) Neutropenia ICD Codes: D70.9 - Neutropenia, unspecified (2) Bladder mass ICD Codes: N32.89 - Other specified disorders of bladder Status: Acute (3) Pancytopenia ICD Codes: D61.818 - Other pancytopenia Status: Chronic (4) Thrombocytopenia ICD Codes: D69.6 - Thrombocytopenia, unspecified Status: Acute (5) Symptomatic anemia ICD Codes: D64.9 - Anemia, unspecified Assessment 76-year-old male who has a history of anemia, hypertension, hyperlipidemia, diabetes, history of liver disease and history of bladder tumor status post resection who presents to the emergency department with progressive dyspnea. 1. 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 Hepatitis panel is negative. stool heme-occult negative 2. Severe neutropenia with ANC <500. on neutropenic precautions. continue Neupogen injections. very low threshold to start IV antibiotic. If he does spike a fever, I would recommend starting him on IV cefepime. - BM bx results pending 3. Thrombocytopenia differential includes underlying MDS, Leukemia and lymphoma. Further workup as stated above. We will need to transfuse him one unit of platelets if his platelet count drop below 10,000 or if he becomes symptomatic with bleeding. Transfuse 1 unit of platelets today 4. Alcoholic Liver disease causing the Haptoglobin to be low. bilirunon elevated -abdominal U/S shows cirrhotic liver and mild splenomegaly 5. ? Bladder mass/ hx of resection - Urological evaluation supportive care Once ANC > 500, can be discharged home with outpatient f/u Gabriel Darden MD Sep 06, 2017 08:41
[2017-09-06] MEDS ORDERED: LISINOPRIL 5 MG TAB PO SCH (09:00)
--- NOTE | 2017-09-06 09:20 | PD.CARD.PN ---
Subjective Subjective Remarks feeling better, good appetite. lower extremity improved. denies chest pain. (Lydia Howell) Objective Medications Current Medications Medications (Trade) Dose Ordered Sig/Emily Route Start Time Stop Time Status Last Admin (NS Flush) 2 ml UNSCH PRN IV FLUSH 09/03/17 11:45 09/04/17 18:29 (NS Flush) 2 ml BID IV FLUSH 09/03/17 21:00 09/05/17 20:10 (Tylenol) 650 mg Q4H PRN PO 09/03/17 11:45 (Zofran Inj) 4 mg Q6H PRN IVP 09/03/17 11:45 (Narcan Inj) 0.4 mg UNSCH PRN IV PUSH 09/03/17 11:45 (Milk Of Magnesia Liq) 30 ml Q12H PRN PO 09/03/17 11:45 09/05/17 21:24 (Senokot) 17.2 mg Q12H PRN PO 09/03/17 11:45 (Dulcolax Supp) 10 mg DAILY PRN RECTAL 09/03/17 11:45 (Lactulose Liq) 30 ml DAILY PRN PO 09/03/17 11:45 Cefepime HCl 1000 mg/Sodium Chloride 100 ml @ 200 mls/hr Q12H IV 09/03/17 23:00 09/06/17 00:00 (Zithromax) 500 mg DAILY PO 09/04/17 09:00 09/05/17 08:25 (Pravachol) 20 mg HS PO 09/03/17 21:00 09/05/17 20:10 (D50w (Vial) Inj) 50 ml UNSCH PRN IV PUSH 09/03/17 11:45 (Glucagon Inj) 1 mg UNSCH PRN OTHER 09/03/17 11:45 (NovoLOG SUPPLEMENTAL SCALE) 1 ACHS SLIDING SCALE SQ 09/03/17 12:00 09/05/17 20:51 (Lasix Inj) 40 mg BID@,18 IV PUSH 09/03/17 18:00 09/05/17 18:10 (Coreg) 3.125 mg Q12HR PO 09/03/17 21:00 09/05/17 20:09 Filgrastim 480 mcg/Dextrose 51.6 ml @ 100 mls/hr DAILY@14 IV 09/04/17 23:30 09/05/17 15:43 (Prinivil) 2.5 mg DAILY PO 09/06/17 09:00 (Pill Splitter) 1 ea UNSCH PRN OTHER 09/05/17 14:30 Vital Signs / I&O Vital Signs Date Time Temp Pulse Resp B/P (MAP) Pulse Ox O2 Delivery O2 Flow Rate FiO2 09/06/17 05:00 86 09/06/17 04:07 98.6 90 16 113/71 (85) 97 09/06/17 04:02 84 09/06/17 03:00 86 09/06/17 02:00 88 09/06/17 01:00 90 09/06/17 00:09 98.0 90 16 111/58 (75) 90 09/06/17 00:06 90 09/05/17 23:00 90 09/05/17 22:00 84 09/05/17 21:00 98 09/05/17 20:30 Room Air 2.00 92 09/05/17 20:07 98.4 94 16 115/64 (81) 92 09/05/17 20:06 96 09/05/17 18:29 88 09/05/17 17:00 86 09/05/17 16:00 98.4 80 16 132/60 (84) 96 09/05/17 16:00 82 09/05/17 15:00 90 09/05/17 14:00 82 09/05/17 13:00 80 09/05/17 12:00 80 09/05/17 11:42 98.6 74 16 120/66 (84) 96 09/05/17 11:00 94 09/05/17 10:00 86 09/05/17 09:55 21 I/O 09/05/17 09/05/17 09/05/17 09/06/17 09/06/17 09/06/17 07:00 15:00 23:00 07:00 15:00 23:00 Intake Total 100 ml 1010 ml Output Total 450 ml 1300 ml Balance -450 ml 100 ml -290 ml Intake Oral 960 ml IV Total 100 ml 50 ml Output Urine Total 450 ml 1300 ml Physical Exam GENERAL: SKIN: Warm and dry. HEAD: Atraumatic. Normocephalic. EYES: Pupils equal and round. ENT: No nasal bleeding or discharge. NECK: Trachea midline. No JVD. CARDIOVASCULAR: Regular rate and rhythm. no murmurs RESPIRATORY: No accessory muscle use. Clear to auscultation. Breath sounds equal bilaterally. GASTROINTESTINAL: Abdomen soft, non-tender, nondistended.. MUSCULOSKELETAL: Extremities without clubbing, cyanosis. No obvious deformities. bilateral lower leg edema 1+ L>R NEUROLOGICAL: Awake and alert. No obvious cranial nerve deficits. Normal speech. PSYCHIATRIC: Appropriate mood and affect; insight and judgment normal. Laboratory Laboratory Tests Test 09/06/17 05:58 White Blood Count 1.1 TH/MM3 Red Blood Count 1.98 MIL/MM3 Hemoglobin 7.5 GM/DL Hematocrit 20.8 % Mean Corpuscular Volume 105.0 FL Mean Corpuscular Hemoglobin 38.0 PG Mean Corpuscular Hemoglobin Concent 36.2 % Red Cell Distribution Width 22.6 % Platelet Count 10 TH/MM3 Mean Platelet Volume 9.3 FL CBC Comment AUTO DIFF Differential Total Cells Counted 65 Neutrophils % (Manual) 26 % Band Neutrophils % 14 % Lymphocytes % 49 % Monocytes % 6 % Eosinophils % 3 % Basophils % 2 % Neutrophils # (Manual) 0.4 TH/MM3 Differential Comment FINAL DIFF MANUAL Platelet Estimate RARE Platelet Morphology Comment NORMAL Ovalocytes 1+ Blood Urea Nitrogen 26 MG/DL Creatinine 1.76 MG/DL Random Glucose 107 MG/DL Calcium Level 8.1 MG/DL Sodium Level 140 MEQ/L Potassium Level 3.3 MEQ/L Chloride Level 103 MEQ/L Carbon Dioxide Level 27.5 MEQ/L Anion Gap 10 MEQ/L Estimat Glomerular Filtration Rate 38 ML/MIN Imaging Last 48 hours Impressions Lower Extremity Ultrasound 09/05/17 0000 Signed Impressions: Service Date/Time: September 19:12 - CONCLUSION: No evidence of deep venous thrombosis within the lower extremities. Bill Lima MD (Lydia Howell) Assessment and Plan Problem List: (1) Cardiomyopathy ICD Codes: I42.9 - Cardiomyopathy, unspecified (2) Acute CHF (congestive heart failure) ICD Codes: I50.9 - Heart failure, unspecified Assessment and Plan 76 yo WM with DM, history of alcoholic cirrhosis and bladder tumor with chronic pancytopenia presented with SOB and dyspnea on exertion. CHF- clinically improved. creat elevated, consider decreasing lasix cardiomyopathy- EF 30-35%, PAP 60mmHg not a good candidate for intervention due to pancytopenia and renal function; continue conservative management (Lydia Howell) Assessment and Plan Cardiomyopathy - presumed to be new. questionable h/o of CAD 1995 but [facility] PCI or CABG. + risk factors. no CP. globally reduced suggests nonischemic etiology. if nonischemic, as far as I can tell, he had not received any chemotoxic agents probably viral etiology. Cr increased. Well compensated from CHF standpoint. minimal edema. no SOB. DC ACEi due to Cr change lasix to PO once daily. FU 2d echo in 2-3 months for LV recovery. will sign off call with further questions cont low dose BB (Ervin Ray MD) Lydia Howell Sep 06, 2017 09:19 Ervin Ray MD Sep 06, 2017 10:42
[2017-09-06] MEDS: FUROSEMIDE 40 MG/4 ML VIAL IV PUSH SCH (09:36)
[2017-09-06] MEDS: AZITHROMYCIN 250 MG TAB PO SCH (09:36)
[2017-09-06] MEDS: SODIUM CHLORIDE 0.9% FLUSH 10 ML FLUSH IV FLUSH SCH ×2 (09:37→21:31)
[2017-09-06] MEDS: CARVEDILOL 3.125 MG TAB PO SCH ×2 (09:37→21:29)
--- NOTE | 2017-09-06 09:56 | RADRPT ---
EXAM DATE/TIME: 09/06/2017 07:51 [place] COMPARISON: CT ABDOMEN & PELVIS W CONTRAST, October 08, 2016, 16:22. INDICATIONS : Elevated lab values. Patient has a known bladder mass and is status post recent bladder surgery. MEDICAL HISTORY : Hypercholesterolemia. Hypertension. Diabetic. SURGICAL HISTORY : Bladder tumor resection. ENCOUNTER: Subsequent ACUITY: 1 day PAIN SCORE: 0/10 LOCATION: Abdomen. MEASUREMENTS: LIVER: 16.1 cm length COMMON DUCT: 3 mm RIGHT KIDNEY: 10.0 x 4.5 x 5.0 cm LEFT KIDNEY: 11.4 x 6.0 x 5.0 cm SPLEEN: 15.0 cm length AORTA: 2.0cm maximal FINDINGS: LIVER: The liver is at the upper limits of normal in size and is mildly inhomogeneous and echogenic with lob ular contour consistent with cirrhosis. There is no focal mass or ductal dilatation. Bilateral pleura l effusions are noted. There is normal hepatopedal blood flow in the portal vein. COMMON DUCT: No intraluminal mass or stone visualized. GALLBLADDER: Gallbladder is normal in size and wall thickness with no pericholecystic fluid. Multiple small echoge héctor gallstones. PANCREAS: The visualized portions are within normal limits. RIGHT KIDNEY: There is mild hydronephrosis with dilatation of the renal pelvis to approximately 2.8 cm. There is di latation of the right ureter down to level of the ureterovesicular junction. There is a mass like are a in this region measuring up to approximately 2.6 x 2.2 x 1.6 cm. LEFT KIDNEY: No hydronephrosis, stone or mass. SPLEEN: Spleen is enlarged measuring up to 15 cm with no focal mass. There are prominent vessels in the splen ic hilar region. This represents varices. AORTA: Non aneurysmal. IVC: Within normal limits. CONCLUSION: 1. Mild to moderate right hydronephrosis with dilatation of right ureter down to the bladder. There i s an ill-defined masslike structure as described which could represent the patient's known bladder tu mor or postsurgical change. 2. Cirrhotic liver again noted. 3. Cholelithiasis. 4. Mild splenomegaly. 5. Bilateral pleural effusions. Shalom Souza MD on September 06, 2017 at 9:45 Board Certified Radiologist. This report was verified electronically.
--- NOTE | 2017-09-06 10:24 | HHI.PR ---
Subjective Remarks In the chair, says he has no chest pain or sob. However he says he is not walking much. No over bleeding. no cough. No n/v/d/c. Denies fever or chills. Objective Vitals Vital Signs Date Time Temp Pulse Resp B/P (MAP) Pulse Ox O2 Delivery O2 Flow Rate FiO2 09/06/17 09:35 98.9 90 18 106/55 (72) 94 09/06/17 05:00 86 09/06/17 04:07 98.6 90 16 113/71 (85) 97 09/06/17 04:02 84 09/06/17 03:00 86 09/06/17 02:00 88 09/06/17 01:00 90 09/06/17 00:09 98.0 90 16 111/58 (75) 90 09/06/17 00:06 90 09/05/17 23:00 90 09/05/17 22:00 84 09/05/17 21:00 98 09/05/17 20:30 Room Air 2.00 92 09/05/17 20:07 98.4 94 16 115/64 (81) 92 09/05/17 20:06 96 09/05/17 18:29 88 09/05/17 17:00 86 09/05/17 16:00 98.4 80 16 132/60 (84) 96 09/05/17 16:00 82 09/05/17 15:00 90 09/05/17 14:00 82 09/05/17 13:00 80 09/05/17 12:00 80 09/05/17 11:42 98.6 74 16 120/66 (84) 96 09/05/17 11:00 94 I/O 09/05/17 09/05/17 09/05/17 09/06/17 09/06/17 09/06/17 07:00 15:00 23:00 07:00 15:00 23:00 Intake Total 100 ml 1010 ml Output Total 450 ml 1300 ml Balance -450 ml 100 ml -290 ml Intake Oral 960 ml IV Total 100 ml 50 ml Output Urine Total 450 ml 1300 ml Result Diagram: 09/06/17 0558 09/06/17 0558 Imaging Last Impressions Abdomen Ultrasound 09/06/17 0000 Signed Impressions: Service Date/Time: Wednesday, September 06, 2017 07:51 - CONCLUSION: 1. Mild to moderate right hydronephrosis with dilatation of right ureter down to the bladder. There is an ill-defined masslike structure as described which could represent the patient's known bladder tumor or postsurgical change. 2. Cirrhotic liver again noted. 3. Cholelithiasis. 4. Mild splenomegaly. 5. Bilateral pleural effusions. Shalom Souza MD Lower Extremity Ultrasound 09/05/17 0000 Signed Impressions: Service Date/Time: September 19:12 - CONCLUSION: No evidence of deep venous thrombosis within the lower extremities. Bill Lima MD Chest X-Ray 09/03/17 0906 Signed Impressions: Service Date/Time: Sunday, September 03, 2017 09:20 - CONCLUSION: Development of right basilar opacity in part representing effusion and possible underlying parenchymal consolidation. Left ventricular cardiomegaly is appreciated Fabricio Cason MD Bone Biopsy CT 09/03/17 0000 Signed Impressions: Service Date/Time: Monday, September 04, 2017 14:56 - CONCLUSION: 1. Uncomplicated CT guided bone marrow aspirate. 2. Uncomplicated CT guided bone marrow biopsy. Fantasma Albarran MD Objective Remarks GENERAL: This is a well-nourished, well-developed patient, in no apparent distress. CARDIOVASCULAR: Regular rate and rhythm without murmurs, gallops, or rubs. RESPIRATORY: Diminished breath sounds at the right base and midlung field. No wheezing or rhonchi. The rest of the lung rossi are grossly clear. GASTROINTESTINAL: Abdomen soft, non-tender, nondistended. No hepato-splenomegaly , or palpable masses. No guarding. MUSCULOSKELETAL: Extremities without clubbing, cyanosis. LE edema improved. No joint tenderness, effusion, or edema noted. No calf tenderness. Negative Homans sign bilaterally. NEUROLOGICAL: Awake and alert. Cranial nerves II through XII intact. Motor and sensory grossly within normal limits. Five out of 5 muscle strength in all muscle groups. Normal speech. Procedures IR consulted s/p BMBX 09/04/17 A/P Problem List: (1) Respiratory failure ICD Code: J96.90 - Respiratory failure, unspecified, unspecified whether with hypoxia or hypercapnia (2) Pancytopenia ICD Code: D61.818 - Other pancytopenia Status: Chronic (3) Pleural effusion ICD Code: J90 - Pleural effusion, not elsewhere classified Status: Acute (4) Thrombocytopenia ICD Code: D69.6 - Thrombocytopenia, unspecified Status: Acute (5) Hypertension ICD Code: I10 - Essential (primary) hypertension Status: Acute (6) Acute CHF (congestive heart failure) ICD Code: I50.9 - Heart failure, unspecified (7) Symptomatic anemia ICD Code: D64.9 - Anemia, unspecified Assessment and Plan 76-year-old male admitted with acute respiratory failure secondary to CHF, pleural effusion, and symptomatic anemia. Respiratory failure secondary to Acute CHF/pleural effusion/possible pneumonia: Chest x-ray personally reviewed which showed right pleural effusion, underlying consolidation is also a possibility. Left ventricular hypertrophy noted. - Continue Lasix 40 mg IV twice a day - 2-D echocardiogram reviewed patient with congestive heart failure with ejection fraction 30% - Continue empiric antibiotics with Rocephin and azithromycin. Consider holding off antibiotics based on his response Acute CHF: Unknown type. No history of CHF. Increasing bilateral lower extremity edema and right pleural effusion. BNP on admission 1200. EKG shows some inferior wall ischemia but it is unclear if this is new. He did report a history of previous [place]. Currently not expressing any chest pain. Cardiac enzymes negative. - IV Lasix as above. 2-D echocardiogram 30% - Continue to monitor on telemetry. - Strict I/O - Resume valsartan. - DC amlodipine. Add coreg and lisinopril - Consult cardiology, can;t do cardiac cath as patient with thrombocytopenia, continue medical management Symptomatic anemia/pancytopenia: - Patient reports he has been taking Neupogen weekly under the guidance of his doctors in [place]. Not sure of his diagnosis. - Consult hematology for assistance. Planned for FISH and flow cytometry, IR consulted s/p BMBX 09/04/17. Start Neupogen 09/05/17 - Blood transfusion s/p 2 units pRBCs. - Continue to monitor CBC - Obtain Hemoccult stool. Consider GI consult. Per patient last panendoscopy was about 8 months ago, doesn't know the results. - Plan to transfuse PLT -US abd reviewed Acute kidney injury: Patient with a know h/o bladder CA and surgery in the past - Likely secondary to anemia and heart failure as above. - Treat anemia and heart failure. - Follow-up BMP in a.m. - US abd revieewed as above GI prophylaxis: Stool softener PRN constipation. DVT PPx: Pharmacologic contraindication due to thrombocytopenia/anemia Discussed Condition With patient, nurse, Dr Darden oncology Carola Ponce MD Sep 06, 2017 10:24
[2017-09-06] MEDS ORDERED: diphenhydrAMINE HCL 25 MG CAP PO ONE (11:30)
[2017-09-06] MEDS: CEFEPIME INJ 1,000 MG in SODIUM CHLORIDE 0.9% INJ 100 ML IV SCH ×4 (11:53→23:17)
[2017-09-06] MEDS: FILGRASTIM INJ 480 MCG in DEXTROSE 5% IN WATER INJ 50 ML IV SCH ×2 (14:29)
[2017-09-06] MEDS: PRAVASTATIN SOD 20 MG TAB PO SCH (21:29)
[2017-09-07] VITALS (37 sets, daily range): BP systolic 106–128; BP diastolic 58–79; PULSE 80–94; RESP 18; TEMP 97.5–98.6; O2SAT 92–98
[2017-09-07 07:27] LABS: AUTOMATED NEUTROPHIL # 0.1 TH/MM3 (1.8-7.7); BASOPHIL % 1.1 % (0.0-2.0); EOSINOPHIL % 3.2 % (0.0-4.0); LYMPH % 64.5 % (9.0-44.0); LYMPHOCYTE # 0.4 TH/MM3 (1.0-4.8); MEAN CORPUSCULAR HEMOGLOBIN 38.4 PG (27.0-34.0); MEAN PLATELET VOLUME 9.1 FL (7.0-11.0); MONO % 11.2 % (0.0-8.0); MONOCYTE # 0.1 TH/MM3 (0-0.9); RED BLOOD COUNT 1.77 MIL/MM3 (4.50-5.90); RED CELL DISTRIBUTION WIDTH 22.5 % (11.6-17.2); WHITE BLOOD COUNT 0.7 TH/MM3 (4.0-11.0)
[2017-09-07 07:31] LABS: MEAN CORPUSCULAR HGB CONC 36.2 % (32.0-36.0)
[2017-09-07 07:36] LABS: BICARBONATE 27.6 MEQ/L (21.0-32.0); CALCIUM 8.3 MG/DL (8.5-10.1); CREATININE 1.71 MG/DL (0.60-1.30); HEMATOCRIT 18.7 % (39.0-51.0); HEMOGLOBIN 6.8 GM/DL (13.0-17.0); PLATELET COUNT 11 TH/MM3 (150-450)
[2017-09-07] MEDS: INSULIN ASPART SUPPLEMENTAL SCALE SQ SCH ×4 (08:00→22:36)
[2017-09-07] MEDS ORDERED: FUROSEMIDE 20 MG/2 ML VIAL IV PUSH ONE ×2 (08:15→17:15)
[2017-09-07] MEDS ORDERED: SODIUM CHLOR 0.9% 250 ML INJ 250 ML IV ONE ×2 (08:15)
[2017-09-07] MEDS ORDERED: ACETAMINOPHEN 325 MG TAB PO PRN (08:15)
[2017-09-07] MEDS ORDERED: POTASSIUM CHLORIDE 10 MEQ CONTROLLED RELEASE TAB PO ONE (08:15)
[2017-09-07] MEDS ORDERED: diphenhydrAMINE HCL 25 MG CAP PO PRN (08:15)
--- NOTE | 2017-09-07 08:16 | HHI.PR ---
Subjective Remarks HGB dropped, PLT also low. Transfuse The patient is in the chair he feels more short of breath today, no chest pain or lightheadedness, no diaphoresis. No nausea or vomiting no diarrhea or constipation. Denies fevers or chills. Lower extremity edema same Objective Vitals Vital Signs Date Time Temp Pulse Resp B/P (MAP) Pulse Ox O2 Delivery O2 Flow Rate FiO2 09/07/17 08:04 97 Room Air 09/07/17 07:57 98.4 88 18 121/63 (82) 97 09/07/17 05:14 98.0 89 18 113/65 (81) 94 09/07/17 05:00 90 09/07/17 04:18 Room Air 92 09/07/17 04:03 87 09/07/17 04:00 90 09/07/17 03:00 88 09/07/17 02:00 88 09/07/17 01:00 88 09/07/17 00:28 98.6 85 18 112/60 (77) 92 09/07/17 00:00 86 09/06/17 23:00 88 09/06/17 22:00 92 09/06/17 21:00 90 09/06/17 20:00 84 09/06/17 20:00 98.0 82 18 114/65 (81) 96 09/06/17 18:00 88 09/06/17 17:00 90 09/06/17 16:50 97.9 86 18 112/68 (83) 98 09/06/17 16:00 86 09/06/17 15:00 80 09/06/17 14:00 78 09/06/17 13:05 98.5 80 18 103/52 (69) 97 09/06/17 13:00 80 09/06/17 13:00 98.5 80 18 103/52 97 09/06/17 12:55 Room Air 09/06/17 12:37 98.7 78 18 102/68 97 09/06/17 12:00 78 09/06/17 11:00 90 09/06/17 10:00 88 09/06/17 09:35 98.9 90 18 106/55 (72) 94 09/06/17 09:00 96 I/O 09/06/17 09/06/17 09/06/17 09/07/1718 2/3/18 07:00 15:00 23:00 07:00 15:00 23:00 Intake Total 290 ml 480 ml Output Total 225 ml Balance 290 ml 480 ml -225 ml Intake Oral 480 ml IV Total 100 ml Platelets 190 ml Output Urine Total 225 ml # Voids 5 2 Result Diagram: 09/07/17 0550 09/07/17 0550 Imaging Last Impressions Abdomen Ultrasound 09/06/17 0000 Signed Impressions: Service Date/Time: Wednesday, September 06, 2017 07:51 - CONCLUSION: 1. Mild to moderate right hydronephrosis with dilatation of right ureter down to the bladder. There is an ill-defined masslike structure as described which could represent the patient's known bladder tumor or postsurgical change. 2. Cirrhotic liver again noted. 3. Cholelithiasis. 4. Mild splenomegaly. 5. Bilateral pleural effusions. Shalom Souza MD Lower Extremity Ultrasound 09/05/17 0000 Signed Impressions: Service Date/Time: September 19:12 - CONCLUSION: No evidence of deep venous thrombosis within the lower extremities. Bill Lima MD Chest X-Ray 09/03/17 0906 Signed Impressions: Service Date/Time: Sunday, September 03, 2017 09:20 - CONCLUSION: Development of right basilar opacity in part representing effusion and possible underlying parenchymal consolidation. Left ventricular cardiomegaly is appreciated Fabricio Cason MD Bone Biopsy CT 09/03/17 0000 Signed Impressions: Service Date/Time: Monday, September 04, 2017 14:56 - CONCLUSION: 1. Uncomplicated CT guided bone marrow aspirate. 2. Uncomplicated CT guided bone marrow biopsy. Fantasma Albarran MD Objective Remarks GENERAL: This is a well-nourished, well-developed patient, in no apparent distress. SKIN: small scab wound in the left lower leg laterally, no drainage. CARDIOVASCULAR: Regular rate and rhythm without murmurs, gallops, or rubs. RESPIRATORY: Diminished breath sounds at the right base and midlung field. No wheezing or rhonchi. The rest of the lung rossi are grossly clear. GASTROINTESTINAL: Abdomen soft, non-tender, nondistended. No hepato-splenomegaly , or palpable masses. No guarding. MUSCULOSKELETAL: Extremities without clubbing, cyanosis. LE edema improved. No joint tenderness, effusion, or edema noted. No calf tenderness. Negative Homans sign bilaterally. NEUROLOGICAL: Awake and alert. Cranial nerves II through XII intact. Motor and sensory grossly within normal limits. Five out of 5 muscle strength in all muscle groups. Normal speech. Procedures IR consulted s/p BMBX 09/04/17 A/P Problem List: (1) Respiratory failure ICD Code: J96.90 - Respiratory failure, unspecified, unspecified whether with hypoxia or hypercapnia (2) Pancytopenia ICD Code: D61.818 - Other pancytopenia Status: Chronic (3) Pleural effusion ICD Code: J90 - Pleural effusion, not elsewhere classified Status: Acute (4) Thrombocytopenia ICD Code: D69.6 - Thrombocytopenia, unspecified Status: Acute (5) Hypertension ICD Code: I10 - Essential (primary) hypertension Status: Acute (6) Acute CHF (congestive heart failure) ICD Code: I50.9 - Heart failure, unspecified (7) Symptomatic anemia ICD Code: D64.9 - Anemia, unspecified Assessment and Plan 76-year-old male admitted with acute respiratory failure secondary to CHF, pleural effusion, and symptomatic anemia. Respiratory failure secondary to Acute CHF/pleural effusion/possible pneumonia: Chest x-ray personally reviewed which showed right pleural effusion, underlying consolidation is also a possibility. Left ventricular hypertrophy noted. - Continue Lasix 40 mg IV twice a day - 2-D echocardiogram reviewed patient with congestive heart failure with ejection fraction 30% - Continue empiric antibiotics with Rocephin and azithromycin. Consider holding off antibiotics based on his response Acute CHF: Unknown type. No history of CHF. Increasing bilateral lower extremity edema and right pleural effusion. BNP on admission 1200. EKG shows some inferior wall ischemia but it is unclear if this is new. He did report a history of previous [place]. Currently not expressing any chest pain. Cardiac enzymes negative. - IV Lasix as above. 2-D echocardiogram 30% - Continue to monitor on telemetry. - Strict I/O - Resume valsartan. - DC amlodipine. Add coreg and lisinopril - Consult cardiology, can;t do cardiac cath as patient with thrombocytopenia, continue medical management Symptomatic anemia/pancytopenia: - Patient reports he has been taking Neupogen weekly under the guidance of his doctors in [place]. Not sure of his diagnosis. - Consult hematology for assistance. Planned for FISH and flow cytometry, IR consulted s/p BMBX 09/04/17. Start Neupogen 09/05/17 - Multiple Blood transfusions - Continue to monitor CBC - Obtain Hemoccult stool. Consider GI consult. Per patient last panendoscopy was about 8 months ago, doesn't know the results. - Transfuse 2U PRBC and 1U PLT 09/07/17 - US abd reviewed Acute kidney injury: Patient with a know h/o bladder CA and surgery in the past - Likely secondary to anemia and heart failure as above. - Treat anemia and heart failure. - Follow-up BMP in a.m. - US abd revieewed as above Left leg lateral wound appears healing ,scab. Will obtain cultures if poss. Consult wound care GI prophylaxis: Stool softener PRN constipation. DVT PPx: Pharmacologic contraindication due to thrombocytopenia/anemia Discussed Condition With patient, nurse Carola Ponce MD Sep 07, 2017 08:16
[2017-09-07 08:29] LABS: BANDS 8 % (0-6); LYMPHOCYTES 60 % (9-44); METAMYELOCYTES 1 % (0-1); MONOCYTES 12 % (0-8); NEUTROPHIL # MANUAL DIFF 0.2 TH/MM3 (1.8-7.7); POLYS (SEG NEUTROPHILS) 16 % (16-70)
[2017-09-07 08:30] LABS: OVALOCYTES 1+ (NORMAL)
[2017-09-07] MEDS: CARVEDILOL 3.125 MG TAB PO SCH ×2 (09:31→20:09)
[2017-09-07] MEDS: FUROSEMIDE 20 MG TAB PO SCH (09:31)
[2017-09-07] MEDS: AZITHROMYCIN 250 MG TAB PO SCH (09:31)
[2017-09-07] MEDS: CEFEPIME INJ 1,000 MG in SODIUM CHLORIDE 0.9% INJ 100 ML IV SCH ×2 (10:46→22:36)
[2017-09-07] MEDS: SODIUM CHLORIDE 0.9% FLUSH 10 ML FLUSH IV FLUSH SCH ×2 (10:46→20:10)
--- NOTE | 2017-09-07 12:26 | PD.ONC.PN ---
Subjective Subjective Remarks Afebrile overnight. Patient resting in room. reports a blister he noticed on his left foot since yesterday. Feeling fatigued today. Otherwise without complaints. Objective Data Date Time Temp Pulse Resp B/P (MAP) Pulse Ox O2 Delivery O2 Flow Rate FiO2 09/07/17 11:58 82 09/07/17 10:55 98.1 81 18 106/58 (74) 98 09/07/17 10:00 94 09/07/17 09:00 88 09/07/17 08:04 97 Room Air 09/07/17 08:00 86 09/07/17 07:57 98.4 88 18 121/63 (82) 97 09/07/17 07:00 87 09/07/17 05:14 98.0 89 18 113/65 (81) 94 09/07/17 05:00 90 09/07/17 04:18 Room Air 92 09/07/17 04:03 87 09/07/17 04:00 90 09/07/17 03:00 88 09/07/17 02:00 88 09/07/17 01:00 88 09/07/17 00:28 98.6 85 18 112/60 (77) 92 09/07/17 00:00 86 09/06/17 23:00 88 09/06/17 22:00 92 09/06/17 21:00 90 09/06/17 20:00 84 09/06/17 20:00 98.0 82 18 114/65 (81) 96 09/06/17 18:00 88 09/06/17 17:00 90 09/06/17 16:50 97.9 86 18 112/68 (83) 98 09/06/17 16:00 86 09/06/17 15:00 80 09/06/17 14:00 78 09/06/17 13:05 98.5 80 18 103/52 (69) 97 09/06/17 13:00 80 09/06/17 13:00 98.5 80 18 103/52 97 09/06/17 12:55 Room Air 09/06/17 12:37 98.7 78 18 102/68 97 09/07/17 09/07/17 09/07/17 07:00 15:00 23:00 Intake Total 100 ml Output Total 225 ml Balance -225 ml 100 ml Result Diagram: 09/07/17 0550 09/07/17 0550 Laboratory Results Laboratory Tests Test 09/07/17 05:50 White Blood Count 0.7 TH/MM3 Red Blood Count 1.77 MIL/MM3 Hemoglobin 6.8 GM/DL Hematocrit 18.7 % Mean Corpuscular Volume 106.0 FL Mean Corpuscular Hemoglobin 38.4 PG Mean Corpuscular Hemoglobin Concent 36.2 % Red Cell Distribution Width 22.5 % Platelet Count 11 TH/MM3 Mean Platelet Volume 9.1 FL Neutrophils (%) (Auto) 20.0 % Lymphocytes (%) (Auto) 64.5 % Monocytes (%) (Auto) 11.2 % Eosinophils (%) (Auto) 3.2 % Basophils (%) (Auto) 1.1 % Neutrophils # (Auto) 0.1 TH/MM3 Lymphocytes # (Auto) 0.4 TH/MM3 Monocytes # (Auto) 0.1 TH/MM3 Eosinophils # (Auto) 0.0 TH/MM3 Basophils # (Auto) 0.0 TH/MM3 CBC Comment AUTO DIFF Differential Total Cells Counted 100 Neutrophils % (Manual) 16 % Band Neutrophils % 8 % Lymphocytes % 60 % Monocytes % 12 % Eosinophils % 3 % Neutrophils # (Manual) 0.2 TH/MM3 Metamyelocytes 1 % Differential Comment FINAL DIFF MANUAL Platelet Estimate RARE Platelet Morphology Comment NORMAL Ovalocytes 1+ Blood Urea Nitrogen 32 MG/DL Creatinine 1.71 MG/DL Random Glucose 101 MG/DL Calcium Level 8.3 MG/DL Sodium Level 140 MEQ/L Potassium Level 3.2 MEQ/L Chloride Level 104 MEQ/L Carbon Dioxide Level 27.6 MEQ/L Anion Gap 8 MEQ/L Estimat Glomerular Filtration Rate 39 ML/MIN Culture Results Microbiology Date/Time Source Procedure Growth Status 09/06/17 06:00 Stool Stool Stool Occult Blood (BETTINA) - Final HEMOCCULT NEGATIVE Complete Administered Medications Medications (Trade) Dose Ordered Sig/Emily Route PRN Reason Start Time Stop Time Status Last Admin Dose Admin Sodium Chloride (NS Flush) 2 ml UNSCH PRN IV FLUSH FLUSH AFTER USING IV ACCESS 09/03/17 11:45 09/04/17 18:29 Sodium Chloride (NS Flush) 2 ml BID IV FLUSH 09/03/17 21:00 09/07/17 10:46 Acetaminophen (Tylenol) 650 mg Q4H PRN PO TEMP > 100.4 09/03/17 11:45 09/06/17 11:53 Magnesium Hydroxide (Milk Of Sachin Danielson) 30 ml Q12H PRN PO Mild constipation 09/03/17 11:45 09/05/17 21:24 Cefepime HCl 1000 mg/Sodium Chloride 100 ml @ 200 mls/hr Q12H IV 09/03/17 23:00 09/07/17 10:46 Azithromycin (Zithromax) 500 mg DAILY PO 09/04/17 09:00 09/07/17 09:31 Pravastatin Sodium (Pravachol) 20 mg HS PO 09/03/17 21:00 09/06/17 21:29 Insulin Aspart (NovoLOG SUPPLEMENTAL SCALE) 1 ACHS SLIDING SCALE SQ 09/03/17 12:00 09/07/17 12:07 Carvedilol (Coreg) 3.125 mg Q12HR PO 09/03/17 21:00 09/07/17 09:31 Filgrastim 480 mcg/Dextrose 51.6 ml @ 100 mls/hr DAILY@14 IV 09/04/17 23:30 09/06/17 14:29 Furosemide (Lasix) 20 mg DAILY PO 09/07/17 09:00 09/07/17 09:31 Objective Remarks GENERAL: Pleasant male, sitting up in chair next to bed, watching TV. appears comfortable and in nad. SKIN: Warm and dry. 3mm blister with mild surrounding inflammation noted on top of foot. no streaking erythema. HEAD: Normocephalic. EYES: No injection or drainage. NECK: Supple, trachea midline. CARDIOVASCULAR: Regular rate and rhythm RESPIRATORY: Breath sounds equal bilaterally. No accessory muscle use. GASTROINTESTINAL: Abdomen soft, non-tender, nondistended. EXTREMITIES: No cyanosis NEUROLOGICAL: awake and alert, normal speech. Assessment/Plan Problem List: (1) Pancytopenia ICD Codes: D61.818 - Other pancytopenia Status: Chronic Plan: --h/o anemia, sees radiology equipment servicer in [place] and apparently receives Epogen injections --s/p bone marrow biopsy (2) Bladder mass ICD Codes: N32.89 - Other specified disorders of bladder Status: Acute Plan: --s/p TURBT (3) Alcoholic liver disease ICD Codes: K70.9 - Alcoholic liver disease, unspecified Plan: --causing the Haptoglobin to be low. bili elevated --abdominal U/S shows cirrhotic liver and mild splenomegaly Assessment 76y/o male with pancytopenia. history of anemia and possibly underlying MDS, history of hypertension, diabetes , hyperlipidemia, coronary artery disease and liver disease and Alcoholism --from [place] Plan 1. give 2 units pRBC 2. continue antibiotics. 3. await bone marrow biopsy results. Attending Statement The exam, history, and the medical decision-making described in the above note were completed with the assistance of the mid-level provider. I reviewed and agree with the findings presented. I attest that I had a [id number] encounter with the patient on the same day, and personally performed and documented my assessment and findings in the medical record. Complaining Off swelling Of both lower legs and blistering of the right foot. prbc today. await BM bx result. Yumiko Bellamy Sep 07, 2017 12:26 Haile Chan MD Sep 07, 2017 22:36
[2017-09-07] MEDS: diphenhydrAMINE HCL 25 MG CAP PO PRN ×2 (12:57→17:15)
[2017-09-07] MEDS: ACETAMINOPHEN 325 MG TAB PO PRN ×2 (12:57→17:15)
[2017-09-07] MEDS: FILGRASTIM INJ 480 MCG in DEXTROSE 5% IN WATER INJ 50 ML IV SCH ×2 (13:00)
[2017-09-07 14:51] LABS: ALBUMIN 2.6 GM/DL (3.4-5.0); DIRECT BILIRUBIN ADULT 0.6 MG/DL (0.0-0.2); INDIRECT BILIRUBIN 1.9 MG/DL (0.0-0.8); TOTAL BILIRUBIN ADULT 2.5 MG/DL (0.2-1.0); TOTAL PROTEIN 6.2 GM/DL (6.4-8.2)
--- NOTE | 2017-09-07 16:53 | PD.CONS ---
HPI Service Urology Consult Requested By Reason for Consult bladder mass Primary Care Physician No Primary Care Physician Diagnosis: (1) Respiratory failure ICD Code: J96.90 - Respiratory failure, unspecified, unspecified whether with hypoxia or hypercapnia (2) Pancytopenia ICD Code: D61.818 - Other pancytopenia (3) Pleural effusion ICD Code: J90 - Pleural effusion, not elsewhere classified (4) Thrombocytopenia ICD Code: D69.6 - Thrombocytopenia, unspecified (5) Hypertension ICD Code: I10 - Essential (primary) hypertension (6) Acute CHF (congestive heart failure) ICD Code: I50.9 - Heart failure, unspecified (7) Symptomatic anemia ICD Code: D64.9 - Anemia, unspecified History of Present Illness 76yo male with history of pancytopenia and prior bladder cancer seen in consultation for bladder mass noted on recent ultrasound. Patient is visiting from [place] where he has an established Urologist. He underwent what sounds like a TURBT in January/February 2017. Pathology is unclear, however patient states that he was to undergo chemotherapy and surgery that would result in a "bag". Therefore I assume he had likely high grade urothelial carcinoma and likely muscle invasive disease requiring cystectomy and urinary diversion. However, patient did not undergo this treatment and is it unclear as to why. It may be due to his pancytopenia and overall clinical picture. Regardless, patient reports he had a repeat cystoscopy prior to coming to [place] in May by his Urologist who, per patient, mentioned that "he is good to go to [place] and follow-up in November". Patient at this time denies any hematuria or dysuria. No difficulty voiding. Ultrasound here identifies some right sided hydronephrosis as well. Review of Systems ROS Limitations: Clinical Condition Constitutional: DENIES: Fever Eyes: DENIES: Blurred vision Ears, nose, mouth, throat: DENIES: Hearing loss Respiratory: DENIES: Cough Cardiovascular: DENIES: Chest pain Gastrointestinal: DENIES: Abdominal pain Genitourinary: DENIES: Hematuria Neurologic: DENIES: Headache Psychiatric: DENIES: Anxiety Except as stated in HPI: all other systems reviewed are Neg Past Family Social History Past Medical History Hypertension Type 2 diabetes Hyperlipidemia CAD Chronic pancytopenia alcoholic liver cirrhosis Past Surgical History Left knee surgery Right knee surgery bladder tumor resection Reported Medications Reported Meds & Active Scripts Active Norvasc (Amlodipine Besylate) 5 Mg Tab 5 Mg PO BID Walker with Front Wheels (Device) 1 Mis Mis 1 Ea .ROUTE DIRECTED Wheelchair (Device) 1 Mis Mis 1 Ea .ROUTE DIRECTED Reported Zocor (Simvastatin) 10 Mg Tab 10 Mg PO HS Metformin ER (Metformin HCl) 750 Mg Leonila 750 Mg PO BID With evening meal Allergies: Coded Allergies: No Known Allergies (Unverified , 10/07/16) Active Ordered Medications Current Medications Medications (Trade) Dose Ordered Sig/Emily Route Start Time Stop Time Status Last Admin (NS Flush) 2 ml UNSCH PRN IV FLUSH 09/03/17 11:45 09/04/17 18:29 (NS Flush) 2 ml BID IV FLUSH 09/03/17 21:00 09/08/17 09:03 (Tylenol) 650 mg Q4H PRN PO 09/03/17 11:45 09/06/17 11:53 (Zofran Inj) 4 mg Q6H PRN IVP 09/03/17 11:45 (Narcan Inj) 0.4 mg UNSCH PRN IV PUSH 09/03/17 11:45 (Milk Of Magnesia Liq) 30 ml Q12H PRN PO 09/03/17 11:45 09/05/17 21:24 (Senokot) 17.2 mg Q12H PRN PO 09/03/17 11:45 (Dulcolax Supp) 10 mg DAILY PRN RECTAL 09/03/17 11:45 (Lactulose Liq) 30 ml DAILY PRN PO 09/03/17 11:45 Cefepime HCl 1000 mg/Sodium Chloride 100 ml @ 200 mls/hr Q12H IV 09/03/17 23:00 09/08/17 11:20 (Zithromax) 500 mg DAILY PO 09/04/17 09:00 09/08/17 09:03 (Pravachol) 20 mg HS PO 09/03/17 21:00 09/07/17 20:09 (D50w (Vial) Inj) 50 ml UNSCH PRN IV PUSH 09/03/17 11:45 (Glucagon Inj) 1 mg UNSCH PRN OTHER 09/03/17 11:45 (NovoLOG SUPPLEMENTAL SCALE) 1 ACHS SLIDING SCALE SQ 09/03/17 12:00 09/08/17 11:53 (Coreg) 3.125 mg Q12HR PO 09/03/17 21:00 09/08/17 09:03 Filgrastim 480 mcg/Dextrose 51.6 ml @ 100 mls/hr DAILY@14 IV 09/04/17 23:30 09/08/17 13:24 (Pill Splitter) 1 ea UNSCH PRN OTHER 09/05/17 14:30 (Lasix) 20 mg DAILY PO 09/07/17 09:00 09/08/17 09:03 (Tums Chew) 500 mg Q2H PRN PO 09/07/17 17:15 Family History Family history reviewed and noncontributory to present illness Social History Patient previously smoked a pack per day for 8 years but he quit about 40 years ago History of daily alcohol use but quit about 10 months ago. Currently only drinks socially, rarely. Patient normally lives in [place]. He comes to this area every year for the winter. Physical Exam Vital Signs Date Time Temp Pulse Resp B/P (MAP) Pulse Ox O2 Delivery O2 Flow Rate FiO2 09/07/17 16:48 97.9 86 18 123/73 95 09/07/17 16:00 84 09/07/17 15:00 90 09/07/17 14:29 98.2 83 18 113/65 93 09/07/17 14:14 98.1 81 18 117/63 95 09/07/17 14:00 80 09/07/17 13:42 98.3 83 18 117/65 95 09/07/17 13:39 97.9 81 18 117/65 95 09/07/17 13:00 82 09/07/17 12:00 82 09/07/17 11:58 82 09/07/17 10:55 98.1 81 18 106/58 (74) 98 09/07/17 10:00 94 09/07/17 09:00 88 09/07/17 08:04 97 Room Air 09/07/17 08:00 86 09/07/17 07:57 98.4 88 18 121/63 (82) 97 09/07/17 07:00 87 09/07/17 05:14 98.0 89 18 113/65 (81) 94 09/07/17 05:00 90 09/07/17 04:18 Room Air 92 09/07/17 04:03 87 09/07/17 04:00 90 09/07/17 03:00 88 09/07/17 02:00 88 09/07/17 01:00 88 09/07/17 00:28 98.6 85 18 112/60 (77) 92 09/07/17 00:00 86 09/06/17 23:00 88 09/06/17 22:00 92 09/06/17 21:00 90 09/06/17 20:00 84 09/06/17 20:00 98.0 82 18 114/65 (81) 96 09/06/17 18:00 88 09/06/17 17:00 90 Physical Exam GENERAL: This is a well-nourished, well-developed patient, in no apparent distress. SKIN: No rashes, ecchymoses or lesions. Cool and dry. HEAD: Atraumatic. Normocephalic. EYES: Extraocular motions intact. No scleral icterus. No injection or drainage. ENT: Nose without bleeding, purulent drainage. Airway patent. NECK: Trachea midline. No JVD or lymphadenopathy. CARDIOVASCULAR: Normal pulses RESPIRATORY: Nonlabored. GASTROINTESTINAL: Abdomen soft, non-tender, nondistended. MUSCULOSKELETAL: Extremities without clubbing, cyanosis, or edema. NEUROLOGICAL: Awake and alert.Motor and sensory grossly within normal limits. Normal speech. Lab results reviewed: Yes Laboratory Tests Test 09/07/17 05:50 White Blood Count 0.7 Red Blood Count 1.77 Hemoglobin 6.8 Hematocrit 18.7 Mean Corpuscular Volume 106.0 Mean Corpuscular Hemoglobin 38.4 Mean Corpuscular Hemoglobin Concent 36.2 Red Cell Distribution Width 22.5 Platelet Count 11 Mean Platelet Volume 9.1 Neutrophils (%) (Auto) 20.0 Lymphocytes (%) (Auto) 64.5 Monocytes (%) (Auto) 11.2 Eosinophils (%) (Auto) 3.2 Basophils (%) (Auto) 1.1 Neutrophils # (Auto) 0.1 Lymphocytes # (Auto) 0.4 Monocytes # (Auto) 0.1 Eosinophils # (Auto) 0.0 Basophils # (Auto) 0.0 CBC Comment AUTO DIFF Differential Total Cells Counted 100 Neutrophils % (Manual) 16 Band Neutrophils % 8 Lymphocytes % 60 Monocytes % 12 Eosinophils % 3 Neutrophils # (Manual) 0.2 Metamyelocytes 1 Differential Comment FINAL DIFF MANUAL Platelet Estimate RARE Platelet Morphology Comment NORMAL Ovalocytes 1+ Blood Urea Nitrogen 32 Creatinine 1.71 Random Glucose 101 Calcium Level 8.3 Sodium Level 140 Potassium Level 3.2 Chloride Level 104 Carbon Dioxide Level 27.6 Anion Gap 8 Estimat Glomerular Filtration Rate 39 Total Bilirubin 2.5 Direct Bilirubin 0.6 Indirect Bilirubin 1.9 Aspartate Amino Transf (AST/SGOT) 17 Alanine Aminotransferase (ALT/SGPT) 11 Alkaline Phosphatase 68 Total Protein 6.2 Albumin 2.6 Date/Time Source Procedure Growth Status 09/06/17 06:00 Stool Stool Stool Occult Blood (BETTINA) - Final HEMOCCULT NEGATIVE Complete Result Diagram: 09/07/17 0550 09/07/17 0550 Personally reviewed images: Yes Imaging Last Impressions Abdomen Ultrasound 09/06/17 0000 Signed Impressions: Service Date/Time: Wednesday, September 06, 2017 07:51 - CONCLUSION: 1. Mild to moderate right hydronephrosis with dilatation of right ureter down to the bladder. There is an ill-defined masslike structure as described which could represent the patient's known bladder tumor or postsurgical change. 2. Cirrhotic liver again noted. 3. Cholelithiasis. 4. Mild splenomegaly. 5. Bilateral pleural effusions. Shalom Souza MD Lower Extremity Ultrasound 09/05/17 0000 Signed Impressions: Service Date/Time: September 19:12 - CONCLUSION: No evidence of deep venous thrombosis within the lower extremities. Bill Lima MD Chest X-Ray 09/03/17 0906 Signed Impressions: Service Date/Time: Sunday, September 03, 2017 09:20 - CONCLUSION: Development of right basilar opacity in part representing effusion and possible underlying parenchymal consolidation. Left ventricular cardiomegaly is appreciated Fabricio Cason MD Bone Biopsy CT 09/03/17 0000 Signed Impressions: Service Date/Time: Monday, September 04, 2017 14:56 - CONCLUSION: 1. Uncomplicated CT guided bone marrow aspirate. 2. Uncomplicated CT guided bone marrow biopsy. Fantasma Albarran MD Assessment and Plan Problem List: (1) Respiratory failure ICD Code: J96.90 - Respiratory failure, unspecified, unspecified whether with hypoxia or hypercapnia (2) Thrombocytopenia ICD Code: D69.6 - Thrombocytopenia, unspecified Status: Acute (3) Bladder mass ICD Code: N32.89 - Other specified disorders of bladder Status: Acute Assessment and Plan -Patient has multiple issues ongoing at this time. -Based on history, he likely had high grade urothelial carcinoma of the bladder , however more invasive/aggressive treatment was not completed. Possibly due to his pancytopenia -At this time, I am inclined not to be aggressive as the picture of his prior bladder cancer treatments is unclear as well as his current clinical status does not allow any intervention -Discussed in great length with the patient all his options. We can followup the patient in clinic and perform cystoscopy for further evaluation and potential treatment. However, the patient voiced that he would like to return to his Urologist in [place] and he already has an appointment with him in November. -As patient does not live here and he already has had treatment for his bladder cancer in [place], I believe it is best any further intervention for this should be done back home, as he would not be able to follow-up here. At this time, there is no need for emergent intervention. -We will follow the patient up in clinic after discharge to further discuss and potentially perform surveillance cystoscopy and recommend sooner appt and return back to [place] vs possible treatment here. -Patient understands and agrees with above plan -Please call with questions Greater than 70 minutes were spent with the patient and collecting history with greater than 50% spent on patient counselling on current status and treatment options. Omar Carter MD Sep 07, 2017 16:53
[2017-09-07] MEDS ORDERED: CALCIUM CARBONATE 500 MG CHEWABLE TAB PO PRN (17:15)
[2017-09-07] MEDS: PRAVASTATIN SOD 20 MG TAB PO SCH (20:09)
[2017-09-07] MEDS ORDERED: TEMAZEPAM 7.5 MG CAP PO ONE (22:30)
[2017-09-08] VITALS (29 sets, daily range): BP systolic 116–139; BP diastolic 67–81; PULSE 78–94; RESP 16–20; TEMP 97.3–98.9; O2SAT 90–95
--- NOTE | 2017-09-08 06:54 | HHI.PR ---
Subjective Remarks The patient is sitting in the chair he appears back acute distress. Denies shortness of breath however says he is not moving much. No chest pain. Lower extremity edema improving. No fever or chills overnight. He is not coughing. No nausea or vomiting no diarrhea or constipation. He had a large bowel movement in the morning no blood in it. Objective Vitals Vital Signs Date Time Temp Pulse Resp B/P (MAP) Pulse Ox O2 Delivery O2 Flow Rate FiO2 09/08/17 05:00 80 09/08/17 04:32 94 Room Air 09/08/17 04:26 97.3 84 18 139/81 (100) 94 09/08/17 04:02 87 09/08/17 02:00 86 09/08/17 01:00 84 09/08/17 00:19 98.3 88 20 128/79 (95) 90 09/08/17 00:12 83 09/07/17 23:00 84 09/07/17 22:00 82 09/07/17 21:00 82 09/07/17 20:03 85 09/07/17 20:02 98.2 87 18 128/79 94 09/07/17 19:00 90 09/07/17 18:00 92 09/07/17 17:35 97.5 87 18 126/74 96 09/07/17 17:10 95 21 09/07/17 17:09 97.9 85 18 118/73 95 09/07/17 17:00 84 09/07/17 16:48 97.9 86 18 123/73 95 09/07/17 16:00 84 09/07/17 15:00 90 09/07/17 14:29 98.2 83 18 113/65 93 09/07/17 14:14 98.1 81 18 117/63 95 09/07/17 14:00 80 09/07/17 13:42 98.3 83 18 117/65 95 09/07/17 13:39 97.9 81 18 117/65 95 09/07/17 13:00 82 09/07/17 12:00 82 09/07/17 11:58 82 09/07/17 10:55 98.1 81 18 106/58 (74) 98 09/07/17 10:00 94 09/07/17 09:00 88 09/07/17 08:04 97 Room Air 09/07/17 08:00 86 09/07/17 07:57 98.4 88 18 121/63 (82) 97 09/07/17 07:00 87 I/O 09/07/17 09/07/17 09/07/17 09/08/17 09/08/17 09/08/17 07:00 15:00 23:00 07:00 15:00 23:00 Intake Total 100 ml 318 ml 2000 ml 360 ml Output Total 225 ml 400 ml 800 ml Balance -125 ml 318 ml 1600 ml -440 ml Intake Oral 1200 ml 360 ml IV Total 100 ml 100 ml Packed Cells 800 ml Platelets 218 ml Output Urine Total 225 ml 400 ml 800 ml # Voids 2 Result Diagram: 09/07/17 0550 09/07/17 0550 Imaging Last Impressions Abdomen Ultrasound 09/06/17 0000 Signed Impressions: Service Date/Time: Wednesday, September 06, 2017 07:51 - CONCLUSION: 1. Mild to moderate right hydronephrosis with dilatation of right ureter down to the bladder. There is an ill-defined masslike structure as described which could represent the patient's known bladder tumor or postsurgical change. 2. Cirrhotic liver again noted. 3. Cholelithiasis. 4. Mild splenomegaly. 5. Bilateral pleural effusions. Shalom Souza MD Lower Extremity Ultrasound 09/05/17 0000 Signed Impressions: Service Date/Time: September 19:12 - CONCLUSION: No evidence of deep venous thrombosis within the lower extremities. Bill Lima MD Chest X-Ray 09/03/17 0906 Signed Impressions: Service Date/Time: Sunday, September 03, 2017 09:20 - CONCLUSION: Development of right basilar opacity in part representing effusion and possible underlying parenchymal consolidation. Left ventricular cardiomegaly is appreciated Fabricio Cason MD Bone Biopsy CT 09/03/17 0000 Signed Impressions: Service Date/Time: Monday, September 04, 2017 14:56 - CONCLUSION: 1. Uncomplicated CT guided bone marrow aspirate. 2. Uncomplicated CT guided bone marrow biopsy. Fantasma Albarran MD Objective Remarks GENERAL: This is a well-nourished, well-developed patient, in no apparent distress. SKIN: small scab wound in the left lower leg laterally, no drainage. CARDIOVASCULAR: Regular rate and rhythm without murmurs, gallops, or rubs. RESPIRATORY: Diminished breath sounds at the right base and midlung field. No wheezing or rhonchi. The rest of the lung rossi are grossly clear. GASTROINTESTINAL: Abdomen soft, non-tender, nondistended. No hepato-splenomegaly , or palpable masses. No guarding. MUSCULOSKELETAL: Extremities without clubbing, cyanosis. LE edema improved. No joint tenderness, effusion, or edema noted. No calf tenderness. Negative Homans sign bilaterally. NEUROLOGICAL: Awake and alert. Cranial nerves II through XII intact. Motor and sensory grossly within normal limits. Five out of 5 muscle strength in all muscle groups. Normal speech. Procedures IR consulted s/p BMBX 09/04/17 A/P Problem List: (1) Respiratory failure ICD Code: J96.90 - Respiratory failure, unspecified, unspecified whether with hypoxia or hypercapnia (2) Pancytopenia ICD Code: D61.818 - Other pancytopenia Status: Chronic (3) Pleural effusion ICD Code: J90 - Pleural effusion, not elsewhere classified Status: Acute (4) Thrombocytopenia ICD Code: D69.6 - Thrombocytopenia, unspecified Status: Acute (5) Hypertension ICD Code: I10 - Essential (primary) hypertension Status: Acute (6) Acute CHF (congestive heart failure) ICD Code: I50.9 - Heart failure, unspecified (7) Symptomatic anemia ICD Code: D64.9 - Anemia, unspecified Assessment and Plan 76-year-old male admitted with acute respiratory failure secondary to CHF, pleural effusion, and symptomatic anemia. Respiratory failure secondary to Acute CHF/pleural effusion/possible pneumonia: Chest x-ray personally reviewed which showed right pleural effusion, underlying consolidation is also a possibility. Left ventricular hypertrophy noted. - Continue Lasix 40 mg IV twice a day - 2-D echocardiogram reviewed patient with congestive heart failure with ejection fraction 30% - Continue empiric antibiotics with Rocephin and azithromycin. Consider holding off antibiotics based on his response Acute CHF: Unknown type. No history of CHF. Increasing bilateral lower extremity edema and right pleural effusion. BNP on admission 1200. EKG shows some inferior wall ischemia but it is unclear if this is new. He did report a history of previous MT. Currently not expressing any chest pain. Cardiac enzymes negative. - IV Lasix as above. 2-D echocardiogram 30% - Continue to monitor on telemetry. - Strict I/O - Resume valsartan. - DC amlodipine. Add coreg and lisinopril - Consult cardiology, can;t do cardiac cath as patient with thrombocytopenia, continue medical management Symptomatic anemia/pancytopenia: - Patient reports he has been taking Neupogen weekly under the guidance of his doctors in [place]. Not sure of his diagnosis. - Consult hematology for assistance. Planned for FISH and flow cytometry, IR consulted s/p BMBX 09/04/17. Start Neupogen 09/05/17 - Multiple Blood transfusions - Continue to monitor CBC - Obtain Hemoccult stool. Consider GI consult. Per patient last panendoscopy was about 8 months ago, doesn't know the results. - Transfuse 2U PRBC and 1U PLT 09/07/17, H/H improved , PLT imprpved after transfusion. However still neutropenic - US abd reviewed Acute kidney injury: Patient with a know h/o bladder CA and surgery in the past - Likely secondary to anemia and heart failure as above. - Treat anemia and heart failure. - Follow-up BMP in a.m. - US abd reviewed as above Left leg lateral wound appears healing ,scab. Will obtain cultures if poss. Consult wound care GI prophylaxis: Stool softener PRN constipation. DVT PPx: Pharmacologic contraindication due to thrombocytopenia/anemia Discussed Condition With patient, nurse, [facility]ODRUFF oncology DC plan: Discharge when cleared by oncology. Patient still with pancytopenia and severely neutropenic. Carola Ponce MD Sep 08, 2017 06:54
[2017-09-08] MEDS: INSULIN ASPART SUPPLEMENTAL SCALE SQ SCH ×4 (08:00→20:51)
[2017-09-08 08:07] LABS: AUTOMATED NEUTROPHIL # 0.3 TH/MM3 (1.8-7.7); BASOPHIL % 0.8 % (0.0-2.0); EOSINOPHIL % 2.6 % (0.0-4.0); HEMATOCRIT 23.6 % (39.0-51.0); HEMOGLOBIN 8.5 GM/DL (13.0-17.0); LYMPH % 60.9 % (9.0-44.0); LYMPHOCYTE # 0.6 TH/MM3 (1.0-4.8); MEAN CELL VOLUME 102.5 FL (80.0-100.0); MEAN PLATELET VOLUME 8.3 FL (7.0-11.0); MONO % 8.6 % (0.0-8.0); MONOCYTE # 0.1 TH/MM3 (0-0.9); NEUT % 27.1 % (16.0-70.0); RED CELL DISTRIBUTION WIDTH 23.5 % (11.6-17.2)
[2017-09-08 08:19] LABS: MEAN CORPUSCULAR HGB CONC 36.1 % (32.0-36.0)
[2017-09-08 08:21] LABS: PLATELET COUNT 17 TH/MM3 (150-450)
[2017-09-08 08:26] LABS: ALBUMIN 2.9 GM/DL (3.4-5.0); ALT (GPT) 14 U/L (12-78); AST (GOT) 18 U/L (15-37); BICARBONATE 28.3 MEQ/L (21.0-32.0); BLOOD UREA NITROGEN 30 MG/DL (7-18); CALCIUM 8.1 MG/DL (8.5-10.1); CHLORIDE 105 MEQ/L (98-107); CREATININE 1.65 MG/DL (0.60-1.30); GLOMERULAR FILTRATION RATE 41 ML/MIN (>89); GLUCOSE,RANDOM 106 MG/DL (74-106); SODIUM (NA) 142 MEQ/L (136-145)
[2017-09-08 08:28] LABS: ALKALINE PHOSPHATASE 73 U/L (45-117); TOTAL BILIRUBIN ADULT 3.5 MG/DL (0.2-1.0); TOTAL PROTEIN 6.7 GM/DL (6.4-8.2)
[2017-09-08] MEDS: SODIUM CHLORIDE 0.9% FLUSH 10 ML FLUSH IV FLUSH SCH ×2 (09:03→20:51)
[2017-09-08] MEDS: AZITHROMYCIN 250 MG TAB PO SCH (09:03)
[2017-09-08] MEDS: CARVEDILOL 3.125 MG TAB PO SCH ×2 (09:03→20:51)
[2017-09-08] MEDS: FUROSEMIDE 20 MG TAB PO SCH (09:03)
[2017-09-08 10:11] LABS: BANDS 15 % (0-6); BASOPHILS 1 % (0-2); LYMPHOCYTES 64 % (9-44); MONOCYTES 7 % (0-8); NEUTROPHIL # MANUAL DIFF 0.3 TH/MM3 (1.8-7.7); POLYS (SEG NEUTROPHILS) 13 % (16-70)
[2017-09-08 10:12] LABS: DOHLE BODIES PRESENT (NONE SEEN); OVALOCYTES 1+ (NORMAL)
--- NOTE | 2017-09-08 11:07 | PD.ONC.PN ---
Subjective Subjective Remarks Afebrile overnight. Patient resting in bed. States his left ankle feels better today. No complaints. Wants to go home. Objective Data Date Time Temp Pulse Resp B/P (MAP) Pulse Ox O2 Delivery O2 Flow Rate FiO2 09/08/17 10:50 21 09/08/17 10:00 86 09/08/17 09:00 88 09/08/17 08:00 86 09/08/17 07:47 93 Room Air 09/08/17 07:40 98.1 85 18 130/74 (92) 93 09/08/17 07:00 85 09/08/17 05:00 80 09/08/17 04:32 94 Room Air 09/08/17 04:26 97.3 84 18 139/81 (100) 94 09/08/17 04:02 87 09/08/17 02:00 86 09/08/17 01:00 84 09/08/17 00:19 98.3 88 20 128/79 (95) 90 09/08/17 00:12 83 09/07/17 23:00 84 09/07/17 22:00 82 09/07/17 21:00 82 09/07/17 20:03 85 09/07/17 20:02 98.2 87 18 128/79 94 09/07/17 19:00 90 09/07/17 18:00 92 09/07/17 17:35 97.5 87 18 126/74 96 09/07/17 17:10 95 21 09/07/17 17:09 97.9 85 18 118/73 95 09/07/17 17:00 84 09/07/17 16:48 97.9 86 18 123/73 95 18 16:00 84 09/07/17 15:00 90 09/07/17 14:29 98.2 83 18 113/65 93 09/07/17 14:14 98.1 81 18 117/63 95 09/07/17 14:00 80 09/07/17 13:42 98.3 83 18 117/65 95 09/07/17 13:39 97.9 81 18 117/65 95 09/07/17 13:00 82 09/07/17 12:00 82 09/07/17 11:58 82 09/08/17 09/08/17 09/08/17 07:00 15:00 23:00 Intake Total 360 ml Output Total 800 ml 500 ml Balance -440 ml -500 ml Result Diagram: 09/08/1718 09/08/17 0718 Laboratory Results Laboratory Tests Test 09/08/17 07:18 White Blood Count 1.0 TH/MM3 Red Blood Count 2.30 MIL/MM3 Hemoglobin 8.5 GM/DL Hematocrit 23.6 % Mean Corpuscular Volume 102.5 FL Mean Corpuscular Hemoglobin 37.0 PG Mean Corpuscular Hemoglobin Concent 36.1 % Red Cell Distribution Width 23.5 % Platelet Count 17 TH/MM3 Mean Platelet Volume 8.3 FL Neutrophils (%) (Auto) 27.1 % Lymphocytes (%) (Auto) 60.9 % Monocytes (%) (Auto) 8.6 % Eosinophils (%) (Auto) 2.6 % Basophils (%) (Auto) 0.8 % Neutrophils # (Auto) 0.3 TH/MM3 Lymphocytes # (Auto) 0.6 TH/MM3 Monocytes # (Auto) 0.1 TH/MM3 Eosinophils # (Auto) 0.0 TH/MM3 Basophils # (Auto) 0.0 TH/MM3 CBC Comment AUTO DIFF Differential Total Cells Counted 75 Neutrophils % (Manual) 13 % Band Neutrophils % 15 % Lymphocytes % 64 % Monocytes % 7 % Basophils % 1 % Neutrophils # (Manual) 0.3 TH/MM3 Differential Comment FINAL DIFF MANUAL Dohle Bodies PRESENT Platelet Estimate RARE Platelet Morphology Comment ENLARGED Ovalocytes 1+ Blood Urea Nitrogen 30 MG/DL Creatinine 1.65 MG/DL Random Glucose 106 MG/DL Total Protein 6.7 GM/DL Albumin 2.9 GM/DL Calcium Level 8.1 MG/DL Alkaline Phosphatase 73 U/L Aspartate Amino Transf (AST/SGOT) 18 U/L Alanine Aminotransferase (ALT/SGPT) 14 U/L Total Bilirubin 3.5 MG/DL Sodium Level 142 MEQ/L Potassium Level 3.4 MEQ/L Chloride Level 105 MEQ/L Carbon Dioxide Level 28.3 MEQ/L Anion Gap 9 MEQ/L Estimat Glomerular Filtration Rate 41 ML/MIN Culture Results Microbiology Date/Time Source Procedure Growth Status 09/06/17 06:00 Stool Stool Stool Occult Blood (BETTINA) - Final HEMOCCULT NEGATIVE Complete Administered Medications Medications (Trade) Dose Ordered Sig/Emily Route PRN Reason Start Time Stop Time Status Last Admin Dose Admin Sodium Chloride (NS Flush) 2 ml UNSCH PRN IV FLUSH FLUSH AFTER USING IV ACCESS 09/03/17 11:45 09/04/17 18:29 Sodium Chloride (NS Flush) 2 ml BID IV FLUSH 09/03/17 21:00 09/08/17 09:03 Acetaminophen (Tylenol) 650 mg Q4H PRN PO TEMP > 100.4 09/03/17 11:45 09/06/17 11:53 Magnesium Hydroxide (Milk Of Sachin Danielson) 30 ml Q12H PRN PO Mild constipation 09/03/17 11:45 09/05/17 21:24 Cefepime HCl 1000 mg/Sodium Chloride 100 ml @ 200 mls/hr Q12H IV 09/03/17 23:00 09/07/17 22:36 Azithromycin (Zithromax) 500 mg DAILY PO 09/04/17 09:00 09/08/17 09:03 Pravastatin Sodium (Pravachol) 20 mg HS PO 09/03/17 21:00 09/07/17 20:09 Insulin Aspart (NovoLOG SUPPLEMENTAL SCALE) 1 ACHS SLIDING SCALE SQ 09/03/17 12:00 09/07/17 22:36 Carvedilol (Coreg) 3.125 mg Q12HR PO 09/03/17 21:00 09/08/17 09:03 Filgrastim 480 mcg/Dextrose 51.6 ml @ 100 mls/hr DAILY@14 IV 09/04/17 23:30 09/07/17 13:00 Furosemide (Lasix) 20 mg DAILY PO 09/07/17 09:00 09/08/17 09:03 Objective Remarks GENERAL: Pleasant male, upright in bed in nad. appears comfortable and well and in nad. SKIN: Warm and dry. 3mm blister dorsum of left ankle, appears to fading/drying out. minimal surrounding inflammation, but no erythema. HEAD: Normocephalic. EYES: No injection or drainage. NECK: Supple, trachea midline. CARDIOVASCULAR: Regular rate and rhythm RESPIRATORY: Breath sounds equal bilaterally. No accessory muscle use. GASTROINTESTINAL: Abdomen soft, non-tender, nondistended. EXTREMITIES: No cyanosis NEUROLOGICAL: awake and alert, normal speech. Assessment/Plan Problem List: (1) Pancytopenia ICD Codes: D61.818 - Other pancytopenia Status: Chronic Plan: --h/o anemia, sees manager banquet in [place] and apparently receives Epogen injections --s/p bone marrow biopsy (2) Bladder mass ICD Codes: N32.89 - Other specified disorders of bladder Status: Acute Plan: --s/p TURBT (3) Alcoholic liver disease ICD Codes: K70.9 - Alcoholic liver disease, unspecified Plan: --causing the Haptoglobin to be low. bili elevated --abdominal U/S shows cirrhotic liver and mild splenomegaly Assessment 76y/o male with pancytopenia. history of anemia and possibly underlying MDS, history of hypertension, diabetes , hyperlipidemia, coronary artery disease and liver disease and Alcoholism --from [place] Plan 1. continue antibiotics. 2. continue supportive care 3. monitor blood counts, no transfusion needed at present. Attending Statement The exam, history, and the medical decision-making described in the above note were completed with the assistance of the mid-level provider. I reviewed and agree with the findings presented. I attest that I had a [id number] encounter with the patient on the same day, and personally performed and documented my assessment and findings in the medical record. Ambulating in the room with no problems. Offers no c/o Less swelling of lower legs await BM bx report. wants to go home. Ok to d/c from our stand point. Yumiko Bellamy Sep 08, 2017 11:07 Haile Chan MD Sep 08, 2017 15:47
[2017-09-08] MEDS: CEFEPIME INJ 1,000 MG in SODIUM CHLORIDE 0.9% INJ 100 ML IV SCH ×2 (11:20→23:22)
[2017-09-08] MEDS: FILGRASTIM INJ 480 MCG in DEXTROSE 5% IN WATER INJ 50 ML IV SCH ×2 (13:24)
[2017-09-08] MEDS: PRAVASTATIN SOD 20 MG TAB PO SCH (20:51)
[2017-09-09] VITALS (11 sets, daily range): BP systolic 134–136; BP diastolic 75–76; PULSE 80–87; RESP 18; TEMP 98.2–98.3; O2SAT 94–96
[2017-09-09] MEDS: CARVEDILOL 3.125 MG TAB PO SCH (07:32)
[2017-09-09] MEDS: INSULIN ASPART SUPPLEMENTAL SCALE SQ SCH ×2 (07:32→12:00)
[2017-09-09] MEDS: FUROSEMIDE 20 MG TAB PO SCH (07:33)
[2017-09-09] MEDS: SODIUM CHLORIDE 0.9% FLUSH 10 ML FLUSH IV FLUSH SCH (07:33)
[2017-09-09] MEDS: AZITHROMYCIN 250 MG TAB PO SCH (07:33)
[2017-09-09 08:06] LABS: AUTOMATED NEUTROPHIL # 0.7 TH/MM3 (1.8-7.7); BASOPHIL % 0.8 % (0.0-2.0); EOSINOPHIL % 2.2 % (0.0-4.0); HEMATOCRIT 25.6 % (39.0-51.0); HEMOGLOBIN 9.2 GM/DL (13.0-17.0); LYMPH % 46.4 % (9.0-44.0); LYMPHOCYTE # 0.7 TH/MM3 (1.0-4.8); MEAN CORPUSCULAR HEMOGLOBIN 36.5 PG (27.0-34.0); MEAN CORPUSCULAR HGB CONC 35.8 % (32.0-36.0); MEAN PLATELET VOLUME 8.7 FL (7.0-11.0); MONO % 5.3 % (0.0-8.0); MONOCYTE # 0.1 TH/MM3 (0-0.9); NEUT % 45.3 % (16.0-70.0); RED BLOOD COUNT 2.51 MIL/MM3 (4.50-5.90); RED CELL DISTRIBUTION WIDTH 23.2 % (11.6-17.2); WHITE BLOOD COUNT 1.5 TH/MM3 (4.0-11.0)
[2017-09-09 08:15] LABS: PLATELET COUNT 15 TH/MM3 (150-450)
[2017-09-09 08:29] LABS: ALT (GPT) 10 U/L (12-78); AST (GOT) 21 U/L (15-37); BICARBONATE 26.7 MEQ/L (21.0-32.0); BLOOD UREA NITROGEN 31 MG/DL (7-18); CALCIUM 8.4 MG/DL (8.5-10.1); CHLORIDE 105 MEQ/L (98-107); GLOMERULAR FILTRATION RATE 46 ML/MIN (>89); GLUCOSE,RANDOM 104 MG/DL (74-106); SODIUM (NA) 140 MEQ/L (136-145)
[2017-09-09 08:31] LABS: ALKALINE PHOSPHATASE 79 U/L (45-117); TOTAL BILIRUBIN ADULT 2.9 MG/DL (0.2-1.0); TOTAL PROTEIN 7.1 GM/DL (6.4-8.2)
[2017-09-09] MEDS ORDERED: CARV3.125 PO (09:03)
[2017-09-09] MEDS ORDERED: FURO20TA PO (09:03)
--- NOTE | 2017-09-09 09:06 | HHI.DS ---
Discharge Summary Admission Date Sep 03, 2017 at 11:35 Discharge Date: Sep 09, 2017 Admitting Diagnosis Pleural effusion, neutropenia, pneumonia (1) Respiratory failure ICD Code: J96.90 - Respiratory failure, unspecified, unspecified whether with hypoxia or hypercapnia (2) Pancytopenia ICD Code: D61.818 - Other pancytopenia Status: Chronic (3) Pleural effusion ICD Code: J90 - Pleural effusion, not elsewhere classified Status: Acute (4) Thrombocytopenia ICD Code: D69.6 - Thrombocytopenia, unspecified Status: Acute (5) Hypertension ICD Code: I10 - Essential (primary) hypertension Status: Acute (6) Acute CHF (congestive heart failure) ICD Code: I50.9 - Heart failure, unspecified (7) Symptomatic anemia ICD Code: D64.9 - Anemia, unspecified Procedures IR consulted s/p BMBX 09/04/17 Brief History - From Admission 76-year-old male with a medical history significant for diabetes, alcoholic liver cirrhosis, pancytopenia, bladder tumor resection presented to the hospital with complaint of shortness of breath that has been ongoing for the past 2 weeks. Patient reports his symptoms has been persisting which prompted the emergency room visit. He also reports increasing bilateral lower extremity swelling. He reports worsening shortness of breath with minimal activity. He denies any chest pressure or pain. He reports a history of a "mild heart attack " over 40 years ago. He has been on a baby aspirin. He denies any history of heart failure. Workup in the emergency room revealed severe anemia with a hemoglobin of 6.1. He is also neutropenic and his platelets only 17. The patient reports a chronic history of pancytopenia. He reports he has been taking Neupogen weekly to help with his blood counts. He reports about 3 weeks ago, he had some episodes of dark stool but that resolved on its own. He states they made some changes in his medications in [place] and he hasn't had any further issues with melena. He is unable to tell me which medications were changed. CBC/BMP: 09/09/17 0730 09/09/17 0730 Significant Findings Laboratory Tests Test 09/07/17 05:50 2/4/18 07:18 09/09/17 07:30 White Blood Count 0.7 TH/MM3 (4.0-11.0) 1.0 TH/MM3 (4.0-11.0) 1.5 TH/MM3 (4.0-11.0) Red Blood Count 1.77 MIL/MM3 (4.50-5.90) 2.30 MIL/MM3 (4.50-5.90) 2.51 MIL/MM3 (4.50-5.90) Hemoglobin 6.8 GM/DL (13.0-17.0) 8.5 GM/DL (13.0-17.0) 9.2 GM/DL (13.0-17.0) Hematocrit 18.7 % (39.0-51.0) 23.6 % (39.0-51.0) 25.6 % (39.0-51.0) Mean Corpuscular Volume 106.0 FL (80.0-100.0) 102.5 FL (80.0-100.0) 102.0 FL (80.0-100.0) Mean Corpuscular Hemoglobin 38.4 PG (27.0-34.0) 37.0 PG (27.0-34.0) 36.5 PG (27.0-34.0) Mean Corpuscular Hemoglobin Concent 36.2 % (32.0-36.0) 36.1 % (32.0-36.0) Red Cell Distribution Width 22.5 % (11.6-17.2) 23.5 % (11.6-17.2) 23.2 % (11.6-17.2) Platelet Count 11 TH/MM3 (150-450) 17 TH/MM3 (150-450) 15 TH/MM3 (150-450) Lymphocytes (%) (Auto) 64.5 % (9.0-44.0) 60.9 % (9.0-44.0) 46.4 % (9.0-44.0) Monocytes (%) (Auto) 11.2 % (0.0-8.0) 8.6 % (0.0-8.0) Neutrophils # (Auto) 0.1 TH/MM3 (1.8-7.7) 0.3 TH/MM3 (1.8-7.7) 0.7 TH/MM3 (1.8-7.7) Lymphocytes # (Auto) 0.4 TH/MM3 (1.0-4.8) 0.6 TH/MM3 (1.0-4.8) 0.7 TH/MM3 (1.0-4.8) Band Neutrophils % 8 % (0-6) 15 % (0-6) Lymphocytes % 60 % (9-44) 64 % (9-44) Monocytes % 12 % (0-8) Neutrophils # (Manual) 0.2 TH/MM3 (1.8-7.7) 0.3 TH/MM3 (1.8-7.7) Platelet Estimate RARE (NORMAL) RARE (NORMAL) Ovalocytes 1+ (NORMAL) 1+ (NORMAL) Blood Urea Nitrogen 32 MG/DL (7-18) 30 MG/DL (7-18) 31 MG/DL (7-18) Creatinine 1.71 MG/DL (0.60-1.30) 1.65 MG/DL (0.60-1.30) 1.50 MG/DL (0.60-1.30) Calcium Level 8.3 MG/DL (8.5-10.1) 8.1 MG/DL (8.5-10.1) 8.4 MG/DL (8.5-10.1) Potassium Level 3.2 MEQ/L (3.5-5.1) 3.4 MEQ/L (3.5-5.1) Estimat Glomerular Filtration Rate 39 ML/MIN (>89) 41 ML/MIN (>89) 46 ML/MIN (>89) Total Bilirubin 2.5 MG/DL (0.2-1.0) 3.5 MG/DL (0.2-1.0) 2.9 MG/DL (0.2-1.0) Direct Bilirubin 0.6 MG/DL (0.0-0.2) Indirect Bilirubin 1.9 MG/DL (0.0-0.8) Alanine Aminotransferase (ALT/SGPT) 11 U/L (12-78) 10 U/L (12-78) Total Protein 6.2 GM/DL (6.4-8.2) Albumin 2.6 GM/DL (3.4-5.0) 2.9 GM/DL (3.4-5.0) 3.0 GM/DL (3.4-5.0) Neutrophils % (Manual) 13 % (16-70) Dohle Bodies PRESENT (NONE SEEN) Platelet Morphology Comment ENLARGED (NORMAL) Imaging Last Impressions Abdomen Ultrasound 09/06/17 0000 Signed Impressions: Service Date/Time: Wednesday, September 06, 2017 07:51 - CONCLUSION: 1. Mild to moderate right hydronephrosis with dilatation of right ureter down to the bladder. There is an ill-defined masslike structure as described which could represent the patient's known bladder tumor or postsurgical change. 2. Cirrhotic liver again noted. 3. Cholelithiasis. 4. Mild splenomegaly. 5. Bilateral pleural effusions. Shalom Souza MD Lower Extremity Ultrasound 09/05/17 0000 Signed Impressions: Service Date/Time: September 19:12 - CONCLUSION: No evidence of deep venous thrombosis within the lower extremities. Bill Lima MD Chest X-Ray 09/03/17 0906 Signed Impressions: Service Date/Time: Sunday, September 03, 2017 09:20 - CONCLUSION: Development of right basilar opacity in part representing effusion and possible underlying parenchymal consolidation. Left ventricular cardiomegaly is appreciated Fabricio Cason MD Bone Biopsy CT 09/03/17 0000 Signed Impressions: Service Date/Time: Monday, September 04, 2017 14:56 - CONCLUSION: 1. Uncomplicated CT guided bone marrow aspirate. 2. Uncomplicated CT guided bone marrow biopsy. Fantasma Albarran MD PE at Discharge GENERAL: This is a well-nourished, well-developed patient, in no apparent distress. SKIN: small scab wound in the left lower leg laterally, no drainage. CARDIOVASCULAR: Regular rate and rhythm without murmurs, gallops, or rubs. RESPIRATORY: Diminished breath sounds at the right base and midlung field. No wheezing or rhonchi. The rest of the lung rossi are grossly clear. GASTROINTESTINAL: Abdomen soft, non-tender, nondistended. No hepato-splenomegaly , or palpable masses. No guarding. MUSCULOSKELETAL: Extremities without clubbing, cyanosis. LE edema improved. No joint tenderness, effusion, or edema noted. No calf tenderness. Negative Homans sign bilaterally. NEUROLOGICAL: Awake and alert. Cranial nerves II through XII intact. Motor and sensory grossly within normal limits. Five out of 5 muscle strength in all muscle groups. Normal speech. Hospital Course 76-year-old male admitted with acute respiratory failure secondary to CHF, pleural effusion, and symptomatic anemia. Respiratory failure secondary to Acute CHF/pleural effusion/possible pneumonia: Chest x-ray personally reviewed which showed right pleural effusion, underlying consolidation is also a possibility. Left ventricular hypertrophy noted. - Continue Lasix 40 mg IV twice a day - 2-D echocardiogram reviewed patient with congestive heart failure with ejection fraction 30% - Continue empiric antibiotics with Rocephin and azithromycin. Consider holding off antibiotics based on his response Acute CHF: Unknown type. No history of CHF. Increasing bilateral lower extremity edema and right pleural effusion. BNP on admission 1200. EKG shows some inferior wall ischemia but it is unclear if this is new. He did report a history of previous [place]. Currently not expressing any chest pain. Cardiac enzymes negative. - IV Lasix as above. 2-D echocardiogram 30% - Continue to monitor on telemetry. - Strict I/O - Resume valsartan. - DC amlodipine. Add coreg and lisinopril - Consult cardiology, can;t do cardiac cath as patient with thrombocytopenia, continue medical management Symptomatic anemia/pancytopenia: - Patient reports he has been taking Neupogen weekly under the guidance of his doctors in [place]. Not sure of his diagnosis. - Consult hematology for assistance. Planned for FISH and flow cytometry, IR consulted s/p BMBX 09/04/17. Start Neupogen 09/05/17 - Multiple Blood transfusions - Continue to monitor CBC - Obtain Hemoccult stool. Consider GI consult. Per patient last panendoscopy was about 8 months ago, doesn't know the results. - Transfuse 2U PRBC and 1U PLT 09/07/17. H/H improved , PLT improved after transfusion. ANC> 0.5 - US abd reviewed Acute kidney injury: Patient with a know h/o bladder CA and surgery in the past - Likely secondary to anemia and heart failure as above. - Treat anemia and heart failure. - Follow-up BMP in a.m. - US abd reviewed as above Left leg lateral wound appears healing ,scab. Healing well. GI prophylaxis: Stool softener PRN constipation. DVT PPx: Pharmacologic contraindication due to thrombocytopenia/anemia Cleared by oncology for DC to follow up as OP. Patient improved. Passed O2 walking test and no need for O2 at home. DC home in stable condition to follow up as OP with PcP and consultants Pt Condition on Discharge: Stable Discharge Disposition: Discharge Home Discharge Time: > 30 minutes Discharge Instructions DIET: Follow Instructions for: Heart Healthy Diet Activities you can perform: Regular-No Restrictions Follow up Referrals: Cardiology - 2 Weeks with Ervin Ray MD Oncology - 2-3 Days with Gabriel Darden MD PCP Follow-up - 2-3 Days New Medications: Carvedilol (Coreg) 3.125 Mg Tab 3.125 MG PO Q12HR for Blood Pressure Management, #60 TAB Furosemide (Furosemide) 20 Mg Tab 20 MG PO DAILY for Blood Pressure Management, #30 TAB Continued Medications: Metformin ER (Metformin ER) 750 Mg Leonila 750 MG PO BID for Blood Sugar Management, TAB 0 Refills With evening meal Simvastatin (Zocor) 10 Mg Tab 10 MG PO HS for Cholesterol Management, TAB 0 Refills Walker with Front Wheels (Walker with Front Wheels) 1 Mis Mis 1 EA .ROUTE DIRECTED, #1 EA 0 Refills Wheelchair (Wheelchair) 1 Mis Mis 1 EA .ROUTE DIRECTED, #1 EA 0 Refills Discontinued Medications: Amlodipine (Norvasc) 5 Mg Tab 5 MG PO BID, #60 TAB 0 Refills Carola Ponce MD Sep 09, 2017 09:06
[2017-09-09 09:17] LABS: BANDS 22 % (0-6); LYMPHOCYTES 50 % (9-44); METAMYELOCYTES 1 % (0-1); MONOCYTES 4 % (0-8); NEUTROPHIL # MANUAL DIFF 0.7 TH/MM3 (1.8-7.7); OVALOCYTES 2+ (NORMAL); POLYS (SEG NEUTROPHILS) 22 % (16-70)
[2017-09-09 09:18] LABS: DOHLE BODIES PRESENT (NONE SEEN); TOXIC GRANULATION 2+ (NORMAL)
--- NOTE | 2017-09-09 09:59 | HHI.FF ---
Face to Face Verification Diagnosis: (1) Cirrhosis (2) Neutropenia (3) Diabetes (4) Thrombocytopenia (5) Respiratory failure (6) Acute CHF (congestive heart failure) (7) Pancytopenia (8) Bladder mass (9) Lung nodule (10) Cardiomyopathy Physical Therapy Order: Evaluate and Treat Occupational Therapy Order: Evaluate and Treat Home Health Nursing Order: Medical education Signs/symptoms of disease process Diabetic education CHF education Medication education-adverse effect Nursing assessment with vital signs I have seen patient Dylan Ortiz on 09/09/17. My clinical findings support the need for the requested home health care services because: Ltd mobility - disease progression Patient has SOB I certify that my clinical findings support that this patient is homebound because: Post-op weakness Carola Ponce MD Sep 09, 2017 09:59
[2017-09-09] MEDS: CEFEPIME INJ 1,000 MG in SODIUM CHLORIDE 0.9% INJ 100 ML IV SCH (11:00)
--- NOTE | 2017-09-09 13:48 | PD.WCN.NOT ---
Wound Consult Description: Wound consult ordered by for left leg Additional Information: Patient was discharged prior to writers arrival. Chin[facility] Ag [facility] Sep 09, 2017 13:48
== END 2017-09-09 13:16 | disposition home health service (06) | DRG 808 ==
LOC: NEPE 08:30 → NEDA 11:35 → NEDH 17:50 → HCIN 22:31
PROVIDERS: ADMIT Hospitalist; ATTEND Hospitalist
PROC: 30233N1 Transfusion of Nonautologous Red Blood Cells into Peripheral Vein, Percutaneous Approach (ICD-10-PCS; 2017-09-03)
PROC: 07DR3ZX Extraction of Iliac Bone Marrow, Percutaneous Approach, Diagnostic (ICD-10-PCS; 2017-09-04)
PROC: 30233R1 Transfusion of Nonautologous Platelets into Peripheral Vein, Percutaneous Approach (ICD-10-PCS; principal; 2017-09-06)
DX: D61.818 Other pancytopenia (principal); J96.00 Acute respiratory failure, unspecified whether with hypoxia or hypercapnia; I47.2 Ventricular tachycardia; I11.0 Hypertensive heart disease with heart failure; I50.21 Acute systolic (congestive) heart failure; N17.9 Acute kidney failure, unspecified; I42.9 Cardiomyopathy, unspecified; K70.30 Alcoholic cirrhosis of liver without ascites; E11.9 Type 2 diabetes mellitus without complications; Z79.84 Long term (current) use of oral hypoglycemic drugs; Z85.51 Personal history of malignant neoplasm of bladder; E78.5 Hyperlipidemia, unspecified; I25.10 Atherosclerotic heart disease of native coronary artery without angina pectoris; I25.2 Old myocardial infarction; S81.802A Unspecified open wound, left lower leg, initial encounter; X58.XXXA Exposure to other specified factors, initial encounter; Z96.653 Presence of artificial knee joint, bilateral; Z87.891 Personal history of nicotine dependence
CPT/HCPCS: 36430; 38221; 71045; 76700; 77012; 80048; 80053; 80076; 81001; 82272; 82607; 82747; 82948; 83010; 83036; 83615; 83735; 83880; 84484; 85007; 85027; 85044; 85060; 85097; 85610; 85730; 86703; 86705; 86803; 86850; 86880; 86900; 86901; 86920; 87340; 88184; 88185; 88237; 88264; 88280; 88305; 88311; 88313; 88341; 93005; 93306; 93970; 94618; 96374; 96375; 99152; 99153; C1830; J0456; J0692; J1442; J1815; J1940; J2250; J3010; J3370; J7050; P9016; P9035